=== PATIENT | female | born 1955 | race Caucasian/White ===

== ENCOUNTER 2016-09-20 09:07 | Inpatient (IN) | payer MEDICARE, OTHER ==
[2016-09-20] MEDS ORDERED: SODIUM CHLORIDE 0.9% 1,000 ML IV STA ×2 (09:42)
[2016-09-20] MEDS ORDERED: HYDROmorphone 1 MG/ML 1 ML SYRINGE IVP STA (09:42)
[2016-09-20] MEDS ORDERED: ONDANSETRON 4 MG/2 ML VIAL IVP STA (09:42)
--- NOTE | 2016-09-20 09:45 | ED ---
General Adult HPI - General Chief complaint: Abdominal Pain Stated complaint: POSS PANCREAS ISSUE Time Seen by Provider: 09/20/16 09:34 Source: patient, RN notes reviewed, old records reviewed Mode of arrival: wheelchair Limitations: no limitations - History of Present Illness Initial comments: Patient is a 60-year-old female who presents emergency room today with a chief complaint of abdominal pain 2 months. She does admit that symptoms are worse when she eats. She is expressing pain in the upper quadrants radiates around to the back. She does admit that she went to [facility] in [place], [place] earlier in the week had a CAT scan obtained which showed a enlargement of her liver, spleen, pancreas. She states she was discharged advised follow- up the family doctor. States she saw her doctor yesterday who advised come here to [facility] for possible admission for a pancreatitis. Patient currently rates her pain 9/10 located in the upper abdomen. Does admit that she's had a 12 pound weight loss over the last several months. States symptoms started several months ago with symptoms of nausea vomiting diarrhea. States no longer having diarrhea or vomiting but still feeling nauseated. Patient denies any other complaints. Patient denies any recent fever, chills, shortness of breath, chest pain, back pain, numbness or tingling, dysuria or hematuria, constipation, headaches or visual changes, or any other complaints. - Related Data Home Medications Medication Instructions Recorded Confirmed Hydrochlorothiazide 12.5 mg PO DAILY 06/12/16 09/20/16 Ibuprofen [Motrin] 800 mg PO BID 06/12/16 09/20/16 Levothyroxine Sodium [Synthroid] 75 mcg PO DAILY 06/12/16 09/20/16 Ranitidine HCl [Zantac] 150 mg PO DAILY 06/12/16 09/20/16 amLODIPine [Norvasc] 5 mg PO DAILY 06/12/16 09/20/16 diphenhydrAMINE [Benadryl] 2 cap PO HS PRN 06/12/16 09/20/16 traMADol HCl [Ultram] 50 mg PO Q8H PRN 06/12/16 09/20/16 Allergies Allergy/AdvReac Type Severity Reaction Status Date / Time acetaminophen [From Vicodin] Allergy Rash/Hives Verified 09/20/16 09:27 codeine Allergy Rash/Hives Verified 09/20/16 09:27 hydrocodone [From Vicodin] Allergy Rash/Hives Verified 09/20/16 09:27 Sulfa (Sulfonamide Allergy Swelling Verified 09/20/16 09:27 Antibiotics) atorvastatin [From Lipitor] AdvReac Unknown Verified 09/20/16 09:27 pravastatin [From Pravachol] AdvReac Unknown Verified 09/20/16 09:27 rosuvastatin [From Crestor] AdvReac Unknown Verified 09/20/16 09:27 Review of Systems ROS Statement: Those systems with pertinent positive or pertinent negative responses have been documented in the HPI. ROS Other: All systems not noted in ROS Statement are negative. Past Medical History Past Medical History: GERD/Reflux, Hyperlipidemia, Liver Disease, Osteoarthritis (OA), Thyroid Disorder History of Any Multi-Drug Resistant Organisms: None Reported Past Surgical History: Section, Cholecystectomy, Hernia Repair, Orthopedic Surgery, Tubal Ligation Additional Past Surgical History / Comment(s): Caitie Surgery 2009, rosa 2009, c section 1980, 1983, carpal tunnel surgery bilateral, 2 x hernia surgery, dequervains bilateral hands, 2014 lumbar fusion. Past Anesthesia/Blood Transfusion Reactions: No Reported Reaction Past Psychological History: No Psychological Hx Reported Smoking Status: Former smoker Past Alcohol Use History: None Reported Additional Past Alcohol Use History / Comment(s): Quit smoking January 2016, 1.5 ppd Past Drug Use History: None Reported - Past Family History Brother(s) Family Medical History: Cancer Additional Family Medical History / Comment(s): liver ca, 2 brothers Mother Family Medical History: Thyroid Disorder Father Family Medical History: Cancer Additional Family Medical History / Comment(s): bone ca General Exam - General Exam Comments Initial Comments: General: The patient is awake and alert, in no distress, and does not appear acutely ill. Eye: Pupils are equal, round and reactive to light, extra-ocular movements are intact. No nystagmus. There is normal conjunctiva bilaterally. No signs of icterus. Ears, nose, mouth and throat: There are moist mucous membranes and no oral lesions. Neck: The neck is supple, there is no tenderness or JVD. Cardiovascular: There is a regular rate and rhythm. No murmur, rub or gallop is appreciated. Respiratory: Lungs are clear to auscultation, respirations are non-labored, breath sounds are equal. No wheezes, stridor, rales, or rhonchi. Gastrointestinal: Normal appearance abdomen. Normal bowel sounds. Abdomen soft on palpation. Patient does have tenderness in the both left and right upper quadrant. Tender epigastric. Mild tenderness both right and left CVAs. No rebound tenderness. No guarding. Musculoskeletal: Normal ROM, no tenderness. Strength 5/5. Sensation intact. Pulses equal bilaterally 2+. Neurological: A&O x 3. CN II-XII intact, There are no obvious motor or sensory deficits. Coordination appears grossly intact. Speech is normal. Skin: Skin is warm and dry and no rashes or lesions are noted. Psychiatric: Cooperative, appropriate mood & affect, normal judgment. Limitations: no limitations Course Vital Signs 09/20/16 09:21 Temperature 98.2 F Pulse Rate 82 Respiratory 16 Rate Blood Pressure 129/74 O2 Sat by Pulse 96 Oximetry - Reevaluation(s) Reevaluation #1: 09/20/16 10:07 Patient's medical records from [facility] in [place], [place] were reviewed. CAT scan impression: 1. Posthepatic, portocaval and retroperitoneal lymphadenopathy measuring up to 2.6 cm. Clinical correlation is recommended for possible etiologies including lymphoma. 2. Hepatosplenomegaly. 3. Mild intrahepatic biliary ductal dilation may relate to postcholecystectomy status. As read by radiologist Dr. Kahn. Patient's labs reviewed normal white count. Patient's chemistry showing elevated alk phos at 281. Bilirubin 1.2. TSH 6.3. Lipase 631. Patient's urinalysis negative for any sign of infection. Medical Decision Making - Medical Decision Making Patient examined at this time still expresses some discomfort in the epigastric area. Patient's pain reproducible on palpation to the upper quadrants. Patient has had cholecystectomy. Previous labs and CAT scan [facility] from [facility] Review[facility]. Patient's Labs Reviewed. Does Show Elevation of Lipase Greater Than 600. Elevated Liver Enzymes and Alk Phos. Patient's Urinalysis Shows 9 White Cells Will Be Treated with Antibiotics. Case Discussed with Attending Physician Dr. Aguila did discuss case with Daniela physician Dr. Sanchez who will admit the patient for pancreatitis. - Lab Data Result diagrams: 09/20/16 10:08 09/20/16 10:08 Lab Results 0109/20/16 09/20/16 Range/Units 10:08 10:08 10:08 WBC 8.6 (3.8-10.6) k/uL RBC 4.36 (3.80-5.40) m/uL Hgb 13.9 (11.4-16.0) gm/dL Hct 40.9 (34.0-46.0) % MCV 93.9 (80.0-100.0) fL MCH 32.0 (25.0-35.0) pg MCHC 34.1 (31.0-37.0) g/dL RDW 12.8 (11.5-15.5) % Plt Count 181 (150-450) k/uL Neutrophils % 63 % Lymphocytes % 25 % Monocytes % 7 % Eosinophils % 2 % Basophils % 0 % Neutrophils # 5.4 (1.3-7.7) k/uL Lymphocytes # 2.2 (1.0-4.8) k/uL Monocytes # 0.6 (0-1.0) k/uL Eosinophils # 0.2 (0-0.7) k/uL Basophils # 0.0 (0-0.2) k/uL Sodium 138 (137-145) mmol/L Potassium 3.6 (3.5-5.1) mmol/L Chloride 97 L (98-107) mmol/L Carbon Dioxide 26 (22-30) mmol/L Anion Gap 15 mmol/L BUN 9 (7-17) mg/dL Creatinine 0.77 (0.52-1.04) mg/dL Est GFR (MDRD) Af Amer >60 (>60 ml/min/1.73 sqM) Est GFR (MDRD) Non-Af >60 (>60 ml/min/1.73 sqM) Glucose 116 H (74-99) mg/dL Calcium 10.0 (8.4-10.2) mg/dL Total Bilirubin 1.6 H (0.2-1.3) mg/dL AST 105 H (14-36) U/L ALT 93 H (9-52) U/L Alkaline Phosphatase 292 H (38-126) U/L Total Protein 8.4 H (6.3-8.2) g/dL Albumin 4.7 (3.5-5.0) g/dL Amylase 68 (30-110) U/L Lipase 600 H (23-300) U/L Urine Color Yellow Urine Appearance Clear (Clear) Urine pH 6.0 (5.0-8.0) Ur Specific [place] 1.004 (1.001-1.035) Urine Protein Negative (Negative) Urine Glucose (UA) Negative (Negative) Urine Ketones Negative (Negative) Urine Blood Negative (Negative) Urine Nitrate Negative (Negative) Urine Bilirubin Negative (Negative) Urine Urobilinogen <2.0 (<2.0) mg/dL Ur Leukocyte Esterase Moderate H (Negative) Urine RBC 2 (0-5) /hpf Urine WBC 9 H (0-5) /hpf Ur Squamous Epith Cells 2 (0-4) /hpf Urine Bacteria Rare H (None) /hpf Urine Mucus Rare H (None) /hpf Disposition Clinical Impression: Acute pancreatitis, Retroperitoneal lymphadenopathy Disposition: HOME SELF-CARE Condition: Good Time of Disposition: 11:07
--- NOTE | 2016-09-20 10:27 | XR ---
EXAMINATION TYPE: XR KUB DATE OF EXAM: 09/20/2016 10:21 AM CLINICAL HISTORY: Chronic abdominal pain. Recent CT scan at outside institution TECHNIQUE: 2 upright KUB images of the abdomen are obtained COMPARISON: None. FINDINGS: Scattered gas is seen in non-distended stomach and small bowel loops. Gas and fecal as we ll as contrast material is seen in non-distended colon. Cholecystectomy clips are present. No pneumop eritoneum is seen. Numerous coils ventral wall hernia repair surgery overlying the lower abdomen and upper pelvis. Surgical changes lower lumbar spine is present with L4-L5 artificial disc and posterior fusion hardware is noted. IMPRESSION: Overall nonobstructive bowel gas pattern.
[2016-09-20 10:28] LABS: ALT 93 U/L (9-52); AST 105 U/L (14-36); Alkaline Phosphatase 292 U/L (38-126); Amylase 68 U/L (30-110); Anion Gap 15 mmol/L; Blood Urea Nitrogen 9 mg/dL (7-17); Carbon Dioxide 26 mmol/L (22-30); Chloride 97 mmol/L (98-107); Glucose 116 mg/dL (74-99); Non-African American GFR(MDRD) >60 (>60 ml/min/1.73 sqM); Potassium 3.6 mmol/L (3.5-5.1); Sodium 138 mmol/L (137-145); Total Bilirubin 1.6 mg/dL (0.2-1.3); Total Protein 8.4 g/dL (6.3-8.2)
[2016-09-20 10:29] LABS: Appearance,Urine Clear (Clear); Bacteria,Urine Rare /hpf; Bilirubin,Urine Negative (Negative); Glucose,Urine (UA) Negative (Negative); Ketones,Urine Negative (Negative); Leukocyte Esterase,Urine Moderate (Negative); Mucus,Urine Rare /hpf; Nitrite,Urine Negative (Negative); Particle Count 3754; Protein,Urine Negative (Negative); RBC,Urine 2 /hpf (0-5); Specific Gravity,Urine 1.004 (1.001-1.035); Squamous Epithelial Cell,Urine 2 /hpf (0-4); UA Billing (MACRO vs. MICRO) MICRO; Urobilinogen,Urine <2.0 mg/dL (<2.0); WBC,Urine 9 /hpf (0-5)
[2016-09-20 10:31] LABS: Basophils % (A) 0 %; CH 32.9; CHCM 35.2; Eosinophils # (A) 0.2 k/uL (0-0.7); Eosinophils % (A) 2 %; HCT 40.9 % (34.0-46.0); HDW 2.35; HGB 13.9 gm/dL (11.4-16.0); Luc # (Auto) 0.22; Luc % (Auto) 3; Lymphocytes # (A) 2.2 k/uL (1.0-4.8); Lymphocytes % (A) 25 %; MCHC 34.1 g/dL (31.0-37.0); MCV 93.9 fL (80.0-100.0); Mean Platelet Volume 8.1; Monocytes # (A) 0.6 k/uL (0-1.0); Monocytes % (A) 7 %; Neutrophils # (A) 5.4 k/uL (1.3-7.7); Neutrophils % (A) 63 %; RBC 4.36 m/uL (3.80-5.40); RDW 12.8 % (11.5-15.5); WBC 8.6 k/uL (3.8-10.6); WBC (Perox) 8.55
[2016-09-20] MEDS ORDERED: SODIUM CHLORIDE 0.9% 1,000 ML IV ONE (11:07)
[2016-09-20] MEDS ORDERED: NALOXONE 0.4 MG/ML 1 ML VIAL IV PRN (11:07)
[2016-09-20] MEDS: HYDROmorphone 1 MG/ML 1 ML SYRINGE IV PRN ×4 (11:46→23:37)
[2016-09-20] MEDS ORDERED: DICYCLOMINE 10 MG CAP PO PRN (15:02)
[2016-09-20 15:22] VITALS: BMI 25.7
[2016-09-20] MEDS: PANTOPRAZOLE 40 MG/10 ML VIAL IVP SCH (15:40)
[2016-09-20] MEDS: SODIUM CHLORIDE 0.9% 1,000 ML IV SCH (15:43)
--- NOTE | 2016-09-20 16:08 | HP ---
DATE OF ADMISSION: CHIEF COMPLAINT: Abdominal pain. HISTORY OF PRESENT ILLNESS: This is a 60-year-old woman with a past medical history of multiple medical problems, GERD, hyperlipidemia, history of liver disease, history of degenerative joint disease, hypothyroidism, cholecystectomy, hernia repair, history of nicotine dependence, being followed by Dr. Heck in the outpatient setting is complaining of abdominal pain for the last several weeks. Patient had abdominal pain in the anterior part of the chest and also the back also. The patient was evaluated at [facility] and the patient had abnormal CAT scan. The patient was subsequently referred to [facility] Emergency Room and was admitted for further evaluation and treatment. The patient came to emergency room this morning and admitted for further evaluation. The recent CT scan showed hepatosplenomegaly and history of pancreatic abnormalities as well as lymphadenopathy. She also had 12 pound weight loss recently. There is history of fever, rigors. No history of headache, loss of consciousness, seizures. No hematochezia, melena at this time. The liver enzymes are elevated. Total bilirubin of 1.6 and AST was 105, ALT 93, alkaline phosphatase 290 and total protein 8.4. Lipase was 600. UA shows no evidence of urinary tract infection. PAST MEDICAL HISTORY: History of gastroesophageal reflux disease, hyperlipidemia, liver disease, degenerative joint disease, hypothyroidism, section, cholecystectomy, hernia repair. Medications prior to admission include: 1. Ultram 50 mg q.8 p.r.n. 2. Benadryl 2 capsules q.h.s. p.r.n. 3. Norvasc 5 mg p.o. daily. 4. Zantac 150 mg p.o. daily. 5. Zofran 8 mg p.o. b.i.d. p.r.n. 6. Omeprazole 40 mg daily. 7. Synthroid 100 mcg p.o. daily. 8. Motrin 800 mg t.i.d. p.r.n. 9. Hydrochlorothiazide 12.5 mg p.o. daily. 10. Bentyl 10 mg p.o. t.i.d. p.r.n. ALLERGIES: VICODIN, CODEINE, SULFAMIDE ANTIBIOTICS, LIPITOR, PRAVACHOL, CRESTOR. FAMILY HISTORY: History of liver cancer in 2 brothers. SOCIAL HISTORY: Previous history of smoking. No history of alcohol intake. REVIEW OF SYSTEMS: ENT: No diminished hearing or vision. CARDIOVASCULAR: No angina or palpitations. RESPIRATORY: No cough. GI: As mentioned earlier. : No dysuria. NERVOUS SYSTEM: No numbness or weakness. ALLERGY/IMMUNOLOGY: No asthma or hayfever. MUSCULOSKELETAL: As mentioned earlier. HEMATOLOGY/ONCOLOGY: No history of anemia. ENDOCRINE: As mentioned earlier. CONSTITUTIONAL: As mentioned earlier. DERMATOLOGY: Negative. RHEUMATOLOGY: Negative. PSYCHIATRY: As mentioned earlier. PHYSICAL EXAMINATION: Alert and oriented x2. Pulse is 78, blood pressure 140/80, respirations 16, temperature 98 degrees, pulse ox 94% on room air. HEENT: Conjunctivae normal. Oral mucosa moist. NECK: No jugular venous distention. No carotid bruit. No lymph node enlargement. CARDIOVASCULAR: S1 and S2, muffled. No S3, no S4. RESPIRATORY: Breath sounds diminished at the bases. A few scattered rhonchi. No crackles. ABDOMEN: Soft, mild diffuse discomfort on palpation. No guarding or rigidity. No mass palpable. LEGS: No edema, no swelling. NERVOUS SYSTEM: Higher function as mentioned. Moves all four limbs. No focal motor or sensory deficits. LYMPHATIC: No lymphadenopathy in the neck, axillae or groin. SKIN: No ulcer, rash or bleeding. LABS: CBC within normal limits. Sodium 130, potassium 3.6, glucose 116, total bili is 1.6, AST is 105, ALT is 93, lipase is 600. UA noted. ASSESSMENT: 1. Abdominal pain with possibly rule out chronic pancreatitis. 2. Rule out extrahepatic biliary obstruction. 3. Possible cirrhosis of liver. 4. Increased bilirubin. 5. Increased AST, ALT and alkaline phosphatase. 6. Increased lipase. 7. Possible urinary tract infection. 8. History gastroesophageal reflux disease. 9. Hyperlipidemia. 10. History of cholecystectomy. 11. History of degenerative joint disease. 12. History of section. 13. History of Caitie fundoplication surgery and cholecystectomy. 14. Remote history of nicotine dependence. 15. FULL CODE. RECOMMENDATIONS AND DISCUSSION: In this 60-year-old woman who presents with multiple complex medical issues, we will continue to monitor the patient closely. A recent liver biopsy showed possible cirrhosis. I recommend a Gastroenterology evaluation by Dr. Paz and hepatitis panel. Otherwise resume the home medications. Avoid hepatotoxic medications. Guarded prognosis. Further recommendations to follow. See orders for details. Copy of the dictation forwarded to Dr. Heck, who is the primary physician.
[2016-09-20 16:16] LABS: INR 1.2 (<1.1); Prothrombin Time 12.2 sec (9.0-12.0)
[2016-09-20 16:37] LABS: Hepatitis B Surface Ag Index 0.05
[2016-09-20 16:43] LABS: Hepatitis B Core IgM Index 0.05
[2016-09-20 16:55] LABS: Hepatitis C Virus IgG Index 0.03
[2016-09-20 17:02] LABS: Hepatitis C Virus IgG Ab Negative (Negative)
[2016-09-20] MEDS: HEPARIN SODIUM,PORCINE 5,000 UNIT/ML 1 ML VIAL SQ SCH (22:12)
[2016-09-21] MEDS: HYDROmorphone 1 MG/ML 1 ML SYRINGE IV PRN ×7 (02:59→21:49)
[2016-09-21] MEDS: SODIUM CHLORIDE 0.9% 1,000 ML IV SCH ×2 (05:07→15:34)
[2016-09-21] MEDS: LEVOTHYROXINE 100 MCG TAB PO SCH (05:59)
[2016-09-21 07:29] LABS: Basophils % (A) 1 %; CH 32.4; CHCM 33.4; Eosinophils # (A) 0.2 k/uL (0-0.7); Eosinophils % (A) 2 %; HCT 37.6 % (34.0-46.0); HDW 2.36; HGB 12.2 gm/dL (11.4-16.0); Luc # (Auto) 0.21; Luc % (Auto) 3; Lymphocytes # (A) 2.6 k/uL (1.0-4.8); Lymphocytes % (A) 35 %; MCH 31.7 pg (25.0-35.0); MCHC 32.5 g/dL (31.0-37.0); MCV 97.4 fL (80.0-100.0); Mean Platelet Volume 8.1; Monocytes # (A) 0.5 k/uL (0-1.0); Monocytes % (A) 7 %; Neutrophils # (A) 4.1 k/uL (1.3-7.7); Neutrophils % (A) 54 %; RBC 3.86 m/uL (3.80-5.40); RDW 12.7 % (11.5-15.5); WBC 7.6 k/uL (3.8-10.6); WBC (Perox) 7.89
[2016-09-21 07:46] LABS: ALT 80 U/L (9-52); AST 83 U/L (14-36); Alkaline Phosphatase 236 U/L (38-126); Anion Gap 11 mmol/L; Blood Urea Nitrogen 12 mg/dL (7-17); Calcium 9.6 mg/dL (8.4-10.2); Carbon Dioxide 29 mmol/L (22-30); Chloride 100 mmol/L (98-107); Glucose 76 mg/dL (74-99); Non-African American GFR(MDRD) >60 (>60 ml/min/1.73 sqM); Potassium 3.7 mmol/L (3.5-5.1); Sodium 140 mmol/L (137-145); Total Bilirubin 1.2 mg/dL (0.2-1.3); Total Protein 6.9 g/dL (6.3-8.2)
[2016-09-21] MEDS: HEPARIN SODIUM,PORCINE 5,000 UNIT/ML 1 ML VIAL SQ SCH ×2 (08:11→21:00)
[2016-09-21] MEDS: PANTOPRAZOLE 40 MG/10 ML VIAL IVP SCH (08:11)
[2016-09-21] MEDS: amLODIPine 5 MG TAB PO SCH (08:12)
[2016-09-21] MEDS: FAMOTIDINE 20 MG TAB PO SCH (08:12)
[2016-09-21] MEDS: HYDROCHLOROTHIAZIDE 12.5 MG CAP PO SCH (08:12)
[2016-09-21] MEDS: ONDANSETRON 4 MG/2 ML VIAL IVP PRN ×2 (12:28→21:58)
[2016-09-22] MEDS: HYDROmorphone 1 MG/ML 1 ML SYRINGE IV PRN ×7 (01:12→21:56)
[2016-09-22] MEDS: diphenhydrAMINE 50 MG CAP PO PRN (01:41)
[2016-09-22] MEDS: SODIUM CHLORIDE 0.9% 1,000 ML IV SCH ×2 (04:58→22:00)
[2016-09-22] MEDS: ONDANSETRON 4 MG/2 ML VIAL IVP PRN ×2 (05:02→21:58)
[2016-09-22] MEDS: LEVOTHYROXINE 100 MCG TAB PO SCH (05:30)
[2016-09-22] MEDS: PANTOPRAZOLE 40 MG/10 ML VIAL IVP SCH (08:35)
[2016-09-22] MEDS: amLODIPine 5 MG TAB PO SCH (08:35)
[2016-09-22] MEDS: PANTOPRAZOLE 40 MG TABLET PO SCH (08:35)
[2016-09-22] MEDS: HEPARIN SODIUM,PORCINE 5,000 UNIT/ML 1 ML VIAL SQ SCH ×2 (08:35→20:05)
[2016-09-22] MEDS: FAMOTIDINE 20 MG TAB PO SCH (08:35)
[2016-09-22] MEDS: HYDROCHLOROTHIAZIDE 12.5 MG CAP PO SCH (08:36)
--- NOTE | 2016-09-22 11:22 | PN ---
DATE OF SERVICE: 09/21/2016 This 60-year-old woman was admitted with abdominal pain, features of pancreatitis and lymphadenopathy also. The patient also had liver biopsy done 2 months ago which showed apparent fibrosis, shows portal fibrosis extending around the nodules of hepatitis consistent with cirrhosis, not suggestive of hemochromatosis. The LFTs are improving at this time. Patient is being closely monitored. Hepatitis panel is also negative. On exam, alert and oriented x3. Pulse 75, blood pressure 180/70, respirations 18, temperature 96.4, pulse ox 94% on room air. HEENT: Conjunctivae normal. CARDIOVASCULAR: S1 and S2 muffled. LUNGS: Breath sounds are diminished at the bases. No rhonchi or crackles. ABDOMEN: Soft, mild diffuse discomfort. No masses palpable. EXTREMITIES: No edema. NERVOUS SYSTEM: No focal deficits. LABS: Bilirubin is 1.2 normal, AST is 83 and ALT is 80. Alk phos is 236. UA noted. Drug screen is negative. is negative. ASSESSMENT: 1. Abdominal pain, possibly acute pancreatitis. 2. Rule out extrahepatic biliary obstruction. 3. Possible cirrhosis of the liver on recent liver biopsy. 4. Increased bilirubin. 5. Retroperitoneal lymphadenopathy; rule out lymphoma. 6. Increased AST, ALT, alkaline phosphatase. 7. Increased lipase. 8. Urinary tract infection. 9. History of gastroesophageal reflux disease. 10. Hyperlipidemia. 11. History of cholecystectomy. 12. Degenerative joint disease. 13. History of section. 14. History of cholecystectomy. 15. Remote history of nicotine dependence. 16. FULL CODE. RECOMMENDATIONS: This 60-year-old woman who presented with multiple complex medical issues. At this time we will monitor the patient closely. Continue current medications and symptomatic treatment. Otherwise, at this time I would recommend continue with current medications, continue with symptomatic treatment. Otherwise, repeat labs. Gastroenterology consultation. Consult with Dr. Azul also. Further recommendations to follow. MTDD
--- NOTE | 2016-09-22 13:52 | P.CONS ---
History of Present Illness - Reason for Consult Consult date: 09/21/16 Pancreatitis - History of Present Illness The patient is a 60-year-old female who initially presented to [facility] with abdominal pains and was found to have elevated lipase and abnormal CT of the abdomen. She was transferred to this hospital for further workup and management. When I asked to see her for possible pancreatitis. The patient has a history of abnormal liver chemistries and had a prior liver biopsy within the last few months that showed findings consistent with cirrhosis. On the CT of her abdomen done prior to this admission, there were abnormalities noted in the pancreas as well as splenomegaly and lymphadenopathy. Hematology/ oncology would be also following with us. The patient reported pain in the upper abdomen as well as in the back. There is history of nausea as well as vomiting in the past. Has history of gastroesophageal reflux disease. There is history of 12 pound weight loss over the last couple months. Review of Systems Constitutional: No fever or chills. Reported 12 pound weight loss over the last couple or 3 months Neurologic: No headaches, double vision or other neurologic complaints Cardiopulmonary: Denied chest pains, shortness of breath or palpitations Gastrointestinal: See present illness above. She has no bowel issues or hematochezia Genitourinary: No frequency, urgency or blood in her urine Musculoskeletal: History of osteoarthritis Endocrine: No history of diabetes, has history of thyroid disease Skin: No rashes Psychiatric: Anxiety or depression Past Medical History Past Medical History: GERD/Reflux, Hyperlipidemia, Liver Disease, Osteoarthritis (OA), Thyroid Disorder History of Any Multi-Drug Resistant Organisms: None Reported Past Surgical History: Section, Cholecystectomy, Hernia Repair, Orthopedic Surgery, Tubal Ligation Additional Past Surgical History / Comment(s): Caitie Surgery 2009, rosa 2009, c section 1980, 1983, carpal tunnel surgery bilateral, 2 x hernia surgery, dequervains bilateral hands, 2014 lumbar fusion. EGD- 2015. Past Anesthesia/Blood Transfusion Reactions: No Reported Reaction Past Psychological History: No Psychological Hx Reported Smoking Status: Former smoker Past Alcohol Use History: None Reported Additional Past Alcohol Use History / Comment(s): Quit smoking January 2016, 1.5 ppd Past Drug Use History: None Reported - Past Family History Brother(s) Family Medical History: Cancer, Liver Disease, Myocardial Infarction ([place]) Additional Family Medical History / Comment(s): Patient states has 7 brothers- 6 brothers have Mother Family Medical History: Diabetes Mellitus, Thyroid Disorder Father Family Medical History: Cancer, CVA/TIA, Hypertension, Prostate Disorder Additional Family Medical History / Comment(s): bone ca sisters Additional Family Medical History / Comment(s): sister from down syndrome-1968 other sister from drug overdose in 2008. Medications and Allergies Home Medications Medication Instructions Recorded Confirmed Type Hydrochlorothiazide 12.5 mg PO DAILY 06/12/16 09/20/16 History Ibuprofen [Motrin] 800 mg PO TID PRN 06/12/16 09/20/16 History Ranitidine HCl [Zantac] 150 mg PO DAILY 06/12/16 09/20/16 History amLODIPine [Norvasc] 5 mg PO DAILY 06/12/16 09/20/16 History diphenhydrAMINE [Benadryl] 2 cap PO HS PRN 06/12/16 09/20/16 History traMADol HCl [Ultram] 50 mg PO Q8H PRN 06/12/16 09/20/16 History Dicyclomine [Bentyl] 10 mg PO TID PRN 09/20/16 09/20/16 History Levothyroxine Sodium [Synthroid] 100 mcg PO DAILY 09/20/16 09/20/16 History Omeprazole 40 mg PO DAILY 09/20/16 09/20/16 History Ondansetron [Zofran ODT] 8 mg PO Q12H PRN 09/20/16 09/20/16 History Allergies Allergy/AdvReac Type Severity Reaction Status Date / Time acetaminophen [From Vicodin] Allergy Rash/Hives Verified 09/20/16 09:27 codeine Allergy Rash/Hives Verified 09/20/16 09:27 hydrocodone [From Vicodin] Allergy Rash/Hives Verified 09/20/16 09:27 Sulfa (Sulfonamide Allergy Swelling Verified 09/20/16 09:27 Antibiotics) atorvastatin [From Lipitor] AdvReac Unknown Verified 09/20/16 09:27 pravastatin [From Pravachol] AdvReac Unknown Verified 09/20/16 09:27 rosuvastatin [From Crestor] AdvReac Unknown Verified 09/20/16 09:27 Physical Exam Vitals: Vital Signs Temp Pulse Resp BP Pulse Ox 09/21/16 19:48 97.7 F 76 16 128/69 92 L 09/21/16 13:48 96.4 F L 75 18 188/78 93 L 09/21/16 07:18 97.1 F L 74 16 134/81 94 L 09/21/16 01:00 98.2 F 77 16 126/69 93 L Intake and Output 09/21/16 09/21/16 09/22/16 14:59 22:59 06:59 Intake Total 1080 825 Balance 1080 825 Intake: IV 600 225 Sodium Chloride 0.9% 1, 600 225 000 ml @ 75 mls/hr IV . [id number] ODETTE Rx#:[id number] Oral 480 600 Other: Voiding Method Toilet # Voids 2 General: Appears stated age, very pleasant in no acute distress Head and neck: Normocephalic and atraumatic, conjunctivae pink and sclerae not icteric, mucous membranes moist and pink. No masses in the neck or tracheal shifts Lungs: Clear to auscultation with no dullness to percussion Heart: Regular, no abnormal sounds, murmurs, gallops or friction rubs Abdomen: Soft, no masses or organomegalies. Minimal tenderness in the epigastric area no guarding or rebound. Bowel sounds present Extremities: No clubbing, cyanosis or edema Neurologic: Alert and oriented 3. Cranial nerves grossly intact, no gross sensory or motor abnormalities Results CBC & Chem 7: 09/21/16 03:18 09/21/16 06:33 Labs: Abnormal Lab Results - Last 24 Hours (Table) 09/21/16 Range/Units 06:33 AST 83 H (14-36) U/L ALT 80 H (9-52) U/L Alkaline Phosphatase 236 H (38-126) U/L Microbiology - Last 24 Hours (Table) 09/20/16 18:00 Urine Culture - Final Urine,Clean Catch 09/20/16 15:34 Blood Culture - Preliminary Blood No Growth after 24 hours Assessment and Plan Plan: 60-year old female with abdominal pain and abnormal CT as well as elevated lipase. The possibility of pancreatitis is considered. Other issues especially in light of her history of liver disease and other abnormal findings on her CT including adenopathy could be contributing to her picture. Agree with your current management. Will continue supportive measures for the possibility of pancreatitis. I will discuss with you and with hematology further workup plans. Will follow with you with interest.
[2016-09-22] MEDS ORDERED: MAGNESIUM HYDROXIDE 2,400 MG/10 ML CUP PO PRN (15:04)
[2016-09-22] MEDS: SENNOSIDES-DOCUSATE SODIUM 1 EACH TAB PO SCH (20:05)
[2016-09-22] MEDS ORDERED: POTASSIUM CHLORIDE ER 20 MEQ TAB.ER PO STA (22:24)
[2016-09-22] MEDS ORDERED: CALCIUM CARBONATE 500 MG CHEWABLE PO PRN (22:39)
--- NOTE | 2016-09-22 23:17 | P.PN ---
Subjective Date of service 09/22/2016. Progress note being dictated for Dr. Aguirre. Interval history: This is a 60-year-old female admitted with acute abdominal pain, possibly acute pancreatitis, portacaval and retroperitoneal lymphadenopathy and multiple other medical issues. Complains of a lateral upper abdominal quadrant pain radiating to back. LFTs improving, lipase and total bili normalized. Hepatitis panel negative Tolerating clear liquid diet with no nausea vomiting or diarrhea. Afebrile, normal WBC. Evaluated by GI with recommendations noted. Objective - Vital Signs Vital signs: Vital Signs Temp 96.3 F L 09/22/16 13:43 Pulse 71 09/22/16 13:43 Resp 16 09/22/16 13:43 BP 139/76 09/22/16 13:43 Pulse Ox 97 09/22/16 13:43 Intake & Output 09/22/16 09/22/16 09/23/16 06:59 18:59 06:59 Intake Total 1025 2480 Balance 1025 2480 Intake: IV 825 600 Sodium Chloride 0.9% 1, 825 600 000 ml @ 75 mls/hr IV . [id number] [facility] Rx#:[id number] Oral 200 1880 Other: Voiding Method Toilet Toilet # Voids 1 2 - Exam PHYSICAL EXAM: VITAL SIGNS: As above GENERAL: [Sitting up in bed, no acute distress] HEENT: [Pupils equal conjunctiva normal.] NECK: [Supple, no JVD] RESPIRATORY EFFORT:[Normal] LUNGS: [Bilateral bases diminished, no wheezing no crackles no rhonchi] CARDIOVASCULAR[regular S1 and S2, no murmurs, no rubs no edema] GI: [Abdomen soft, minimal bilateral upper quadrant tenderness, no organomegaly no guarding, no rigidity positive bowel sounds.] PSYCH: [Alert and oriented -3, mood and affect normal.] NEURO: No focal deficit, moves all 4 extremities, strength and sensation grossly intact - Labs CBC & Chem 7: 09/21/16 03:18 09/21/16 06:33 Labs: Microbiology - Last 24 Hours (Table) 09/20/16 15:34 Blood Culture - Preliminary Blood No Growth after 48 hours 09/20/16 18:00 Urine Culture - Final Urine,Clean Catch Assessment and Plan Plan: 1. Abdominal pain possibly acute pancreatitis, lipase has normalized; CT reports retroperitoneal and portacaval lymphadenopathy, rule out lymphoma. 2. [History of liver cirrhosis on recent liver biopsy as per patient]. LFTs improving 3. Possible acute UTI, final urine culture pending 4. [Gastroesophageal reflux disease]. 5. [Hyperlipidemia . 6. [history cholecystectomy]]. 7. [Degenerative joint disease]. 8. Remote history of nicotine dependence Plan: Continue on current medication regime ,monitoring and symptomatic treatment. Discussed with radiologist verbal report from [place] CT reporting portacaval and retroperitoneal lymphadenopathy 2.6 cm; radiologist accessing [place] actual CT/ Discussing obtaining biopsies. Oncology consult in place with recommendations pending. Patient updated on plan of care, verbalized understanding of and agreement with. The impression and plan of care has been dictated as directed. : I performed a H&P examination of this patient and discussed the same with the dictator. I agree with the dictator's note. Any additional findings/opinions/ etc. will be noted.
[2016-09-23] MEDS: HYDROmorphone 1 MG/ML 1 ML SYRINGE IV PRN ×8 (01:01→22:41)
[2016-09-23] MEDS: LEVOTHYROXINE 100 MCG TAB PO SCH (05:22)
[2016-09-23] MEDS: diphenhydrAMINE 50 MG CAP PO PRN (05:22)
[2016-09-23 06:23] LABS: CH 32.7; CHCM 34.1; HCT 35.9 % (34.0-46.0); MCH 32.2 pg (25.0-35.0); MCHC 33.5 g/dL (31.0-37.0); MCV 96.1 fL (80.0-100.0); RBC 3.73 m/uL (3.80-5.40); RDW 12.5 % (11.5-15.5); WBC 5.5 k/uL (3.8-10.6)
[2016-09-23 06:42] LABS: ALT 81 U/L (9-52); AST 93 U/L (14-36); Alkaline Phosphatase 208 U/L (38-126); Amylase 45 U/L (30-110); Anion Gap 11 mmol/L; Blood Urea Nitrogen 6 mg/dL (7-17); Calcium 9.5 mg/dL (8.4-10.2); Carbon Dioxide 28 mmol/L (22-30); Chloride 99 mmol/L (98-107); Glucose 102 mg/dL (74-99); Non-African American GFR(MDRD) >60 (>60 ml/min/1.73 sqM); Potassium 3.9 mmol/L (3.5-5.1); Sodium 138 mmol/L (137-145); Total Bilirubin 0.9 mg/dL (0.2-1.3); Total Protein 6.8 g/dL (6.3-8.2)
[2016-09-23] MEDS: FAMOTIDINE 20 MG TAB PO SCH (08:57)
[2016-09-23] MEDS: HYDROCHLOROTHIAZIDE 12.5 MG CAP PO SCH (08:57)
[2016-09-23] MEDS: amLODIPine 5 MG TAB PO SCH (08:57)
[2016-09-23] MEDS: PANTOPRAZOLE 40 MG TABLET PO SCH (08:57)
[2016-09-23] MEDS: HEPARIN SODIUM,PORCINE 5,000 UNIT/ML 1 ML VIAL SQ SCH ×2 (08:57→20:51)
[2016-09-23] MEDS: SENNOSIDES-DOCUSATE SODIUM 1 EACH TAB PO SCH ×2 (09:00→20:51)
--- NOTE | 2016-09-23 10:45 | P.PN ---
Subjective Principal diagnosis: Elevated lipase 60-year-old female history cholecystectomy reevaluated today in regards to elevated lipase with retroperitoneal lymphadenopathy per outside CT. Feels well today. Minimal abdominal discomfort. Evaluated by hematology this morning. Amylase 45. Lipase 321. Total bilirubin 0.9. AST 93. ALT 81. Alkaline phosphate is 208. Afebrile. Objective - Vital Signs Vital signs: Vital Signs Temp 98.3 F 09/23/16 07:24 Pulse 70 09/23/16 07:24 Resp 16 09/23/16 07:24 BP 118/70 09/23/16 07:24 Pulse Ox 97 09/23/16 07:24 Intake & Output 09/22/16 09/23/16 09/23/16 18:59 06:59 18:59 Intake Total 2480 240 Balance 2480 240 Intake: IV 600 Sodium Chloride 0.9% 1, 600 000 ml @ 75 mls/hr IV . [id number] [facility] Rx#:[id number] Oral 1880 240 Other: Voiding Method Toilet Toilet # Voids 2 1 1 - Exam General appearance: The patient is alert, oriented, in no acute distress. HET: Head is normocephalic and atraumatic. Pupils are equal and reactive. Oropharynx is clear without lesions. Neck: Supple without lymphadenopathy. Trachea midline. Heart: S1 S2. Regular rate and rhythm. Lungs: No crackles or wheezes are heard. Abdomen: Soft, mild tenderness midepigastrium, nondistended with bowel sounds. No peritoneal signs. No palpable organomegaly or masses. Extremities: Normal skin color and turgor. No cyanosis, rash, ulceration, clubbing, or edema. Radial and pedal pulses are 2/4 bilaterally. Neurological: No focal deficits. Strength and sensation are grossly intact. - Labs CBC & Chem 7: 09/23/16 05:31 09/23/16 05:31 Labs: Abnormal Lab Results - Last 24 Hours (Table) 09/23/16 09/23/16 Range/Units 05:31 05:31 RBC 3.73 L (3.80-5.40) m/uL Plt Count 138 L (150-450) k/uL BUN 6 L (7-17) mg/dL Glucose 102 H (74-99) mg/dL AST 93 H (14-36) U/L ALT 81 H (9-52) U/L Alkaline Phosphatase 208 H (38-126) U/L Lipase 321 H (23-300) U/L Microbiology - Last 24 Hours (Table) 09/20/16 15:34 Blood Culture - Preliminary Blood No Growth after 48 hours Assessment and Plan Plan: Impression: 1. 60-year-old female admitted with abdominal pain and elevated lipase possible pancreatitis with CT adenopathy hepatosplenomegaly rule out lymphoma currently being evaluated by oncology. Etiology of elevated lipase is unclear at this time. 2. History of cirrhosis status post liver biopsy June 2016. 3. History of cholecystectomy. Plan: Further workup per oncology. From a GI standpoint continue supportive measures. No further workup at this time. Will follow as needed. Assessment and plan of care discussed with Dr. Paz
[2016-09-23] MEDS ORDERED: RX INFO: IV CONTRAST WAS GIVEN 1 EACH MISC MISCELLANE PRN (12:24)
--- NOTE | 2016-09-23 14:02 | CT ---
EXAMINATION TYPE: CT chest w con DATE OF EXAM: 09/23/2016 1:19 PM COMPARISON: None HISTORY: Adenopathy CT DLP: 166.10 mGycm Automated exposure control for dose reduction was used. CONTRAST: CT scan of the chest is performed with IV Contrast, patient injected with 100 ml mL of Omnipaque 300. FINDINGS: LUNGS: Emphysematous changes are present greater than upper lobes. No endobronchial lesion, pleural o r pericardial effusion MEDIASTINUM: There are no greater than 1 cm hilar or mediastinal lymph nodes. No pericardial effusi on is seen. AORTA: No additional significant abnormality is seen. OTHER: The liver shows low attenuation with areas of more relative high attenuation is somewhat poor ly defined. Patient is post cholecystectomy. Spleen is thought likely to be enlarged. There is some p ortal adenopathy, retroperitoneal adenopathy suspected. IMPRESSION: Heterogeneous density within the liver, difficult to exclude an underlying mass. There m ay be fatty infiltration with focal fatty sparing. Consider liver MRI. Possible splenomegaly. Upper a bdominal adenopathy is described.
[2016-09-23] MEDS: LACTULOSE 20 GM/30 ML CUP PO SCH ×2 (15:21→20:51)
[2016-09-23] MEDS ORDERED: POTASSIUM CHLORIDE ER 20 MEQ TAB.ER PO STA (18:23)
[2016-09-23] MEDS: SODIUM CHLORIDE 0.9% 1,000 ML IV SCH (20:50)
--- NOTE | 2016-09-23 22:27 | P.CONS ---
History of Present Illness - Reason for Consult Consult date: 09/23/16 Hepatosplenomegaly. Abdominal lymphadenopathy - History of Present Illness The patient is a 60-year-old lady, with a long-standing history of liver disease. Obtained from the patient, and records from Dr. Beach's office, as well as in the hospital EHR from 06/29 were reviewed. The patient has a history of a liver enzyme elevation since at least 2011. Workup for hepatitis was negative at that time. There is no history of any excessive alcohol use. The patient did have a liver biopsy in 02/23, revealing steatohepatitis with lobular fibrosis. She continued on follow-up. Due to some increase in liver enzymes, as well as her complains of abdominal pain, she had a repeat ultrasound as well as a liver biopsy in 06/29. This was positive for cirrhosis. The patient states that she's been having issues with the diarrhea off and on , since 04/29. Since , she has developed abdominal pain intermittently that seems to be sometimes related to food but other times not related to any specific aggravating factor. She went in to [facility] ER, because of increasing abdominal pain which had become more persistent, as well as nausea with some vomiting. Due to these symptoms, the patient oral intake had declined significantly. She had a computed tomography scan of the abdomen and pelvis at [facility]. We have the report indicated evidence of hepatosplenomegaly with the liver measuring at least to 19 cm. In addition there was evidence of upper abdominal adenopathy, in the portal, aortocaval and peripancreatic regions. Largest lymph nodes were between 2-3 cm. The patient' s labs suggested the pancreatitis and the patient was transferred here for further management. Follow pancreatitis, she is currently being managed conservatively. She has been seen by gastroenterology. Diet was reintroduced last night and so far the patient is tolerating it well. Abdominal pain is improved. Oncology consult was placed for further evaluation and recommendations regarding the findings on the computed tomography scan. The patient does have a long-standing history of smoking, of greater than 40 pack years. She states that she quit back in 01/27 Review of Systems Constitutional: Reports weight loss Eyes: denies blurred vision, denies pain Ears: deny: decreased hearing, ear discharge, earache, tinnitus Ears, nose, mouth and throat: Denies headache, Denies sore throat Cardiovascular: Denies chest pain, Denies shortness of breath Respiratory: Denies cough Gastrointestinal: Reports abdominal pain, Reports diarrhea, Reports nausea Genitourinary: Denies dysuria, Denies hematuria Menstruation: Reports postmenopausal Musculoskeletal: Denies myalgias Integumentary: Denies pruritus, Denies rash Neurological: Reports weakness Psychiatric: Denies anxiety, Denies depression Endocrine: Reports weight change Hematologic/Lymphatic: Reports as per HPI Past Medical History Past Medical History: GERD/Reflux, Hyperlipidemia, Liver Disease, Osteoarthritis (OA), Thyroid Disorder History of Any Multi-Drug Resistant Organisms: None Reported Past Surgical History: Section, Cholecystectomy, Hernia Repair, Orthopedic Surgery, Tubal Ligation Additional Past Surgical History / Comment(s): Caitie Surgery 2009, rosa 2009, c section 1980, 1983, carpal tunnel surgery bilateral, 2 x hernia surgery, dequervains bilateral hands, 2014 lumbar fusion. EGD- 2015. Past Anesthesia/Blood Transfusion Reactions: No Reported Reaction Past Psychological History: No Psychological Hx Reported Smoking Status: Former smoker Past Alcohol Use History: None Reported Additional Past Alcohol Use History / Comment(s): Quit smoking January 2016, 1.5 ppd Past Drug Use History: None Reported - Past Family History Brother(s) Family Medical History: Cancer, Liver Disease, Myocardial Infarction ([place]) Additional Family Medical History / Comment(s): Patient states has 7 brothers- 6 brothers have Mother Family Medical History: Diabetes Mellitus, Thyroid Disorder Father Family Medical History: Cancer, CVA/TIA, Hypertension, Prostate Disorder Additional Family Medical History / Comment(s): bone ca sisters Additional Family Medical History / Comment(s): sister from down syndrome-1968 other sister from drug overdose in 2008. Medications and Allergies Home Medications Medication Instructions Recorded Confirmed Type Hydrochlorothiazide 12.5 mg PO DAILY 06/12/16 09/20/16 History Ibuprofen [Motrin] 800 mg PO TID PRN 06/12/16 09/20/16 History Ranitidine HCl [Zantac] 150 mg PO DAILY 06/12/16 09/20/16 History amLODIPine [Norvasc] 5 mg PO DAILY 06/12/16 09/20/16 History diphenhydrAMINE [Benadryl] 2 cap PO HS PRN 06/12/16 09/20/16 History traMADol HCl [Ultram] 50 mg PO Q8H PRN 06/12/16 09/20/16 History Dicyclomine [Bentyl] 10 mg PO TID PRN 09/20/16 09/20/16 History Levothyroxine Sodium [Synthroid] 100 mcg PO DAILY 09/20/16 09/20/16 History Omeprazole 40 mg PO DAILY 09/20/16 09/20/16 History Ondansetron [Zofran ODT] 8 mg PO Q12H PRN 09/20/16 09/20/16 History Allergies Allergy/AdvReac Type Severity Reaction Status Date / Time acetaminophen [From Vicodin] Allergy Rash/Hives Verified 09/20/16 09:27 codeine Allergy Rash/Hives Verified 09/20/16 09:27 hydrocodone [From Vicodin] Allergy Rash/Hives Verified 09/20/16 09:27 Sulfa (Sulfonamide Allergy Swelling Verified 09/20/16 09:27 Antibiotics) atorvastatin [From Lipitor] AdvReac Unknown Verified 09/20/16 09:27 pravastatin [From Pravachol] AdvReac Unknown Verified 09/20/16 09:27 rosuvastatin [From Crestor] AdvReac Unknown Verified 09/20/16 09:27 Physical Exam Vitals: Vital Signs Temp Pulse Resp BP BP Pulse Ox 09/23/16 07:24 98.3 F 70 16 118/70 97 09/23/16 03:16 16 09/23/16 00:30 97.0 F L 79 16 122/69 93 L 09/22/16 20:00 98.0 F 72 16 130/82 96 09/22/16 13:43 96.3 F L 71 16 139/76 97 Intake and Output 09/22/16 09/23/16 09/23/16 22:59 06:59 14:59 Intake Total 480 Balance 480 Intake: Oral 480 Other: Voiding Method Toilet # Voids 1 1 - Constitutional General appearance: no acute distress - EENT Eyes: EOMI, PERRLA ENT: hearing grossly normal, normal oropharynx - Neck Neck: no lymphadenopathy - Respiratory Respiratory: bilateral: CTA - Cardiovascular Rhythm: regular Heart sounds: normal: S1, S2 - Gastrointestinal General gastrointestinal: hepatomegaly, normal bowel sounds, soft - Integumentary Integumentary: normal - Neurologic Neurologic: CNII-XII intact - Musculoskeletal Musculoskeletal: generalized weakness, strength equal bilaterally - Psychiatric Psychiatric: A&O x's 3, appropriate affect Results CBC & Chem 7: 09/23/16 05:31 09/23/16 05:31 Labs: Abnormal Lab Results - Last 24 Hours (Table) 09/23/16 09/23/16 Range/Units 05:31 05:31 RBC 3.73 L (3.80-5.40) m/uL Plt Count 138 L (150-450) k/uL BUN 6 L (7-17) mg/dL Glucose 102 H (74-99) mg/dL AST 93 H (14-36) U/L ALT 81 H (9-52) U/L Alkaline Phosphatase 208 H (38-126) U/L Lipase 321 H (23-300) U/L Microbiology - Last 24 Hours (Table) 09/20/16 15:34 Blood Culture - Preliminary Blood No Growth after [address] scan - abdomen: report reviewed CT scan - pelvis: report reviewed Assessment and Plan (1) Lymphadenopathy Narrative/Plan: The pt is presenting with abdominal pain over the last couple of weeks. Initially it was felt that her presentation could be due to pancreatitis. The case was discussed with the admitting service. Given the level of evaluation of pancreatic enzymes, and the appearance of the pancreatic itself on the CAT scan, it is possible that there may not be significant pancreatic inflammation. As noted, the CAT scan revealed evidence of significant adenopathy in the upper abdomen. The location and size of lymph nodes is very suspicious for possible malignancy. Her abdominal pain, could potentially also be related to the lymphadenopathy. At this time, are definite primary site is not evident. The lymph nodes themselves would be difficult to access For biopsy. I will therefore order an MRI of the upper abdomen with attention to the liver and pancreas. A CT of the chest was also be ordered. If a better target lesions seen on the studies, then appropriate biopsies will be ordered. As liver and pancreatic primary are high among the differential, AFP and CA 19-9 will also be ordered. If no suitable lesion is found on additional studies, then options for biopsies could include an EUS as an outpatient, as well as our discussion with surgery to see if a laparoscopic approach would be feasible Status: Acute (2) Hepatomegaly Status: Acute Plan: As noted in the HPI, the patient has a long-standing history of liver enzyme elevation as well as liver enlargement. Biopsies x 2, have confirmed progressive liver damage leading to cirrhosis. The patient has no history of alcohol use, and hepatitis profile testing was negative. The initial biopsy had revealed steatohepatitis, likely related to her history of high cholesterol , as well as NSAID and statin use, Long-standing history of liver damage, is concerning for transformation into a primary liver malignancy, which is one of the major differentials as noted above. Therefore MRI has been ordered to evaluate the liver, as well as the pancreas, to check for the presence of an obvious mass lesion, that can serve as a target for biopsy. Also, as noted, AFP testing has been ordered
[2016-09-24] MEDS: HYDROmorphone 1 MG/ML 1 ML SYRINGE IV PRN ×3 (01:50→15:06)
[2016-09-24] MEDS: SODIUM CHLORIDE 0.9% 1,000 ML IV SCH ×2 (02:11→14:39)
[2016-09-24] MEDS: LEVOTHYROXINE 100 MCG TAB PO SCH (05:41)
[2016-09-24] MEDS ORDERED: LORazepam 2 MG/ML SYRINGE IV STA (06:32)
[2016-09-24] MEDS: amLODIPine 5 MG TAB PO SCH (07:41)
[2016-09-24] MEDS: HYDROCHLOROTHIAZIDE 12.5 MG CAP PO SCH (07:41)
[2016-09-24] MEDS: FAMOTIDINE 20 MG TAB PO SCH (07:41)
[2016-09-24] MEDS: PANTOPRAZOLE 40 MG TABLET PO SCH (07:41)
[2016-09-24] MEDS: HEPARIN SODIUM,PORCINE 5,000 UNIT/ML 1 ML VIAL SQ SCH ×2 (07:41→20:56)
[2016-09-24] MEDS: LACTULOSE 20 GM/30 ML CUP PO SCH (10:09)
--- NOTE | 2016-09-24 11:47 | MR ---
EXAMINATION TYPE: MR abdomen wo/w con DATE OF EXAM: 09/24/2016 9:30 AM COMPARISON: CT chest from yesterday. HISTORY: hepatomegaly, adenopathy, poss pancreatic mass. Recent abnormal CT CONTRAST: Standard multiplanar, multisequence MRI departmental protocol utilizing 15 mL intravenous MultiHance gadolinium contrast. FINDINGS: Exam is noted suboptimal due to patient motion, patient was medicated for claustrophobia bu t continue to follow sleep so there is improper breath-holding. Liver: Corresponding to CT there is heterogeneity with scattered vague areas of T2 hyperintensity see n throughout the liver parenchyma bilaterally. Postcontrast images show heterogeneity with peripheral areas of hyperattenuation on initial phases that become isointense to the liver on delayed phased im ages. Only definitive lesion is seen in the posterior right hepatic lobe near level of right kidney w here there is T1 hypointense and T2 hyperintense lesion measuring 1.9 x 1.6 cm noted on image 21 seri es 501, post contrast images show central nonenhancement. There is rim type enhancement without defin itive change on dynamic images. This is nonspecific lesion or typical enhancement pattern of a cyst b ut T2 hyperintensity is not as intense enough to be a cyst. Etiology uncertain. Postcontrast dynamic images do not support diagnosis of metastatic disease. Transient hepatic attenuation difference is hastings spected overall for the liver findings on CT and MRI. Subcentimeter areas of nonenhancement are noted . No definitive liver enlargement is present. Portal vein is felt patent. Hepatic veins draining into IVC are patent. There is suspected trace lilly hepatic ascites anterolaterally. Gallbladder surgically absent. There is no suspicious extrahepatic biliary dilatation clearly seen. T here is suggestion of mild central intrahepatic biliary dilatation or prominence slightly beaded appe arance towards the left hepatic lobe. Spleen: Splenomegaly is confirmed measuring 14.3 cm on long axis on coronal image 29. Spleen is homog eneous in appearance. There are small splenule inferior to the spleen noted. Pancreas: Evaluation is significantly degraded by artifact. Pancreatic duct is visualized but felt up per limits of normal. Discrete solid or cystic mass is present. Pancreas is normal in size. Other: Lung bases are clear. There is slight thickening to left adrenal gland felt to reflect hyperpl saturnino. No worrisome renal mass or hydronephrosis is evident bilaterally. Debris prominent stomach is s een and may reflect product of recent meal ingestion. There is no suspicious small or large bowel dil atation noted. No definitive abdominal adenopathy is seen. Artifact from postsurgical change in the l ower lumbar spine is noted. IMPRESSION: Suboptimal study, splenomegaly is confirmed, heterogeneity of liver is confirmed. Single definitive l esion central posterior right hepatic lobe has nonspecific imaging findings and is of uncertain etiol ogy. Consider random imaging guided biopsy of liver parenchyma due to marked heterogeneity for furthe r analysis if desired. Consider multiphasic contrast-enhanced CT correlation of the abdomen. No defin itive pancreatic lesion or abdominal adenopathy is seen.
[2016-09-24] MEDS: traMADol 50 MG TAB PO PRN ×2 (14:34→21:56)
--- NOTE | 2016-09-24 16:23 | P.PN ---
Subjective Date of service 09/23/2016. Progress note being dictated for Dr. Aguirre. Interval history: This is a 60-year-old female admitted with acute abdominal pain, possibly acute pancreatitis, portacaval and retroperitoneal lymphadenopathy and multiple other medical issues. Abdominal pain improving. Evaluated by hematology with recommendations noted. Repeat CT results pending. Mildly elevated LFTs and lipase; Lipase 321, amylase 45, total bili 0.9, AST 93, ALT 81, alk phos 208. Tolerating clear liquid diet with no nausea vomiting or diarrhea. Afebrile, normal WBC. Objective - Vital Signs Vital signs: Vital Signs Temp 97.9 F 09/23/16 14:36 Pulse 85 09/23/16 14:36 Resp 16 09/23/16 14:36 BP 166/93 09/23/16 14:36 Pulse Ox 94 L 09/23/16 14:36 Intake & Output 09/22/16 09/23/16 09/23/16 18:59 06:59 18:59 Intake Total 2480 960 Balance 2480 960 Intake: IV 600 600 Sodium Chloride 0.9% 1, 600 600 000 ml @ 75 mls/hr IV . [id number] [facility] Rx#:[id number] Oral 1880 360 Other: Voiding Method Toilet Toilet # Voids 2 1 3 - Exam PHYSICAL EXAM: VITAL SIGNS: As above GENERAL: [Sitting up in bed, with legs crossed, no acute distress] HEENT: [Pupils equal conjunctiva normal.] NECK: [Supple, no JVD] RESPIRATORY EFFORT:[Normal] LUNGS: [Bilateral bases diminished, no wheezing no crackles no rhonchi] CARDIOVASCULAR[regular S1 and S2, no murmurs, no rubs no edema] GI: [Abdomen soft, minimal bilateral upper quadrant tenderness, no guarding, no rigidity positive bowel sounds.] PSYCH: [Alert and oriented -3, mood and affect normal.] NEURO: No focal deficit, moves all 4 extremities, strength and sensation grossly intact - Labs CBC & Chem 7: 09/23/16 05:31 09/23/16 05:31 Labs: Abnormal Lab Results - Last 24 Hours (Table) 09/23/16 09/23/16 Range/Units 05:31 05:31 RBC 3.73 L (3.80-5.40) m/uL Plt Count 138 L (150-450) k/uL BUN 6 L (7-17) mg/dL Glucose 102 H (74-99) mg/dL AST 93 H (14-36) U/L ALT 81 H (9-52) U/L Alkaline Phosphatase 208 H (38-126) U/L Lipase 321 H (23-300) U/L Microbiology - Last 24 Hours (Table) 09/20/16 15:34 Blood Culture - Preliminary Blood No Growth after 72 hours Assessment and Plan Plan: 1. Abdominal pain possibly acute pancreatitis, lipase has normalized; CT reports retroperitoneal and portacaval lymphadenopathy, rule out lymphoma. 2. [History of liver cirrhosis on recent liver biopsy as per patient]. 3. Possible acute UTI, final urine culture pending 4. [Gastroesophageal reflux disease]. 5. [Hyperlipidemia . 6. [history cholecystectomy]]. 7. [Degenerative joint disease]. 8. Remote history of nicotine dependence Plan: Continue on current medication regime ,monitoring and symptomatic treatment. Oncology recommendations noted. Repeat CT results pending, possible MRI to facilitate biopsies of lymph nodes. Markers ordered. Patient updated on plan of care, verbalized understanding of and agreement with. The impression and plan of care has been dictated as directed. : I performed a H&P examination of this patient and discussed the same with the dictator. I agree with the dictator's note. Any additional findings/opinions/ etc. will be noted.
--- NOTE | 2016-09-24 16:34 | P.PN ---
Subjective Date of service 09/24/2016. Progress note being dictated for Dr. Aguirre. Interval history: This is a 60-year-old female admitted with acute abdominal pain, possibly acute pancreatitis, portacaval and retroperitoneal lymphadenopathy and multiple other medical issues. Minimal abdominal pain reported this morning, sitting crosslegged in bed, leaning forward, while eating. Tolerating diet with no nausea vomiting or diarrhea.Just returning from MRI with results pending. Repeat CT reporting liver density, possible mass , possible fatty infiltration, possible splenomegaly, portal and retroperitoneal adenopathy. Afebrile, normal WBC. Objective - Vital Signs Vital signs: Vital Signs Temp 97.7 F 09/24/16 14:43 Pulse 98 09/24/16 14:43 Resp 16 09/24/16 14:43 BP 127/84 09/24/16 14:43 Pulse Ox 95 09/24/16 14:43 Intake & Output 09/23/16 09/24/16 09/24/16 18:59 06:59 18:59 Intake Total 1200 262.5 Balance 1200 262.5 Intake: IV 600 262.5 Sodium Chloride 0.9% 1, 600 262.5 000 ml @ 75 mls/hr IV . [id number] ODETTE Rx#:[id number] Oral 600 Other: # Voids 3 1 1 - Exam PHYSICAL EXAM: VITAL SIGNS: As above GENERAL: [Sitting up in bed, no acute distress] HEENT: [Pupils equal conjunctiva normal.] NECK: [Supple, no JVD] RESPIRATORY EFFORT:[Normal] LUNGS: [Bilateral bases diminished, no wheezing no crackles no rhonchi] CARDIOVASCULAR[regular S1 and S2, no murmurs, no rubs no edema] GI: [Abdomen soft, mild bilateral upper quadrant tenderness, no guarding, no rigidity positive bowel sounds.] PSYCH: [Alert and oriented -3, mood and affect normal.] NEURO: No focal deficit, moves all 4 extremities, strength and sensation grossly intact - Labs CBC & Chem 7: 09/23/16 05:31 09/23/16 05:31 Labs: Abnormal Lab Results - Last 24 Hours (Table) 09/24/16 Range/Units 06:41 CA 19-9 Antigen 670.2 H (0.0-34.9) U/mL Microbiology - Last 24 Hours (Table) 09/20/16 15:34 Blood Culture - Preliminary Blood No Growth after 72 hours Assessment and Plan Plan: 1. Abdominal pain possibly acute pancreatitis, lipase has normalized; CT reports retroperitoneal and portacaval lymphadenopathy, rule out lymphoma. 2. [History of liver cirrhosis on recent liver biopsy as per patient]. Liver density, possible mass, per CT, rule out malignancy 3. Possible acute UTI, final urine culture pending 4. [Gastroesophageal reflux disease]. 5. [Hyperlipidemia . 6. [history cholecystectomy]]. 7. [Degenerative joint disease]. 8. Remote history of nicotine dependence Plan: Continue on current medication regime ,monitoring and symptomatic treatment. Oncology recommendations noted. MRI results pending. Markers noted. Further recommendations from oncology regarding obtaining biopsies. Further recommendations to follow. The impression and plan of care has been dictated as directed. : I performed a H&P examination of this patient and discussed the same with the dictator. I agree with the dictator's note. Any additional findings/opinions/ etc. will be noted.
[2016-09-24] MEDS: SENNOSIDES-DOCUSATE SODIUM 1 EACH TAB PO SCH (20:57)
[2016-09-25] MEDS: SODIUM CHLORIDE 0.9% 1,000 ML IV SCH ×3 (01:11→21:50)
[2016-09-25] MEDS: HYDROmorphone 1 MG/ML 1 ML SYRINGE IVP PRN ×6 (01:22→22:32)
[2016-09-25] MEDS: LEVOTHYROXINE 100 MCG TAB PO SCH (05:18)
[2016-09-25 07:11] LABS: Basophils % (A) 0 %; CH 32.5; CHCM 34.1; Eosinophils # (A) 0.3 k/uL (0-0.7); Eosinophils % (A) 3 %; HCT 40.2 % (34.0-46.0); HDW 2.38; HGB 13.5 gm/dL (11.4-16.0); Luc # (Auto) 0.19; Luc % (Auto) 2; Lymphocytes # (A) 2.4 k/uL (1.0-4.8); Lymphocytes % (A) 28 %; MCH 32.2 pg (25.0-35.0); MCHC 33.6 g/dL (31.0-37.0); MCV 95.8 fL (80.0-100.0); Mean Platelet Volume 7.6; Monocytes # (A) 0.6 k/uL (0-1.0); Monocytes % (A) 7 %; Neutrophils # (A) 5.1 k/uL (1.3-7.7); Neutrophils % (A) 60 %; RBC 4.19 m/uL (3.80-5.40); RDW 12.7 % (11.5-15.5); WBC 8.6 k/uL (3.8-10.6); WBC (Perox) 8.87
[2016-09-25 07:33] LABS: ALT 103 U/L (9-52); AST 121 U/L (14-36); Alkaline Phosphatase 266 U/L (38-126); Anion Gap 14 mmol/L; Blood Urea Nitrogen 6 mg/dL (7-17); Calcium 9.8 mg/dL (8.4-10.2); Carbon Dioxide 27 mmol/L (22-30); Chloride 98 mmol/L (98-107); Glucose 101 mg/dL (74-99); Non-African American GFR(MDRD) >60 (>60 ml/min/1.73 sqM); Sodium 139 mmol/L (137-145); Total Bilirubin 1.4 mg/dL (0.2-1.3)
[2016-09-25] MEDS: PANTOPRAZOLE 40 MG TABLET PO SCH (07:46)
[2016-09-25] MEDS: HEPARIN SODIUM,PORCINE 5,000 UNIT/ML 1 ML VIAL SQ SCH ×2 (07:47→21:48)
[2016-09-25] MEDS: HYDROCHLOROTHIAZIDE 12.5 MG CAP PO SCH (07:47)
[2016-09-25] MEDS: FAMOTIDINE 20 MG TAB PO SCH (07:47)
[2016-09-25] MEDS: amLODIPine 5 MG TAB PO SCH (07:47)
[2016-09-25] MEDS: ONDANSETRON 4 MG/2 ML VIAL IVP PRN ×2 (10:23→18:21)
--- NOTE | 2016-09-25 12:13 | P.PN ---
Subjective Principal diagnosis: hepatosplenomegaly, lymphadenopathy Pt seen in followup, no acute physical c/o today, no nausea, abd pain or distension, she is tolerating oral intake and ambulating independently. Objective - Vital Signs Vital signs: Vital Signs Temp 97.4 F L 09/25/16 07:00 Pulse 86 09/25/16 08:00 Resp 16 09/25/16 08:00 BP 126/73 09/25/16 07:00 Pulse Ox 95 09/25/16 07:00 Intake & Output 09/24/16 09/25/16 09/25/16 18:59 06:59 18:59 Intake Total 240 1440 Balance 240 1440 Intake: Oral 240 1440 Other: Voiding Method Toilet # Voids 1 - Constitutional General appearance: Present: average body habitus, cooperative, no acute distress - EENT Eyes: Present: normal appearance - Psychiatric Psychiatric: Present: A&O x's 3, appropriate affect, intact judgment & insight - Labs CBC & Chem 7: 09/25/16 06:28 09/25/16 06:28 Labs: Abnormal Lab Results - Last 24 Hours (Table) 09/24/16 09/25/16 Range/Units 06:41 06:28 BUN 6 L (7-17) mg/dL Glucose 101 H (74-99) mg/dL Total Bilirubin 1.4 H (0.2-1.3) mg/dL AST 121 H (14-36) U/L ALT 103 H (9-52) U/L Alkaline Phosphatase 266 H (38-126) U/L CA 19-9 Antigen 670.2 H (0.0-34.9) U/mL Microbiology - Last 24 Hours (Table) 09/20/16 15:34 Blood Culture - Preliminary Blood No Growth after 96 hours - Imaging and Cardiology CT scan - chest: report reviewed MRI - abdomen: report reviewed Assessment and Plan (1) Hepatomegaly Status: Acute (2) Lymphadenopathy Status: Acute Plan: Dr. Azul has left message to speak to Interventional Radiologist to discuss possibility of target lesion for biopsy vs. generalized biopsy as pt has had 2, both non-diagnostic. Dr. Azul is also going to review case with Surgeon to see if laproscopic biopsy is possible. If no target lesion identified and laproscopic biopsy is not felt to be reasonable plan is for EUS and biopsy at [facility] as an outpatient. Pt is aware of plan, will follow up [facility], briefly discussed case with IM DEBONE SUPERVISOR.
[2016-09-25] MEDS: SENNOSIDES-DOCUSATE SODIUM 1 EACH TAB PO SCH ×2 (12:35→21:49)
--- NOTE | 2016-09-25 21:47 | P.PN ---
Subjective Date of service 09/25/2016. Progress note being dictated for Dr. Aguirre. Interval history: This is a 60-year-old female admitted with acute abdominal pain, possibly acute pancreatitis, portacaval and retroperitoneal lymphadenopathy and multiple other medical issues. MRI suboptimal study , reporting confirm splenomegaly, heterogeneity of liver, single definitive lesion central posterior right hepatic lobe nonspecific, discrete solid or cystic mass present in pancreas,. Oncology discussing with surgery target lesion for biopsy vs. generalized biopsy .no complaints, minimal pain across the bilateral upper abdominal quadrants, with minimal back pain. No nausea vomiting or diarrhea.Afebrile, normal WBC. T bili increased to 1.4, worsening LFTs, CA 19-9 elevated at 670.2, tumor marker AFP 5.7. Objective - Vital Signs Vital signs: Vital Signs Temp 98.1 F 09/25/16 16:00 Pulse 74 09/25/16 16:00 Resp 17 09/25/16 16:00 BP 124/74 09/25/16 16:00 Pulse Ox 97 09/25/16 16:00 Intake & Output 09/24/16 09/25/16 09/25/16 18:59 06:59 18:59 Intake Total 240 1440 500 Balance 240 1440 500 Intake: IV 500 Sodium Chloride 0.9% 1, 500 000 ml @ 75 mls/hr IV . [id number] ODETTE Rx#:[id number] Oral 240 1440 Other: Voiding Method Toilet # Voids 1 - Exam PHYSICAL EXAM: VITAL SIGNS: As above GENERAL: [Sitting up in bed, no acute distress] HEENT: [Pupils equal conjunctiva normal.] NECK: [Supple, no JVD] RESPIRATORY EFFORT:[Normal] LUNGS: [Bilateral bases diminished, no wheezing no crackles no rhonchi] CARDIOVASCULAR[regular S1 and S2, no murmurs, no rubs no edema] GI: [Abdomen soft, minimal bilateral upper quadrant tenderness, no guarding, no rigidity positive bowel sounds.] PSYCH: [Alert and oriented -3, mood and affect normal.] NEURO: No focal deficit, moves all 4 extremities, strength and sensation grossly intact - Labs CBC & Chem 7: 09/25/16 06:28 09/25/16 06:28 Labs: Abnormal Lab Results - Last 24 Hours (Table) 09/25/16 Range/Units 06:28 BUN 6 L (7-17) mg/dL Glucose 101 H (74-99) mg/dL Total Bilirubin 1.4 H (0.2-1.3) mg/dL AST 121 H (14-36) U/L ALT 103 H (9-52) U/L Alkaline Phosphatase 266 H (38-126) U/L Microbiology - Last 24 Hours (Table) 09/20/16 15:34 Blood Culture - Preliminary Blood No Growth after 96 hours Assessment and Plan Plan: 1. Abdominal pain possibly acute pancreatitis, lipase has normalized; CT reports retroperitoneal and portacaval lymphadenopathy, rule out lymphoma. 2. [History of liver cirrhosis on recent liver biopsy as per patient]. Pancreatic mass, Liver mass, rule out malignancy, elevated CA 19-9 3. Possible acute UTI, final urine culture pending 4. [Gastroesophageal reflux disease]. 5. [Hyperlipidemia . 6. [history cholecystectomy]]. 7. [Degenerative joint disease]. 8. Remote history of nicotine dependence 9. Splenomegaly Plan: Continue on current medication regime ,monitoring and symptomatic treatment. Oncology discussing with surgery target lesion for biopsy vs. generalized biopsy.Further recommendations to follow. Discharge planning in progress. The impression and plan of care has been dictated as directed. : I performed a H&P examination of this patient and discussed the same with the dictator. I agree with the dictator's note. Any additional findings/opinions/ etc. will be noted.
[2016-09-25] MEDS: PROCHLORPERAZINE 5 MG TAB PO PRN (22:45)
[2016-09-26 02:13] VITALS: RESP 16
[2016-09-26 02:21] VITALS: PULSE 75
[2016-09-26] MEDS: ONDANSETRON 4 MG/2 ML VIAL IVP PRN ×2 (02:24→12:40)
[2016-09-26] MEDS: HYDROmorphone 1 MG/ML 1 ML SYRINGE IVP PRN ×2 (02:24→07:52)
[2016-09-26] MEDS: LEVOTHYROXINE 100 MCG TAB PO SCH (06:23)
[2016-09-26] MEDS: PROCHLORPERAZINE 5 MG TAB PO PRN (06:37)
[2016-09-26 07:20] LABS: Basophils % (A) 0 %; CH 32.7; CHCM 34.2; Eosinophils # (A) 0.2 k/uL (0-0.7); Eosinophils % (A) 3 %; HCT 39.8 % (34.0-46.0); HDW 2.37; HGB 13.3 gm/dL (11.4-16.0); Luc # (Auto) 0.22; Luc % (Auto) 3; Lymphocytes # (A) 2.5 k/uL (1.0-4.8); Lymphocytes % (A) 31 %; MCH 32.1 pg (25.0-35.0); MCHC 33.4 g/dL (31.0-37.0); MCV 95.9 fL (80.0-100.0); Mean Platelet Volume 7.4; Monocytes # (A) 0.6 k/uL (0-1.0); Monocytes % (A) 7 %; Neutrophils # (A) 4.6 k/uL (1.3-7.7); Neutrophils % (A) 56 %; RBC 4.15 m/uL (3.80-5.40); RDW 12.8 % (11.5-15.5); WBC 8.2 k/uL (3.8-10.6); WBC (Perox) 8.44
[2016-09-26 07:48] LABS: ALT 102 U/L (9-52); AST 115 U/L (14-36); Alkaline Phosphatase 249 U/L (38-126); Anion Gap 12 mmol/L; Blood Urea Nitrogen 7 mg/dL (7-17); Calcium 9.9 mg/dL (8.4-10.2); Carbon Dioxide 30 mmol/L (22-30); Chloride 95 mmol/L (98-107); Glucose 109 mg/dL (74-99); Non-African American GFR(MDRD) >60 (>60 ml/min/1.73 sqM); Sodium 137 mmol/L (137-145); Total Bilirubin 1.3 mg/dL (0.2-1.3); Total Protein 7.7 g/dL (6.3-8.2)
[2016-09-26 07:49] VITALS: BP 130/76; TEMP 97.1
[2016-09-26] MEDS: traMADol 50 MG TAB PO PRN ×2 (09:59→12:48)
[2016-09-26] MEDS: amLODIPine 5 MG TAB PO SCH (09:59)
[2016-09-26] MEDS: FAMOTIDINE 20 MG TAB PO SCH (09:59)
[2016-09-26] MEDS: HEPARIN SODIUM,PORCINE 5,000 UNIT/ML 1 ML VIAL SQ SCH (09:59)
[2016-09-26] MEDS: HYDROCHLOROTHIAZIDE 12.5 MG CAP PO SCH (09:59)
[2016-09-26] MEDS: PANTOPRAZOLE 40 MG TABLET PO SCH (09:59)
[2016-09-26] MEDS ORDERED: traMADol 50 MG TAB PO STA (12:45)
--- NOTE | 2016-09-26 16:33 | P.DS ---
Providers Date of admission: 09/20/16 11:07 Expected date of discharge: 09/26/16 Attending physician: Magy Aguirre Consults: 09/22/16 12:31 Consult Physician Routine Consulting Provider: Adama Azul Consult Reason/Comments: Lymphadenopathy Do you want consulting provider notified?: Yes Dr. Paz, GI Primary care physician: [facility] Course: Final diagnoses: 1. Abdominal pain, CT reports retroperitoneal and portacaval lymphadenopathy, rule out lymphoma, possibly acute pancreatitis 2. [History of liver cirrhosis on recent liver biopsy as per patient]. Pancreatic mass, Liver mass, rule out malignancy, elevated CA 19-9 3. Possible acute UTI, final urine culture pending 4. [Gastroesophageal reflux disease]. 5. [Hyperlipidemia . 6. [history cholecystectomy]]. 7. [Degenerative joint disease]. 8. Remote history of nicotine dependence 9. HepatoSplenomegaly Hospital course:T his is a 60-year-old female admitted with acute abdominal pain , possibly acute pancreatitis, portacaval and retroperitoneal lymphadenopathy and multiple other medical issues. Mildly elevated lipase and LFTs. MRI suboptimal study ,reporting confirm splenomegaly, heterogeneity of liver, single definitive lesion central posterior right hepatic lobe nonspecific, discrete solid or cystic mass present in pancreas, After discussion with surgery and interventional radiologists, regarding possibility of target lesion for biopsy vs. generalized biopsy as patient previously had 2 nondiagnostic performed, plan is for patient to have EUS and biopsy at [facility] as an outpatient. Oncology arranging [facility] appointment. CA 19-9 elevated at 670.2, tumor marker AFP 5.7. Patient has been cleared by GI, oncology for discharge. Patient is being discharged home in stable condition with guarded prognosis. Pertinent Studies: Laboratory Results WBC 8.2 k/uL (3.8-10.6) 09/26/16 06:51 RBC 4.15 m/uL (3.80-5.40) 09/26/16 06:51 Hgb 13.3 gm/dL (11.4-16.0) 09/26/16 06:51 Hct 39.8 % (34.0-46.0) 09/26/16 06:51 MCV 95.9 fL (80.0-100.0) 09/26/16 06:51 MCH 32.1 pg (25.0-35.0) 09/26/16 06:51 MCHC 33.4 g/dL (31.0-37.0) 09/26/16 06:51 RDW 12.8 % (11.5-15.5) 09/26/16 06:51 Plt Count 170 k/uL (150-450) 09/26/16 06:51 Neutrophils % 56 % 09/26/16 06:51 Lymphocytes % 31 % 09/26/16 06:51 Monocytes % 7 % 09/26/16 06:51 Eosinophils % 3 % 09/26/16 06:51 Basophils % 0 % 09/26/16 06:51 Neutrophils # 4.6 k/uL (1.3-7.7) 09/26/16 06:51 Lymphocytes # 2.5 k/uL (1.0-4.8) 09/26/16 06:51 Monocytes # 0.6 k/uL (0-1.0) 09/26/16 06:51 Eosinophils # 0.2 k/uL (0-0.7) 09/26/16 06:51 Basophils # 0.0 k/uL (0-0.2) 09/26/16 06:51 PT 12.2 sec (9.0-12.0) H 09/20/16 15:34 INR 1.2 (<1.1) 09/20/16 15:34 Sodium 137 mmol/L (137-145) 09/26/16 06:51 Potassium 4.0 mmol/L (3.5-5.1) 09/26/16 06:51 Chloride 95 mmol/L (98-107) L 09/26/16 06:51 Carbon Dioxide 30 mmol/L (22-30) 09/26/16 06:51 Anion Gap 12 mmol/L 09/26/16 06:51 BUN 7 mg/dL (7-17) 09/26/16 06:51 Creatinine 0.75 mg/dL (0.52-1.04) 09/26/16 06:51 Est GFR (MDRD) Af Amer >60 (>60 ml/min/1.73 sqM) 09/26/16 06:51 Est GFR (MDRD) Non-Af >60 (>60 ml/min/1.73 sqM) 09/26/16 06:51 Glucose 109 mg/dL (74-99) H 09/26/16 06:51 Calcium 9.9 mg/dL (8.4-10.2) 09/26/16 06:51 Total Bilirubin 1.3 mg/dL (0.2-1.3) 09/26/16 06:51 AST 115 U/L (14-36) H 09/26/16 06:51 ALT 102 U/L (9-52) H 09/26/16 06:51 Alkaline Phosphatase 249 U/L (38-126) H 09/26/16 06:51 Troponin I <0.012 ng/mL (0.000-0.034) 09/23/16 10:29 Total Protein 7.7 g/dL (6.3-8.2) 09/26/16 06:51 Albumin 4.2 g/dL (3.5-5.0) 09/26/16 06:51 Amylase 45 U/L (30-110) 09/23/16 05:31 Lipase 377 U/L (23-300) H 09/26/16 06:51 Tumor Marker AFP 5.7 ng/mL (0.0-7.9) 09/24/16 06:41 CA 19-9 Antigen 670.2 U/mL (0.0-34.9) H 09/24/16 06:41 Urine Color Yellow 09/20/16 10:08 Urine Appearance Clear (Clear) 09/20/16 10:08 Urine pH 6.0 (5.0-8.0) 09/20/16 10:08 Ur Specific [place] 1.004 (1.001-1.035) 09/20/16 10:08 Urine Protein Negative (Negative) 09/20/16 10:08 Urine Glucose (UA) Negative (Negative) 09/20/16 10:08 Urine Ketones Negative (Negative) 09/20/16 10:08 Urine Blood Negative (Negative) 09/20/16 10:08 Urine Nitrate Negative (Negative) 09/20/16 10:08 Urine Bilirubin Negative (Negative) 09/20/16 10:08 Urine Urobilinogen <2.0 mg/dL (<2.0) 09/20/16 10:08 Ur Leukocyte Esterase Moderate (Negative) H 09/20/16 10:08 Urine RBC 2 /hpf (0-5) 09/20/16 10:08 Urine WBC 9 /hpf (0-5) H 09/20/16 10:08 Ur Squamous Epith Cells 2 /hpf (0-4) 09/20/16 10:08 Urine Bacteria Rare /hpf (None) H 09/20/16 10:08 Urine Mucus Rare /hpf (None) H 09/20/16 10:08 Urine Opiates Screen Detected (NotDetected) H 09/20/16 18:00 Ur Oxycodone Screen Not Detected (NotDetected) 09/20/16 18:00 Urine Methadone Screen Not Detected (NotDetected) 09/20/16 18:00 Ur Propoxyphene Screen Not Detected (NotDetected) 09/20/16 18:00 Ur Barbiturates Screen Not Detected (NotDetected) 09/20/16 18:00 U Tricyclic Antidepress Not Detected (NotDetected) 09/20/16 18:00 Ur Phencyclidine Scrn Not Detected (NotDetected) 09/20/16 18:00 Ur Amphetamines Screen Not Detected (NotDetected) 09/20/16 18:00 U Methamphetamines Scrn Not Detected (NotDetected) 09/20/16 18:00 U Benzodiazepines Scrn Not Detected (NotDetected) 09/20/16 18:00 Urine Cocaine Screen Not Detected (NotDetected) 09/20/16 18:00 U Marijuana (THC) Screen Not Detected (NotDetected) 09/20/16 18:00 Hepatitis A IgM Ab NEGATIVE 09/20/16 15:34 Hep Bs Antigen Negative 09/20/16 15:34 Hep B Core IgM Ab NEGATIVE 09/20/16 15:34 Hep C IgG Ab Negative (Negative) 09/20/16 15:34 Patient Condition at Discharge: Stable Plan - Discharge Summary New Discharge Prescriptions: traMADol HCl [Ultram] 50 mg PO Q6H PRN #30 tab PRN Reason: Pain Discharge Medication List Hydrochlorothiazide 12.5 mg PO DAILY 06/12/16 [History] Ranitidine HCl [Zantac] 150 mg PO DAILY 06/12/16 [History] amLODIPine [Norvasc] 5 mg PO DAILY 06/12/16 [History] diphenhydrAMINE [Benadryl] 2 cap PO HS PRN 06/12/16 [History] Dicyclomine [Bentyl] 10 mg PO TID PRN 09/20/16 [History] Levothyroxine Sodium [Synthroid] 100 mcg PO DAILY 09/20/16 [History] Omeprazole 40 mg PO DAILY 09/20/16 [History] Ondansetron [Zofran ODT] 8 mg PO Q12H PRN 09/20/16 [History] traMADol HCl [Ultram] 50 mg PO Q6H PRN #30 tab 09/26/16 [Rx] Follow up Appointment(s)/Referral(s): Adama Azul MD [STAFF PHYSICIAN] - 10/13/16 3:00 pm (Appt with Dr. Henry previously scheduled) Miah Paz MD [STAFF PHYSICIAN] - As Needed Hal Heck MD [Primary Care Provider] - 10/02/16 4:00 pm Ambulatory/Diagnostic Orders: Comprehensive Metabolic Panel [LAB.AMB] Time Frame: 3 Days, Location: Determined By Patient Activity/Diet/Wound Care/Special Instructions: [facility] appointment regarding EUS biopsy being arranged by oncology Discharge Disposition: HOME SELF-CARE
== END 2016-09-26 15:36 | disposition home or self-care (01) | DRG 439 ==
LOC: EC 09:07 → 3SUR 11:07
PROVIDERS: ADMIT Hospitalist; ATTEND Hospitalist
DX: K85.90 Acute pancreatitis without necrosis or infection, unspecified (principal); N39.0 Urinary tract infection, site not specified; C85.90 Non-Hodgkin lymphoma, unspecified, unspecified site; K74.60 Unspecified cirrhosis of liver; E03.9 Hypothyroidism, unspecified; E78.5 Hyperlipidemia, unspecified; K21.9 Gastro-esophageal reflux disease without esophagitis; R16.0 Hepatomegaly, not elsewhere classified; K75.81 Nonalcoholic steatohepatitis (NASH); K86.89 Other specified diseases of pancreas; M19.90 Unspecified osteoarthritis, unspecified site; Z80.0 Family history of malignant neoplasm of digestive organs; Z82.49 Family history of ischemic heart disease and other diseases of the circulatory system; Z87.891 Personal history of nicotine dependence; Z79.1 Long term (current) use of non-steroidal anti-inflammatories (NSAID); Z79.899 Other long term (current) drug therapy; Z88.1 Allergy status to other antibiotic agents; Z88.5 Allergy status to narcotic agent; Z88.2 Allergy status to sulfonamides
CPT/HCPCS: 36415; 71260; 74000; 74183; 80053; 80074; 80306; 81001; 82105; 82150; 83690; 84484; 85025; 85027; 85610; 86301; 87040; 87086; 93005; 96361; 96374; 96375; 99285

== ENCOUNTER 2016-10-15 11:15 | Inpatient (IN) | payer MEDICARE, OTHER ==
[2016-10-15] MEDS ORDERED: PANTOPRAZOLE 40 MG/10 ML VIAL IVP STA (11:51)
[2016-10-15] MEDS ORDERED: SODIUM CHLORIDE 0.9% 1,000 ML IV STA (11:51)
[2016-10-15] MEDS ORDERED: ONDANSETRON 4 MG/2 ML VIAL IVP STA (11:51)
[2016-10-15] MEDS ORDERED: SODIUM CHLORIDE 0.9% 500 ML IV STA (11:51)
--- NOTE | 2016-10-15 11:59 | ED ---
General Adult HPI - General Chief complaint: Abdominal Pain Stated complaint: Abdominal Pain Sent By Dr Fajardo Seen by Provider: 10/15/16 11:27 Source: patient, family, RN notes reviewed, old records reviewed Mode of arrival: wheelchair Limitations: no limitations - History of Present Illness Initial comments: Chief complaint and history of present illness a 60-year-old female here with his significant other. The patient was recently diagnosed i.e. just this morning with confirmation of a diagnosis of lymphoma from [facility]. The patient was down there for biopsy. Yesterday she was at another facility diagnosed with urinary tract infection and recurrent pancreatitis. Patient's been having nausea vomiting diarrhea for 3 days. Patient still has pain. - Related Data Home Medications Medication Instructions Recorded Confirmed Hydrochlorothiazide 12.5 mg PO DAILY 06/12/16 10/15/16 Ranitidine HCl [Zantac] 150 mg PO DAILY 06/12/16 10/15/16 amLODIPine [Norvasc] 5 mg PO DAILY 06/12/16 10/15/16 diphenhydrAMINE [Benadryl] 2 cap PO HS PRN 06/12/16 10/15/16 Dicyclomine [Bentyl] 10 mg PO TID PRN 09/20/16 10/15/16 Levothyroxine Sodium [Synthroid] 100 mcg PO DAILY 09/20/16 10/15/16 Omeprazole 40 mg PO DAILY 09/20/16 10/15/16 Ondansetron [Zofran ODT] 8 mg PO Q12H PRN 09/20/16 10/15/16 Ibuprofen [Motrin] 800 mg PO Q8HR PRN 10/15/16 10/15/16 Previous Rx's Medication Instructions Recorded traMADol HCl [Ultram] 50 mg PO Q6H PRN #30 tab 09/26/16 Allergies Allergy/AdvReac Type Severity Reaction Status Date / Time acetaminophen [From Vicodin] Allergy Rash/Hives Verified 10/15/16 11:53 codeine Allergy Rash/Hives Verified 10/15/16 11:53 hydrocodone [From Vicodin] Allergy Rash/Hives Verified 10/15/16 11:53 Sulfa (Sulfonamide Allergy Swelling Verified 10/15/16 11:53 Antibiotics) atorvastatin [From Lipitor] AdvReac Unknown Verified 10/15/16 11:53 pravastatin [From Pravachol] AdvReac Unknown Verified 10/15/16 11:53 rosuvastatin [From Crestor] AdvReac Unknown Verified 10/15/16 11:53 Review of Systems ROS Statement: Those systems with pertinent positive or pertinent negative responses have been documented in the HPI. Review of systems no headache or visual acuity changes no chest pain or shortness of breath. The patient has active pain that starts in the epigastric region lower abdominal quadrants. Nausea vomiting and diarrhea for 3 days. No blood in the vomit or diarrhea. All systems otherwise reviewed. Past medical problems recently diagnosed with lymphoma. She is also history of GERD, hyperlipidemia, fatty liver which became cirrhosis. She has history of osteoarthritis low thyroid and recurrent pancreatitis. The patient's surgeries include 2 C-sections, cholecystectomy, Plication for Hiatal Hernia and Then a Ventral Hernia Repair. She's Had Lumbar Fusion, Bilateral Tubal Ligation and Carpal Tunnel Surgery Both Hands. Family History Multiple Cancers Including Bone, Liver, Breast, Cervical, Leukemia, Colon Cancer. The Patient Quit Smoking in January of Last Year. Denies Alcohol Use. ROS Other: All systems not noted in ROS Statement are negative. Past Medical History Past Medical History: Cancer, GERD/Reflux, Hyperlipidemia, Liver Disease, Osteoarthritis (OA), Thyroid Disorder Additional Past Medical History / Comment(s): pancreatitis, lymphoma History of Any Multi-Drug Resistant Organisms: None Reported Past Surgical History: Section, Cholecystectomy, Hernia Repair, Orthopedic Surgery, Tubal Ligation Additional Past Surgical History / Comment(s): Caitie Surgery 2009, rosa 2009, c section 1980, 1983, carpal tunnel surgery bilateral, 2 x hernia surgery, dequervains bilateral hands, 2013 lumbar fusion. EGD- 2015. Past Anesthesia/Blood Transfusion Reactions: No Reported Reaction Past Psychological History: No Psychological Hx Reported Smoking Status: Former smoker Past Alcohol Use History: None Reported Additional Past Alcohol Use History / Comment(s): Quit smoking January 2016, 1.5 ppd Past Drug Use History: None Reported - Past Family History Brother(s) Family Medical History: Cancer, Liver Disease, Myocardial Infarction ([place]) Additional Family Medical History / Comment(s): Patient states has 7 brothers- 6 brothers have Mother Family Medical History: Diabetes Mellitus, Thyroid Disorder Father Family Medical History: Cancer, CVA/TIA, Hypertension, Prostate Disorder Additional Family Medical History / Comment(s): bone ca sisters Additional Family Medical History / Comment(s): sister from down syndrome-1968 other sister from drug overdose in 2008. General Exam - General Exam Comments Initial Comments: General: The patient is awake and alert, complaining of epigastric and back pain. Also nausea vomiting diarrhea for 3 days. Diagnosis pancreatitis yesterday at another emergency room. Discharged home pain persists. Vital signs show temperature 98.0 pulse 80 respiratory rate 20 pulse ox 97% room air blood pressure 175/86. Elevated systolic and diastolic noted. The patient is in pain. Eye: Pupils are equal, round and reactive to light, extra-ocular movements are intact ; there is normal conjunctiva bilaterally. No signs of icterus. Ears, nose, mouth and throat: There are moist mucous membranes and no oral lesions. Neck: The neck is supple, tender left anterior cervical lymph node. Cardiovascular: There is a regular rate and rhythm. No murmur, rub or gallop is appreciated. Respiratory: Lungs are clear to auscultation, respirations are non-labored, breath sounds are equal. No wheezes, stridor, rales, or rhonchi. Gastrointestinal: Examination finds tenderness and palpable mass just below the xiphoid. Discomfort radiates through to the back. Patient also has lower abdominal discomfort. Nausea vomiting and diarrhea. No blood in vomit or diarrhea. Back: Back pain probably associated with her recurrent pancreatitis. Musculoskeletal: Normal ROM, no tenderness, There is no pedal edema. There is no calf tenderness or swelling. Sensation intact. Pulses equal bilaterally 2+. Neurological: No neuro deficits. No focal or lateralizing findings noted. Skin: Skin is warm and dry and no rashes or lesions are noted. Psychiatric: Alert oriented,good spirits. Limitations: no limitations Course Vital Signs 10/15/16 10/15/16 10/15/16 11:21 12:37 13:05 Temperature 98.0 F 97.4 F L Pulse Rate 80 78 66 Respiratory 20 18 18 Rate Blood Pressure 175/86 177/94 160/80 O2 Sat by Pulse 97 96 96 Oximetry 10/15/16 14:18 Temperature Pulse Rate Respiratory 16 Rate Blood Pressure 158/68 O2 Sat by Pulse Oximetry Medical Decision Making - Medical Decision Making Medical decision making the patient's white count 11 hemoglobin 13 hematocrit 39. Urine is clean no signs of infection. INR is 1.3, potassium is 3.6 with a BUN of 11 creatinine 0.6 to GFR greater than 60. Glucose 103. AST and ALT both double the elevated. The patient's amylase is 99 which is within normal limits and her lipase elevated at 1047. I discussed the case with Dr. austin is not patient be admitted to his service for further evaluation for pancreatitis. Also with consultation from oncologyDr. Jorge Alberto - Lab Data Result diagrams: 10/15/16 12:10 10/15/16 12:10 Lab Results 10/15/16 10/15/16 10/15/16 Range/Units 12:10 12:10 12:10 WBC 11.2 H (3.8-10.6) k/uL RBC 4.34 (3.80-5.40) m/uL Hgb 13.6 (11.4-16.0) gm/dL Hct 39.4 (34.0-46.0) % MCV 90.6 D (80.0-100.0) fL MCH 31.4 (25.0-35.0) pg MCHC 34.6 (31.0-37.0) g/dL RDW 12.5 (11.5-15.5) % Plt Count 204 (150-450) k/uL Neutrophils % 66 % Lymphocytes % 24 % Monocytes % 6 % Eosinophils % 2 % Basophils % 1 % Neutrophils # 7.4 (1.3-7.7) k/uL Lymphocytes # 2.6 (1.0-4.8) k/uL Monocytes # 0.7 (0-1.0) k/uL Eosinophils # 0.2 (0-0.7) k/uL Basophils # 0.1 (0-0.2) k/uL PT (9.0-12.0) sec INR (<1.1) Sodium 139 (137-145) mmol/L Potassium 3.6 (3.5-5.1) mmol/L Chloride 102 (98-107) mmol/L Carbon Dioxide 21 L (22-30) mmol/L Anion Gap 16 mmol/L BUN 11 (7-17) mg/dL Creatinine 0.60 (0.52-1.04) mg/dL Est GFR (MDRD) Af Amer >60 (>60 ml/min/1.73 sqM) Est GFR (MDRD) Non-Af >60 (>60 ml/min/1.73 sqM) Glucose 103 H (74-99) mg/dL Plasma Lactic Acid Marshall 0.9 (0.7-2.0) mmol/L Calcium 9.6 (8.4-10.2) mg/dL Total Bilirubin 1.0 (0.2-1.3) mg/dL AST 79 H (14-36) U/L ALT 88 H (9-52) U/L Alkaline Phosphatase 207 H (38-126) U/L Total Protein 8.1 (6.3-8.2) g/dL Albumin 4.5 (3.5-5.0) g/dL Amylase 99 (30-110) U/L Lipase 1047 H (23-300) U/L Urine Color Urine Appearance (Clear) Urine pH (5.0-8.0) Ur Specific [place] (1.001-1.035) Urine Protein (Negative) Urine Glucose (UA) (Negative) Urine Ketones (Negative) Urine Blood (Negative) Urine Nitrate (Negative) Urine Bilirubin (Negative) Urine Urobilinogen (<2.0) mg/dL Ur Leukocyte Esterase (Negative) 10/15/16 10/15/16 Range/Units 12:10 12:37 WBC (3.8-10.6) k/uL RBC (3.80-5.40) m/uL Hgb (11.4-16.0) gm/dL Hct (34.0-46.0) % MCV (80.0-100.0) fL MCH (25.0-35.0) pg MCHC (31.0-37.0) g/dL RDW (11.5-15.5) % Plt Count (150-450) k/uL Neutrophils % % Lymphocytes % % Monocytes % % Eosinophils % % Basophils % % Neutrophils # (1.3-7.7) k/uL Lymphocytes # (1.0-4.8) k/uL Monocytes # (0-1.0) k/uL Eosinophils # (0-0.7) k/uL Basophils # (0-0.2) k/uL PT 13.0 H (9.0-12.0) sec INR 1.3 (<1.1) Sodium (137-145) mmol/L Potassium (3.5-5.1) mmol/L Chloride (98-107) mmol/L Carbon Dioxide (22-30) mmol/L Anion Gap mmol/L BUN (7-17) mg/dL Creatinine (0.52-1.04) mg/dL Est GFR (MDRD) Af Amer (>60 ml/min/1.73 sqM) Est GFR (MDRD) Non-Af (>60 ml/min/1.73 sqM) Glucose (74-99) mg/dL Plasma Lactic Acid Marshall (0.7-2.0) mmol/L Calcium (8.4-10.2) mg/dL Total Bilirubin (0.2-1.3) mg/dL AST (14-36) U/L ALT (9-52) U/L Alkaline Phosphatase (38-126) U/L Total Protein (6.3-8.2) g/dL Albumin (3.5-5.0) g/dL Amylase (30-110) U/L Lipase (23-300) U/L Urine Color Yellow Urine Appearance Clear (Clear) Urine pH 6.0 (5.0-8.0) Ur Specific [place] 1.013 (1.001-1.035) Urine Protein Negative (Negative) Urine Glucose (UA) Negative (Negative) Urine Ketones Negative (Negative) Urine Blood Negative (Negative) Urine Nitrate Negative (Negative) Urine Bilirubin Negative (Negative) Urine Urobilinogen <2.0 (<2.0) mg/dL Ur Leukocyte Esterase Negative (Negative) Disposition Clinical Impression: Acute pancreatitis, Lymphoma Disposition: ADMITTED IP TO THIS [facility] Condition: Serious
[2016-10-15 12:37] LABS: Basophils # (A) 0.1 k/uL (0-0.2); Basophils % (A) 1 %; CH 32.9; CHCM 36.4; Eosinophils # (A) 0.2 k/uL (0-0.7); Eosinophils % (A) 2 %; HCT 39.4 % (34.0-46.0); HDW 2.76; HGB 13.6 gm/dL (11.4-16.0); Luc # (Auto) 0.19; Luc % (Auto) 2; Lymphocytes # (A) 2.6 k/uL (1.0-4.8); Lymphocytes % (A) 24 %; MCH 31.4 pg (25.0-35.0); MCHC 34.6 g/dL (31.0-37.0); Mean Platelet Volume 7.7; Monocytes # (A) 0.7 k/uL (0-1.0); Monocytes % (A) 6 %; Neutrophils # (A) 7.4 k/uL (1.3-7.7); Neutrophils % (A) 66 %; RBC 4.34 m/uL (3.80-5.40); RDW 12.5 % (11.5-15.5); WBC 11.2 k/uL (3.8-10.6); WBC (Perox) 11.72
[2016-10-15] MEDS: HYDROmorphone 1 MG/ML 1 ML SYRINGE IVP STA ×2 (12:37→15:30)
[2016-10-15 12:41] LABS: MCV 90.6 fL (80.0-100.0)
[2016-10-15 12:44] LABS: ALT 88 U/L (9-52); AST 79 U/L (14-36); Alkaline Phosphatase 207 U/L (38-126); Amylase 99 U/L (30-110); Anion Gap 16 mmol/L; Blood Urea Nitrogen 11 mg/dL (7-17); Calcium 9.6 mg/dL (8.4-10.2); Carbon Dioxide 21 mmol/L (22-30); Chloride 102 mmol/L (98-107); Glucose 103 mg/dL (74-99); Non-African American GFR(MDRD) >60 (>60 ml/min/1.73 sqM); Potassium 3.6 mmol/L (3.5-5.1); Sodium 139 mmol/L (137-145); Total Protein 8.1 g/dL (6.3-8.2)
[2016-10-15 12:50] LABS: INR 1.3 (<1.1)
[2016-10-15 13:26] LABS: Appearance,Urine Clear (Clear); Bilirubin,Urine Negative (Negative); Glucose,Urine (UA) Negative (Negative); Ketones,Urine Negative (Negative); Leukocyte Esterase,Urine Negative (Negative); Nitrite,Urine Negative (Negative); Protein,Urine Negative (Negative); Specific Gravity,Urine 1.013 (1.001-1.035); UA Billing (MACRO vs. MICRO) CHEM; Urobilinogen,Urine <2.0 mg/dL (<2.0)
--- NOTE | 2016-10-15 13:35 | XR ---
EXAMINATION TYPE: XR abdomen 2V DATE OF EXAM: 10/15/2016 1:12 PM CLINICAL HISTORY: Abdominal pain with nausea and vomiting. History of pancreatitis TECHNIQUE: Supine and upright views of the abdomen are obtained. COMPARISON: None. FINDINGS: Scattered gas is seen in non-distended small bowel loops. Single slightly prominent gas-f illed small bowel loop right midabdomen is noted. Gas and fecal material is seen in non-distended co estela and rectum. Metallic hardware in lumbar spine with disc spacers redemonstrated. Cholecystectomy c lips are again seen. No pneumoperitoneum is identified. Left-sided pelvic phleboliths are seen. Moder ate joint space loss and spurring of both hip joints is noted. Lung bases are clear. IMPRESSION: Overall nonspecific felt to be nonobstructive bowel gas pattern.
[2016-10-15] MEDS ORDERED: NALOXONE 0.4 MG/ML 1 ML VIAL IV PRN (15:43)
[2016-10-15] MEDS ORDERED: TEMAZEPAM 15 MG CAP PO PRN (17:38)
[2016-10-15] MEDS ORDERED: traMADol 50 MG TAB PO PRN (17:38)
--- NOTE | 2016-10-15 18:03 | XR ---
EXAMINATION TYPE: XR chest 1V portable DATE OF EXAM: 10/15/2016 5:57 PM COMPARISON: NONE HISTORY: COPD. Smoker. TECHNIQUE: Single frontal view of the chest is obtained. FINDINGS: Heart and mediastinum are within normal limits. Lungs are clear. Diaphragm is normal. Bony thorax is intact. There are no hilar masses. IMPRESSION: No active cardiopulmonary disease. Normal heart. No evidence of any significant COPD.
[2016-10-15] MEDS: SODIUM CHLORIDE 0.9% 1,000 ML IV SCH ×2 (18:51→23:11)
--- NOTE | 2016-10-15 19:17 | HP ---
CHIEF COMPLAINT: Abdominal pain. HISTORY OF PRESENT ILLNESS: This 60-year-old woman with a past medical history of recently diagnosed pancreatic tumor, possibly lymphoma, history of liver lesion, history of episode of pancreatitis being followed by Dr. Swanson as an outpatient was recently admitted with abdominal pain. Subsequently patient was referred to [facility] in [place] and apparently biopsy revealed possible lymphoma. These results are not available at this time. The patient just knew about the diagnosis today. The patient presented to [facility] with complaints of abdominal pain, which was felt in the anterior area. Because of the unremitting abdominal pain, the patient came to [facility], admitted for further evaluation and treatment. Patient apparently had a recent UTI, also. There is no history of any fever, rigors. No history of headache, loss of consciousness. The patient also had some vomiting for the last 3 days. PAST MEDICAL HISTORY: 1. History of GERD. 2. History of hyperlipidemia. 3. History of liver disease. 4. History of DJD. 5. History of pancreatitis, lymphoma, as mentioned earlier. 6. History of Caitie fundoplication. 7. History of nicotine dependence. Medications prior to admission include home medications are: 1. Motrin 800 mg q.8 p.r.n. 2. Ultram 50 mg every 6 hours p.r.n. 3. Omeprazole 40 mg daily. 4. Benadryl 2 caps q.h.s. 5. Norvasc 5 mg p.o. daily. 6. Zantac 150 mg p.o. daily. 7. Zofran 8 mg p.o. b.i.d. 8. Synthroid 100 mcg p.o. daily. 9. hydrochlorothiazide 12.5 mg daily. 10. Bentyl 10 mg t.i.d. p.r.n. ALLERGIES ARE VICODIN, CODEINE AND SULFONAMIDES, LIPITOR, PRAVACHOL, CRESTOR. FAMILY HISTORY: History of cancer, liver disease, myocardial infarction in the family. SOCIAL HISTORY: Previous history of smoking. No history of current smoking or alcohol intake. REVIEW OF SYSTEMS: ENT: No diminished vision. No diminished hearing. CARDIOVASCULAR: As mentioned earlier. RESPIRATORY: As mentioned earlier. GI: As mentioned earlier. : No dysuria. NERVOUS: No numbness or weakness. ALLERGY/IMMUNOLOGY: No asthma or hay fever. MUSCULOSKELETAL: As mentioned earlier. HEMATOLOGY/ONCOLOGY: No history of anemia. ENDOCRINE: As mentioned earlier. CONSTITUTIONAL: As mentioned earlier. DERMATOLOGY: Negative. RHEUMATOLOGY: Negative. PSYCHIATRY: As mentioned earlier. PHYSICAL EXAMINATION: Alert and oriented x3. Pulse 66, blood pressure 130/79, respirations 18, temperature 97.4, pulse ox 96% on 2L. HEENT: Conjunctivae normal. NECK: No jugular venous distension. CARDIOVASCULAR: S1 and S2 muffled. RESPIRATORY: Breath sounds diminished in the bases. A few scattered rhonchi. No crackles. Abdomen is soft. Mild diffuse tenderness present. No guarding. No mass palpable. No ascites. Bowel sounds present. LEGS: No edema. No swelling. NERVOUS SYSTEM: Higher function as mentioned. Moves all 4 limbs. No focal motor or sensory deficit. LYMPHATIC: No lymph nodes palpable in neck or axillae. SKIN: Telangiectasia upper body present. Labs are WBC 11.2. INR 1.3. Lipase is 1047. AST, ALT are elevated. ASSESSMENT: 1. Severe abdominal pain, diarrhea, possible acute pancreatitis. 2. Rule out extrahepatic biliary obstruction. 3. Possible lymphoma, rule out pancreatic malignancy. 4. Increased CA 19-9. 5. Mild coagulopathy, possibly secondary to chronic liver disease. 6. Cirrhosis of liver on the recent biopsy. 7. Increased WBC. 8. Increased lipase with a normal amylase. 9. History of gastroesophageal reflux disease. 10. Hypertension. 11. History of degenerative joint disease. 12. History of section. 13. History of cholecystectomy. 14. History of Caitie fundoplication. 15. Carpal tunnel syndrome. 16. Remote history of nicotine dependence. 17. FULL CODE. RECOMMENDATIONS AND DISCUSSION: In this 60-year-old woman who presented with multiple complex medical issues, we will monitor the patient closely. Continue the current medications. Continue symptomatic treatment. Will treat with pain medications. Symptomatic treatment will be provided. Consult Dr. Azul. Try to obtain the reports from [facility] and I would recommend full liquids. Continue to monitor. Further recommendations to follow. See orders for further details. Repeat labs will be ordered in the morning. MTDD
[2016-10-15] MEDS: HEPARIN SODIUM,PORCINE 5,000 UNIT/ML 1 ML VIAL SQ SCH ×2 (19:45→23:12)
[2016-10-15] MEDS: PANTOPRAZOLE 40 MG/10 ML VIAL IV SCH (19:57)
[2016-10-15] MEDS: HYDROmorphone 1 MG/ML 1 ML SYRINGE IV PRN ×2 (19:57→23:08)
[2016-10-15] MEDS: ONDANSETRON 4 MG/2 ML VIAL IVP PRN (23:08)
[2016-10-16] MEDS: LORazepam 0.5 MG TAB PO PRN ×2 (00:22→18:18)
[2016-10-16] MEDS: HYDROmorphone 1 MG/ML 1 ML SYRINGE IV PRN ×7 (02:17→21:47)
[2016-10-16] MEDS: DICYCLOMINE 10 MG CAP PO PRN ×2 (05:12→21:49)
[2016-10-16] MEDS: LEVOTHYROXINE 100 MCG TAB PO SCH (06:15)
[2016-10-16] MEDS: ONDANSETRON 4 MG/2 ML VIAL IVP PRN ×2 (08:05→16:04)
[2016-10-16] MEDS: SODIUM CHLORIDE 0.9% 1,000 ML IV SCH (08:18)
[2016-10-16] MEDS: HEPARIN SODIUM,PORCINE 5,000 UNIT/ML 1 ML VIAL SQ SCH ×2 (08:19→18:17)
[2016-10-16] MEDS: PANTOPRAZOLE 40 MG/10 ML VIAL IV SCH ×2 (08:20→20:40)
[2016-10-16] MEDS: HYDROCHLOROTHIAZIDE 12.5 MG CAP PO SCH (08:20)
[2016-10-16] MEDS: amLODIPine 5 MG TAB PO SCH (08:20)
[2016-10-16] MEDS ORDERED: PANTOPRAZOLE 40 MG/10 ML VIAL IV SCH (09:00)
[2016-10-16] MEDS ORDERED: LORazepam 0.5 MG TAB PO STA (09:16)
[2016-10-16 09:20] LABS: Basophils % (A) 0 %; CH 32.8; CHCM 35.6; Eosinophils # (A) 0.2 k/uL (0-0.7); Eosinophils % (A) 1 %; HCT 37.5 % (34.0-46.0); HDW 2.74; HGB 12.7 gm/dL (11.4-16.0); Luc # (Auto) 0.21; Luc % (Auto) 2; Lymphocytes # (A) 2.1 k/uL (1.0-4.8); Lymphocytes % (A) 20 %; MCH 31.3 pg (25.0-35.0); MCHC 33.8 g/dL (31.0-37.0); MCV 92.5 fL (80.0-100.0); Mean Platelet Volume 7.3; Monocytes # (A) 0.5 k/uL (0-1.0); Monocytes % (A) 4 %; Neutrophils # (A) 7.4 k/uL (1.3-7.7); Neutrophils % (A) 72 %; RBC 4.05 m/uL (3.80-5.40); RDW 12.5 % (11.5-15.5); WBC 10.3 k/uL (3.8-10.6); WBC (Perox) 10.57
[2016-10-16 10:05] LABS: ALT 80 U/L (9-52); AST 79 U/L (14-36); Alkaline Phosphatase 173 U/L (38-126); Amylase 53 U/L (30-110); Anion Gap 15 mmol/L; Blood Urea Nitrogen 7 mg/dL (7-17); Calcium 9.2 mg/dL (8.4-10.2); Carbon Dioxide 20 mmol/L (22-30); Chloride 102 mmol/L (98-107); Glucose 126 mg/dL (74-99); Non-African American GFR(MDRD) >60 (>60 ml/min/1.73 sqM); Potassium 3.3 mmol/L (3.5-5.1); Sodium 137 mmol/L (137-145); Total Bilirubin 0.9 mg/dL (0.2-1.3); Total Protein 7.3 g/dL (6.3-8.2)
[2016-10-16] MEDS ORDERED: POTASSIUM CHLORIDE ER 20 MEQ TAB.ER PO STA (12:02)
[2016-10-16 15:10] VITALS: BMI 23.1
--- NOTE | 2016-10-16 17:51 | P.CONS ---
History of Present Illness - Reason for Consult Consult date: 10/16/16 Biopsy results Requesting physician: Gurmeet Walker - Chief Complaint Abd pain - History of Present Illness Please refer to Dr. Azul's consult dated 09/23 as none of the history has otherwise changed. 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 Pt is still having nausea and vomiting, abd and epigastric pain, lots of belching, abd pain within a few minutes of eating, she has lost about 15 more lbs over the last few weeks, diarrhea persists. Review of Systems All systems: negative Constitutional: Reports as per HPI Past Medical History Past Medical History: Cancer, GERD/Reflux, Hyperlipidemia, Liver Disease, Osteoarthritis (OA), Thyroid Disorder Additional Past Medical History / Comment(s): "ENLARGED SPLEEN,LIVER MASS PER CT SCAN -NO BX YET,"PANCREAS ENLARGED/SWOLLEN". PT STATED IN 2011 LIVER BX SHOWED FIBROSIS,2015 LIVER BX SHOWED CIRRHOIS(FATTY LIVER), " 10-06-16 AT [facility] HAD BX PANCREAS AND LYMPH NODE". DJD, UTI History of Any Multi-Drug Resistant Organisms: None Reported Past Surgical History: Section, Cholecystectomy, Hernia Repair, Orthopedic Surgery, Tubal Ligation Additional Past Surgical History / Comment(s): Caitie Surgery 2009, rosa 2009, c section 1980, 1983, carpal tunnel surgery bilateral, 2 x hernia surgery, dequervains bilateral hands, 2013 lumbar fusion. EGD- 2015.10-06-16 BX PANCREAS AND LYMPH NODES AT [facility] Past Anesthesia/Blood Transfusion Reactions: No Reported Reaction Past Psychological History: No Psychological Hx Reported Additional Psychological History / Comment(s): PT STATED SHE TRIES TO STAY POSITIVE NO DEPRESSION CURRENTLY. NO THOUGHTS OF WANTING TO HARM SELF. Smoking Status: Former smoker Past Alcohol Use History: None Reported Additional Past Alcohol Use History / Comment(s): STARTED SMOKING IN 1976, Quit smoking January 2016, 1.5 ppd Past Drug Use History: None Reported - Past Family History Brother(s) Family Medical History: Cancer, Liver Disease, Myocardial Infarction ([place]) Additional Family Medical History / Comment(s): Patient states has 7 brothers- 6 brothers have Mother Family Medical History: Diabetes Mellitus, Thyroid Disorder Father Family Medical History: Cancer, CVA/TIA, Hypertension, Prostate Disorder Additional Family Medical History / Comment(s): bone ca sisters Additional Family Medical History / Comment(s): sister from down syndrome-1968 other sister from drug overdose in 2008. Medications and Allergies Home Medications Medication Instructions Recorded Confirmed Type Hydrochlorothiazide 12.5 mg PO DAILY 06/12/16 10/15/16 History Ranitidine HCl [Zantac] 150 mg PO DAILY 06/12/16 10/15/16 History amLODIPine [Norvasc] 5 mg PO DAILY 06/12/16 10/15/16 History diphenhydrAMINE [Benadryl] 2 cap PO HS PRN 06/12/16 10/15/16 History Dicyclomine [Bentyl] 10 mg PO TID PRN 09/20/16 10/15/16 History Levothyroxine Sodium [Synthroid] 100 mcg PO DAILY 09/20/16 10/15/16 History Omeprazole 40 mg PO DAILY 09/20/16 10/15/16 History Ondansetron [Zofran ODT] 8 mg PO Q12H PRN 09/20/16 10/15/16 History Ibuprofen [Motrin] 800 mg PO Q8HR PRN 10/15/16 10/15/16 History Allergies Allergy/AdvReac Type Severity Reaction Status Date / Time acetaminophen [From Vicodin] Allergy Rash/Hives Verified 10/15/16 11:53 codeine Allergy Rash/Hives Verified 10/15/16 11:53 hydrocodone [From Vicodin] Allergy Rash/Hives Verified 10/15/16 11:53 Sulfa (Sulfonamide Allergy Swelling Verified 10/15/16 11:53 Antibiotics) atorvastatin [From Lipitor] AdvReac Unknown Verified 10/15/16 11:53 pravastatin [From Pravachol] AdvReac Unknown Verified 10/15/16 11:53 rosuvastatin [From Crestor] AdvReac Unknown Verified 10/15/16 11:53 Physical Exam Vitals: Vital Signs Temp Pulse Pulse Resp BP BP Pulse Ox 10/16/16 07:00 97.8 F 72 18 173/96 93 L 10/15/16 22:03 98 F 76 16 147/78 95 10/15/16 17:23 97.4 F L 66 18 131/79 96 10/15/16 16:36 18 131/79 Intake and Output 10/15/16 10/16/16 10/16/16 22:59 06:59 14:59 Intake Total 400 800 Balance 400 800 Intake: IV 400 800 Sodium Chloride 0.9% 1, 400 800 000 ml @ 100 mls/hr IV . Q10H [facility] Rx#:[id number] Other: Voiding Method Toilet - Constitutional General appearance: average body habitus, cooperative, no acute distress - EENT Eyes: anicteric sclerae, normal appearance ENT: normal oropharynx - Neck posterior SQ nodules Neck: lymphadenopathy - Respiratory Respiratory: bilateral: CTA - Cardiovascular Rhythm: regular Heart sounds: normal: S1, S2 Abnormal Heart Sounds: no systolic murmur, no diastolic murmur, no rub, no S3 Gallop, no S4 Gallop, no click, no other leg Peripheral Edema: bilateral: None - Gastrointestinal General gastrointestinal: soft, tenderness Localized gastrointestinal: tender: RUQ, LUQ, epigastric periumbilical - Integumentary Integumentary: normal turgor - Neurologic Neurologic: CNII-XII intact - Musculoskeletal Musculoskeletal: strength equal bilaterally - Psychiatric Psychiatric: A&O x's 3, appropriate affect, intact judgment & insight Results CBC & Chem 7: 10/16/16 08:19 10/16/16 08:19 Chest x-ray: report reviewed Abdominal x-ray: report reviewed Assessment and Plan (1) Adenocarcinoma Narrative/Plan: Pancreatobiliary origin, metastatic adenocarcinoma. Dr. Azul reviewed pathology reports from [facility], confirming diagnosis. He told the pt the diagnosis. She has stage IV malignancy that is not curable but controllable for some time with chemotherapy. Prognosis with therapy up to 1 year, based on response to therapy. We will be meeting with the pt family tomorrow in the early afternoon. All of her questions were answered to her satisfaction. Pt was given anti-anxiety medication as she was quite emotionally distressed with the diagnosis and prognosis. Status: Acute
--- NOTE | 2016-10-16 18:50 | PN ---
DATE OF SERVICE: 10/16/2016 This 60-year-old woman who was admitted with abdominal pain, diarrhea, features of acute pancreatitis, also had recent evaluation at [facility] with a biopsy report that came back positive for pancreatic adenocarcinoma, possibly stage IV. Dr. Azul is following the patient closely. The patient also has extrahepatic biliary obstruction. Lymphoma is also considered a possibility, as CA-19-9 was elevated. PAST MEDICAL HISTORY: Reviewed. REVIEW OF SYSTEMS: CARDIOVASCULAR: No angina, palpitations. RESPIRATORY: As mentioned earlier. GASTROINTESTINAL: As mentioned earlier. : No dysuria. NERVOUS: No numbness or weakness. Current medications are reviewed, include: 1. Norvasc 5 mg p.o. daily. 2. Bentyl 10 mg t.i.d. p.r.n. 3. Benadryl. 4. Heparin 5 subcu q.8. 5. HydroDIURIL 12.5 mg daily. 6. Dilaudid 1 mg q.3 p.r.n. 7. Synthroid 100 mcg p.o. daily. 8. Ativan 0.5 q.8. 9. Narcan 0.2 q.2 p.r.n. 10. Zofran 4 mg q.8. 11. Protonix 40 mg b.i.d. 12. Zestril 50 mg q.h.s. 13. Ultram 50 mg every 6 hours p.r.n. On physical exam, the patient is alert and oriented x3. Pulse 72, blood pressure 172/96, respirations 18, temperature 97.6, pulse ox 93% on room air. HEENT: Conjunctivae normal. NECK: No jugular venous distension. CARDIOVASCULAR: S1 and S2 muffled. RESPIRATORY: Breath sounds diminished in the bases. A few scattered rhonchi. No crackles. Abdomen is soft, obese, nontender. No mass palpable. LEGS: No edema. No swelling. NERVOUS SYSTEM: Higher function as mentioned earlier. Moves all 4 limbs. No focal motor or sensory deficits. LYMPHATIC: No lymph nodes palpable in neck, axillae. SKIN: No ulcers, rash or bleeding. Labs are CBC within normal limits. Potassium 3.3. AST, ALT noted. Lipase is 636. ASSESSMENT: 1. Severe abdominal pain, diarrhea, possible acute pancreatitis, improving. 2. Possible pancreatic adenocarcinoma with stage IV. 3. Extrahepatic biliary obstruction secondary to pancreatic malignancy. 4. Increased CA-19-9. 5. Mild coagulopathy possibly secondary to chronic liver disease. 6. Cirrhosis of liver in recent biopsy. 7. Increased WBC. 8. Increased lipase with a normal amylase. 9. History of gastroesophageal reflux disease. 10. Hypertension. 11. Degenerative joint disease. 12. History of section. 13. History of cholecystectomy. 14. History of Caitie fundoplication. 15. Carpal tunnel syndrome. 16. Remote history of nicotine dependence. 17. FULL CODE. RECOMMENDATIONS AND DISCUSSION: Recommend to continue current medications. Continue with monitoring and symptomatic treatment. Otherwise at this time, I would recommend symptomatic treatment, repeat labs and advance the diet as tolerated. Otherwise, closely follow with Dr. Azul. Prognosis guarded. I spoke with the family at length. Further recommendations to follow.
[2016-10-17] MEDS: SODIUM CHLORIDE 0.9% 1,000 ML IV SCH ×2 (00:17→08:50)
[2016-10-17] MEDS: HEPARIN SODIUM,PORCINE 5,000 UNIT/ML 1 ML VIAL SQ SCH ×4 (00:17→23:22)
[2016-10-17] MEDS: ONDANSETRON 4 MG/2 ML VIAL IVP PRN ×2 (00:51→08:47)
[2016-10-17] MEDS: HYDROmorphone 1 MG/ML 1 ML SYRINGE IV PRN ×4 (00:52→11:58)
[2016-10-17] MEDS: LEVOTHYROXINE 100 MCG TAB PO SCH (06:16)
[2016-10-17] MEDS: DICYCLOMINE 10 MG CAP PO PRN (06:26)
[2016-10-17 07:42] LABS: Basophils % (A) 0 %; CH 32.7; CHCM 35.6; Eosinophils # (A) 0.1 k/uL (0-0.7); Eosinophils % (A) 1 %; HCT 36.2 % (34.0-46.0); HDW 2.81; HGB 12.1 gm/dL (11.4-16.0); Luc # (Auto) 0.12; Luc % (Auto) 2; Lymphocytes # (A) 1.4 k/uL (1.0-4.8); Lymphocytes % (A) 19 %; MCH 30.9 pg (25.0-35.0); MCHC 33.5 g/dL (31.0-37.0); MCV 92.3 fL (80.0-100.0); Mean Platelet Volume 7.6; Monocytes # (A) 0.4 k/uL (0-1.0); Monocytes % (A) 6 %; Neutrophils # (A) 5.3 k/uL (1.3-7.7); Neutrophils % (A) 72 %; RBC 3.93 m/uL (3.80-5.40); RDW 12.5 % (11.5-15.5); WBC 7.3 k/uL (3.8-10.6); WBC (Perox) 8.15
[2016-10-17 07:53] LABS: ALT 77 U/L (9-52); AST 78 U/L (14-36); Alkaline Phosphatase 163 U/L (38-126); Amylase 47 U/L (30-110); Anion Gap 12 mmol/L; Blood Urea Nitrogen 5 mg/dL (7-17); Calcium 9.2 mg/dL (8.4-10.2); Carbon Dioxide 24 mmol/L (22-30); Chloride 102 mmol/L (98-107); Glucose 120 mg/dL (74-99); Non-African American GFR(MDRD) >60 (>60 ml/min/1.73 sqM); Potassium 3.5 mmol/L (3.5-5.1); Sodium 138 mmol/L (137-145); Total Bilirubin 0.9 mg/dL (0.2-1.3)
[2016-10-17] MEDS: HYDROCHLOROTHIAZIDE 12.5 MG CAP PO SCH (07:58)
[2016-10-17] MEDS: PANTOPRAZOLE 40 MG/10 ML VIAL IV SCH (07:58)
[2016-10-17] MEDS: amLODIPine 5 MG TAB PO SCH (07:58)
[2016-10-17] MEDS ORDERED: METOCLOPRAMIDE 5 MG/ML 2 ML VIAL IVP PRN (11:50)
[2016-10-17] MEDS ORDERED: MORPHINE ORAL SOLN 20 MG/1 ML ORAL SYRINGE PO PRN (14:00)
[2016-10-17] MEDS: ONDANSETRON 4 MG TAB PO PRN ×2 (15:17→19:16)
[2016-10-17] MEDS ORDERED: LACTULOSE 20 GM/30 ML CUP PO PRN (15:43)
--- NOTE | 2016-10-17 15:50 | P.PN ---
Subjective Principal diagnosis: Pancreatobiliary adenocarcinoma Pt and family meeting today to discuss diagnosis, treatment options and prognosis. Pt pain is better controlled, nausea and bloating improved, still no BM. Objective - Vital Signs Vital signs: Vital Signs Temp 97.9 F 10/17/16 07:00 Pulse 81 10/17/16 07:00 Resp 18 10/17/16 07:00 BP 192/83 10/17/16 07:00 Pulse Ox 98 10/17/16 07:00 Intake & Output 10/16/16 10/17/16 10/17/16 18:59 06:59 18:59 Intake Total 862.5 1740 Output Total 300 Balance 562.5 1740 Weight 61.235 kg Intake: IV 562.5 1200 Sodium Chloride 0.9% 1, 562.5 1200 000 ml @ 100 mls/hr IV . Q10H ODETTE Rx#:[id number] Oral 300 540 Output: Emesis 300 Other: Voiding Method Toilet Toilet Toilet # Voids 1 3 - Constitutional General appearance: Present: average body habitus, cooperative, no acute distress - EENT Eyes: Present: anicteric sclerae - Respiratory Details: respirations even and unlabored - Integumentary Integumentary: Present: normal - Neurologic Neurologic: Present: CNII-XII intact - Musculoskeletal Musculoskeletal: Present: strength equal bilaterally - Psychiatric Psychiatric: Present: A&O x's 3, appropriate affect, intact judgment & insight - Labs CBC & Chem 7: 10/17/16 07:11 10/17/16 07:11 Labs: Abnormal Lab Results - Last 24 Hours (Table) 10/17/16 Range/Units 07:11 BUN 5 L (7-17) mg/dL Glucose 120 H (74-99) mg/dL AST 78 H (14-36) U/L ALT 77 H (9-52) U/L Alkaline Phosphatase 163 H (38-126) U/L Lipase 580 H (23-300) U/L Assessment and Plan (1) Adenocarcinoma Narrative/Plan: Diagnosis of adenocarcinoma arising from pancreatobiliary origin was reviewed in detail. Treatment options are limited to systemic chemotherapy but, PET scan for final staging will be done prior to the initiation of therapy. If localized disease is noted then pt may qualify for radiation in the future. Prognosis with and with out chemotherapy discussed, symptom control reviewed. All of pt and family questions were answered. 45min counseling and coordinating care. Status: Acute Plan: Meds have been converted to oral, fentanyl patch ordered. Will evaluate pt symptom management in AM. PET will be sched for next weekend Chemo will be planned outpatient Follow up with Dr. Azul after PET Time with Patient: Greater than 30
--- NOTE | 2016-10-17 17:18 | P.GSCN ---
History of Present Illness Consult date: 10/17/16 Reason for Consult: Pancreatic cancer History of present illness: Patient's hospitalized after a recent diagnosis of pancreatic cancer. She is having increased pain and some difficulties tolerating diet. She had a recent endoscopic ultrasound of a mass in the retroperitoneum and pancreatic cancers thought to be most likely. She has a PET scan ordered for next week. We are asked to see this patient for Port-A-Cath placement. Review of Systems The patient denies any acute changes in his vision or hearing, no dysphagia or odynophagia, no chest pain or shortness of breath, no dysuria or hematuria, no headache, no runny nose, no rectal bleeding or melena Past Medical History Past Medical History: Cancer, GERD/Reflux, Hyperlipidemia, Liver Disease, Osteoarthritis (OA), Thyroid Disorder Additional Past Medical History / Comment(s): "ENLARGED SPLEEN,LIVER MASS PER CT SCAN -NO BX YET,"PANCREAS ENLARGED/SWOLLEN". PT STATED IN 2011 LIVER BX SHOWED FIBROSIS,2015 LIVER BX SHOWED CIRRHOIS(FATTY LIVER), " 10-06-16 AT [facility] HAD BX PANCREAS AND LYMPH NODE". DJD, UTI History of Any Multi-Drug Resistant Organisms: None Reported Past Surgical History: Section, Cholecystectomy, Hernia Repair, Orthopedic Surgery, Tubal Ligation Additional Past Surgical History / Comment(s): Caitie Surgery 2009, rosa 2009, c section 1980, 1983, carpal tunnel surgery bilateral, 2 x hernia surgery, dequervains bilateral hands, 2013 lumbar fusion. EGD- 2015.10-06-16 BX PANCREAS AND LYMPH NODES AT [facility] Past Anesthesia/Blood Transfusion Reactions: No Reported Reaction Past Psychological History: No Psychological Hx Reported Additional Psychological History / Comment(s): PT STATED SHE TRIES TO STAY POSITIVE NO DEPRESSION CURRENTLY. NO THOUGHTS OF WANTING TO HARM SELF. Smoking Status: Former smoker Past Alcohol Use History: None Reported Additional Past Alcohol Use History / Comment(s): STARTED SMOKING IN 1976, Quit smoking January 2016, 1.5 ppd Past Drug Use History: None Reported - Past Family History Brother(s) Family Medical History: Cancer, Liver Disease, Myocardial Infarction (ND) Additional Family Medical History / Comment(s): Patient states has 7 brothers- 6 brothers have Mother Family Medical History: Diabetes Mellitus, Thyroid Disorder Father Family Medical History: Cancer, CVA/TIA, Hypertension, Prostate Disorder Additional Family Medical History / Comment(s): bone ca sisters Additional Family Medical History / Comment(s): sister from down syndrome-1968 other sister from drug overdose in 2008. Medications and Allergies Home Medications Medication Instructions Recorded Confirmed Type Hydrochlorothiazide 12.5 mg PO DAILY 06/12/16 10/15/16 History Ranitidine HCl [Zantac] 150 mg PO DAILY 06/12/16 10/15/16 History amLODIPine [Norvasc] 5 mg PO DAILY 06/12/16 10/15/16 History diphenhydrAMINE [Benadryl] 2 cap PO HS PRN 06/12/16 10/15/16 History Dicyclomine [Bentyl] 10 mg PO TID PRN 09/20/16 10/15/16 History Levothyroxine Sodium [Synthroid] 100 mcg PO DAILY 09/20/16 10/15/16 History Omeprazole 40 mg PO DAILY 09/20/16 10/15/16 History Ondansetron [Zofran ODT] 8 mg PO Q12H PRN 09/20/16 10/15/16 History Allergies Allergy/AdvReac Type Severity Reaction Status Date / Time acetaminophen [From Vicodin] Allergy Rash/Hives Verified 10/15/16 11:53 codeine Allergy Rash/Hives Verified 10/15/16 11:53 hydrocodone [From Vicodin] Allergy Rash/Hives Verified 10/15/16 11:53 Sulfa (Sulfonamide Allergy Swelling Verified 10/15/16 11:53 Antibiotics) atorvastatin [From Lipitor] AdvReac Unknown Verified 10/15/16 11:53 pravastatin [From Pravachol] AdvReac Unknown Verified 10/15/16 11:53 rosuvastatin [From Crestor] AdvReac Unknown Verified 10/15/16 11:53 Surgical - Exam Vital Signs Temp Pulse Resp BP Pulse Ox 98.0 F 80 20 175/86 97 10/15/16 11:21 10/15/16 11:21 10/15/16 11:21 10/15/16 11:21 10/15/16 11:21 Physical exam: General: Well-developed, well-nourished HEENT: Normocephalic, sclerae nonicteric Abdomen: Nontender, nondistended Extremities: No edema Neuro: Alert and oriented Results - Labs 10/17/16 07:11 10/17/16 07:11 Abnormal Lab Results - Last 24 Hours (Table) 10/17/16 Range/Units 07:11 BUN 5 L (7-17) mg/dL Glucose 120 H (74-99) mg/dL AST 78 H (14-36) U/L ALT 77 H (9-52) U/L Alkaline Phosphatase 163 H (38-126) U/L Lipase 580 H (23-300) U/L Diabetes panel 10/17/16 Range/Units 07:11 Sodium 138 (137-145) mmol/L Potassium 3.5 (3.5-5.1) mmol/L Chloride 102 (98-107) mmol/L Carbon Dioxide 24 (22-30) mmol/L BUN 5 L (7-17) mg/dL Creatinine 0.60 (0.52-1.04) mg/dL Glucose 120 H (74-99) mg/dL Calcium 9.2 (8.4-10.2) mg/dL AST 78 H (14-36) U/L ALT 77 H (9-52) U/L Alkaline Phosphatase 163 H (38-126) U/L Total Protein 7.0 (6.3-8.2) g/dL Albumin 3.9 (3.5-5.0) g/dL Calcium panel 10/17/16 Range/Units 07:11 Calcium 9.2 (8.4-10.2) mg/dL Albumin 3.9 (3.5-5.0) g/dL Pituitary panel 10/17/16 Range/Units 07:11 Sodium 138 (137-145) mmol/L Potassium 3.5 (3.5-5.1) mmol/L Chloride 102 (98-107) mmol/L Carbon Dioxide 24 (22-30) mmol/L BUN 5 L (7-17) mg/dL Creatinine 0.60 (0.52-1.04) mg/dL Glucose 120 H (74-99) mg/dL Calcium 9.2 (8.4-10.2) mg/dL Adrenal panel 10/17/16 Range/Units 07:11 Sodium 138 (137-145) mmol/L Potassium 3.5 (3.5-5.1) mmol/L Chloride 102 (98-107) mmol/L Carbon Dioxide 24 (22-30) mmol/L BUN 5 L (7-17) mg/dL Creatinine 0.60 (0.52-1.04) mg/dL Glucose 120 H (74-99) mg/dL Calcium 9.2 (8.4-10.2) mg/dL Total Bilirubin 0.9 (0.2-1.3) mg/dL AST 78 H (14-36) U/L ALT 77 H (9-52) U/L Alkaline Phosphatase 163 H (38-126) U/L Total Protein 7.0 (6.3-8.2) g/dL Albumin 3.9 (3.5-5.0) g/dL Assessment and Plan (1) Adenocarcinoma Narrative/Plan: Patient I discussed the options. Will tentatively scheduled for Port-A-Cath placement on Thursday. Risks of bleeding, infection, pneumothorax, DVT, catheter breakage were discussed. She understands and wishes to proceed. Status: Acute
[2016-10-17] MEDS: METOCLOPRAMIDE 5 MG TAB PO SCH ×2 (17:34→21:01)
--- NOTE | 2016-10-17 19:16 | PN ---
DATE OF SERVICE: 10/17/2016 This 60-year-old gentleman was admitted with severe abdominal pain and diarrhea also had recently diagnosed pancreatic cancer, no chest pain, no palpitations, no fever. On exam, alert and oriented times three. Pulse 81, blood pressure 119/83, respirations 18. temperature 97.9. Pulse ox 98% on room air. HEENT: Conjunctivae normal. NECK: No jugular venous distention. CARDIOVASCULAR: S1, S2 muffled. RESPIRATORY: Breath sounds diminished at the bases. No rhonchi. No crackles. ABDOMEN: Soft. No mass palpable. EXTREMITIES: Legs no edema. Nervous system: No focal deficits. LABS: Sodium 130, potassium 3.5, AST 78 and ALT 77, alkaline phosphatase is 163. ASSESSMENT: 1. Severe abdominal pain, diarrhea, possible acute pancreatitis, present on admission, improving. 2. Pancreatic adenocarcinoma stage IV recently diagnosed. 3. Extrahepatic biliary obstruction secondary to pancreatic malignancy. 4. Increased CA-19-9. 5. Mild coagulopathy possibly secondary to chronic liver disease. 6. Cirrhosis of the liver, and recent biopsy. 7. Increased WBC. 8. Increased lipase and normal amylase. 9. History of gastroesophageal reflux disease. 10. Hypertension. 11. History of degenerative joint disease. 12. History section. 13. History of cholecystectomy. 14. History of Caitie fundoplication. 15. Carpal tunnel syndrome. 16. Remote history of nicotine depression. 17. FULL CODE. RECOMMENDATIONS AND DISCUSSION: Recommend to continue with monitoring, symptomatic treatment, otherwise, recommend continue the current medications. Repeat labs. Otherwise, Dr. Azul is planning a family meeting regarding the further course of action. Otherwise, prognosis guarded because of multiple complex medical issues. Further recommendations to follow.
[2016-10-17] MEDS: MORPHINE ORAL SOLN 20 MG/1 ML ORAL SYRINGE PO PRN (19:50)
[2016-10-17] MEDS: diphenhydrAMINE 25 MG CAP PO PRN (21:01)
[2016-10-18] MEDS: MORPHINE ORAL SOLN 20 MG/1 ML ORAL SYRINGE PO PRN ×6 (02:05→23:42)
[2016-10-18] MEDS: ONDANSETRON 4 MG TAB PO PRN ×4 (06:19→19:34)
[2016-10-18] MEDS: LEVOTHYROXINE 100 MCG TAB PO SCH (06:29)
[2016-10-18 07:03] LABS: Basophils % (A) 1 %; CH 32.8; CHCM 35.9; Eosinophils # (A) 0.1 k/uL (0-0.7); Eosinophils % (A) 2 %; HCT 38.3 % (34.0-46.0); HDW 2.79; HGB 13.1 gm/dL (11.4-16.0); Luc % (Auto) 1; Lymphocytes # (A) 2.4 k/uL (1.0-4.8); Lymphocytes % (A) 29 %; MCH 31.4 pg (25.0-35.0); MCHC 34.2 g/dL (31.0-37.0); MCV 91.9 fL (80.0-100.0); Mean Platelet Volume 7.7; Monocytes # (A) 0.5 k/uL (0-1.0); Monocytes % (A) 6 %; Neutrophils # (A) 4.9 k/uL (1.3-7.7); Neutrophils % (A) 61 %; RBC 4.16 m/uL (3.80-5.40); RDW 12.5 % (11.5-15.5); WBC (Perox) 8.29
[2016-10-18] MEDS ORDERED: PANTOPRAZOLE 40 MG TABLET PO SCH (07:30)
[2016-10-18 07:41] LABS: ALT 84 U/L (9-52); AST 82 U/L (14-36); Alkaline Phosphatase 175 U/L (38-126); Amylase 76 U/L (30-110); Anion Gap 11 mmol/L; Blood Urea Nitrogen 4 mg/dL (7-17); Calcium 9.5 mg/dL (8.4-10.2); Carbon Dioxide 27 mmol/L (22-30); Chloride 102 mmol/L (98-107); Glucose 106 mg/dL (74-99); Non-African American GFR(MDRD) >60 (>60 ml/min/1.73 sqM); Potassium 3.2 mmol/L (3.5-5.1); Sodium 140 mmol/L (137-145); Total Bilirubin 0.8 mg/dL (0.2-1.3); Total Protein 7.4 g/dL (6.3-8.2)
[2016-10-18] MEDS: HYDROCHLOROTHIAZIDE 12.5 MG CAP PO SCH (08:05)
[2016-10-18] MEDS: METOCLOPRAMIDE 5 MG TAB PO SCH ×4 (08:05→21:26)
[2016-10-18] MEDS: amLODIPine 5 MG TAB PO SCH (08:05)
[2016-10-18] MEDS: HEPARIN SODIUM,PORCINE 5,000 UNIT/ML 1 ML VIAL SQ SCH ×3 (08:05→23:42)
[2016-10-18] MEDS: SODIUM CHLORIDE 0.9% 1,000 ML IV SCH ×3 (10:10→23:41)
[2016-10-18] MEDS ORDERED: Potassium Replacement Protocol 1 EACH MISC MISCELLANE PRN (10:15)
[2016-10-18] MEDS: POTASSIUM CHLORIDE 10 MEQ, LIDOCAINE 2% INJ 10 MG in SODIUM CHLORIDE 0.9% 100 ML IV SCH ×2 (10:41→12:16)
[2016-10-18] MEDS: PANTOPRAZOLE 40 MG TABLET PO SCH (17:19)
--- NOTE | 2016-10-18 18:02 | PN ---
DATE OF SERVICE: 10/18/2016 Tiny Toth is a 60-year-old gentleman who was admitted with severe abdominal pain and diarrhea, possible acute pancreatitis, also diagnosed with pancreatic adenocarcinoma stage IV. The patient was closely monitored and Dr. Freedman has seen the patient and recommended Port-A-Cath placement on Thursday. No chest pain or palpitation. No fever. On exam, alert and oriented x3. Pulse is 62, blood pressure 129/64, respirations 18, temperature 97.7, pulse ox 96% on room air. HEENT: Conjunctivae normal. NECK: No jugular venous distention. CARDIOVASCULAR: S1 and S2, muffled. RESPIRATORY: Breath sounds diminished at the bases. No rhonchi, no crackles. ABDOMEN: Soft, nontender. LEGS: No edema, no swelling. NERVOUS SYSTEM: No focal deficits. LABS: Potassium 3.2, other labs are noted. ASSESSMENT: 1. Severe abdominal pain, diarrhea with possible acute pancreatitis, present on admission, improving. 2. Pancreatic adenocarcinoma stage IV recently diagnosed. 3. Hepatic biliary obstruction secondary to pancreatic malignancy. 4. Increased CA-19-9. 5. Mild coagulopathy possibly secondary to chronic liver disease. 6. Cirrhosis of liver and recent biopsy. 7. Increased WBC. 8. Increased lipase and normal amylase. 9. History gastroesophageal reflux disease. 10. Hypertension. 11. History of degenerative joint disease. 12. History of section. 13. History of cholecystectomy. 14. History of recent fundoplication. 15. Carpal tunnel syndrome. 16. Remote history of nicotine dependence. 17. FULL CODE. RECOMMENDATIONS AND DISCUSSION: I recommend to continue the current medications, continue monitoring and symptomatic treatment. Otherwise at this time supplement potassium. Closely follow with Dr. Azul. Repeat labs. Further recommendations to follow.
[2016-10-18] MEDS: diphenhydrAMINE 25 MG CAP PO PRN (21:26)
[2016-10-19] MEDS: MORPHINE ORAL SOLN 20 MG/1 ML ORAL SYRINGE PO PRN ×6 (02:34→23:36)
[2016-10-19] MEDS: LEVOTHYROXINE 100 MCG TAB PO SCH (06:13)
[2016-10-19 07:18] LABS: Basophils # (A) 0.1 k/uL (0-0.2); Basophils % (A) 0 %; CH 32.9; CHCM 35.4; Eosinophils # (A) 0.2 k/uL (0-0.7); Eosinophils % (A) 2 %; HCT 38.4 % (34.0-46.0); HDW 2.74; HGB 13.1 gm/dL (11.4-16.0); Luc # (Auto) 0.44; Luc % (Auto) 4; Lymphocytes # (A) 2.1 k/uL (1.0-4.8); Lymphocytes % (A) 17 %; MCH 31.8 pg (25.0-35.0); MCHC 34.2 g/dL (31.0-37.0); MCV 93.2 fL (80.0-100.0); Mean Platelet Volume 7.2; Monocytes # (A) 0.8 k/uL (0-1.0); Monocytes % (A) 7 %; Neutrophils # (A) 8.5 k/uL (1.3-7.7); Neutrophils % (A) 70 %; RBC 4.12 m/uL (3.80-5.40); RDW 12.7 % (11.5-15.5); WBC 12.1 k/uL (3.8-10.6)
[2016-10-19] MEDS: PANTOPRAZOLE 40 MG TABLET PO SCH ×2 (07:32→17:30)
[2016-10-19] MEDS: METOCLOPRAMIDE 5 MG TAB PO SCH ×4 (07:32→19:47)
[2016-10-19] MEDS: HEPARIN SODIUM,PORCINE 5,000 UNIT/ML 1 ML VIAL SQ SCH ×3 (07:33→23:36)
[2016-10-19] MEDS: amLODIPine 5 MG TAB PO SCH (07:33)
[2016-10-19] MEDS: HYDROCHLOROTHIAZIDE 12.5 MG CAP PO SCH (07:33)
[2016-10-19 08:04] LABS: ALT 84 U/L (9-52); AST 81 U/L (14-36); Alkaline Phosphatase 179 U/L (38-126); Amylase 64 U/L (30-110); Anion Gap 15 mmol/L; Blood Urea Nitrogen 5 mg/dL (7-17); Calcium 9.6 mg/dL (8.4-10.2); Carbon Dioxide 24 mmol/L (22-30); Chloride 102 mmol/L (98-107); Glucose 106 mg/dL (74-99); Non-African American GFR(MDRD) >60 (>60 ml/min/1.73 sqM); Potassium 3.5 mmol/L (3.5-5.1); Sodium 141 mmol/L (137-145); Total Bilirubin 1.2 mg/dL (0.2-1.3); Total Protein 7.7 g/dL (6.3-8.2)
[2016-10-19] MEDS: ONDANSETRON 4 MG TAB PO PRN ×4 (09:20→23:36)
[2016-10-19] MEDS: SODIUM CHLORIDE 0.9% 1,000 ML IV SCH ×3 (12:02→19:46)
[2016-10-20] MEDS: MORPHINE ORAL SOLN 20 MG/1 ML ORAL SYRINGE PO PRN ×3 (03:53→15:59)
[2016-10-20] MEDS: ONDANSETRON 4 MG TAB PO PRN ×3 (03:54→15:27)
[2016-10-20] MEDS: SODIUM CHLORIDE 0.9% 1,000 ML IV SCH (03:57)
[2016-10-20] MEDS: LEVOTHYROXINE 100 MCG TAB PO SCH (05:56)
[2016-10-20 07:02] LABS: Basophils % (A) 0 %; CH 32.9; CHCM 35.7; Eosinophils # (A) 0.1 k/uL (0-0.7); Eosinophils % (A) 2 %; HCT 35.7 % (34.0-46.0); HDW 2.77; HGB 12.1 gm/dL (11.4-16.0); Luc % (Auto) 2; Lymphocytes # (A) 1.5 k/uL (1.0-4.8); Lymphocytes % (A) 25 %; MCH 31.5 pg (25.0-35.0); MCV 92.7 fL (80.0-100.0); Mean Platelet Volume 7.9; Monocytes # (A) 0.5 k/uL (0-1.0); Monocytes % (A) 7 %; Neutrophils % (A) 64 %; RBC 3.85 m/uL (3.80-5.40); RDW 12.6 % (11.5-15.5); WBC 6.2 k/uL (3.8-10.6); WBC (Perox) 6.46
[2016-10-20 07:27] LABS: ALT 76 U/L (9-52); AST 64 U/L (14-36); Alkaline Phosphatase 156 U/L (38-126); Amylase 36 U/L (30-110); Anion Gap 12 mmol/L; Blood Urea Nitrogen 4 mg/dL (7-17); Calcium 9.3 mg/dL (8.4-10.2); Carbon Dioxide 26 mmol/L (22-30); Chloride 102 mmol/L (98-107); Glucose 102 mg/dL (74-99); Non-African American GFR(MDRD) >60 (>60 ml/min/1.73 sqM); Potassium 3.3 mmol/L (3.5-5.1); Sodium 140 mmol/L (137-145); Total Protein 7.1 g/dL (6.3-8.2)
[2016-10-20] MEDS: METOCLOPRAMIDE 5 MG TAB PO SCH ×2 (07:52→12:29)
[2016-10-20] MEDS: PANTOPRAZOLE 40 MG TABLET PO SCH (07:53)
[2016-10-20] MEDS: HEPARIN SODIUM,PORCINE 5,000 UNIT/ML 1 ML VIAL SQ SCH (07:53)
[2016-10-20] MEDS: amLODIPine 5 MG TAB PO SCH (07:54)
[2016-10-20] MEDS: POTASSIUM CHLORIDE ER 20 MEQ TAB.ER PO SCH ×2 (12:27→15:27)
[2016-10-20] MEDS ORDERED: HEPARIN SODIUM,PORCINE 100 UNIT/ML 5 ML VIAL IV ONE ×2 (12:56→14:52)
[2016-10-20] MEDS ORDERED: LIDOCAINE (PF) 10 MG/ML 2 ML VIAL SQ ONE ×2 (12:56→14:52)
[2016-10-20] MEDS ORDERED: IV FLUID CONTINUATION 1,000 ML IV ONE (13:12)
[2016-10-20 13:22] VITALS: TEMP 97.8
[2016-10-20] MEDS ORDERED: LIDOCAINE 1% 20 ML VIAL (10MG/ML) FOR IV START INTRADERMA ONE (13:25)
[2016-10-20] MEDS ORDERED: LACTATED RINGERS 1,000 ML IV ONE (13:25)
[2016-10-20] MEDS ORDERED: ceFAZolin 2 GM in SODIUM CHLORIDE 0.9% 100 ML IVPB STA (14:14)
[2016-10-20] MEDS ORDERED: PROPOFOL 10 MG/ML 20 ML VIAL IV ONE (14:18)
[2016-10-20] MEDS ORDERED: MIDAZOLAM 2 MG/2 ML VIAL ONE (14:18)
[2016-10-20] MEDS ORDERED: LIDOCAINE 1% INJ 10MG/ML (20 ML MDV) ONE (14:18)
[2016-10-20] MEDS ORDERED: fentaNYL (PF) 50 MCG/ML 2 ML AMP ONE (14:18)
--- NOTE | 2016-10-20 15:11 | P.PCN ---
Date of Procedure: 10/20/16 Procedure(s) Performed: PREOPERATIVE DIAGNOSIS: Pancreatic cancer POSTOPERATIVE DIAGNOSIS: Same PROCEDURE: Port-A-Cath placement SURGEON: Tano EBL: Minimal ANESTHESIA: Sedation COMPLICATIONS: None OPERATIVE PROCEDURE: Patient was brought and placed on the operative table in the supine position. The patient was sedated per anesthesia that time. The chest and neck were prepped and draped in usual sterile fashion. The ultrasound probe was used to identify the location of the right internal jugular vein. The skin was localized with lidocaine. The Seldinger needle was advanced into the IJ under ultrasound guidance. The wire was advanced through the needle under fluoroscopic guidance into the superior vena cava. A port pocket was created in the right infraclavicular location. The catheter was tunneled from the wire entrance site to the port pocket. The port was then connected to the catheter. The dilator introducer was threaded over the guidewire. The guidewire and dilator were then removed. The catheter was advanced through the introducer and introducer was then removed. The tip was seen to be in the right atrial junction. Port was flushed with both saline and a Hep-Lock solution. There was good flow both in and out of the port. The port was sutured in underlying tissues using 3-0 Vicryl sutures. The subcutaneous tissues were reapproximated using 3-0 Vicryl sutures and the skin at both locations using 4-0 Monocryl sutures. Steri-Strips and sterile dressings then applied. DISPOSITION: Stable to recovery room
--- NOTE | 2016-10-20 15:20 | PN ---
INTERVAL HISTORY: Ms. Toth is a 60-year-old female with known history of recently diagnosed pancreatobiliary adenocarcinoma. Admitted to the hospital with severe abdominal pain and diarrhea, possible acute pancreatitis. Patient is currently tolerating liquid diet now. General Surgery has seen the patient. Currently being planned for a ( ) catheter placement on Thursday. Patient is supposed to get a PET scan next week and followed with chemotherapy. Oncology and General Surgery is following this patient. Currently, patient denied any worsening pain, controlled with the pain medications. REVIEW OF SYSTEMS: CONSTITUTIONAL: No fever, no chills. RESPIRATORY: No cough or sputum production. CARDIOVASCULAR: No chest pain or short of breath. ABDOMEN: No nausea or vomiting. Patient does have abdominal pain, but controlled. Patient does have constipation. GENITOURINARY: Negative. ENDOCRINE: Negative. PSYCHIATRY: Negative. SKIN: Negative. All other 14-point review of systems negative except as above. Current medications include heparin subQ, hydrochlorothiazide, lorazepam, lactulose, Synthroid, metoclopramide, morphine oral solution, naloxone, Zofran, Protonix, amlodipine and a fentanyl patch. PHYSICAL EXAMINATION: A 60-year-old female lying in bed comfortably. Awake, alert, oriented, x3. Appears in no apparent distress. VITALS: Blood pressure is 159/65, pulse is 88, respirations 18, temperature afebrile, pulse ox 95% on room air. HEENT: Atraumatic, normocephalic. Neck is supple. No JVD. CVS EXAM: S1, S2 heard. No murmurs, no gallop, no rub. LUNGS: Bilateral air entry is present. No wheezing. No crackles. Abdomen is soft, mild right upper quadrant tenderness. Nonlabored breathing, no guarding or rigidity. Bowel sounds are present. ANATOMIC PATHOLOGY ASSISTANT: Awake, alert, oriented x3. No focal deficit. EXTREMITIES: No edema. Pulses palpable bilaterally. No clubbing or cyanosis. PSYCHIATRIC: Cooperative. LABORATORY DATA: WBC 12.1, hemoglobin 13.1, platelets are 205. Sodium 141, potassium 3.5, chloride 102, bicarb is 24. BUN 5, creatinine 0.67. AST is 81, ALT is 84. Alk phos 179 device, lipase 591 trending down. IMPRESSION: 1. Severe abdominal pain, probably acute pancreatitis. Lipase is trending down now, patient improved clinically. 2. Pancreatobiliary adenocarcinoma stage IV, recently diagnosed. 3. Hepatic biliary obstruction secondary to pancreatic malignancy. 4. Elevated CEA 19-9. 5. Mild coagulopathy secondary to chronic liver disease. 6. Cirrhosis of the liver and recent biopsy. 7. Gastroesophageal reflux disease. 8. Hypertension. 9. Degenerative joint disease. 10. History of and cholecystectomy. 11. History of recent fundoplication surgery. 12. Carpal tunnel surgery history. 13. Remote history of nicotine dependence. 14. Patient is FULL CODE. DISCUSSION AND PLAN: Patient will be continued on IV fluids and started on a full liquid diet. Advance as tolerated. The patient is cleared for ( ) catheter placement on Thursday and otherwise, will hold hydrochlorothiazide at this time and will start on lisinopril with the blood pressure not well controlled along with amlodipine. As the patient is not eating well and hypokalemia on admission, will continue with the current management and follow up. Further recommendations based on the clinical course.
--- NOTE | 2016-10-20 15:29 | FL ---
EXAMINATION TYPE: FL guided central line placemt HISTORY: Fluoroscopy time Impression: 1. Fluoroscopy support provided to the referring physician. Approximately 11 seconds of fluoroscopy t ginny 6 submitted.
[2016-10-20 15:47] VITALS: RESP 20
--- NOTE | 2016-10-20 15:55 | XR ---
EXAMINATION TYPE: XR chest 1V portable DATE OF EXAM: 10/20/2016 3:49 PM CLINICAL HISTORY: Central line placement TECHNIQUE: Single AP portable upright view of the chest is obtained. COMPARISON: Chest x-ray from October 15, 2016 FINDINGS: There is new right internal jugular Mediport catheter with tip in SVC. There is new patchy left basilar atelectasis and/or infiltrate. No large pleural effusion or pneumothorax is seen bilate rally. Right lung remains clear. Cardiac silhouette size is stable and within normal limits. Osseous structures are intact. IMPRESSION: New right-sided internal jugular Mediport catheter with tip in SVC. No evidence of pneumo thorax. New patchy left basilar atelectasis and/or infiltrate is noted.
[2016-10-20 16:26] VITALS: BP 137/71
[2016-10-20 17:15] VITALS: PULSE 81
--- NOTE | 2016-10-21 21:34 | DS ---
DATE OF ADMISSION: 10/15/2016 DATE OF DISCHARGE: 10/20/2016 DISCHARGE DIAGNOSES: 1. Severe abdominal pain secondary to acute pancreatitis. Lipase is trending down. Patient improved clinically. 2. Pancreatobiliary adenocarcinoma, stage IV, recently diagnosed. 3. Hepatic biliary obstruction secondary to pancreatic malignancy. 4. Elevated CA 19-9. 5. Mild coagulopathy secondary to liver disease. 6. Cirrhosis of liver on recent biopsy. 7. Gastroesophageal reflux disease. 8. Hypertension. 9. Degenerative joint disease. 10. History of section and cholecystectomy. 11. History of Caitie fundoplication surgery. 12. Carpal tunnel surgery. 13. Remote history of nicotine abuse. 14. FULL CODE. HOSPITAL COURSE: Ms. Toth is a 60-year-old female with known history of multiple medical problems and recently diagnosed with pancreatobiliary adenocarcinoma stage IV, admitted to the hospital with abdominal pain, nausea, vomiting and elevated lipase level. Patient was managed conservatively for acute pancreatitis. Otherwise, patient is tolerating p.o. diet now and the patient was placed on ( ) catheter and being scheduled for chemotherapy. Patient will be having a PET scan next week and follow up with Dr. Azul and followed by chemotherapy with or without radiation. Otherwise, patient is clinically stable now and will be discharged home and follow up with primary care physician and oncology as an outpatient. DISCHARGE PHYSICAL EXAM: A 60-year-old female, lying in the bed comfortably; awake, alert and oriented x3. The patient not in no apparent distress. VITALS: Blood pressure is 151/91, pulse is 81 respiratory rate 20, temperature afebrile. The pulse ox is ( ) on room air. Laboratory data reviewed. Potassium 3.3, chloride 102, bicarb is 26, BUN 4, creatinine 0.6. Liver enzymes are trending down. Lipase level is trending down to 433. DISCHARGE MEDICATIONS: 1. Ranitidine 150 MG p.o. daily. 2. Amlodipine 5 mg p.o. daily. 3. Benadryl 2 capsules p.o. at bedtime p.r.n. for sleep ( ). 4. Dicyclomine 10 mg p.o. t.i.d. for spasms. 5. Levothyroxine 100 mcg p.o. daily. 6. Omeprazole 40 mg p.o. daily. 7. Zofran ODT 8 mg p.o. q.12 hours p.r.n. for nausea and vomiting. 8. Ultram 50 mg p.o. every 6 hourly p.r.n. for pain. 9. Ativan 0.5 mg p.o. q.8 hourly p.r.n. for anxiety. 10. Metoclopramide 5 mg p.o. a.c. and at bedtime. 11. Morphine oral solution 10 mg p.o. q.4 hourly p.r.n. for pain. 12. Lactulose 30 g p.o. q.i.d. p.r.n. for constipation. 13. Lisinopril 5 mg p.o. daily. 14. Hydrochlorothiazide has been stopped due to hypokalemia and dehydration and was started on lisinopril. Activity as tolerated. Heart-healthy and low-sodium chloride. Follow with Dr. Azul in [address] Hal Heck in 1 to [address] Freedman as needed.
== END 2016-10-20 18:25 | disposition home or self-care (01) | DRG 438 ==
LOC: EC 11:15 → 5ONC 15:43
PROVIDERS: ADMIT Internal Medicine; ATTEND Internal Medicine
PROC: 02HV33Z Insertion of Infusion Device into Superior Vena Cava, Percutaneous Approach (ICD-10-PCS; 2016-10-20)
PROC: 0JH60XZ Insertion of Tunneled Vascular Access Device into Chest Subcutaneous Tissue and Fascia, Open Approach (ICD-10-PCS; principal; 2016-10-20 07:30)
DX: K85.90 Acute pancreatitis without necrosis or infection, unspecified (principal); K83.1 Obstruction of bile duct; C25.9 Malignant neoplasm of pancreas, unspecified; D68.4 Acquired coagulation factor deficiency; K74.60 Unspecified cirrhosis of liver; I10 Essential (primary) hypertension; D72.829 Elevated white blood cell count, unspecified; K21.9 Gastro-esophageal reflux disease without esophagitis; E78.5 Hyperlipidemia, unspecified; G56.00 Carpal tunnel syndrome, unspecified upper limb; K76.0 Fatty (change of) liver, not elsewhere classified; M19.90 Unspecified osteoarthritis, unspecified site; R97.0 Elevated carcinoembryonic antigen [CEA]; E03.9 Hypothyroidism, unspecified; Z79.899 Other long term (current) drug therapy; Z87.891 Personal history of nicotine dependence; Z88.6 Allergy status to analgesic agent; Z88.5 Allergy status to narcotic agent; Z88.2 Allergy status to sulfonamides; Z88.8 Allergy status to other drugs, medicaments and biological substances; Z82.49 Family history of ischemic heart disease and other diseases of the circulatory system
CPT/HCPCS: 36415; 71010; 74020; 77001; 80053; 81003; 82150; 83605; 83690; 85025; 85610; 87077; 87086; 87186; 96361; 96374; 96375; 99152; 99153; 99285

== ENCOUNTER → 2016-10-25 | Outpatient (CLI) | payer MEDICARE, OTHER ==
--- NOTE | 2016-10-26 10:36 | PE ---
EXAMINATION TYPE: PET CT fusion skull to thigh DATE OF EXAM: 10/25/2016 12:20 PM COMPARISON: CT chest 09/23/2016. There are no prior PET CTs at this location for comparison. MRI abdom en 09/24/2016 No additional comparisons available at this location. HISTORY: Malignant neoplasm of pancreas TECHNIQUE: Following the intravenous administration of 14.6 mCi of F-18 FDG, whole body images are p erformed from the skull base to the midthigh. Images are reviewed on the computer in the coronal, ax ial, and sagittal planes. Reconstructed rotating images are created on independent workstation and r eviewed on the computer. A localization and attenuation correction CT is performed in conjunction w ith the PET scan. DLP: 333.06 mGycm SCAN: Initial Scan Blood glucose: 93 mg/dL Average Mediastinum SUV: 1.9 Average Liver SUV: 2.5 FINDINGS: NECK: Suspicious uptake is not identified. There is increased uptake within the bilateral tonsillar pillars measuring 3.9 on the left and 4.0 on the right of uncertain significance. THORAX: No abnormal uptake ABDOMEN AND PELVIS: There are several areas of increased uptake within the liver including the medial right lobe liver, PET image 125 with an SUV value of 4.2, right mid liver with an SUV value of 4.5 a nd posterior right lobe liver with an SUV value of 5.1. These are suspicious for metastatic disease. Some additional abnormal uptake is within the medial inferior right lobe liver an SUV value of 4.2, i mage 35. There is marked increased uptake at the tail of the pancreas with an SUV value of 4.2. There is some mild increased uptake within the body of the pancreas with the SUV value in the range of 3.7. Finding s can be compatible with the patient's reported neoplasm. There is increased uptake medial to the right kidney and along the lateral aspect of the left kidney. These have intense radiotracer uptake measuring 22 on the right and 5.8 on the left. At the lower le ft pole is an additional focus of radiotracer measuring 4.1 SUV value This could be some misregistrat ion with the renal pelvis. The focality of these however suggested underlying abnormality may be pres ent. Close follow-up these areas are recommended. Neoplasm is not excluded. Consider ultrasound for a dditional evaluation. There is a small focus of radiotracer accumulation better visualized on the coronal and sagittal plan e images which appears to lie along the lateral left portion of the costovertebral junction at T12. I ncreased uptake appears to be on the contralateral side as well on the axial plane images. OSSEOUS STRUCTURES: No abnormal uptake LOCALIZATION CT: The ascending thoracic aorta at the level of the main pulmonary artery is 3.1 cm the main pulmonary artery at the bifurcation is 2.1 cm. There is a nodular density within the subcutaneo us tissues near the level of the umbilicus on the right this measures 1.1 cm and is not hyperintense. COMPARISON: Lesions on the PET/CT correspond to the findings on the MRI IMPRESSION: 1. Increased signal within the body and tail of the pancreas can be compatible with neoplasm. 2. Multiple areas of hyperintensity within the right lobe liver compatible with metastatic lesions. 3. Increased uptake adjacent to the kidneys does not have corresponding finding. This could be misreg istration normal excretion. Underlying abnormality should be considered. Consider ultrasound for add itional evaluation.
== END | disposition home or self-care (01) ==
LOC: RADPETMAIN 09:41
PROVIDERS: ATTEND Internal Medicine Hematology & Oncology
DX: C25.3 Malignant neoplasm of pancreatic duct (principal)
CPT/HCPCS: 78815; A9552

== ENCOUNTER 2016-10-28 20:44 | Inpatient (IN) | payer MEDICARE, OTHER ==
[2016-10-28] MEDS ORDERED: ONDANSETRON 4 MG/2 ML VIAL IVP STA ×2 (21:00→21:30)
[2016-10-28] MEDS ORDERED: SODIUM CHLORIDE 0.9% 500 ML IV STA ×2 (21:01→21:30)
[2016-10-28] MEDS ORDERED: HYDROmorphone 1 MG/ML 1 ML SYRINGE IVP STA ×2 (21:30→23:00)
--- NOTE | 2016-10-28 21:37 | ED ---
Nausea/Vomiting/Diarrhea HPI - General Chief complaint: Nausea/Vomiting/Diarrhea Stated complaint: Sent By Dr. Green-Cancer Doctor Time Seen by Provider: 10/28/16 21:00 Source: patient Mode of arrival: wheelchair Limitations: no limitations - History of Present Illness Initial comments: This patient is a 60-year-old woman who presents with the complaint that she has been vomiting since late last night. She states she has not as result been able to keep down any fluids nor any of her medications. As result of this she is experiencing severe back and abdominal pain that she attributes to her cancer. The patient states that the pain is unchanged in character. It feels like the same pain but she has not been able take any of her medication to manage it. Today she has had multiple rounds of vomiting. Patient denies seeing any blood or coffee-ground type material. Patient has not had change in bowel movements. MD complaint: nausea, vomiting -: hour(s) Description of Vomiting: food contents Associated Abdominal Pain: Yes Location: periumbilical Severity: severe Quality: aching Consistency: constant Improves with: none Worsens with: none - Related Data Home Medications Medication Instructions Recorded Confirmed Ranitidine HCl [Zantac] 150 mg PO BID 06/12/16 10/28/16 amLODIPine [Norvasc] 5 mg PO DAILY 06/12/16 10/28/16 diphenhydrAMINE [Benadryl] 50 mg PO HS PRN 06/12/16 10/28/16 Levothyroxine Sodium [Synthroid] 100 mcg PO DAILY 09/20/16 10/28/16 Ondansetron [Zofran ODT] 8 mg PO Q12H PRN 09/20/16 10/28/16 Lactulose [Cephulac] 10 gm PO BID 10/28/16 10/28/16 Morphine Oral Soln [Roxanol Oral 20 mg PO Q4H PRN 10/28/16 10/28/16 Soln Conc 20MG/ML] fentaNYL 25MCG/HR PATCH [Duragesic 1 patch TRANSDERM Q72H 10/28/16 10/28/16 25MCG/HR] Previous Rx's Medication Instructions Recorded Lisinopril [Zestril] 5 mg PO DAILY #30 tab 10/20/16 Allergies Allergy/AdvReac Type Severity Reaction Status Date / Time acetaminophen [From Vicodin] Allergy Rash/Hives Verified 10/28/16 21:33 codeine Allergy Rash/Hives Verified 10/28/16 21:33 hydrocodone [From Vicodin] Allergy Rash/Hives Verified 10/28/16 21:33 Sulfa (Sulfonamide Allergy Dyspnea Verified 10/28/16 21:33 Antibiotics) atorvastatin [From Lipitor] AdvReac Unknown Verified 10/28/16 21:33 pravastatin [From Pravachol] AdvReac Unknown Verified 10/28/16 21:33 rosuvastatin [From Crestor] AdvReac Unknown Verified 10/28/16 21:33 Review of Systems ROS Statement: Those systems with pertinent positive or pertinent negative responses have been documented in the HPI. ROS Other: All systems not noted in ROS Statement are negative. Constitutional: Denies: fever, chills Respiratory: Denies: cough, dyspnea Cardiovascular: Denies: chest pain, palpitations, syncope Gastrointestinal: Reports: as per HPI, abdominal pain, nausea, vomiting, constipation. Denies: diarrhea, hematemesis, melena, hematochezia Genitourinary: Denies: dysuria, hematuria Musculoskeletal: Reports: as per HPI, back pain Skin: Denies: rash Neurological: Denies: headache, weakness, numbness Psychiatric: Reports: anxiety Past Medical History Past Medical History: Cancer, GERD/Reflux, Hyperlipidemia, Liver Disease, Osteoarthritis (OA), Thyroid Disorder Additional Past Medical History / Comment(s): "ENLARGED SPLEEN,LIVER MASS PER CT SCAN -NO BX YET,"PANCREAS ENLARGED/SWOLLEN". PT STATED IN 2011 LIVER BX SHOWED FIBROSIS,2015 LIVER BX SHOWED CIRRHOIS(FATTY LIVER), " 10-06-16 AT [facility] HAD BX PANCREAS AND LYMPH NODE". DJD, UTI History of Any Multi-Drug Resistant Organisms: None Reported Past Surgical History: Section, Cholecystectomy, Hernia Repair, Orthopedic Surgery, Tubal Ligation Additional Past Surgical History / Comment(s): Caitie Surgery 2009, rosa 2009, c section 1980, 1983, carpal tunnel surgery bilateral, 2 x hernia surgery, dequervains bilateral hands, 2014 lumbar fusion. EGD- 2015.10-06-16 BX PANCREAS AND LYMPH NODES AT [facility] Past Anesthesia/Blood Transfusion Reactions: No Reported Reaction Past Psychological History: No Psychological Hx Reported Additional Psychological History / Comment(s): PT STATED SHE TRIES TO STAY POSITIVE NO DEPRESSION CURRENTLY. NO THOUGHTS OF WANTING TO HARM SELF. Smoking Status: Former smoker Past Alcohol Use History: None Reported Additional Past Alcohol Use History / Comment(s): STARTED SMOKING IN 1976, Quit smoking January 2016, 1.5 ppd Past Drug Use History: None Reported - Past Family History Brother(s) Family Medical History: Cancer, Liver Disease, Myocardial Infarction ([place]) Additional Family Medical History / Comment(s): Patient states has 7 brothers- 6 brothers have Mother Family Medical History: Diabetes Mellitus, Thyroid Disorder Father Family Medical History: Cancer, CVA/TIA, Hypertension, Prostate Disorder Additional Family Medical History / Comment(s): bone ca sisters Additional Family Medical History / Comment(s): sister from down syndrome-1968 other sister from drug overdose in 2008. General Exam Limitations: no limitations General appearance: alert, in no apparent distress Head exam: Present: atraumatic, normocephalic Eye exam: Present: normal appearance. Absent: scleral icterus, conjunctival injection ENT exam: Present: mucous membranes dry Neck exam: Present: normal inspection Respiratory exam: Present: normal lung sounds bilaterally, other (Patient has a port in the right upper chest wall which is currently infusing.). Absent: respiratory distress, wheezes, rales, rhonchi, stridor Cardiovascular Exam: Present: regular rate, normal rhythm, normal heart sounds. Absent: systolic murmur, diastolic murmur, rubs, gallop GI/Abdominal exam: Present: soft, organomegaly. Absent: distended, tenderness, guarding, rebound Extremities exam: Present: normal inspection, normal capillary refill. Absent: pedal edema, calf tenderness Back exam: Present: normal inspection. Absent: CVA tenderness (R), CVA tenderness (L) Neurological exam: Present: alert Skin exam: Present: warm, dry, intact, normal color. Absent: rash Course Vital Signs 10/28/16 10/28/16 20:51 22:58 Temperature 97.5 F L Pulse Rate 90 79 Respiratory 22 16 Rate Blood Pressure 135/79 146/74 O2 Sat by Pulse 95 96 Oximetry Medical Decision Making - Lab Data Result diagrams: 10/28/16 21:36 10/28/16 21:36 Lab Results 10/28/16 10/28/16 Range/Units 21:36 21:36 WBC 13.2 H (3.8-10.6) k/uL RBC 4.45 (3.80-5.40) m/uL Hgb 14.2 (11.4-16.0) gm/dL Hct 41.1 (34.0-46.0) % MCV 92.4 (80.0-100.0) fL MCH 31.9 (25.0-35.0) pg MCHC 34.5 (31.0-37.0) g/dL RDW 13.0 (11.5-15.5) % Plt Count 240 (150-450) k/uL Neutrophils % 76 % Lymphocytes % 15 % Monocytes % 7 % Eosinophils % 1 % Basophils % 0 % Neutrophils # 10.0 H (1.3-7.7) k/uL Lymphocytes # 2.0 (1.0-4.8) k/uL Monocytes # 0.9 (0-1.0) k/uL Eosinophils # 0.1 (0-0.7) k/uL Basophils # 0.0 (0-0.2) k/uL Sodium 137 (137-145) mmol/L Potassium 4.1 (3.5-5.1) mmol/L Chloride 99 (98-107) mmol/L Carbon Dioxide 23 (22-30) mmol/L Anion Gap 15 mmol/L BUN 13 (7-17) mg/dL Creatinine 0.64 (0.52-1.04) mg/dL Est GFR (MDRD) Af Amer >60 (>60 ml/min/1.73 sqM) Est GFR (MDRD) Non-Af >60 (>60 ml/min/1.73 sqM) Glucose 123 H (74-99) mg/dL Calcium 10.1 (8.4-10.2) mg/dL Total Bilirubin 1.1 (0.2-1.3) mg/dL AST 118 H (14-36) U/L ALT 123 H (9-52) U/L Alkaline Phosphatase 192 H (38-126) U/L Total Protein 8.4 H (6.3-8.2) g/dL Albumin 4.7 (3.5-5.0) g/dL Disposition Clinical Impression: Intractable vomiting with nausea Disposition: ADMITTED IP TO THIS HOSP Condition: Fair
[2016-10-28 21:42] LABS: Basophils % (A) 0 %; CH 32.9; CHCM 35.8; Eosinophils # (A) 0.1 k/uL (0-0.7); Eosinophils % (A) 1 %; HCT 41.1 % (34.0-46.0); HDW 2.83; HGB 14.2 gm/dL (11.4-16.0); Luc # (Auto) 0.21; Luc % (Auto) 2; Lymphocytes % (A) 15 %; MCH 31.9 pg (25.0-35.0); MCHC 34.5 g/dL (31.0-37.0); MCV 92.4 fL (80.0-100.0); Mean Platelet Volume 7.3; Monocytes # (A) 0.9 k/uL (0-1.0); Monocytes % (A) 7 %; Neutrophils % (A) 76 %; RBC 4.45 m/uL (3.80-5.40); WBC 13.2 k/uL (3.8-10.6); WBC (Perox) 13.86
[2016-10-28 22:02] LABS: ALT 123 U/L (9-52); AST 118 U/L (14-36); Alkaline Phosphatase 192 U/L (38-126); Anion Gap 15 mmol/L; Blood Urea Nitrogen 13 mg/dL (7-17); Calcium 10.1 mg/dL (8.4-10.2); Carbon Dioxide 23 mmol/L (22-30); Chloride 99 mmol/L (98-107); Glucose 123 mg/dL (74-99); Non-African American GFR(MDRD) >60 (>60 ml/min/1.73 sqM); Potassium 4.1 mmol/L (3.5-5.1); Sodium 137 mmol/L (137-145); Total Bilirubin 1.1 mg/dL (0.2-1.3); Total Protein 8.4 g/dL (6.3-8.2)
[2016-10-29] MEDS ORDERED: MORPHINE ORAL SOLN 20 MG/1 ML ORAL SYRINGE PO STA (00:18)
[2016-10-29] MEDS ORDERED: PROCHLORPERAZINE SUPPOSITORY 25 MG SUPP RECTAL PRN (01:26)
[2016-10-29] MEDS ORDERED: NALOXONE 0.4 MG/ML 1 ML VIAL IV PRN (01:26)
--- NOTE | 2016-10-29 01:47 | XR ---
EXAMINATION TYPE: XR abdomen acute w cxr DATE OF EXAM: 10/29/2016 1:00 AM COMPARISON: 10/20/2016 HISTORY: Weakness increased nausea and vomiting after chemotherapy history of metastatic pancreatic c arcinoma. TECHNIQUE: Single view of the chest and 2 views of the abdomen are submitted. FINDINGS: Stable right-sided internal jugular Mediport catheter with its tip in the superior vena cava. Single view of the chest fails demonstrate evidence for acute pulmonary disease. There is no evidence for pneumoperitoneum. The bowel gas pattern is unremarkable as there is air throughout nondilated small and large bowel. No sizeable air fluid levels. No mass effects are seen. No unusual calcifications. Postsurgical changes are noted in the lower lumbosacral spine with Ceja rods and pedicle screws in place with laminectomy changes. An electronic device is noted superimposing the abdomen and pelvi s. IMPRESSION: 1. No active lung infiltrates. 2. Right-sided Mediport catheter in place. 3. No significant bowel obstruction. 4. Postsurgical changes in the lumbar spine.
[2016-10-29] MEDS: ONDANSETRON 4 MG/2 ML VIAL IVP PRN ×4 (02:47→20:26)
[2016-10-29] MEDS: SODIUM CHLORIDE 0.9% 1,000 ML IV SCH ×4 (02:48→17:56)
[2016-10-29] MEDS: MORPHINE SULFATE 4 MG/ML SYRINGE IV PRN ×6 (02:55→21:40)
[2016-10-29 03:44] VITALS: BMI 24.3
[2016-10-29] MEDS: LEVOTHYROXINE 100 MCG TAB PO SCH (11:53)
[2016-10-29] MEDS: amLODIPine 5 MG TAB PO SCH (11:53)
[2016-10-29] MEDS: LISINOPRIL 5 MG TAB PO SCH (11:53)
[2016-10-29] MEDS: LACTULOSE 20 GM/30 ML CUP PO SCH ×2 (11:53→21:43)
[2016-10-29] MEDS: PANTOPRAZOLE 40 MG/10 ML VIAL IV SCH (12:49)
--- NOTE | 2016-10-29 16:44 | P.HPIM ---
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 Patient has underwent chemotherapy via pump which was discontinued last 12 hours. Patient was in good health until 3 days ago. Suddenly started to notice nausea and thereafter had multiple episodes of emesis bilious in nature. She denies having any associated abdominal pain, fevers, chills, urinary urgency or frequency. Patient is unable to state if she is have the flu vaccine. However the symptoms have started prior to onset of chemotherapy infusion. In the ER. Patient was noted to have some electrolyte abnormalities hence was admitted for treatment of Abnormalities and symptomatic relief. Currently denies having any chest pain, headache, neck stiffness, blurry vision , abdominal pain, urinary urgency or frequency. Review of Systems All systems: negative (Noted in HPI) Past Medical History Past Medical History: Cancer, GERD/Reflux, Hyperlipidemia, Liver Disease, Osteoarthritis (OA), Thyroid Disorder Additional Past Medical History / Comment(s): PT STATED IN 2011 LIVER BX SHOWED FIBROSIS,2015 LIVER BX SHOWED CIRRHOIS(FATTY LIVER), DJD, UTI, pancreatic cancer lymph node involvement History of Any Multi-Drug Resistant Organisms: None Reported Past Surgical History: Section, Cholecystectomy, Hernia Repair, Orthopedic Surgery, Tubal Ligation Additional Past Surgical History / Comment(s): Caitie Surgery 2009, rosa 2009, c section 1980, 1983, carpal tunnel surgery bilateral, 2 x hernia surgery, dequervains bilateral hands, 2014 lumbar fusion. EGD- 2015.10-06-16 BX PANCREAS AND LYMPH NODES AT [facility] Past Anesthesia/Blood Transfusion Reactions: No Reported Reaction Past Psychological History: No Psychological Hx Reported Additional Psychological History / Comment(s): PT STATED SHE TRIES TO STAY POSITIVE NO DEPRESSION CURRENTLY. NO THOUGHTS OF WANTING TO HARM SELF. Smoking Status: Former smoker Past Alcohol Use History: None Reported Additional Past Alcohol Use History / Comment(s): STARTED SMOKING IN 1976, Quit smoking January 2016, 1.5 ppd Past Drug Use History: None Reported - Past Family History Brother(s) Family Medical History: Cancer, Liver Disease, Myocardial Infarction ([place]) Additional Family Medical History / Comment(s): Patient states has 7 brothers- 6 brothers have Mother Family Medical History: Diabetes Mellitus, Thyroid Disorder Father Family Medical History: Cancer, CVA/TIA, Hypertension, Prostate Disorder Additional Family Medical History / Comment(s): bone ca sisters Additional Family Medical History / Comment(s): sister from down syndrome-1968 other sister from drug overdose in 2008. Medications and Allergies Home Medications Medication Instructions Recorded Confirmed Type Ranitidine HCl [Zantac] 150 mg PO BID 06/12/16 10/28/16 History amLODIPine [Norvasc] 5 mg PO DAILY 06/12/16 10/28/16 History diphenhydrAMINE [Benadryl] 50 mg PO HS PRN 06/12/16 10/28/16 History Levothyroxine Sodium [Synthroid] 100 mcg PO DAILY 09/20/16 10/28/16 History Ondansetron [Zofran ODT] 8 mg PO Q12H PRN 09/20/16 10/28/16 History Lactulose [Cephulac] 10 gm PO BID 10/28/16 10/28/16 History Morphine Oral Soln [Roxanol Oral 20 mg PO Q4H PRN 10/28/16 10/28/16 History Soln Conc 20MG/ML] fentaNYL 25MCG/HR PATCH [Duragesic 1 patch TRANSDERM Q72H 10/28/16 10/28/16 History 25MCG/HR] Allergies Allergy/AdvReac Type Severity Reaction Status Date / Time acetaminophen [From Vicodin] Allergy Rash/Hives Verified 10/28/16 21:33 codeine Allergy Rash/Hives Verified 10/28/16 21:33 hydrocodone [From Vicodin] Allergy Rash/Hives Verified 10/28/16 21:33 Sulfa (Sulfonamide Allergy Dyspnea Verified 10/28/16 21:33 Antibiotics) atorvastatin [From Lipitor] AdvReac Unknown Verified 10/28/16 21:33 pravastatin [From Pravachol] AdvReac Unknown Verified 10/28/16 21:33 rosuvastatin [From Crestor] AdvReac Unknown Verified 10/28/16 21:33 Physical Exam Vitals: Vital Signs Temp Pulse Pulse Resp BP BP Pulse Ox 10/29/16 15:46 97.8 F 84 16 151/86 98 10/29/16 07:49 98.3 F 99 16 124/74 96 10/29/16 03:55 79 16 10/29/16 03:39 98.0 F 79 16 131/78 95 10/29/16 02:56 97.8 F 90 16 161/84 96 10/29/16 02:52 97.8 F 90 16 171/85 96 Intake and Output 10/29/16 10/29/16 10/29/16 06:59 14:59 22:59 Intake Total 1000 Balance 1000 Intake: Amount of Fluid Infused ( 1000 ml) Other: Voiding Method Toilet Toilet # Voids 2 Weight 64.41 kg 64.41 kg Patient Weight 10/30/16 06:59 Weight 64.41 kg Physical exam Gen. appearance oriented 3 in no distress HEENT head is atraumatic normocephalic pupils are equal round and reactive light and accommodation EOMI Neck is supple no JVD Lungs good air entry clear to auscultation no rhonchi or wheezing Heart S1-S2 heard regular rate and rhythm no murmurs appreciated Abdomen is soft nontender no organomegaly bowel sounds are intact Neurologically cranial nerves II-12 grossly intact no focal motor or sensory deficits noted Skin no abnormalities appreciated Results CBC & Chem 7: 10/28/16 21:36 10/28/16 21:36 Thrombosis Risk Factor Assmnt - Choose All That Apply Any of the Below Risk Factors Present?: Yes Each Factor Represents 1 point: Age 41-60 years Other Risk Factors: No Other congenital or acquired thrombophilia - If yes, enter type in comment: No Thrombosis Risk Factor Assessment Total Risk Factor Score: 1 Thrombosis Risk Factor Assessment Level: Low Risk Assessment and Plan Plan: #1 intractable nausea vomiting, secondary to chemotherapy versus acute gastroenteritis #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 Symptomatically treatment. We'll have the oncologist on consult. Can likely be discharged home after symptom relief.
--- NOTE | 2016-10-29 19:24 | P.CONS ---
History of Present Illness - Reason for Consult Consult date: 10/29/16 intractable vomiting in a chemotherapy patient Requesting physician: Aftab Kenney - Chief Complaint Intractable vomiting - History of Present Illness Mrs. Ramirez is a very pleasant 60-year-old female patient of Dr. 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 Patient had abdominal pain that had been persistent and progressive since June 2016. Computed tomography scan showed hepatomegaly and enlarged upper abdominal lymph nodes. Patient had a history of elevated liver enzymes since about 2011, she had several liver biopsies, 1st in February 2012 revealing lobular fibrosis and 2nd in June 2016 showing cirrhosis. In Sep MRI did reveal possibility of multiple nodules in the liver but no distinct ones that would have been appropriate for biopsy. She was referred to [facility] where she had EUS on 10/09/2016 , the pancreatic duct was dilated throughout the length of the pancreas, no mass seen. Lymph node biopsy was positive for adenocarcinoma consistent with pancreaticobiliary origin. CA-19-9 was in the 300-400 range. FOLFOX chemotherapy was recommended. Patient had her port placed October 20 and had her first cycle of FOLFOX. Patient actually had the fluorouracil pump discontinued today at the office. When she was in the office patient states that for about 3 days she has been doing nothing but vomiting, he states she even was vomiting prior to the initiation of chemotherapy, she has been unable to keep pain medications or nausea medications down so she was having significant abdominal and back discomfort, obviously she was unable to tolerate any oral intake. Patient was directed to the emergency room for admission and treatment of her symptoms. When seen this evening the patient is much more calm, she vomited 6 times in the ER but has not in the last 2 hours. Her symptoms are much better controlled at this time. Patient denies any other physical complaints at this time, no headache, oral irritation, cough, shortness of breath, she states constipation, she denies jaundice, puritis, dark or tea-colored urine. Review of Systems All systems: negative Constitutional: Reports as per HPI Past Medical History Past Medical History: Cancer, GERD/Reflux, Hyperlipidemia, Liver Disease, Osteoarthritis (OA), Thyroid Disorder Additional Past Medical History / Comment(s): PT STATED IN 2011 LIVER BX SHOWED FIBROSIS,2015 LIVER BX SHOWED CIRRHOIS(FATTY LIVER), DJD, UTI, pancreatic cancer lymph node involvement History of Any Multi-Drug Resistant Organisms: None Reported Past Surgical History: Section, Cholecystectomy, Hernia Repair, Orthopedic Surgery, Tubal Ligation Additional Past Surgical History / Comment(s): Caitie Surgery 2009, rosa 2010, c section 1980, 1983, carpal tunnel surgery bilateral, 2 x hernia surgery, dequervains bilateral hands, 2014 lumbar fusion. EGD- 2015.10-06-16 BX PANCREAS AND LYMPH NODES AT [facility] Past Anesthesia/Blood Transfusion Reactions: No Reported Reaction Past Psychological History: No Psychological Hx Reported Additional Psychological History / Comment(s): PT STATED SHE TRIES TO STAY POSITIVE NO DEPRESSION CURRENTLY. NO THOUGHTS OF WANTING TO HARM SELF. Smoking Status: Former smoker Past Alcohol Use History: None Reported Additional Past Alcohol Use History / Comment(s): STARTED SMOKING IN 1976, Quit smoking January 2016, 1.5 ppd Past Drug Use History: None Reported - Past Family History Brother(s) Family Medical History: Cancer, Liver Disease, Myocardial Infarction ([place]) Additional Family Medical History / Comment(s): Patient states has 7 brothers- 6 brothers have Mother Family Medical History: Diabetes Mellitus, Thyroid Disorder Father Family Medical History: Cancer, CVA/TIA, Hypertension, Prostate Disorder Additional Family Medical History / Comment(s): bone ca sisters Additional Family Medical History / Comment(s): sister from down syndrome-1968 other sister from drug overdose in 2008. Medications and Allergies Home Medications Medication Instructions Recorded Confirmed Type Ranitidine HCl [Zantac] 150 mg PO BID 06/12/16 10/28/16 History amLODIPine [Norvasc] 5 mg PO DAILY 06/12/16 10/28/16 History diphenhydrAMINE [Benadryl] 50 mg PO HS PRN 06/12/16 10/28/16 History Levothyroxine Sodium [Synthroid] 100 mcg PO DAILY 09/20/16 10/28/16 History Ondansetron [Zofran ODT] 8 mg PO Q12H PRN 09/20/16 10/28/16 History Lactulose [Cephulac] 10 gm PO BID 10/28/16 10/28/16 History Morphine Oral Soln [Roxanol Oral 20 mg PO Q4H PRN 10/28/16 10/28/16 History Soln Conc 20MG/ML] fentaNYL 25MCG/HR PATCH [Duragesic 1 patch TRANSDERM Q72H 10/28/16 10/28/16 History 25MCG/HR] Allergies Allergy/AdvReac Type Severity Reaction Status Date / Time acetaminophen [From Vicodin] Allergy Rash/Hives Verified 10/28/16 21:33 codeine Allergy Rash/Hives Verified 10/28/16 21:33 hydrocodone [From Vicodin] Allergy Rash/Hives Verified 10/28/16 21:33 Sulfa (Sulfonamide Allergy Dyspnea Verified 10/28/16 21:33 Antibiotics) atorvastatin [From Lipitor] AdvReac Unknown Verified 10/28/16 21:33 pravastatin [From Pravachol] AdvReac Unknown Verified 10/28/16 21:33 rosuvastatin [From Crestor] AdvReac Unknown Verified 10/28/16 21:33 Physical Exam Vitals: Vital Signs Temp Pulse Pulse Resp BP BP Pulse Ox 10/29/16 15:46 97.8 F 84 16 151/86 98 10/29/16 07:49 98.3 F 99 16 124/74 96 10/29/16 03:55 79 16 10/29/16 03:39 98.0 F 79 16 131/78 95 10/29/16 02:56 97.8 F 90 16 161/84 96 10/29/16 02:52 97.8 F 90 16 171/85 96 Intake and Output 10/29/16 10/29/16 10/29/16 06:59 14:59 22:59 Intake Total 1000 Balance 1000 Intake: Amount of Fluid Infused ( 1000 ml) Other: Voiding Method Toilet Toilet # Voids 2 Weight 64.41 kg 64.41 kg Patient Weight 10/30/16 06:59 Weight 64.41 kg - Constitutional General appearance: average body habitus, cooperative, no acute distress - EENT Eyes: anicteric sclerae, normal appearance ENT: normal oropharynx - Respiratory Respiratory: bilateral: CTA - Cardiovascular Heart sounds: normal: S1, S2 leg Peripheral Edema: bilateral: None - Gastrointestinal General gastrointestinal: soft Localized gastrointestinal: tender: diffuse - Integumentary Integumentary: normal - Neurologic Neurologic: CNII-XII intact - Musculoskeletal Musculoskeletal: strength equal bilaterally - Psychiatric Psychiatric: A&O x's 3, appropriate affect, intact judgment & insight Results CBC & Chem 7: 10/28/16 21:36 10/28/16 21:36 Abdominal x-ray: report reviewed Assessment and Plan (1) Intractable vomiting with nausea Narrative/Plan: Suspect anticipatory nausea and vomiting as patient was vomiting prior to even starting chemotherapy, but additional nausea and vomiting related to chemotherapy itself cannot be ruled out. Medication list has been reviewed, antianxiety medications as well as antiemetics have been ordered, dose adjusted , frequency optimized. Clear liquid diet was ordered, continue at this time. Status: Acute (2) Adenocarcinoma Narrative/Plan: Malignancy identified as pancreatobiliary in origin, status post her first cycle of FOLFOX chemotherapy with discontinuation of the fluorouracil pump today. Did explain to patient that we will optimize medications for better symptom management prior to the next cycle, she is agreeable at this time to make adjustments. Dr. Azul did discuss the possibility of decreasing the dose of the fluorouracil. Patient will be monitored to see how quickly she recovers , further plans for treatment will follow-up in the outpatient setting. Status: Acute
[2016-10-29] MEDS: LORazepam 0.5 MG TAB PO SCH (21:42)
[2016-10-29] MEDS: DOCUSATE 100 MG CAP PO SCH (21:43)
[2016-10-30] MEDS: SODIUM CHLORIDE 0.9% 1,000 ML IV SCH ×5 (02:03→20:04)
[2016-10-30] MEDS: ONDANSETRON 4 MG/2 ML VIAL IVP PRN ×6 (02:52→23:23)
[2016-10-30] MEDS: MORPHINE SULFATE 4 MG/ML SYRINGE IV PRN ×6 (02:52→23:22)
[2016-10-30 06:14] LABS: Basophils % (A) 0 %; CH 32.6; Eosinophils # (A) 0.2 k/uL (0-0.7); Eosinophils % (A) 4 %; HCT 36.4 % (34.0-46.0); HDW 2.91; HGB 12.4 gm/dL (11.4-16.0); Luc # (Auto) 0.07; Luc % (Auto) 1; Lymphocytes # (A) 1.7 k/uL (1.0-4.8); Lymphocytes % (A) 25 %; MCH 31.8 pg (25.0-35.0); MCV 93.7 fL (80.0-100.0); Monocytes # (A) 0.2 k/uL (0-1.0); Monocytes % (A) 3 %; Neutrophils # (A) 4.6 k/uL (1.3-7.7); Neutrophils % (A) 68 %; RBC 3.89 m/uL (3.80-5.40); RDW 12.8 % (11.5-15.5); WBC 6.8 k/uL (3.8-10.6); WBC (Perox) 6.83
[2016-10-30 06:32] LABS: ALT 101 U/L (9-52); AST 76 U/L (14-36); Alkaline Phosphatase 144 U/L (38-126); Anion Gap 8 mmol/L; Blood Urea Nitrogen 8 mg/dL (7-17); Carbon Dioxide 24 mmol/L (22-30); Chloride 106 mmol/L (98-107); Glucose 91 mg/dL (74-99); Magnesium 1.9 mg/dL (1.6-2.3); Non-African American GFR(MDRD) >60 (>60 ml/min/1.73 sqM); Potassium 3.9 mmol/L (3.5-5.1); Sodium 138 mmol/L (137-145); Total Bilirubin 1.1 mg/dL (0.2-1.3); Total Protein 6.6 g/dL (6.3-8.2)
[2016-10-30] MEDS: PANTOPRAZOLE 40 MG/10 ML VIAL IV SCH (09:02)
[2016-10-30] MEDS: LACTULOSE 20 GM/30 ML CUP PO SCH ×2 (09:03→21:08)
[2016-10-30] MEDS: amLODIPine 5 MG TAB PO SCH (09:03)
[2016-10-30] MEDS: LEVOTHYROXINE 100 MCG TAB PO SCH (09:03)
[2016-10-30] MEDS: LORazepam 0.5 MG TAB PO SCH ×3 (09:03→21:12)
[2016-10-30] MEDS: DOCUSATE 100 MG CAP PO SCH ×3 (09:03→21:09)
[2016-10-30] MEDS: LISINOPRIL 5 MG TAB PO SCH (09:03)
[2016-10-30] MEDS ORDERED: MAGNESIUM HYDROXIDE 2,400 MG/10 ML CUP PO PRN (09:30)
--- NOTE | 2016-10-30 11:47 | P.PN ---
Subjective 60-year-old female who was recently diagnosed with pancreatic biliary adenocarcinoma with metastases to liver comes in the hospital with complaints of intractable nausea vomiting for the last 48 hours. Patient has underwent chemotherapy via pump which was discontinued last 12 hours. Patient was in good health until 3 days ago. Suddenly started to notice nausea and thereafter had multiple episodes of emesis bilious in nature. She denies having any associated abdominal pain, fevers, chills, urinary urgency or frequency. Patient is unable to state if she is have the flu vaccine. However the symptoms have started prior to onset of chemotherapy infusion. In the ER. Patient was noted to have some electrolyte abnormalities hence was admitted for treatment of Abnormalities and symptomatic relief. Currently denies having any chest pain, headache, neck stiffness, blurry vision , abdominal pain, urinary urgency or frequency. 10/30/2016 Patient apparently has 5-fluorouracil via pump infusion that was done on the day of admission. For pancreatic biliary cancer stage IV Today patient states to be doing well. However continues to have intermittent episodes of nausea. However is tolerating diet is better than on admission. Objective - Vital Signs Vital signs: Vital Signs Temp 97.3 F L 10/30/16 07:00 Pulse 96 10/30/16 07:00 Resp 20 10/30/16 07:00 BP 151/97 10/30/16 07:00 Pulse Ox 99 10/30/16 07:00 Intake & Output 10/29/16 10/30/16 10/30/16 18:59 06:59 18:59 Intake Total 1200 Balance 1200 Weight 64.41 kg Intake: IV 1200 Sodium Chloride 0.9% 1, 1200 000 ml @ 150 mls/hr IV . Q6H40M [facility] Rx#:[id number] Other: Voiding Method Toilet Toilet # Voids 2 1 - Exam Physical exam Gen. appearance oriented 3 in no distress Neck is supple no JVD Head is atraumatic normal self. He was equal round reactive light neck on admission. Lungs good air entry clear to auscultation no rhonchi or wheezing Heart S1-S2 heard regular rate and rhythm no murmurs appreciated Abdomen diffuse abdominal pain is appreciated however bowel sounds are intact no organomegaly. Neurologically cranial nerves II-12 grossly intact no focal motor or sensory deficits noted Skin no abnormalities appreciated - Labs CBC & Chem 7: 10/30/16 06:05 10/30/16 06:05 Labs: Abnormal Lab Results - Last 24 Hours (Table) 10/30/16 Range/Units 06:05 AST 76 H (14-36) U/L ALT 101 H (9-52) U/L Alkaline Phosphatase 144 H (38-126) U/L Assessment and Plan Plan: #1 intractable nausea vomiting, secondary to chemotherapy versus acute gastroenteritis #2 pancreatic or biliary adenocarcinoma stage IV #3 hypertension #4 GERD #5 remote tobacco use #6 degenerative joint disease Plan continue IV hydration. Symptomatically treatment. Oncology recommendations are appreciated. We'll likely monitor the patient for another 24 hours.
[2016-10-30] MEDS ORDERED: NA PHOS,M-B/NA PHOS,DI-BA 133 ML ENEMA RECTAL ONE (12:12)
[2016-10-30 22:22] VITALS: RESP 16
[2016-10-30] MEDS: diphenhydrAMINE 25 MG CAP PO PRN (23:27)
[2016-10-31] MEDS ORDERED: CALCIUM CARBONATE 500 MG CHEWABLE PO PRN (00:34)
[2016-10-31] MEDS: SODIUM CHLORIDE 0.9% 1,000 ML IV SCH ×5 (02:34→22:19)
[2016-10-31] MEDS: ONDANSETRON 4 MG/2 ML VIAL IVP PRN ×5 (03:39→23:46)
[2016-10-31] MEDS: MORPHINE SULFATE 4 MG/ML SYRINGE IV PRN ×2 (03:40→07:45)
[2016-10-31 07:54] LABS: Basophils % (A) 0 %; CH 32.7; Eosinophils # (A) 0.2 k/uL (0-0.7); Eosinophils % (A) 4 %; HCT 35.3 % (34.0-46.0); HDW 2.91; HGB 12.2 gm/dL (11.4-16.0); Luc # (Auto) 0.08; Luc % (Auto) 2; Lymphocytes # (A) 1.9 k/uL (1.0-4.8); Lymphocytes % (A) 33 %; MCH 32.4 pg (25.0-35.0); MCHC 34.5 g/dL (31.0-37.0); MCV 93.9 fL (80.0-100.0); Mean Platelet Volume 7.4; Monocytes # (A) 0.1 k/uL (0-1.0); Monocytes % (A) 2 %; Neutrophils # (A) 3.3 k/uL (1.3-7.7); Neutrophils % (A) 59 %; RBC 3.76 m/uL (3.80-5.40); RDW 12.7 % (11.5-15.5); WBC 5.7 k/uL (3.8-10.6); WBC (Perox) 5.98
[2016-10-31] MEDS: LEVOTHYROXINE 100 MCG TAB PO SCH (07:54)
[2016-10-31] MEDS: amLODIPine 5 MG TAB PO SCH (07:54)
[2016-10-31] MEDS: LISINOPRIL 5 MG TAB PO SCH (07:54)
[2016-10-31] MEDS: LACTULOSE 20 GM/30 ML CUP PO SCH ×2 (07:54→20:32)
[2016-10-31] MEDS: DOCUSATE 100 MG CAP PO SCH ×2 (07:54→20:32)
[2016-10-31] MEDS: PANTOPRAZOLE 40 MG/10 ML VIAL IV SCH (07:55)
[2016-10-31] MEDS: LORazepam 0.5 MG TAB PO SCH ×3 (07:55→22:19)
[2016-10-31 08:12] LABS: ALT 86 U/L (9-52); AST 60 U/L (14-36); Alkaline Phosphatase 132 U/L (38-126); Anion Gap 9 mmol/L; Blood Urea Nitrogen 5 mg/dL (7-17); Calcium 8.9 mg/dL (8.4-10.2); Carbon Dioxide 25 mmol/L (22-30); Chloride 105 mmol/L (98-107); Glucose 84 mg/dL (74-99); Non-African American GFR(MDRD) >60 (>60 ml/min/1.73 sqM); Potassium 3.9 mmol/L (3.5-5.1); Sodium 139 mmol/L (137-145); Total Bilirubin 1.1 mg/dL (0.2-1.3); Total Protein 6.6 g/dL (6.3-8.2)
[2016-10-31] MEDS: MORPHINE ORAL SOLN 20 MG/1 ML ORAL SYRINGE PO PRN ×4 (12:46→23:45)
[2016-10-31] MEDS ORDERED: ONDANSETRON 4 MG TAB PO PRN (15:01)
--- NOTE | 2016-10-31 15:42 | P.PN ---
Subjective Principal diagnosis: Intractable nausea and vomiting, abd pain Pt seen in follow up, nausea persists but she has not vomited since yesterday, she is tolerating clear liquids and is asking for soft diet. Her upper abd pain and cramping persist, she states that she is requiring breakthrough pain meds before the next dose is due. She had a BM last night. She is ambulatory Objective - Vital Signs Vital signs: Vital Signs Temp 98.1 F 10/31/16 07:00 Pulse 85 10/31/16 07:00 Resp 16 10/31/16 07:00 BP 136/78 10/31/16 07:00 Pulse Ox 95 10/31/16 07:00 - Constitutional General appearance: Present: average body habitus, cooperative, no acute distress - EENT Eyes: Present: normal appearance - Neurologic Neurologic: Present: CNII-XII intact - Musculoskeletal Musculoskeletal: Present: strength equal bilaterally - Psychiatric Psychiatric: Present: A&O x's 3, appropriate affect, intact judgment & insight - Labs CBC & Chem 7: 10/31/16 07:27 10/31/16 07:27 Assessment and Plan (1) Intractable vomiting with nausea Narrative/Plan: Better controlled, anti-emtics changed to oral, pt is on ativan TID scheduled Status: Acute (2) Adenocarcinoma Narrative/Plan: Plan for prevention and proactive treatment of symptoms with next cycle of treatment was discussed, pt and son agree with plan. Status: Acute (3) Cancer-related pain Narrative/Plan: Fentanyl increased, will evaluate in AM. Status: Acute (4) Constipation Narrative/Plan: Narcotic induced. Aggressive bowel regimen implemented, pt will continue on current regimen. Status: Acute
[2016-10-31] MEDS: diphenhydrAMINE 25 MG CAP PO PRN (22:19)
[2016-11-01] MEDS: MORPHINE ORAL SOLN 20 MG/1 ML ORAL SYRINGE PO PRN ×3 (03:51→12:29)
[2016-11-01] MEDS: ONDANSETRON 4 MG/2 ML VIAL IVP PRN ×2 (03:51→08:30)
[2016-11-01] MEDS: SODIUM CHLORIDE 0.9% 1,000 ML IV SCH (03:54)
[2016-11-01 07:32] VITALS: BP 107/60; PULSE 86; TEMP 98.4
--- NOTE | 2016-11-01 07:59 | PN ---
DATE OF SERVICE: 10/31/2016 INTERVAL HISTORY: Ms. Toth is a 60-year-old female with recently diagnosed pancreatic biliary adenocarcinoma with metastasis to the liver. She was recently in the hospital for intractable nausea, vomiting, and abdominal pain, came back to the hospital after she went to the chemotherapy on last Thursday. Currently, nausea, vomiting, abdominal pain are improved now. Patient is tolerating liquid diet and is requesting a soft diet. Patient otherwise was found to have constipation and patient was started on stool softener. Patient did have small bowel movement yesterday. Denied any fever, chills. No acute overnight issues. Will let patient advance her diet as tolerated. Complete review of systems negative except as above. Current medications include Norvasc, TUMs, Benadryl, Colace, fentanyl patch, lactulose, Synthroid, Zestril, Ativan, milk of magnesia, morphine sulfate, Roxanol, Narcan, Zofran, Protonix, Compazine, and normal saline at 150 mL/h. PHYSICAL EXAMINATION: A 60-year-old female lying in bed, awake, alert, oriented x3, appears to be in no distress. VITALS: Blood pressure is 136/78, pulse is 85, respirations 16, temperature afebrile, pulse ox 95% on room air. HEENT: Atraumatic, normocephalic. Neck is supple. No JVD. CVS: S1, S2 heard. No murmurs, no gallop, no rub. LUNGS: Bilateral air entry is present. No wheezing. No crackles. Nonlabored breathing. ABDOMEN: Soft, nontender, bowel sounds present. ORACLE ERP ARCHITECT: Alert, awake, oriented x3. No focal deficit. EXTREMITIES: No edema. Pulses palpable bilaterally. No clubbing or cyanosis. PSYCHIATRIC: Cooperative. LABORATORY DATA: WBC 5.7, hemoglobin 12.2, platelets 137. Sodium 139, potassium 3.9, chloride 105, bicarb is 25, BUN 5, creatinine 0.57. Liver enzymes AST is 60, ALT is 86, alk phos 132. Trending down. TSH 1.240. IMPRESSION: 1. Intractable nausea and vomiting secondary to chemotherapy. 2. Recently admitted for intractable nausea, vomiting and abdominal pain. 3. Recently diagnosed with pancreatic biliary adenocarcinoma stage IV with mets to liver. 4. Hypertension. 5. Gastroesophageal reflux disease. 6. Constipation. 7. Remote tobacco use. 8. Degenerative joint disease. DISCUSSION AND PLAN: Patient will continue with IV fluids and pain management and continue with the stool softener and antiemetic medications for intractable nausea or vomiting. Patient is tolerating light diet now. Continue current management and continue with liquid diet and advance as tolerated. Further recommendations based on clinical course. Oncology is following this patient.
[2016-11-01] MEDS: LEVOTHYROXINE 100 MCG TAB PO SCH (08:30)
[2016-11-01] MEDS: DOCUSATE 100 MG CAP PO SCH (08:30)
[2016-11-01] MEDS: LACTULOSE 20 GM/30 ML CUP PO SCH (08:30)
[2016-11-01] MEDS: LORazepam 0.5 MG TAB PO SCH (08:30)
[2016-11-01] MEDS: amLODIPine 5 MG TAB PO SCH (08:31)
[2016-11-01] MEDS: PANTOPRAZOLE 40 MG/10 ML VIAL IV SCH (08:31)
[2016-11-01] MEDS: LISINOPRIL 5 MG TAB PO SCH (08:31)
--- NOTE | 2016-11-01 10:47 | P.PN ---
Progress Note - Text The patient is feeling much better this morning, and is anticipating discharge. Her pain is controlled, with increase in the fentanyl patch. Nausea is controlled with current medications. She was able to tolerate advancement off her diet reasonably well. No history of fever/chills/mouth sores/hand-foot syndrome. Appetite has improved. For review of systems is as above, and negative out of 10 On exam, the patient appeared to be in no acute distress. Vitals were stable. No evidence of any extremity edema. Oral examination was normal. Labs were reviewed. CBC and chem panel are within normal limits Assessment/plan: #1. Intractable nausea and vomiting- it is felt that a significant component of this was anticipatory nausea. The patient is currently doing much better with the use of Ativan. She will be discharged on a scheduled dose of Ativan as well as antiemetics when necessary. Despite this regimen, if significant nausea and vomiting is again encountered with cycle #2, then we will have to adjust the chemotherapy dose #2. Neoplasm related pain- overall pain control is improved, with increasing fentanyl. Continue current pain regimen. Hopefully we will see further improvement in pain, if her chemotherapy is effective against a malignancy. #3. Metastatic pancreatobiliary cancer- the patient will be seen for a follow- up this coming week, in the office for her previously scheduled appointment. Assuming no new competitions, she will resume chemotherapy on schedule. She is okay to discharge from the oncology standpoint
--- NOTE | 2016-11-03 10:09 | DS ---
DATE OF ADMISSION: 10/31/2016 DATE OF DISCHARGE: 11/01/2016 DISCHARGE DIAGNOSES: 1. Chemotherapy-induced intractable nausea and vomiting, improved now. 2. Recently diagnosed with pancreatic biliary adenocarcinoma stage IV with mets to liver, currently undergoing chemotherapy. 3. Neoplasm-induced pain. 4. Hypertension. 5. Gastroesophageal reflux disease. 6. Constipation, improved. 7. Remote history of tobacco use. 8. Degenerative joint disease. HOSPITAL COURSE: Ms. Toth is a 60-year-old female with known history of recently diagnosed pancreatic biliary adenocarcinoma with metastasis to the liver. She was recently in the hospital with intractable nausea and vomiting, following chemotherapy. The patient was recently admitted for nausea, vomiting and abdominal pain as well, which improved and the patient was sent home. After chemotherapy the patient was admitted to the hospital again with worsening symptoms. The patient was continued on IV fluids and pain medications and antiemetics. She was initially n.p.o. Once the nausea and vomiting improved the patient was started on liquid diet and advanced as tolerated. Currently the pain is much improved. The patient is tolerating a p.o. diet. The patient is cleared for discharge home. She is to follow with oncology for further chemotherapy. DISCHARGE PHYSICAL EXAMINATION: A 60-year-old female lying in bed, awake, alert, oriented x3, appears to be in no apparent distress. VITALS: Blood pressure is 107/60, pulse is 86, respirations 16, temperature afebrile, pulse ox 93% on room air. HEENT: Atraumatic, normocephalic. NECK: Supple. No JVD. CVS: S1, S2 heard. No murmurs, no gallop, no rub. LUNGS: Bilateral air entry is present. No wheezing. No crackles. ABDOMEN: Soft, nontender, bowel sounds present. SOLAR PANEL INSTALLER: Alert, awake, oriented x3. No focal deficit. EXTREMITIES: No edema. Pulses palpable bilaterally. No clubbing or cyanosis. PSYCHIATRIC: Cooperative. LABORATORY DATA: WBC 5.7, hemoglobin 12.2, platelets 137. Sodium 139, potassium 3.9, chloride 105, bicarb is 25, ( ). AST is 60, ALT is 86, alk phos 132. Trending down. TSH 1.240, within normal limits. DISCHARGE MEDICATIONS: 1. Ranitidine 150 mg p.o. b.i.d. 2. Norvasc 5 mg p.o. daily. 3. Levothyroxine 100 mcg daily. 4. Zestril 5 mg daily. 5. Lactulose 10 mg p.o. b.i.d. p.r.n. constipation. 6. Docusate 200 mg p.o. b.i.d. p.r.n. constipation. 7. Ativan 0.5 mg p.o. b.i.d. p.r.n. anxiety. 8. Roxanol oral 30 mg/mL, 20 mg p.o. every 4 hours p.r.n. pain. 9. Zofran 80 mg p.o. p.r.n. nausea and vomiting. 10. Benadryl 50 mg p.o. b.i.d. p.r.n. sleep 11. Fentanyl patch 25 mcg every 72 hours. DISCHARGE INSTRUCTIONS: 1. The patient will be discharged home with self-care. 2. Activity as tolerated. 3. Regular diet. 4. Follow up with Dr. Hal Heck in 1 to 2 days.
== END 2016-11-01 12:45 | disposition home or self-care (01) | DRG 392 ==
LOC: EC 20:44 → 3OBS 10-29 01:26 → 5ONC 10-29 16:00 → OBSVTOIN 10-31 14:40
PROVIDERS: ADMIT Hospitalist; ATTEND Hospitalist
DX: R11.2 Nausea with vomiting, unspecified (principal); C24.9 Malignant neoplasm of biliary tract, unspecified; C78.7 Secondary malignant neoplasm of liver and intrahepatic bile duct; K74.60 Unspecified cirrhosis of liver; I10 Essential (primary) hypertension; K21.9 Gastro-esophageal reflux disease without esophagitis; E03.9 Hypothyroidism, unspecified; E78.5 Hyperlipidemia, unspecified; T45.1X5A Adverse effect of antineoplastic and immunosuppressive drugs, initial encounter; G89.3 Neoplasm related pain (acute) (chronic); K59.00 Constipation, unspecified; K76.0 Fatty (change of) liver, not elsewhere classified; M19.90 Unspecified osteoarthritis, unspecified site; Z79.899 Other long term (current) drug therapy; Z82.49 Family history of ischemic heart disease and other diseases of the circulatory system; Z87.891 Personal history of nicotine dependence
CPT/HCPCS: 36415; 74022; 80053; 83690; 83735; 84443; 85025; 96361; 96374; 96375; 96376; 99285

== ENCOUNTER 2017-01-03 00:22 | Emergency (ER) | payer MEDICARE, OTHER ==
--- NOTE | 2017-01-03 00:43 | ED ---
General Adult HPI - General Chief complaint: Shortness of Breath Stated complaint: MARSHALL Time Seen by Provider: 01/03/17 00:30 Source: patient, RN notes reviewed Mode of arrival: wheelchair Limitations: no limitations - History of Present Illness Initial comments: This is a 61-year-old female presents emergency department with a past medical history significant for pancreatic cancer with metastatic disease to the liver. Patient comes in today she complains of intermittent shortness of breath over the last 2-3 days. Patient states the difficulty breathing comes and goes in and it is not associated with exertion. Patient states currently she is not short of breath. Patient denies any chest pain or palpitations with the difficulty breathing. Patient denies any fever or chills. Patient denies abdominal pain patient denies nausea vomiting diarrhea. Patient denies any headache patient denies numbness weakness. Patient denies any near syncopal episodes or any lightheadedness. Patient denies any calf pain or leg swelling. - Related Data Home Medications Medication Instructions Recorded Confirmed Ranitidine HCl [Zantac] 150 mg PO BID 06/12/16 01/03/17 amLODIPine [Norvasc] 5 mg PO DAILY 06/12/16 01/03/17 Levothyroxine Sodium [Synthroid] 100 mcg PO DAILY 09/20/16 01/03/17 Lactulose [Cephulac] 10 gm PO BID 10/28/16 01/03/17 Previous Rx's Medication Instructions Recorded Lisinopril [Zestril] 5 mg PO DAILY #30 tab 10/20/16 Docusate [Colace] 200 mg PO BID PRN #60 cap 11/01/16 LORazepam [Ativan] 0.5 mg PO TID #15 tab 11/01/16 MORPHINE ORAL SOLN 20mg/mL 20 mg PO Q4H PRN 7 Days 11/01/16 [Roxanol Oral Soln Conc 20MG/ML] Ondansetron [Zofran ODT] 8 mg PO Q12H PRN #15 tab.rapdis 11/01/16 diphenhydrAMINE [Benadryl] 50 mg PO HS PRN #10 cap 11/01/16 fentaNYL 25MCG/HR PATCH [Duragesic 1 patch TRANSDERM Q72H #7 patch 11/01/16 25MCG/HR] Allergies Allergy/AdvReac Type Severity Reaction Status Date / Time acetaminophen [From Vicodin] Allergy Rash/Hives Verified 01/03/17 00:33 codeine Allergy Rash/Hives Verified 01/03/17 00:33 hydrocodone [From Vicodin] Allergy Rash/Hives Verified 01/03/17 00:33 Sulfa (Sulfonamide Allergy Dyspnea Verified 01/03/17 00:33 Antibiotics) atorvastatin [From Lipitor] AdvReac Unknown Verified 01/03/17 00:33 pravastatin [From Pravachol] AdvReac Unknown Verified 01/03/17 00:33 rosuvastatin [From Crestor] AdvReac Unknown Verified 01/03/17 00:33 Review of Systems ROS Statement: Those systems with pertinent positive or pertinent negative responses have been documented in the HPI. ROS Other: All systems not noted in ROS Statement are negative. Past Medical History Past Medical History: Cancer, GERD/Reflux, Hyperlipidemia, Liver Disease, Osteoarthritis (OA), Thyroid Disorder Additional Past Medical History / Comment(s): PT STATED IN 2011 LIVER BX SHOWED FIBROSIS,2015 LIVER BX SHOWED CIRRHOIS(FATTY LIVER), DJD, UTI, pancreatic cancer lymph node involvement History of Any Multi-Drug Resistant Organisms: None Reported Past Surgical History: Section, Cholecystectomy, Hernia Repair, Orthopedic Surgery, Tubal Ligation Additional Past Surgical History / Comment(s): Caitie Surgery 2009, rosa 2009, c section 1980, 1983, carpal tunnel surgery bilateral, 2 x hernia surgery, dequervains bilateral hands, 2014 lumbar fusion. EGD- 2015.10-06-16 BX PANCREAS AND LYMPH NODES AT [facility] Past Anesthesia/Blood Transfusion Reactions: No Reported Reaction Past Psychological History: No Psychological Hx Reported Additional Psychological History / Comment(s): PT STATED SHE TRIES TO STAY POSITIVE NO DEPRESSION CURRENTLY. NO THOUGHTS OF WANTING TO HARM SELF. Smoking Status: Light tobacco smoker Past Alcohol Use History: None Reported Additional Past Alcohol Use History / Comment(s): STARTED SMOKING IN 1976, Quit smoking January 2016, 1.5 ppd Past Drug Use History: None Reported - Past Family History Brother(s) Family Medical History: Cancer, Liver Disease, Myocardial Infarction ([place]) Additional Family Medical History / Comment(s): Patient states has 7 brothers- 6 brothers have Mother Family Medical History: Diabetes Mellitus, Thyroid Disorder Father Family Medical History: Cancer, CVA/TIA, Hypertension, Prostate Disorder Additional Family Medical History / Comment(s): bone ca sisters Additional Family Medical History / Comment(s): sister from down syndrome-1968 other sister from drug overdose in 2008. General Exam - General Exam Comments Initial Comments: GENERAL: Patient is well-developed and well-nourished. Patient is nontoxic and well- hydrated and is in mild distress. ENT: Neck is soft and supple. No significant lymphadenopathy is noted. Oropharynx is clear. Moist mucous membranes. Neck has full range of motion without eliciting any pain. EYES: The sclera were anicteric and conjunctiva were pink and moist. Extraocular movements were intact and pupils were equal round and reactive to light. Eyelids were unremarkable. PULMONARY: Unlabored respirations. Good breath sounds bilaterally. No audible rales rhonchi or wheezing was noted. CARDIOVASCULAR: There is a regular rate and rhythm without any murmurs gallops or rubs. ABDOMEN: Soft and nontender with normal bowel sounds. No palpable organomegaly was noted. There is no palpable pulsatile mass. SKIN: Skin is clear with no lesions or rashes and otherwise unremarkable. NEUROLOGIC: Patient is alert and oriented x3. Cranial nerves II through XII are grossly intact. Motor and sensory are also intact. Normal speech, volume and content. Symmetrical smile. MUSCULOSKELETAL: Normal extremities with adequate strength and full range of motion. No lower extremity swelling or edema. No calf tenderness. LYMPHATICS: No significant lymphadenopathy is noted PSYCHIATRIC: Normal psychiatric evaluation. Normal interpersonal interactions appears functionally intact in deals appropriately with others. No signs of depression. No signs of anxiety. Limitations: no limitations Course Vital Signs 01/03/17 01/03/17 00:32 02:25 Temperature 98.6 F 97.8 F Pulse Rate 88 87 Respiratory 20 18 Rate Blood Pressure 176/87 122/61 O2 Sat by Pulse 93 L 97 Oximetry Medical Decision Making - Medical Decision Making EKG showed normal sinus rhythm at 85 bpm MA interval 160 QRS is 76 QT interval 422 QTC is 502. Patient's EKG shows no ST segment elevation or depression or T wave abnormalities are noted. CT of the chest shows no acute abnormality no PE no pneumonia I will begin to reevaluate the patient she was resting comfortably in no distress she was oxygenating 97% on room air. Patient stated she had no shortness of breath at this time. - Lab Data Result diagrams: 01/03/17 00:45 01/03/17 00:45 Lab Results 01/03/17 01/03/17 01/03/17 Range/Units 00:45 00:45 00:45 WBC 16.2 H (3.8-10.6) k/uL RBC 3.79 L (3.80-5.40) m/uL Hgb 12.4 (11.4-16.0) gm/dL Hct 38.3 (34.0-46.0) % MCV 101.1 H D (80.0-100.0) fL MCH 32.9 (25.0-35.0) pg MCHC 32.5 (31.0-37.0) g/dL RDW 15.8 H (11.5-15.5) % Plt Count 103 L (150-450) k/uL Neutrophils % 89 % Lymphocytes % 6 % Monocytes % 1 % Eosinophils % 3 % Basophils % 0 % Neutrophils # 14.4 H (1.3-7.7) k/uL Lymphocytes # 0.9 L (1.0-4.8) k/uL Monocytes # 0.2 (0-1.0) k/uL Eosinophils # 0.6 (0-0.7) k/uL Basophils # 0.1 (0-0.2) k/uL Macrocytosis Slight PT (9.0-12.0) sec INR (<1.1) APTT (22.0-30.0) sec D-Dimer (<0.60) mg/L FEU Sodium 139 (137-145) mmol/L Potassium 4.0 (3.5-5.1) mmol/L Chloride 109 H (98-107) mmol/L Carbon Dioxide 20 L (22-30) mmol/L Anion Gap 10 mmol/L BUN 12 (7-17) mg/dL Creatinine 0.50 L (0.52-1.04) mg/dL Est GFR (MDRD) Af Amer >60 (>60 ml/min/1.73 sqM) Est GFR (MDRD) Non-Af >60 (>60 ml/min/1.73 sqM) Glucose 92 (74-99) mg/dL Calcium 9.7 (8.4-10.2) mg/dL Total Bilirubin 1.4 H (0.2-1.3) mg/dL AST 61 H (14-36) U/L ALT 46 (9-52) U/L Alkaline Phosphatase 140 H (38-126) U/L Total Creatine Kinase 182 H (30-135) U/L CK-MB (CK-2) 1.6 (0.0-2.4) ng/mL CK-MB (CK-2) Rel Index 0.9 Troponin I <0.012 (0.000-0.034) ng/mL Total Protein 7.3 (6.3-8.2) g/dL Albumin 4.0 (3.5-5.0) g/dL 01/03/17 Range/Units 00:45 WBC (3.8-10.6) k/uL RBC (3.80-5.40) m/uL Hgb (11.4-16.0) gm/dL Hct (34.0-46.0) % MCV (80.0-100.0) fL MCH (25.0-35.0) pg MCHC (31.0-37.0) g/dL RDW (11.5-15.5) % Plt Count (150-450) k/uL Neutrophils % % Lymphocytes % % Monocytes % % Eosinophils % % Basophils % % Neutrophils # (1.3-7.7) k/uL Lymphocytes # (1.0-4.8) k/uL Monocytes # (0-1.0) k/uL Eosinophils # (0-0.7) k/uL Basophils # (0-0.2) k/uL Macrocytosis PT 11.8 (9.0-12.0) sec INR 1.2 (<1.1) APTT 26.5 (22.0-30.0) sec D-Dimer 0.79 H (<0.60) mg/L FEU Sodium (137-145) mmol/L Potassium (3.5-5.1) mmol/L Chloride (98-107) mmol/L Carbon Dioxide (22-30) mmol/L Anion Gap mmol/L BUN (7-17) mg/dL Creatinine (0.52-1.04) mg/dL Est GFR (MDRD) Af Amer (>60 ml/min/1.73 sqM) Est GFR (MDRD) Non-Af (>60 ml/min/1.73 sqM) Glucose (74-99) mg/dL Calcium (8.4-10.2) mg/dL Total Bilirubin (0.2-1.3) mg/dL AST (14-36) U/L ALT (9-52) U/L Alkaline Phosphatase (38-126) U/L Total Creatine Kinase (30-135) U/L CK-MB (CK-2) (0.0-2.4) ng/mL CK-MB (CK-2) Rel Index Troponin I (0.000-0.034) ng/mL Total Protein (6.3-8.2) g/dL Albumin (3.5-5.0) g/dL Disposition Clinical Impression: Dyspnea Disposition: HOME SELF-CARE Condition: Good Instructions: Dyspnea (ED) Additional Instructions: Patient should return to the emergency department if symptoms worsen or if there are any new symptoms or fever. Referrals: Hal Heck MD [Primary Care Provider] - 1-2 days Time of Disposition: 03:36
[2017-01-03 01:05] LABS: Basophils # (A) 0.1 k/uL (0-0.2); Basophils % (A) 0 %; CH 33.3; CHCM 33.1; Eosinophils # (A) 0.6 k/uL (0-0.7); Eosinophils % (A) 3 %; HCT 38.3 % (34.0-46.0); HDW 2.53; HGB 12.4 gm/dL (11.4-16.0); Luc # (Auto) 0.12; Luc % (Auto) 1; Lymphocytes # (A) 0.9 k/uL (1.0-4.8); Lymphocytes % (A) 6 %; MCH 32.9 pg (25.0-35.0); MCHC 32.5 g/dL (31.0-37.0); Macrocytosis Slight; Mean Platelet Volume 7.5; Monocytes # (A) 0.2 k/uL (0-1.0); Monocytes % (A) 1 %; Neutrophils # (A) 14.4 k/uL (1.3-7.7); Neutrophils % (A) 89 %; RBC 3.79 m/uL (3.80-5.40); RDW 15.8 % (11.5-15.5); WBC 16.2 k/uL (3.8-10.6); WBC (Perox) 16.61
[2017-01-03 01:10] LABS: MCV 101.1 fL (80.0-100.0)
--- NOTE | 2017-01-03 01:15 | XR ---
EXAM: XR Chest, 1 View. CLINICAL HISTORY: Reason: difficulty breathing TECHNIQUE: Frontal view of the chest. COMPARISON: Chest radiograph 10/20/2016 indwelling right jugular central venous catheter extending to region of superior vena cava. FINDINGS: Lungs: Lungs are clear. Pleural space: No evidence of pleural effusion or pneumothorax. Heart: Heart size and mediastinal structures are within normal limits. Mediastinum: Unremarkable. Bones/joints: Imaged bony thorax is unremarkable. No significant change since 10/20/2016. IMPRESSION: No evidence of acute cardiopulmonary disease.
[2017-01-03 01:20] LABS: INR 1.2 (<1.1); Partial Thromboplastin Time 26.5 sec (22.0-30.0); Prothrombin Time 11.8 sec (9.0-12.0)
[2017-01-03 01:24] LABS: ALT 46 U/L (9-52); AST 61 U/L (14-36); Alkaline Phosphatase 140 U/L (38-126); Anion Gap 10 mmol/L; Blood Urea Nitrogen 12 mg/dL (7-17); Calcium 9.7 mg/dL (8.4-10.2); Carbon Dioxide 20 mmol/L (22-30); Chloride 109 mmol/L (98-107); Glucose 92 mg/dL (74-99); Non-African American GFR(MDRD) >60 (>60 ml/min/1.73 sqM); Sodium 139 mmol/L (137-145); Total Bilirubin 1.4 mg/dL (0.2-1.3); Total Protein 7.3 g/dL (6.3-8.2)
[2017-01-03 01:37] LABS: Creatine Kinase 182 U/L (30-135)
[2017-01-03 01:50] LABS: Creatine Kinase MB 1.6 ng/mL (0.0-2.4); Troponin I <0.012 ng/mL (0.000-0.034)
[2017-01-03] MEDS ORDERED: RX INFO: IV CONTRAST WAS GIVEN 1 EACH MISC MISCELLANE PRN (02:11)
[2017-01-03 02:26] VITALS: RESP 18
--- NOTE | 2017-01-03 03:15 | CT ---
EXAM: CT Chest With Intravenous Contrast. CLINICAL HISTORY: Reason: Pain TECHNIQUE: Axial computed tomography images of the chest with intravenous contrast during the arterial phase of enhancement. CTDI is 52.3 mGy and DLP is 162.5 mGy-cm This CT exam was performed using one or more of the following dose reduction techniques: automated exposure control, adjustment of the mA and/or kV according to patient size, and/or use of iterative reconstruction technique. Coronal and sagittal reformatted images were created and reviewed. COMPARISON: Chest radiograph 01/03/2017 FINDINGS: Pulmonary arteries: No evidence of central pulmonary thromboembolic disease. Aorta: Mild thoracic aortic atherosclerotic disease without evidence of vascular aneurysm or dissection. Lungs: Mild bilateral lower lobe dependent atelectatic changes. No focal pulmonary infiltrates or consolidations. Pleural space: No evidence of pleural effusion. No pneumothorax. Heart: Heart size is within normal limits. No significant pericardial effusion. Bones/joints: No acute fracture. No dislocation. Lymph nodes: There are several mildly enlarged mediastinal lymph nodes. Mild right hilar lymphadenopathy. Spleen: Images including upper abdomen demonstrate evidence of previous cholecystectomy. Spleen is borderline enlarged although incompletely imaged on CT chest. IMPRESSION: No evidence of central pulmonary thromboembolic disease. Mild thoracic aortic vascular disease without evidence of thoracic aortic aneurysm or dissection. Mild mediastinal and right hilar lymphadenopathy which is nonspecific.
[2017-01-03 04:06] VITALS: BP 126/78; PULSE 80; TEMP 97.7
== END 2017-01-03 04:04 | disposition home or self-care (01) ==
LOC: EC 00:22
DX: R06.00 Dyspnea, unspecified (principal); E07.9 Disorder of thyroid, unspecified; K21.9 Gastro-esophageal reflux disease without esophagitis; F17.200 Nicotine dependence, unspecified, uncomplicated; Z85.07 Personal history of malignant neoplasm of pancreas; Z88.5 Allergy status to narcotic agent; Z88.2 Allergy status to sulfonamides; Z88.8 Allergy status to other drugs, medicaments and biological substances; Z79.899 Other long term (current) drug therapy
CPT/HCPCS: 99285; 36415; 93005; 85379; 80053; 82550; 82553; 84484; 85025; 85610; 85730; 71020; 71275; Q9967

== ENCOUNTER → 2017-02-21 | Outpatient (CLI) | payer MEDICARE, OTHER ==
--- NOTE | 2017-02-21 16:32 | PE ---
EXAMINATION TYPE: PET CT fusion whole body DATE OF EXAM: 02/21/2017 CLINICAL HISTORY: Pancreatic/biliary duct cancer progress study. Recently completed chemotherapy one week ago. TECHNIQUE: Following the intravenous administration of 15.43 mCi of F-18 FDG, whole body images are performed from the skull base to the midthigh. Images are reviewed on the computer in the coronal, axial, and sagittal planes. Reconstructed rotating images are created on independent workstation and reviewed on the computer. A non-contrast CT is performed in conjunction with the PET scan. COMPARISON: Prior PET/CT October 25, 2016. CTA chest January 03, 2017. FINDINGS: SKULL BASE AND NECK: No suspicious hypermetabolic uptake is seen in the neck. CHEST, MEDIASTINUM, AND HILAR REGION: No suspicious hypermetabolic uptake is seen in the thorax. ABDOMEN AND PELVIS: There is of abnormal hypermetabolic uptake centrally in the liver are not evident on current study. Areas of abnormal hypermetabolic uptake in the retroperitoneum there are SMA show no suspicious adenopathy or hypermetabolic uptake currently. OSSEOUS STRUCTURES: Diffuse uptake throughout osseous structures likely reflects product of recent ch emotherapy treatment. OTHER CT: There is stable right internal jugular Mediport catheter. Coronary artery calcification is present which is noted marker for coronary artery disease. There is persistent splenomegaly not significantly changed from prior study. Cholecystectomy clips are redemonstrated. There are prominent but subcentimeter lymph nodes throughout the upper to mid abdomen including the p eripancreatic region and retroperitoneum. Lymph nodes are diminished in size from prior exam without abnormal hypermetabolic uptake. Posterior fusion hardware L4-L5 level with artificial disc is redemonstrated. Metallic coils ventral wall hernia repair surgery in the midline of the mid abdomen are redemonstrate d. Suspect fluid-filled bowel loops in the pelvic cul-de-sac near image 215, free fluid is not excluded. Consider pelvic ultrasound correlation. IMPRESSION: No hypermetabolic uptake is identified after treatment involving central liver and pancre atic regions including retroperitoneal lymph nodes with diminished in size of adenopathy identified. Findings are consistent with complete treatment response. No new suspicious mass or hypermetabolic up take. Reactive diffuse osseous uptake related to treatment incidentally noted.
== END | disposition home or self-care (01) ==
LOC: RADPETMAIN 13:13
PROVIDERS: ATTEND Internal Medicine Hematology & Oncology
DX: C24.9 Malignant neoplasm of biliary tract, unspecified (principal); C25.9 Malignant neoplasm of pancreas, unspecified
CPT/HCPCS: 78816; A9552

== ENCOUNTER → 2017-05-21 | Outpatient (CLI) | payer MEDICARE, OTHER ==
--- NOTE | 2017-05-21 16:18 | CT ---
EXAMINATION TYPE: CT ChestAbdPelvis w con DATE OF EXAM: 05/21/2017 COMPARISON: PET/CT February 21, 2017. HISTORY: abdominal pain, hx of pancreatic and liver ca CT DLP: 552.1 mGycm. Automated Exposure Control for Dose Reduction was Utilized. CONTRAST: CT scan of the thorax, abdomen and pelvis is performed with IV Contrast, patient injected with 100 mL of Omnipaque 300. FINDINGS: LUNGS: There is background of mild emphysematous change. No suspicious nodule or mass is present. No suspicious groundglass opacity or consolidation is seen. No pleural effusion or pneumothorax is ident ified. MEDIASTINUM: There are no greater than 1 cm hilar or mediastinal lymph nodes. There are persistent pr ominent but subcentimeter thoracic lymph nodes at paratracheal and subcarinal region for example that are felt stable. No cardiomegaly or pericardial effusion is seen. Coronary artery calcification is redemonstrated which is noted marker for coronary artery disease. OTHER: There is redemonstrated of right internal jugular Mediport catheter with tip in SVC. LIVER/GB: Cholecystectomy clips are redemonstrated. PANCREAS: No significant abnormality is seen. SPLEEN: Spleen remains enlarged in size measuring 13.7 cm on coronal image 48. Small splenule inferio rly is redemonstrated. ADRENALS: No significant abnormality is seen. KIDNEYS: No significant abnormality is seen. BOWEL: Some prominence of fecal material throughout the colon including rectum is noted. GENITAL ORGANS: No gross abnormality seen. LYMPH NODES: There are persistent prominent subcentimeter lymph nodes with ill-defined fat stranding in the upper to mid abdomen including the peripancreatic region and retroperitoneum near axial image 65. Findings not significantly changed from recent PET/CT. There is slightly enlarged 1.4 x 1.3 cm po rtal hepatic lymph node on axial image 64 not significantly changed from PET/CT in retrospect better visualized with IV contrast without abnormal hypermetabolic uptake on prior PET/CT. OSSEOUS STRUCTURES: Surgical change L4-L5 level is redemonstrated with posterior fusion hardware and artificial disc material. There is diffuse sclerosis involving left aspect of T12 vertebra extending into the left lateral recess including pedicle and lamina. This is at site of prior lytic lesion on [facility] chest CT study January 03. OTHER: There are anterior abdominal wall sutures presumed from ventral wall hernia repair near level of umbilicus redemonstrated. IMPRESSION: Sclerotic T12 lesion noted does not show abnormal hypermetabolic uptake on recent PET CT but is worrisome for possible ossific metastatic lesion or successful response to treatment as had hastings btle lytic appearance on chest CT January 03. Stable nonspecific lymph nodes upper to mid abdomen. No n ew mass or adenopathy is clearly identified.
== END | disposition home or self-care (01) ==
LOC: RADCTMAIN 13:38
PROVIDERS: ATTEND Internal Medicine Hematology & Oncology
DX: M89.8X8 Other specified disorders of bone, other site (principal); C25.9 Malignant neoplasm of pancreas, unspecified; C24.9 Malignant neoplasm of biliary tract, unspecified; Z88.2 Allergy status to sulfonamides; Z88.5 Allergy status to narcotic agent
CPT/HCPCS: 71260; 74177; Q9967

== ENCOUNTER 2017-07-31 20:16 | Inpatient (IN) | payer MEDICARE, OTHER ==
--- NOTE | 2017-07-31 20:34 | ED ---
General Adult HPI - General Stated complaint: blockage by heart-sent by Dr. Azul Time Seen by Provider: 07/31/17 20:20 Source: RN notes reviewed, old records reviewed - History of Present Illness Initial comments: This is a 7-year-old female to the ER for evaluation. Patient closely for evaluation regarding recurrent CVA, abdominal pain, and abnormal CT results. Patient has known pancreatic cancer. Patient was sent here for evaluation as a regards to abnormal outpatient CT. Patient does admit to mild suprapubic abdominal pain and decreased appetite for about a week and a half. Patient has had no oral intake, and increasing weight loss. - Related Data Home Medications Medication Instructions Recorded Confirmed Ranitidine HCl [Zantac] 150 mg PO BID 06/12/16 08/01/17 amLODIPine [Norvasc] 5 mg PO DAILY 06/12/16 08/01/17 Levothyroxine Sodium [Synthroid] 100 mcg PO DAILY 09/20/16 08/01/17 Gabapentin [Neurontin] 100 mg PO BID 08/01/17 08/01/17 LORazepam [Ativan] 0.5 mg PO TID PRN 08/01/17 08/01/17 Morphine Sulfate [Morphine Sulfate 40 mg PO HS 08/01/17 08/01/17 Oral Solution] Prochlorperazine [Compazine] 10 mg PO Q6H PRN 08/01/17 08/01/17 fentaNYL 12MCG/HR PATCH [Duragesic 1 patch TRANSDERM Q72H 08/01/17 08/01/17 12MCG/HR] Previous Rx's Medication Instructions Recorded Lisinopril [Zestril] 5 mg PO DAILY #30 tab 10/20/16 diphenhydrAMINE [Benadryl] 50 mg PO HS PRN #10 cap 11/01/16 Enoxaparin [Lovenox] 60 mg SQ Q12H #60 syringe 08/02/17 Allergies Allergy/AdvReac Type Severity Reaction Status Date / Time acetaminophen [From Vicodin] Allergy Rash/Hives Verified 07/31/17 20:44 codeine Allergy Rash/Hives Verified 07/31/17 20:44 hydrocodone [From Vicodin] Allergy Rash/Hives Verified 07/31/17 20:44 Sulfa (Sulfonamide Allergy Dyspnea Verified 07/31/17 20:44 Antibiotics) atorvastatin [From Lipitor] AdvReac Unknown Verified 07/31/17 20:44 pravastatin [From Pravachol] AdvReac Unknown Verified 07/31/17 20:44 rosuvastatin [From Crestor] AdvReac Unknown Verified 07/31/17 20:44 Review of Systems ROS Statement: Those systems with pertinent positive or pertinent negative responses have been documented in the HPI. ROS Other: All systems not noted in ROS Statement are negative. Past Medical History Past Medical History: Cancer, GERD/Reflux, Hyperlipidemia, Liver Disease, Osteoarthritis (OA), Thyroid Disorder Additional Past Medical History / Comment(s): PT STATED IN 2011 LIVER BX SHOWED FIBROSIS,2015 LIVER BX SHOWED CIRRHOIS(FATTY LIVER), DJD, UTI, pancreatic cancer lymph node involvement History of Any Multi-Drug Resistant Organisms: None Reported Past Surgical History: Section, Cholecystectomy, Hernia Repair, Orthopedic Surgery, Tubal Ligation Additional Past Surgical History / Comment(s): Caitie Surgery 2009, rosa 2009, c section 1980, 1983, carpal tunnel surgery bilateral, 2 x hernia surgery, dequervains bilateral hands, 2013 lumbar fusion. EGD- 2015.10-06-16 BX PANCREAS AND LYMPH NODES AT [facility] Past Anesthesia/Blood Transfusion Reactions: No Reported Reaction Past Psychological History: No Psychological Hx Reported Additional Psychological History / Comment(s): PT STATED SHE TRIES TO STAY POSITIVE NO DEPRESSION CURRENTLY. NO THOUGHTS OF WANTING TO HARM SELF. Smoking Status: Light tobacco smoker Past Alcohol Use History: None Reported Additional Past Alcohol Use History / Comment(s): STARTED SMOKING IN 1976, Quit smoking January 2016, 1.5 ppd Past Drug Use History: None Reported - Past Family History Brother(s) Family Medical History: Cancer, Liver Disease, Myocardial Infarction ([place]) Additional Family Medical History / Comment(s): Patient states has 7 brothers- 6 brothers have Mother Family Medical History: Diabetes Mellitus, Thyroid Disorder Father Family Medical History: Cancer, CVA/TIA, Hypertension, Prostate Disorder Additional Family Medical History / Comment(s): bone ca sisters Additional Family Medical History / Comment(s): sister from down syndrome-1968 other sister from drug overdose in 2008. General Exam General appearance: alert, in no apparent distress Head exam: Present: atraumatic, normocephalic, normal inspection Eye exam: Present: normal appearance, PERRL, EOMI. Absent: scleral icterus, conjunctival injection, periorbital swelling ENT exam: Present: normal exam, mucous membranes moist Neck exam: Present: normal inspection. Absent: tenderness, meningismus, lymphadenopathy Respiratory exam: Present: normal lung sounds bilaterally. Absent: respiratory distress, wheezes, rales, rhonchi, stridor Cardiovascular Exam: Present: regular rate, normal rhythm, normal heart sounds. Absent: systolic murmur, diastolic murmur, rubs, gallop, clicks GI/Abdominal exam: Present: soft, normal bowel sounds. Absent: distended, tenderness, guarding, rebound, rigid Extremities exam: Present: normal inspection, full ROM, normal capillary refill. Absent: tenderness, pedal edema, joint swelling, calf tenderness Back exam: Present: normal inspection Neurological exam: Present: alert, oriented X3, CN II-XII intact Psychiatric exam: Present: normal affect, normal mood Skin exam: Present: warm, dry, intact, normal color. 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 Trent for Dr. Azul regarding CT and patient's labs and findings. EKG Findings - EKG Comments: EKG Findings:: EKG shows normal sinus rhythm rate of 70, SC 146, QRS 82, QTc 469 Medical Decision Making - Medical Decision Making 61 female to the ERL with superior mesenteric venous thrombosis, patient admitted and anticoagulation and have further evaluation regarding pain and decreased appetite. - Lab Data Result diagrams: 08/02/17 05:23 08/02/17 05:23 Lab Results 07/31/17 07/31/17 07/31/17 Range/Units 20:43 20:43 20:43 WBC 5.6 (3.8-10.6) k/uL RBC 4.17 (3.80-5.40) m/uL Hgb 13.3 (11.4-16.0) gm/dL Hct 39.2 (34.0-46.0) % MCV 94.1 (80.0-100.0) fL MCH 31.9 (25.0-35.0) pg MCHC 33.9 (31.0-37.0) g/dL RDW 13.7 (11.5-15.5) % Plt Count 82 L (150-450) k/uL Neutrophils % 65 % Lymphocytes % 25 % Monocytes % 8 % Eosinophils % 1 % Basophils % 0 % Neutrophils # 3.6 (1.3-7.7) k/uL Lymphocytes # 1.4 (1.0-4.8) k/uL Monocytes # 0.4 (0-1.0) k/uL Eosinophils # 0.1 (0-0.7) k/uL Basophils # 0.0 (0-0.2) k/uL PT (9.0-12.0) sec INR (<1.2) APTT (22.0-30.0) sec Sodium 135 L (137-145) mmol/L Potassium 3.6 (3.5-5.1) mmol/L Chloride 103 (98-107) mmol/L Carbon Dioxide 20 L (22-30) mmol/L Anion Gap 12 mmol/L BUN 7 (7-17) mg/dL Creatinine 0.60 (0.52-1.04) mg/dL Est GFR (MDRD) Af Amer >60 (>60 ml/min/1.73 sqM) Est GFR (MDRD) Non-Af >60 (>60 ml/min/1.73 sqM) Glucose 82 (74-99) mg/dL Calcium 9.6 (8.4-10.2) mg/dL Magnesium 2.0 (1.6-2.3) mg/dL Total Bilirubin 1.1 (0.2-1.3) mg/dL AST 56 H (14-36) U/L ALT 54 H (9-52) U/L Alkaline Phosphatase 169 H (38-126) U/L Total Creatine Kinase 52 (30-135) U/L CK-MB (CK-2) 0.6 (0.0-2.4) ng/mL CK-MB (CK-2) Rel Index 1.2 Troponin I <0.012 (0.000-0.034) ng/mL Total Protein 7.5 (6.3-8.2) g/dL Albumin 4.3 (3.5-5.0) g/dL Blood Type Blood Type Confirm Blood Type Recheck Antibody Screen Spec Expiration Date 07/31/17 07/31/17 07/31/17 Range/Units 20:43 20:43 21:44 WBC (3.8-10.6) k/uL RBC (3.80-5.40) m/uL Hgb (11.4-16.0) gm/dL Hct (34.0-46.0) % MCV (80.0-100.0) fL MCH (25.0-35.0) pg MCHC (31.0-37.0) g/dL RDW (11.5-15.5) % Plt Count (150-450) k/uL Neutrophils % % Lymphocytes % % Monocytes % % Eosinophils % % Basophils % % Neutrophils # (1.3-7.7) k/uL Lymphocytes # (1.0-4.8) k/uL Monocytes # (0-1.0) k/uL Eosinophils # (0-0.7) k/uL Basophils # (0-0.2) k/uL PT 12.1 H (9.0-12.0) sec INR 1.2 H (<1.2) APTT 27.0 (22.0-30.0) sec Sodium (137-145) mmol/L Potassium (3.5-5.1) mmol/L Chloride (98-107) mmol/L Carbon Dioxide (22-30) mmol/L Anion Gap mmol/L BUN (7-17) mg/dL Creatinine (0.52-1.04) mg/dL Est GFR (MDRD) Af Amer (>60 ml/min/1.73 sqM) Est GFR (MDRD) Non-Af (>60 ml/min/1.73 sqM) Glucose (74-99) mg/dL Calcium (8.4-10.2) mg/dL Magnesium (1.6-2.3) mg/dL Total Bilirubin (0.2-1.3) mg/dL AST (14-36) U/L ALT (9-52) U/L Alkaline Phosphatase (38-126) U/L Total Creatine Kinase (30-135) U/L CK-MB (CK-2) (0.0-2.4) ng/mL CK-MB (CK-2) Rel Index Troponin I (0.000-0.034) ng/mL Total Protein (6.3-8.2) g/dL Albumin (3.5-5.0) g/dL Blood Type A Positive Blood Type Confirm A Positive Blood Type Recheck CABO Indicated Antibody Screen NEGATIVE Spec Expiration Date 08/03/2017 - 2343 Disposition Clinical Impression: Lymphoma, Cancer-related pain, Superior mesenteric vein thrombosis Disposition: ADMITTED IP TO THIS HOSP Condition: Fair
[2017-07-31] MEDS ORDERED: HYDROmorphone 0.5 MG/0.5 ML SYRINGE IVP STA (20:42)
[2017-07-31] MEDS ORDERED: ONDANSETRON 4 MG/2 ML VIAL IVP STA (20:42)
[2017-07-31] MEDS ORDERED: SODIUM CHLORIDE 0.9% 1,000 ML IV STA (20:42)
[2017-07-31 20:58] LABS: Basophils % (A) 0 %; CH 32.7; CHCM 34.9; Eosinophils # (A) 0.1 k/uL (0-0.7); Eosinophils % (A) 1 %; HCT 39.2 % (34.0-46.0); HDW 2.68; HGB 13.3 gm/dL (11.4-16.0); Luc # (Auto) 0.07; Luc % (Auto) 1; Lymphocytes # (A) 1.4 k/uL (1.0-4.8); Lymphocytes % (A) 25 %; MCH 31.9 pg (25.0-35.0); MCHC 33.9 g/dL (31.0-37.0); MCV 94.1 fL (80.0-100.0); Mean Platelet Volume 7.4; Monocytes # (A) 0.4 k/uL (0-1.0); Monocytes % (A) 8 %; Neutrophils # (A) 3.6 k/uL (1.3-7.7); Neutrophils % (A) 65 %; RBC 4.17 m/uL (3.80-5.40); RDW 13.7 % (11.5-15.5); WBC 5.6 k/uL (3.8-10.6); WBC (Perox) 5.69
[2017-07-31] MEDS ORDERED: NALOXONE 0.4 MG/ML 10 ML VIAL IVP STA (21:07)
[2017-07-31] MEDS ORDERED: HYDROCORTISONE SUCCINATE 100 MG/2 ML VIAL IV STA (21:08)
[2017-07-31 21:11] LABS: INR 1.2 (<1.2); Prothrombin Time 12.1 sec (9.0-12.0)
[2017-07-31 21:12] LABS: ALT 54 U/L (9-52); AST 56 U/L (14-36); Alkaline Phosphatase 169 U/L (38-126); Anion Gap 12 mmol/L; Blood Urea Nitrogen 7 mg/dL (7-17); Calcium 9.6 mg/dL (8.4-10.2); Carbon Dioxide 20 mmol/L (22-30); Chloride 103 mmol/L (98-107); Glucose 82 mg/dL (74-99); Non-African American GFR(MDRD) >60 (>60 ml/min/1.73 sqM); Potassium 3.6 mmol/L (3.5-5.1); Sodium 135 mmol/L (137-145); Total Bilirubin 1.1 mg/dL (0.2-1.3); Total Protein 7.5 g/dL (6.3-8.2)
[2017-07-31 21:29] LABS: Creatine Kinase 52 U/L (30-135)
[2017-07-31 21:42] LABS: Creatine Kinase MB 0.6 ng/mL (0.0-2.4); Troponin I <0.012 ng/mL (0.000-0.034)
[2017-07-31] MEDS ORDERED: HEPARIN SODIUM,PORCINE 10,000 UNIT/ML 1 ML VIAL IV ONE (22:16)
[2017-07-31] MEDS ORDERED: HEPARIN SODIUM,PORCINE 5,000 UNIT/ML 1 ML VIAL IV PRN (22:16)
[2017-07-31] MEDS ORDERED: SODIUM CHLORIDE 0.9% 1,000 ML IV ONE (22:16)
[2017-07-31] MEDS ORDERED: SODIUM CHLORIDE 0.9% IV SCH (22:30)
[2017-07-31] MEDS ORDERED: HEPARIN SODIUM PORCINE IV SCH (22:30)
[2017-07-31] MEDS ORDERED: D5W PMX IV SCH (22:30)
[2017-07-31 23:46] VITALS: BMI 20.5
[2017-08-01] MEDS ORDERED: ONDANSETRON ODT 8 MG TAB.RAPDIS PO PRN (00:25)
[2017-08-01] MEDS ORDERED: diphenhydrAMINE 25 MG CAP PO PRN (00:25)
[2017-08-01] MEDS: MORPHINE ORAL SOL CONC 20 MG/ML BOTTLE PO PRN ×5 (01:08→20:31)
[2017-08-01 04:20] LABS: Basophils % (A) 0 %; CH 32.8; CHCM 33.7; Eosinophils # (A) 0.1 k/uL (0-0.7); Eosinophils % (A) 2 %; HCT 34.6 % (34.0-46.0); HDW 2.62; HGB 11.4 gm/dL (11.4-16.0); Luc % (Auto) 2; Lymphocytes # (A) 1.9 k/uL (1.0-4.8); Lymphocytes % (A) 40 %; MCH 32.2 pg (25.0-35.0); MCHC 32.9 g/dL (31.0-37.0); MCV 97.8 fL (80.0-100.0); Mean Platelet Volume 7.5; Monocytes # (A) 0.4 k/uL (0-1.0); Monocytes % (A) 8 %; Neutrophils # (A) 2.3 k/uL (1.3-7.7); Neutrophils % (A) 48 %; RBC 3.54 m/uL (3.80-5.40); RDW 13.7 % (11.5-15.5); WBC 4.8 k/uL (3.8-10.6); WBC (Perox) 4.88
[2017-08-01] MEDS: ENOXAPARIN 60 MG/0.6 ML SYRINGE SQ SCH ×2 (14:55→20:31)
--- NOTE | 2017-08-01 16:24 | CONS ---
CONSULTATION DATE OF SERVICE: 08/01/2017 REASON FOR CONSULTATION: Pancreatic cancer. CHIEF COMPLAINT: Abdominal pain and weakness. REASON FOR ADMISSION: Mesenteric vein thrombosis. HISTORY OF PRESENT ILLNESS: Tiny is a very pleasant 61-year-old lady, very well known to our practice, has been under the care of Dr. Azul. The patient was initially evaluated as an inpatient in September of 2016 when she presented with abdominal pain. She had a CT scan revealing enlarged upper abdominal nodes. Subsequently, she had an MRI which revealed multiple nodules in the liver and CA 19-9 was significantly elevated. Subsequently, she was referred to [facility] and she underwent upper endoscopy on October 09, 2016. The pancreatic duct was dilated throughout the length of the pancreas without any distinct mass seen. However, lymph node biopsy was positive for metastatic adenocarcinoma consistent with pancreatic or biliary primary. Of note that the patient also is known to have liver cirrhosis. She did have a liver biopsy a year ago in June of 2016 confirming the presence of liver cirrhosis. She has had elevated liver enzymes and with prior liver biopsy in 2011 revealing lobular fibrosis. After obtaining her diagnosis of malignancy, she underwent a PET scan evaluation on 10/25/2016 revealing at least area of suspicious uptake in the right lobe of the liver. Area of the uptake, suspicious uptake in the body and tail of the pancreas and other regional lymph node. The patient was subsequently started on systemic chemotherapy was FOLFOX combination, which was started in October of 2016 and completed a total of 12 cycles on April 14, 2017. She overall tolerated them reasonably well. She has some issue with neuropathy but mostly this improved and she did respond to it well clinically and radiographically and serologically with decline in her CA 19-9 level. In fact, on May 30, 2017, her CA 19-9 was down to 83. Unfortunately, over the last few weeks, the patient had been experiencing progressive fatigue, weakness, weight loss. She has lost over 12 pounds over the last few weeks. She was evaluated by Dr. Azul yesterday in the office and because of this progressive weakness and fatigue, recurrence of her malignancy was suspected. She was referred to have a CT scan done in the outpatient setting, which unfortunately confirmed the disease progression and it was worsening periaortic, pericaval and peripancreatic adenopathies and also there was findings suspicious for superior mesenteric vein thrombosis. So the patient was referred to the emergency room and she was admitted to the hospital and she was started on intravenous heparin. As stated, the patient overall feels tired. She is weak. She has lost about 12 to 13 pounds over the last 6 to 8 weeks. She has some abdominal pain, but this improved since she got admitted to the hospital. She had some nausea, but also this is better. Bowel is moving fine. No melena, hematochezia, hematuria, hemoptysis, hematemesis or epistaxis and no fever or night sweats, but overall she has generalized fatigue and weakness. PAST MEDICAL HISTORY: In addition to what is stated above in regard to her pancreatic carcinoma, she has a history of hypertension, hypothyroidism and peripheral neuropathy which has improved and liver cirrhosis as stated above. Had osteoarthritis and hyperlipidemia. PAST SURGICAL HISTORY: She had tubal ligation, section, cholecystectomy, carpal tunnel repair, hernia repair, Caitie fundoplication. She had a lumbar fusion as well in the past. SOCIAL HISTORY: She is a light tobacco user. No alcohol abuse or substance abuse. FAMILY HISTORY: Her father had "bone cancer", an uncle had leukemia, one brother had bladder cancer, another brother had pancreatic cancer. A sister had breast cancer and ovarian cancer and another sister had lung cancer. REVIEW OF SYSTEMS: As stated above in the history of present illness. ALLERGIES: She is allergic to VICODIN, CODEINE, SULFA, LIPITOR, PRAVACHOL, and CRESTOR. HOME MEDICATIONS: Include fentanyl patch 12 mcg/hour, Benadryl as needed, Norvasc 5 mg daily, Zantac 150 b.i.d., Compazine 10 mg every 6 hours as needed, morphine sulfate 40 mg p.o. at bedtime, lisinopril 5 mg daily, Synthroid 100 mcg daily, Ativan 0.5 mg t.i.d. as needed, gabapentin 100 mg b.i.d. REVIEW OF SYSTEMS: As stated above in the history of present illness, otherwise negative. PHYSICAL EXAMINATION: She is alert and oriented x3. She is well developed. She does not appear to be in distress. Her vital signs are temperature 97.1, afebrile, pulse 65 regular, respiration 18, blood pressure 118/63. HEENT: Normocephalic, atraumatic. No obvious icterus. NECK: Supple. No jugular venous distention. CHEST: Equal expansion bilaterally. LUNGS: Clear to auscultation and percussion. Heart is regular rate and rhythm. ABDOMEN: Soft. There is no appendicitis, organomegaly or masses. Bowel sounds present. There is tenderness in the epigastric area. EXTREMITIES: Revealed no edema. SKIN: A few bruises on the upper extremities. No petechiae or ecchymosis. LYMPHATICS: No peripherally enlarged cervical, supraclavicular nodes. MUSCULOSKELETAL: Moving all extremities appropriately, no percussion, tenderness detected over spine or sternum. RECENT LABORATORY DATA: WBC of 4.8, hemoglobin 11.4, hematocrit 34.6, platelets are 85. Sodium 135, potassium 3.6, chloride 103, CO2 is 20, BUN 7, creatinine is 0.6. AST 56, ALT is 54, alkaline phosphatase 169. IMPRESSION: 1. Pancreatic or biliary carcinoma with diagnostic and therapeutic circumstances stated above with clinical and radiographic and serologic evidence of disease progression. 2. Superior mesenteric vein thrombosis. 3. Liver cirrhosis. 4. Mild chronic thrombocytopenia. 5. Neoplasm-related pain, appeared to be controlled with the current pain medication regimen. RECOMMENDATION: 1. I did discuss the CAT scan finding with the patient and her family at bedside. 2. In regard to her anticoagulation, I would recommend to use low molecular weight heparin. She can be started on 1 mg/kg q.12 hours and subsequently over the next few weeks, if she remains stable, she could be transitioned to 1.5 mg/kg daily. In the meantime, her platelet count, blood count need to be monitored. As long as her platelet count remains stable, she may continue with anticoagulation. She may not be a good candidate for warfarin therapy due to her liver cirrhosis and the plan to start next line of chemotherapy which could lead to significant fluctuation in her INR. Also in view of her liver cirrhosis, she may not be also a good candidate for the use of newer oral anticoagulant agent. 3. I would recommend to continue current pain medication regimen. 4. If the patient remains stable and her blood count and the platelet count remain stable. She could be discharged home on Lovenox. She has a followup appointment this coming Thursday with Dr. Azul in the office to discuss further option of systemic therapy. 5. The above was discussed in detail with the patient and her family at bedside and I have answered all their questions to their satisfaction. Thank you very much for asking me to participate in the care of this patient. MMKRYSTYNA / LESLEYN: [id number] /
[2017-08-01] MEDS ORDERED: PROCHLORPERAZINE 10 MG TAB PO PRN (21:29)
[2017-08-01] MEDS ORDERED: LORazepam 0.5 MG TAB PO PRN (21:29)
[2017-08-01] MEDS: LEVOTHYROXINE 100 MCG TAB PO SCH (22:22)
[2017-08-02 06:25] LABS: Basophils % (A) 0 %; CHCM 34.6; Eosinophils # (A) 0.1 k/uL (0-0.7); Eosinophils % (A) 3 %; HCT 35.6 % (34.0-46.0); HDW 2.93; HGB 11.9 gm/dL (11.4-16.0); Luc % (Auto) 2; Lymphocytes # (A) 1.6 k/uL (1.0-4.8); Lymphocytes % (A) 36 %; MCH 32.1 pg (25.0-35.0); MCHC 33.5 g/dL (31.0-37.0); MCV 95.9 fL (80.0-100.0); Mean Platelet Volume 7.1; Monocytes # (A) 0.3 k/uL (0-1.0); Monocytes % (A) 7 %; Neutrophils # (A) 2.3 k/uL (1.3-7.7); Neutrophils % (A) 52 %; RBC 3.72 m/uL (3.80-5.40); RDW 12.9 % (11.5-15.5); WBC 4.4 k/uL (3.8-10.6); WBC (Perox) 4.42
[2017-08-02] MEDS: ENOXAPARIN 60 MG/0.6 ML SYRINGE SQ SCH (08:53)
[2017-08-02] MEDS: LEVOTHYROXINE 100 MCG TAB PO SCH (08:53)
[2017-08-02] MEDS ORDERED: FAMOTIDINE 20 MG TAB PO SCH (09:00)
[2017-08-02] MEDS ORDERED: GABAPENTIN 100 MG CAP PO SCH (09:00)
[2017-08-02] MEDS ORDERED: amLODIPine 5 MG TAB PO SCH (09:00)
[2017-08-02] MEDS ORDERED: LISINOPRIL 5 MG TAB PO SCH (09:00)
[2017-08-02 09:51] LABS: Anion Gap 10 mmol/L; Blood Urea Nitrogen 5 mg/dL (7-17); Calcium 9.5 mg/dL (8.4-10.2); Carbon Dioxide 21 mmol/L (22-30); Chloride 109 mmol/L (98-107); Glucose 80 mg/dL (74-99); Non-African American GFR(MDRD) >60 (>60 ml/min/1.73 sqM); Potassium 3.7 mmol/L (3.5-5.1); Sodium 140 mmol/L (137-145)
[2017-08-02 12:21] VITALS: RESP 16
--- NOTE | 2017-08-02 13:48 | P.HPIM ---
History of Present Illness H&P Date: 08/02/17 Chief Complaint: Abdominal pain, fatigue and weight loss HISTORY OF PRESENT ILLNESS: 61-year-old female patient of Dr. Heck with chronic stable medical conditions include GERD, hyperlipidemia, liver disease, osteoarthritis, thyroid disorder, who presented to the emergency department after being seen in the office by Dr. Azul for progressive fatigue, weakness, weight loss, with suspicion for malignancy recurrence. Has lost over 12 pounds in the last 6-8 weeks. Patient had a computed tomography scan done in the outpatient setting which confirmed her disease progression, as well as a superior mesenteric vein thrombosis. Patient admitted for IV heparin therapy. Has had some nausea and abdominal pain bowels are moving, no melena hematochezia hematuria hemoptysis, hematemesis or epistaxis. REVIEW OF SYSTEMS GEN.: [ Weak, Tired] EYES: [None] HEENT: [None] NECK: [None] RESPIRATORY: [None CARDIOVASCULAR: [None] GASTROINTESTINAL: [Abdominal pain nausea] GENITOURINARY: [None] MUSCULOSKELETAL: [Back pain] LYMPHATICS: [None] HEMATOLOGICAL: [None] PSYCHIATRY: [None] NEUROLOGICAL: [None] PAST MEDICAL HISTORY Past medical history: Pancreatic carcinoma, hypertension, hypothyroidism, peripheral neuropathy, liver cirrhosis, osteoarthritis, hyperlipidemia. Past surgical history: Tubal ligation, section cholecystectomy, carpal tunnel repair, hernia repair, Caitie fundoplication. Lumbar fusion Past psychological history: None SOCIAL HISTORY: Additional psychological/social history: Smoking use history: Current smoker uses of a Vape quit smoking 2 years ago Alcohol use history: None Drug use history: None FAMILY HISTORY: Noncontributory HOME MEDICATION: Fentanyl 12 g patch one patch every 72 hours Diphenhydramine 50 mg by mouth at bedtime when necessary Amlodipine 5 mg by mouth daily Zantac 150 mg by mouth twice a day Compazine 10 mg by mouth every 6 hours when necessary Morphine sulfate solution 40 mg by mouth at bedtime Lisinopril 5 mg by mouth daily Levothyroxine 100 g by mouth daily Lorazepam 2.5 mg by mouth 3 times a day when necessary Gabapentin 100 mg by mouth twice a day ALLERGIES: ACETAMINOPHEN, CODEINE, HYDROCODONE, SULFA, ATORVASTATIN, PRAVASTATIN, ROSUVASTATIN VITAL SIGNS: [Reviewed. BMI noted] GENERAL: [Average built, sitting up, comfortable]. EYES: [Pupils equal. Conjunctiva quinn]l. HEENT: [External appearance of nose and ears normal, oral cavity grossly normal] . NECK: [JVD not raised; masses not palpable]. HEART: [First and second heart sounds are normal; no edema]. LUNGS:[ Respiratory rate normal; clear to auscultation]. ABDOMEN: [Soft, nontender, liver spleen not palpable, no masses palpable]. LYMPHATICS: [No lymph nodes palpable in the axilla and neck]. PSYCH: [Alert and oriented x3; mood and affect quinn]l. NEUROLOGICAL: [Cranial nerves grossly intact; no facial asymmetry, power and sensation grossly intact]. INVESTIGATIONS: LABS: CBC Unremarkable ASSESSMENT: -Superior mesenteric vein thrombosis -Pancreatic/biliary carcinoma with clinical and radiographic serologic evidence of disease progression -Liver cirrhosis -Essential hypertension -GERD -Hypothyroidism -Peripheral neuropathy -Anxiety not otherwise specified PLAN: Home medications reordered, oncology has seen the patient, recommend low molecular weight heparin at 1 mg/kg every 12 hours for the next few weeks. If stable transition to 1.5 mg/kg daily, monitor platelet count and blood counts. Discussed with patient. Will follow Past Medical History Past Medical History: Cancer, GERD/Reflux, Hyperlipidemia, Liver Disease, Osteoarthritis (OA), Thyroid Disorder Additional Past Medical History / Comment(s): PT STATED IN 2011 LIVER BX SHOWED FIBROSIS,2015 LIVER BX SHOWED CIRRHOIS(FATTY LIVER), DJD, UTI, pancreatic cancer lymph node involvement, and liver cancer History of Any Multi-Drug Resistant Organisms: None Reported Past Surgical History: Section, Cholecystectomy, Hernia Repair, Orthopedic Surgery, Tubal Ligation Additional Past Surgical History / Comment(s): Caitie Surgery 2009, rosa 2009, c section 1980, 1983, carpal tunnel surgery bilateral, 2 x hernia surgery, dequervains bilateral hands, 2013 lumbar fusion. EGD- 2015.10-06-16 BX PANCREAS AND LYMPH NODES AT [facility] Past Anesthesia/Blood Transfusion Reactions: No Reported Reaction Past Psychological History: No Psychological Hx Reported Additional Psychological History / Comment(s): PT STATED SHE TRIES TO STAY POSITIVE NO DEPRESSION CURRENTLY. NO THOUGHTS OF WANTING TO HARM SELF. Smoking Status: Former smoker Past Alcohol Use History: None Reported Additional Past Alcohol Use History / Comment(s): STARTED SMOKING IN 1976, Quit smoking January 2016, 1.5 ppd Past Drug Use History: None Reported - Past Family History Brother(s) Family Medical History: Cancer, Liver Disease, Myocardial Infarction ([place]) Additional Family Medical History / Comment(s): Patient states has 7 brothers- 6 brothers have Mother Family Medical History: Diabetes Mellitus, Thyroid Disorder Father Family Medical History: Cancer, CVA/TIA, Hypertension, Prostate Disorder Additional Family Medical History / Comment(s): bone ca sisters Additional Family Medical History / Comment(s): sister from down syndrome-1968 other sister from drug overdose in 2008. Medications and Allergies Home Medications Medication Instructions Recorded Confirmed Type Ranitidine HCl [Zantac] 150 mg PO BID 06/12/16 08/01/17 History amLODIPine [Norvasc] 5 mg PO DAILY 06/12/16 08/01/17 History Levothyroxine Sodium [Synthroid] 100 mcg PO DAILY 09/20/16 08/01/17 History Lisinopril [Zestril] 5 mg PO DAILY #30 tab 10/20/16 08/01/17 Rx diphenhydrAMINE [Benadryl] 50 mg PO HS PRN #10 cap 11/01/16 08/01/17 Rx Gabapentin [Neurontin] 100 mg PO BID 08/01/17 08/01/17 History LORazepam [Ativan] 0.5 mg PO TID PRN 08/01/17 08/01/17 History Morphine Sulfate [Morphine Sulfate 40 mg PO HS 08/01/17 08/01/17 History Oral Solution] Prochlorperazine [Compazine] 10 mg PO Q6H PRN 08/01/17 08/01/17 History fentaNYL 12MCG/HR PATCH [Duragesic 1 patch TRANSDERM Q72H 08/01/17 08/01/17 History 12MCG/HR] Allergies Allergy/AdvReac Type Severity Reaction Status Date / Time acetaminophen [From Vicodin] Allergy Rash/Hives Verified 07/31/17 20:44 codeine Allergy Rash/Hives Verified 07/31/17 20:44 hydrocodone [From Vicodin] Allergy Rash/Hives Verified 07/31/17 20:44 Sulfa (Sulfonamide Allergy Dyspnea Verified 07/31/17 20:44 Antibiotics) atorvastatin [From Lipitor] AdvReac Unknown Verified 07/31/17 20:44 pravastatin [From Pravachol] AdvReac Unknown Verified 07/31/17 20:44 rosuvastatin [From Crestor] AdvReac Unknown Verified 07/31/17 20:44 Physical Exam Vitals: Vital Signs Temp Pulse Resp BP Pulse Ox 08/02/17 04:00 97.7 F 74 18 117/70 94 L 08/02/17 00:00 97.5 F L 70 18 126/71 94 L 08/01/17 20:00 97.5 F L 64 18 109/68 94 L 08/01/17 16:00 97.9 F 63 18 116/60 95 08/01/17 11:35 65 18 08/01/17 11:31 97.1 F L 65 18 118/63 98 Intake and Output 08/01/17 08/02/17 08/02/17 22:59 06:59 14:59 Intake Total 720 Balance 720 Intake: Oral 720 Other: # Voids 1 1 Weight 54.6 kg Results CBC & Chem 7: 08/02/17 05:23 08/02/17 05:23 Labs: Abnormal Lab Results - Last 24 Hours (Table) 08/01/17 08/02/17 Range/Units 11:33 05:23 RBC 3.72 L (3.80-5.40) m/uL Plt Count 91 L (150-450) k/uL APTT 113.0 H* (22.0-30.0) sec Thrombosis Risk Factor Assmnt - Choose All That Apply Each Factor Represents 1 point: Age 41-60 years Thrombosis Risk Factor Assessment Total Risk Factor Score: 1 Thrombosis Risk Factor Assessment Level: Low Risk
[2017-08-02 15:23] VITALS: BP 136/73; PULSE 73; TEMP 98
--- NOTE | 2017-08-02 16:06 | HP ---
HISTORY AND PHYSICAL DATE OF SERVICE: 08/02/17. ATTENDING NOTE: Patient seen and examined by me. I discussed with nurse practitioner, Ms. Perea. 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 Has been having some abdominal pain. Also is having liver cirrhosis with metastatic adenocarcinoma, felt to be early pancreatic or biliary primary. She did have a biopsy of the liver in June of last year. The patient has undergone chemotherapy. The patient is presenting now with increasing weakness, tiredness, weight loss, decreased appetite. Recent CT scan showed on progression of the disease with lymph node involvement and also suspicion of superior mesenteric vein thrombosis. The patient has lost some weight date. is present at the bedside. EXAMINATION: On examination, , weak and tired. Eyes: Conjunctivae pale. increased. Cardiovascular: 1st and 2nd sounds normal. INVESTIGATIONS: White count 4.4, hemoglobin 11.9, potassium 3.7. ASSESSMENT: 1. Pancreatobiliary carcinoma with metastatic disease. Getting chemotherapy. Getting worse. 2. 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 3. Liver cirrhosis. 4. Mild chronic thrombocytopenia. 5. Gastroesophageal reflux disease. 6. Hyperlipidemia. 7. Primary osteoarthritis. PLAN: Dr. Trent from Oncology was consulted. Home medications resumed. Patient is put on Lovenox. Care was discussed with the patient and at the bedside. Will talk to Dr. Trent. MMDARÍOL / IJN: [id number] /
[2017-08-02] MEDS ORDERED: ENOXAPARIN 60 MG/0.6 ML SYRINGE SQ SCH (21:00)
--- NOTE | 2017-08-05 05:01 | DS ---
DISCHARGE SUMMARY DATE OF ADMISSION: 07/31/2017 DATE OF DISCHARGE: 08/02/2017 FINAL DIAGNOSES: 1. Acute superior mesenteric vein thrombosis related to malignancy. 2. Pancreatic biliary carcinoma with metastatic disease getting chemotherapy. 3. Liver cirrhosis. 4. Mild chronic thrombocytopenia. 5. Gastroesophageal reflux disease. 6. Hyperlipidemia. 7. Primary osteoarthritis. HOSPITAL COURSE: This is a very pleasant 61-year-old patient of Dr. López, who followed up at [facility]. The patient's lymph node biopsy was positive for metastatic adenocarcinoma consistent with pancreatic or biliary primary. The patient also found to have liver cirrhosis, what is found to be lobular fibrosis. She also had a PET scan that was positive. She presents with weakness, fatigue, and CT scan did show worsening of the disease. Also found to have superior mesenteric vein thrombosis. The patient was put on IV heparin then switched to Lovenox. Doing better. Therefore, she is being discharged. Did tolerate some diet. On examination, mild epigastric tenderness. No guarding or rigidity. I discussed the care with the patient and also spoke to Dr. Trent who okayed the patient to be discharged. DISCHARGE MEDICATIONS: 1. Zantac 150 mg p.o. b.i.d. 2. Norvasc 5 mg p.o. daily. 3. Synthroid 100 mcg p.o. daily. 4. Zestril 5 mg p.o. daily. 5. Benadryl 50 mg q.h.s. p.r.n. 6. Neurontin 100 mg p.o. b.i.d. 7. Ativan 0.5 p.o. t.i.d. p.r.n. 8. Morphine sulfate 40 mg q.h.s. 9. Compazine 10 mg q.6 p.r.n. 10.Fentanyl 12 mcg patch every 72 hours. 11.Lovenox 60 mg subcutaneous q.12. Follow up with Dr. Azul on 08/04/[address] Heck in 3 days. MMODL / IJN: [id number] /
== END 2017-08-02 19:05 | disposition home or self-care (01) | DRG 442 ==
LOC: EC 20:16 → 6SEL 22:16
PROVIDERS: ADMIT Hospitalist; ATTEND Hospitalist
DX: I81 Portal vein thrombosis (principal); C25.9 Malignant neoplasm of pancreas, unspecified; C24.9 Malignant neoplasm of biliary tract, unspecified; C77.8 Secondary and unspecified malignant neoplasm of lymph nodes of multiple regions; K21.9 Gastro-esophageal reflux disease without esophagitis; I10 Essential (primary) hypertension; D69.6 Thrombocytopenia, unspecified; K74.60 Unspecified cirrhosis of liver; E78.5 Hyperlipidemia, unspecified; M19.91 Primary osteoarthritis, unspecified site; M19.90 Unspecified osteoarthritis, unspecified site; E03.9 Hypothyroidism, unspecified; G62.9 Polyneuropathy, unspecified; F41.9 Anxiety disorder, unspecified; Z87.19 Personal history of other diseases of the digestive system; Z90.49 Acquired absence of other specified parts of digestive tract; Z82.49 Family history of ischemic heart disease and other diseases of the circulatory system; Z83.3 Family history of diabetes mellitus; Z82.79 Family history of other congenital malformations, deformations and chromosomal abnormalities; Z80.8 Family history of malignant neoplasm of other organs or systems; Z80.1 Family history of malignant neoplasm of trachea, bronchus and lung; Z80.0 Family history of malignant neoplasm of digestive organs; Z79.899 Other long term (current) drug therapy; K76.0 Fatty (change of) liver, not elsewhere classified; Z80.6 Family history of leukemia; Z80.41 Family history of malignant neoplasm of ovary; Z80.52 Family history of malignant neoplasm of bladder; Z80.3 Family history of malignant neoplasm of breast; Z87.891 Personal history of nicotine dependence; Z98.1 Arthrodesis status; Z98.51 Tubal ligation status; Z88.6 Allergy status to analgesic agent; Z88.2 Allergy status to sulfonamides; Z88.8 Allergy status to other drugs, medicaments and biological substances; G89.3 Neoplasm related pain (acute) (chronic)
CPT/HCPCS: 36415; 80048; 80053; 82550; 82553; 83735; 84484; 85025; 85610; 85730; 86850; 86900; 86901; 93005; 96361; 96374; 96375; 99285

== ENCOUNTER → 2017-07-31 | Outpatient (CLI) | payer MEDICARE, OTHER ==
--- NOTE | 2017-07-31 15:44 | CT ---
"EXAMINATION TYPE: CT ChestAbdPelvis w con DATE OF EXAM: 07/31/2017 COMPARISON: NONE HISTORY: Pancreatic cancer CT DLP: 539.30 mGycm. Automated Exposure Control for Dose Reduction was Utilized. CONTRAST: CT scan of the thorax, abdomen and pelvis is performed with IV Contrast, patient injected with 100 ml mL of Omnipaque 300. FINDINGS: LUNGS: The lungs are grossly clear, there is no concerning parenchymal mass or nodule identified. T here is no pleural effusion or pneumothorax seen. The tracheobronchial tree is patent. MEDIASTINUM: There are no greater than 1 cm hilar or mediastinal lymph nodes. No pericardial effusi on is seen. LIVER/GB: Hepatic lesions are seen within the right lobe of the liver in segment 6 on series 3 image 60 measuring 5 mm, stable from the prior exam and within segment 7 on series 3 image 50 measuring cindy roximately 1.2 x 1.2 cm appearing enlarged from the prior. Liver is elongated extending into the left upper quadrant. There is a nodular contour of the liver suggesting a degree of underlying hepatocell ular disease. PANCREAS: There is focal pancreatic ductal dilatation within the distal pancreatic body on series 3 i mage 64 with ill-defined more hypoattenuated pancreatic region likely representing a known underlying pancreatic mass measuring approximately 1.1 x 0.7 cm on series 3 image 62 and extending towards the tail on series 3 image 60 and 59. Gallbladder is surgically absent. SPLEEN: The spleen is elongated measuring 13.1 cm in craniocaudal dimension, upper limits of normal. There is again a small splenule adjacent to the [place] spleen, inferior. ADRENALS: No nodule within the adrenal glands. Adrenal glands are symmetric. KIDNEYS: No significant abnormality is seen. BOWEL: Bowel is unremarkable and nondilated. LYMPH NODES: There is progressive adenopathy encasing the celiac axis and superior mesenteric artery as well as enlarging portacaval lymph node measuring up to 1.4 cm in short axis. Conglomeration of ly mph nodes around the celiac axis measures 4.3 x 3.5 cm on series 3 image 61. Peripancreatic lymph nod es are also seen ventral to the pancreatic neck measuring up to 7 mm. Additional subcentimeter peripa ncreatic lymph nodes and periaortic lymph nodes are again noted. OSSEOUS STRUCTURES: Postoperative changes again appreciated of L4-L5 and sclerotic metastatic lesion is present of the T12 vertebral body, similar to the prior exams. No new suspicious osseous lesions a re seen. OTHER: There is concern for new superior mesenteric venous thrombosis as filling defect is seen in se nakul 3 image 68 through 84 within the superior mesenteric vein. Postsurgical changes seen of the ante rior abdominal wall from prior hernia repair. IMPRESSION: 1. Findings indicating progression of disease with interval worsening of the periaortic, pericaval an d peripancreatic adenopathy. 2. 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 3. Enlarging hepatic lesion in comparison to the most recent exam although decrease in size from the exam of 09/23/2016. Second stable small hepatic lesion is noted. 4. Stable sclerotic metastatic lesion of the T12 vertebral body. 5. Focal distal pancreatic ductal dilatation and heterogenous enhancement of the pancreatic body exte nding into the tail compatible with the patient's known pancreatic cancer, no interval progression in size. 6. No new thoracic findings. Stable emphysematous change. A [place] message has been communicated to Adama Azul MD via the [employer] | Critical Result syst em on 07/31/2017 3:42 PM, Message ID [id number]."
== END | disposition home or self-care (01) ==
LOC: RADCTMAIN 13:17
PROVIDERS: ATTEND Internal Medicine Hematology & Oncology
DX: C25.9 Malignant neoplasm of pancreas, unspecified (principal); C24.9 Malignant neoplasm of biliary tract, unspecified; K76.89 Other specified diseases of liver
CPT/HCPCS: 71260; 74177; Q9967

== ENCOUNTER → 2017-11-03 | Outpatient (CLI) | payer MEDICARE, OTHER ==
[~2017-11-03] MED LIST: SODIUM CHLORIDE 0.9% 500 ML in EMPTY BAG 1 BAG IV PRN
[2017-11-03 12:38] VITALS: RESP 16
[2017-11-03 13:57] VITALS: BP 113/62; PULSE 92; TEMP 98.6
== END | disposition home or self-care (01) ==
LOC: PROCWHC3 12:07
PROVIDERS: ATTEND Internal Medicine Hematology & Oncology
DX: D69.59 Other secondary thrombocytopenia (principal)
CPT/HCPCS: 36430; P9035; J1642

== ENCOUNTER → 2017-12-07 | Outpatient (CLI) | payer MEDICARE, OTHER ==
[2017-12-07 14:13] VITALS: RESP 16
[2017-12-07 15:07] VITALS: BP 97/62; PULSE 91
[2017-12-07 15:14] VITALS: TEMP 99.9
== END | disposition home or self-care (01) ==
LOC: PROCWHC3 12:06
PROVIDERS: ATTEND Internal Medicine Hematology & Oncology
DX: D64.81 Anemia due to antineoplastic chemotherapy (principal)
CPT/HCPCS: 86900; 86901; 86850; 86920; 36430; P9016; J1642

== ENCOUNTER → 2018-01-05 | Outpatient (CLI) | payer MEDICARE, OTHER ==
[2018-01-05 11:25] LABS: Blood Urea Nitrogen 9 mg/dL (7-17)
--- NOTE | 2018-01-05 14:22 | CT ---
EXAMINATION TYPE: CT ChestAbdPelvis w con DATE OF EXAM: 01/05/2018 COMPARISON: CT chest abdomen pelvis July 31, 2017 and older studies. PET/CT February 21, 2017 HISTORY: Pancreatic and biliary duct cancer progress study; Observe for Mets. Completed chemotherapy [address] DLP: 536.90 mGycm. Automated Exposure Control for Dose Reduction was Utilized. CONTRAST: CT scan of the thorax, abdomen and pelvis is performed with IV Contrast, patient injected with 100 ml mL of Isovue 300. FINDINGS: LUNGS: Mild to moderate underlying emphysematous changes redemonstrated. New faint areas of groundgla ss opacity superior aspect left lower lobe are identified. No new suspicious nodule or mass is presen t. No pleural effusion or pneumothorax is seen. Tracheobronchial tree is patent. MEDIASTINUM: There are no greater than 1 cm hilar or mediastinal lymph nodes. No cardiomegaly or pe ricardial effusion is seen. Coronary artery calcification is redemonstrated which is noted marker fo r coronary artery disease. OTHER: There is redemonstration of right internal jugular Mediport catheter with tip in SVC LIVER/GB: Cholecystectomy clips are redemonstrated. There is new perihepatic ascites along inferior r ight lateral and posterior margins. 1.2 cm hypodense focus right posterior hepatic dome on prior stud y image 50 is less well-seen on current study. There is vague heterogeneity inferior right hepatic lo be on current study without obvious mass, not significantly changed from prior. PANCREAS: There is poor visualization of tumor or ductal dilatation on current study. SPLEEN: Spleen remains mildly enlarged measuring 13.2 cm long axis coronal image 45 with small inferi or splenule. ADRENALS: No significant abnormality is seen. KIDNEYS: Extrarenal pelvis left kidney anteriorly is slightly more prominent than prior study. Symmet jose cortical medullary uptake and excretion is seen. BOWEL: The oral contrast reaches level proximal transverse colon. There is no suspicious small or lar ge bowel dilatation. There is some prominence of colonic fecal material in the transverse colon. GENITAL ORGANS: New small amount of pelvic ascites axial image 111. LYMPH NODES: No new greater than 1cm abdominal or pelvic lymph nodes are appreciated. Abnormal soft t issue just below celiac access on prior exam is slightly less prominent, difficult to accurately bere ure on axial image 62. OSSEOUS STRUCTURES: Postsurgical change L4-L5 level with posterior fusion hardware is redemonstrated. There is stable sclerotic T12 vertebra with bilateral pedicle extension. OTHER: Numerous deep subcutaneous coils from prior surgery overlying the anterior mid to lower abdome n. IMPRESSION: Positive treatment response with improvement in confluent adenopathy in the upper abdomen periAortic and pericaval region. Some new mild abdominal and pelvic ascites and probable mild left l ower lobe alveolar edema is noted. No new metastatic disease seen. Poor visualization of primary panc reatic neoplasm on current study.
== END | disposition home or self-care (01) ==
LOC: RADCTMAIN 10:40
PROVIDERS: ATTEND Internal Medicine Hematology & Oncology
DX: C25.9 Malignant neoplasm of pancreas, unspecified (principal); C24.9 Malignant neoplasm of biliary tract, unspecified; R18.8 Other ascites; Z88.5 Allergy status to narcotic agent; Z88.2 Allergy status to sulfonamides
CPT/HCPCS: 82565; 84520; 71260; 74177; 36415; Q9967

== ENCOUNTER 2018-02-14 14:15 | Inpatient (IN) | payer MEDICARE, OTHER ==
[2018-02-14] MEDS ORDERED: SODIUM CHLORIDE 0.9% 500 ML IV STA (14:31)
[2018-02-14] MEDS ORDERED: ONDANSETRON 4 MG/2 ML VIAL IVP STA (14:31)
[2018-02-14] MEDS ORDERED: MORPHINE SULFATE 2 MG/ML SYRINGE IV STA (14:31)
--- NOTE | 2018-02-14 14:38 | ED ---
Abdominal Pain HPI - General Chief Complaint: Abdominal Pain Stated Complaint: Retaining fluid/ca pt Time Seen by Provider: 02/14/18 14:20 Source: patient Mode of arrival: wheelchair Limitations: no limitations - History of Present Illness Initial Comments: Patient is a 62-year-old female presents for abdominal pain. She is currently undergoing chemotherapy for pancreatic cancer and saw her oncologist on and she was arranged for paracentesis on February 25. However, she states that the abdominal pain is worsening and is located in the lower portion of her abdomen. It is constant and radiating up the abdomen. There are no modifying factors and she states that she has nausea but no vomiting or diarrhea. She has no chest pain or shortness of breath and states that she has not had any fevers/chills, coughing, chest pain. - Related Data Home Medications Medication Instructions Recorded Confirmed Ranitidine HCl [Zantac] 150 mg PO BID 06/12/16 12/07/17 amLODIPine [Norvasc] 5 mg PO DAILY 06/12/16 12/07/17 Levothyroxine Sodium [Synthroid] 100 mcg PO DAILY 09/20/16 12/07/17 Gabapentin [Neurontin] 100 mg PO BID 08/01/17 12/07/17 LORazepam [Ativan] 0.5 mg PO TID PRN 08/01/17 12/07/17 Morphine Sulfate [Morphine Sulfate 40 mg PO HS 08/01/17 12/07/17 Oral Solution] Prochlorperazine [Compazine] 10 mg PO Q6H PRN 08/01/17 12/07/17 fentaNYL 12MCG/HR PATCH [Duragesic 1 patch TRANSDERM Q72H 08/01/17 12/07/17 12MCG/HR] Previous Rx's Medication Instructions Recorded Lisinopril [Zestril] 5 mg PO DAILY #30 tab 10/20/16 diphenhydrAMINE [Benadryl] 50 mg PO HS PRN #10 cap 11/01/16 Enoxaparin [Lovenox] 60 mg SQ Q12H #60 syringe 08/02/17 Allergies Allergy/AdvReac Type Severity Reaction Status Date / Time acetaminophen [From Vicodin] Allergy Rash/Hives Verified 02/14/18 14:19 codeine Allergy Rash/Hives Verified 02/14/18 14:19 hydrocodone [From Vicodin] Allergy Rash/Hives Verified 02/14/18 14:19 Sulfa (Sulfonamide Allergy Dyspnea Verified 02/14/18 14:19 Antibiotics) atorvastatin [From Lipitor] AdvReac Unknown Verified 02/14/18 14:19 pravastatin [From Pravachol] AdvReac Unknown Verified 02/14/18 14:19 rosuvastatin [From Crestor] AdvReac Unknown Verified 02/14/18 14:19 Review of Systems ROS Statement: Those systems with pertinent positive or pertinent negative responses have been documented in the HPI. Constitutional: Negative for chills, fatigue and fever. HENT: Negative for congestion. Respiratory: Negative for chest tightness, shortness of breath and wheezing. Negative for cough Cardiovascular: Negative for chest pain and palpitations. Gastrointestinal: Positive for abdominal pain and abdominal distention, nausea. Negative for abdominal distention, diarrhea, and vomiting. Genitourinary: Negative for dysuria. Musculoskeletal: Negative for back pain, neck pain and neck stiffness. Skin: Negative for color change. Neurological: Negative for dizziness, speech difficulty, weakness and light- headedness. Psychiatric/Behavioral: Negative for agitation and confusion. The patient is not nervous/anxious. ROS Other: All systems not noted in ROS Statement are negative. Past Medical History Past Medical History: Cancer, GERD/Reflux, Hyperlipidemia, Liver Disease, Osteoarthritis (OA), Thyroid Disorder Additional Past Medical History / Comment(s): PT STATED IN 2011 LIVER BX SHOWED FIBROSIS,2015 LIVER BX SHOWED CIRRHOIS(FATTY LIVER), DJD, UTI, pancreatic cancer lymph node involvement History of Any Multi-Drug Resistant Organisms: None Reported Past Surgical History: Section, Cholecystectomy, Hernia Repair, Orthopedic Surgery, Tubal Ligation Additional Past Surgical History / Comment(s): Caitie Surgery 2009, rosa 2009, c section 1980, 1983, carpal tunnel surgery bilateral, 2 x hernia surgery, dequervains bilateral hands, 2014 lumbar fusion. EGD- 2015.10-06-16 BX PANCREAS AND LYMPH NODES AT [facility] Past Anesthesia/Blood Transfusion Reactions: No Reported Reaction Past Psychological History: No Psychological Hx Reported Smoking Status: Former smoker Past Alcohol Use History: None Reported Past Drug Use History: None Reported - Past Family History Brother(s) Family Medical History: Cancer, Liver Disease, Myocardial Infarction ([place]) Additional Family Medical History / Comment(s): Patient states has 7 brothers- 6 brothers have Mother Family Medical History: Diabetes Mellitus, Thyroid Disorder Father Family Medical History: Cancer, CVA/TIA, Hypertension, Prostate Disorder Additional Family Medical History / Comment(s): bone ca sisters Additional Family Medical History / Comment(s): sister from down syndrome-1968 other sister from drug overdose in 2008. General Exam - General Exam Comments Initial Comments: Constitutional: Pt is oriented to person, place, and time. Pt appears well- developed and well-nourished. No distress. HENT: Head: Normocephalic and atraumatic. Eyes: EOM are normal. Neck: Normal range of motion. Neck supple. Cardiovascular: Normal rate, regular rhythm, S1 normal, S2 normal and normal heart sounds. Exam reveals no gallop and no friction rub. No murmur heard. Pulmonary/Chest: Effort normal and breath sounds normal. No tachypnea and no bradypnea. No respiratory distress. No wheezes or rales noted. Abdominal: Soft. Bowel sounds are normal. Pt exhibits no shifting dullness, no distension, no pulsatile liver, no fluid wave, no abdominal bruit. There is no rigidity, no rebound, no guarding, no tenderness at McBurney's point and negative Grant's sign. There is moderate diffuse tenderness but no peritoneal signs. There is minimal ascites. Musculoskeletal: Normal range of motion. Neurological: Pt is alert and oriented to person, place, and time. No cranial nerve deficit. Skin: Skin is warm and dry. No rash noted. Pt is not diaphoretic. No erythema. No pallor. Psychiatric: Pt has a normal mood and affect. Pt behavior is normal. Thought content normal. Limitations: no limitations Course Vital Signs 02/14/18 02/14/18 14:17 16:21 Temperature 98.4 F 98.7 F Pulse Rate 102 H 102 H Respiratory 20 16 Rate Blood Pressure 130/58 123/64 O2 Sat by Pulse 98 97 Oximetry Medical Decision Making - Medical Decision Making Laboratory studies showed that there was evidence of sepsis secondary to urinary tract infection. Additionally, there was leukocytosis at 13.9 and lactic acid was elevated at 2.3. Patient was given 1 L of fluid as well as IV maintenance. Urinalysis showed [address] of the abdomen was performed and showed a new small amount of abdominal ascites and moderate to severe amount of pelvic ascites. There is no severe gastritis as well as suspected multifocal and turgor colitis. Because of this, the patient was started on vancomycin and Zosyn as well as Flagyl. It was felt that the robotic should be started immediately and not wait for any possible future paracentesis. Paracentesis is not possible in the emergency department as the patient did not have a significant amount of physical exam.Explained all labs and diagnostic test results and that we will admit patient to hospital. Pt is agreeable to plan and case has been discussed with Dr. Welch and they agree to accept the pt. - Lab Data Result diagrams: 02/14/18 15:05 02/14/18 15:05 Lab Results 02/14/18 02/14/18 02/14/18 Range/Units 14:45 15:05 15:05 WBC 13.9 H (3.8-10.6) k/uL RBC 3.33 L (3.80-5.40) m/uL Hgb 11.0 L (11.4-16.0) gm/dL Hct 33.1 L (34.0-46.0) % MCV 99.2 (80.0-100.0) fL MCH 32.9 (25.0-35.0) pg MCHC 33.2 (31.0-37.0) g/dL RDW 16.6 H (11.5-15.5) % Plt Count 149 L (150-450) k/uL Neutrophils % (Manual) 80 % Band Neutrophils % 10 % Lymphocytes % (Manual) 8 % Monocytes % (Manual) 2 % Neutrophils # (Manual) 12.50 H (1.3-7.7) k/uL Lymphocytes # (Manual) 1.11 (1.0-4.8) k/uL Monocytes # (Manual) 0.28 (0-1.0) k/uL Nucleated RBCs 0 (0-0) /100 WBC Manual Slide Review Performed Anisocytosis Slight Macrocytosis Slight PT (9.0-12.0) sec INR (<1.2) APTT (22.0-30.0) sec Sodium 136 L (137-145) mmol/L Potassium 4.2 (3.5-5.1) mmol/L Chloride 105 (98-107) mmol/L Carbon Dioxide 22 (22-30) mmol/L Anion Gap 9 mmol/L BUN 16 (7-17) mg/dL Creatinine 0.50 L (0.52-1.04) mg/dL Est GFR (CKD-EPI)AfAm >90 (>60 ml/min/1.73 sqM) Est GFR (CKD-EPI)NonAf >90 (>60 ml/min/1.73 sqM) Glucose 90 (74-99) mg/dL Plasma Lactic Acid Marshall (0.7-2.0) mmol/L Calcium 8.0 L (8.4-10.2) mg/dL Magnesium 1.5 L (1.6-2.3) mg/dL Total Bilirubin 1.7 H (0.2-1.3) mg/dL AST 124 H (14-36) U/L ALT 82 H (9-52) U/L Alkaline Phosphatase 116 (38-126) U/L Total Protein 4.6 L (6.3-8.2) g/dL Albumin 2.2 L (3.5-5.0) g/dL Lipase 33 (23-300) U/L Urine Color Yellow Urine Appearance Cloudy H (Clear) Urine pH 6.0 (5.0-8.0) Ur Specific [place] 1.019 (1.001-1.035) Urine Protein 1+ H (Negative) Urine Glucose (UA) Negative (Negative) Urine Ketones Negative (Negative) Urine Blood Large H (Negative) Urine Nitrite Negative (Negative) Urine Bilirubin Negative (Negative) Urine Urobilinogen <2.0 (<2.0) mg/dL Ur Leukocyte Esterase Small H (Negative) Urine RBC 135 H (0-5) /hpf Urine WBC 63 H (0-5) /hpf Ur Squamous Epith Cells 4 (0-4) /hpf Urine Bacteria Rare H (None) /hpf Hyaline Casts 1 (0-2) /lpf Urine Mucus Moderate H (None) /hpf 18 02/14/18 Range/Units 15:05 15:05 WBC (3.8-10.6) k/uL RBC (3.80-5.40) m/uL Hgb (11.4-16.0) gm/dL Hct (34.0-46.0) % MCV (80.0-100.0) fL MCH (25.0-35.0) pg MCHC (31.0-37.0) g/dL RDW (11.5-15.5) % Plt Count (150-450) k/uL Neutrophils % (Manual) % Band Neutrophils % % Lymphocytes % (Manual) % Monocytes % (Manual) % Neutrophils # (Manual) (1.3-7.7) k/uL Lymphocytes # (Manual) (1.0-4.8) k/uL Monocytes # (Manual) (0-1.0) k/uL Nucleated RBCs (0-0) /100 WBC Manual Slide Review Anisocytosis Macrocytosis PT 13.7 H (9.0-12.0) sec INR 1.5 H (<1.2) APTT 30.6 H (22.0-30.0) sec Sodium (137-145) mmol/L Potassium (3.5-5.1) mmol/L Chloride (98-107) mmol/L Carbon Dioxide (22-30) mmol/L Anion Gap mmol/L BUN (7-17) mg/dL Creatinine (0.52-1.04) mg/dL Est GFR (CKD-EPI)AfAm (>60 ml/min/1.73 sqM) Est GFR (CKD-EPI)NonAf (>60 ml/min/1.73 sqM) Glucose (74-99) mg/dL Plasma Lactic Acid Marshall 2.3 H* (0.7-2.0) mmol/L Calcium (8.4-10.2) mg/dL Magnesium (1.6-2.3) mg/dL Total Bilirubin (0.2-1.3) mg/dL AST (14-36) U/L ALT (9-52) U/L Alkaline Phosphatase (38-126) U/L Total Protein (6.3-8.2) g/dL Albumin (3.5-5.0) g/dL Lipase (23-300) U/L Urine Color Urine Appearance (Clear) Urine pH (5.0-8.0) Ur Specific [place] (1.001-1.035) Urine Protein (Negative) Urine Glucose (UA) (Negative) Urine Ketones (Negative) Urine Blood (Negative) Urine Nitrite (Negative) Urine Bilirubin (Negative) Urine Urobilinogen (<2.0) mg/dL Ur Leukocyte Esterase (Negative) Urine RBC (0-5) /hpf Urine WBC (0-5) /hpf Ur Squamous Epith Cells (0-4) /hpf Urine Bacteria (None) /hpf Hyaline Casts (0-2) /lpf Urine Mucus (None) /hpf Disposition Clinical Impression: Sepsis, Urinary tract infection, Pelvic ascites Disposition: ADMITTED IP TO THIS HOSP Condition: Good Referrals: Hal Heck MD [Primary Care Provider] - 1-2 days Time of Disposition: 17:15 Decision to Admit Reason: Admit from EC Decision Date: 02/14/18 Decision Time: 17:15
[2018-02-14 15:12] LABS: Appearance,Urine Cloudy (Clear); Bacteria,Urine Rare /hpf; Bilirubin,Urine Negative (Negative); Blood,Urine Large (Negative); Color,Urine Yellow; Glucose,Urine (UA) Negative (Negative); Hyaline Casts,Urine 1 /lpf (0-2); Ketones,Urine Negative (Negative); Leukocyte Esterase,Urine Small (Negative); Mucus,Urine Moderate /hpf; Nitrite,Urine Negative (Negative); Protein,Urine 1+ (Negative); RBC,Urine 135 /hpf (0-5); Specific Gravity,Urine 1.019 (1.001-1.035); Squamous Epithelial Cell,Urine 4 /hpf (0-4); Urobilinogen,Urine <2.0 mg/dL (<2.0); WBC,Urine 63 /hpf (0-5)
[2018-02-14 15:50] LABS: ALT 82 U/L (9-52); AST 124 U/L (14-36); Albumin 2.2 g/dL (3.5-5.0); Alkaline Phosphatase 116 U/L (38-126); Anion Gap 9 mmol/L; Blood Urea Nitrogen 16 mg/dL (7-17); Carbon Dioxide 22 mmol/L (22-30); Chloride 105 mmol/L (98-107); Glucose 90 mg/dL (74-99); Lipase 33 U/L (23-300); Magnesium 1.5 mg/dL (1.6-2.3); Potassium 4.2 mmol/L (3.5-5.1); Sodium 136 mmol/L (137-145); Total Bilirubin 1.7 mg/dL (0.2-1.3); Total Protein 4.6 g/dL (6.3-8.2)
[2018-02-14 15:52] LABS: INR 1.5 (<1.2); Partial Thromboplastin Time 30.6 sec (22.0-30.0); Prothrombin Time 13.7 sec (9.0-12.0)
[2018-02-14 15:54] LABS: Anisocytosis Slight; HCT 33.1 % (34.0-46.0); MCH 32.9 pg (25.0-35.0); MCHC 33.2 g/dL (31.0-37.0); MCV 99.2 fL (80.0-100.0); Macrocytosis Slight; Mean Platelet Volume 6.9; Platelet Count 149 k/uL (150-450); RBC 3.33 m/uL (3.80-5.40); RDW 16.6 % (11.5-15.5); WBC 13.9 k/uL (3.8-10.6)
[2018-02-14 16:12] LABS: Band Neutrophils % 10 %; Lymphocytes # (M) 1.11 k/uL (1.0-4.8); Monocytes # (M) 0.28 k/uL (0-1.0); Neutrophils % (M) 80 %; Nucleated Red Blood Cells 0 /100 WBC (0-0); Total Cells Counted 100
--- NOTE | 2018-02-14 16:21 | CT ---
EXAMINATION TYPE: CT abdomen pelvis w con DATE OF EXAM: 02/14/2018 HISTORY: Abdominal distention and fluid retention. Known metastatic pancreatic cancer CT DLP: 493mGycm Automated Exposure Control for Dose Reduction was Utilized. CONTRAST: CT scan of the abdomen and pelvis is performed without oral but with IV Contrast, patient injected wi th 100ml mL of Isovue 300. COMPARISON: CT chest abdomen and pelvis January 05, 2018 FINDINGS: LUNG BASES: No significant abnormality is appreciated. LIVER/GB: Liver is diminished in size and lobulated in contour suggesting cirrhosis new from prior st udy. Cholecystectomy clips are redemonstrated. No surrounding ascites is seen PANCREAS: Homogeneous enhancing normal sized pancreas is present. No obvious mass or ductal dilatatio n is seen on current study. SPLEEN: More prominent splenomegaly measuring 14.5 cm long axis coronal image 60 is present. Surround ing ascites is noted. ADRENALS: No significant abnormality is seen. KIDNEYS: No significant abnormality is seen. BOWEL: Evaluation bowel is suboptimal secondary to lack of enteric contrast. There is severe gastric wall thickening now identified. There is mild to moderate wall thickening in the duodenal sweep felt present. There is no suspicious small or large bowel dilatation. There is mild to moderate wall thick ening in mid to lower abdominal small bowel loops seen on coronal images. There is mild to moderate w all thickening seen throughout the colon. UTERUS/ADNEXA: No gross abnormality seen. LYMPH NODES: No greater than 1cm abdominal or pelvic lymph nodes are appreciated. Persistent prominen t but subcentimeter irregular soft tissue or lymph nodes near celiac axis remain present axial image 28. OSSEOUS STRUCTURES: There is postsurgical change in the lower lumbar spine L4-L5 level with disc mate rial and posterior fusion hardware. There is redemonstration of sclerotic T12 vertebra OTHER: There is new mild ascites in the periphery of the abdomen. There is more moderate to severe as cites in the pelvis. Surgical changes from hernia repair surgery are redemonstrated in the anterior a bdominal wall. No recurrent hernia is evident. IMPRESSION: 1. New small amount of abdominal ascites and moderate to severe amount of pelvic ascites. Worsening s plenomegaly. Possible new sclerosis. Correlate clinically. 2. New severe gastritis and suspected multifocal enterocolitis. Differential includes infectious and inflammatory etiologies. Correlate clinically. 3. Likely stable disease in known pancreatic tumor and suspected T12 osseous metastatic lesion.
[2018-02-14] MEDS ORDERED: PIPERACILLIN-TAZOBACTAM 3.375 GM in DEXTROSE/WATER 1 50ML.BAG IVPB STA (16:27)
[2018-02-14] MEDS ORDERED: VANCOMYCIN IV PER PHARMACY 1 EACH MISC MISCELLANE PRN (16:27)
[2018-02-14] MEDS ORDERED: VANCOMYCIN 1,250 MG in SODIUM CHLORIDE 0.9% 250 ML IVPB ONE (17:00)
[2018-02-14] MEDS: SODIUM CHLORIDE 0.9% 1,000 ML IV SCH (17:12)
[2018-02-14] MEDS ORDERED: NALOXONE 0.4 MG/ML 1 ML VIAL IV PRN (17:16)
[2018-02-14] MEDS ORDERED: HYDROmorphone 0.5 MG/0.5 ML SYRINGE IVP STA (17:35)
[2018-02-14] MEDS ORDERED: PROCHLORPERAZINE 10 MG TAB PO PRN (19:22)
[2018-02-14] MEDS ORDERED: diphenhydrAMINE 50 MG CAP PO PRN (19:22)
[2018-02-14] MEDS: MORPHINE SULFATE 2 MG/ML SYRINGE IVP PRN (20:28)
[2018-02-14] MEDS ORDERED: FUROSEMIDE 20 MG TAB PO SCH (21:00)
[2018-02-14] MEDS: FAMOTIDINE 20 MG TAB PO SCH (22:17)
[2018-02-14] MEDS: GABAPENTIN 100 MG CAP PO SCH (22:17)
[2018-02-14] MEDS: LEVOTHYROXINE 100 MCG TAB PO SCH (22:17)
[2018-02-14] MEDS: POTASSIUM CHLORIDE ER 20 MEQ TAB.ER PO SCH (22:18)
[2018-02-14] MEDS: LISINOPRIL 5 MG TAB PO SCH (22:18)
[2018-02-14] MEDS: LORazepam 0.5 MG TAB PO SCH (22:18)
[2018-02-14] MEDS: RIVAROXABAN 20 MG TAB PO SCH (22:18)
[2018-02-15] MEDS: diphenhydrAMINE 25 MG CAP PO PRN ×2 (00:02→22:02)
[2018-02-15] MEDS: MORPHINE SULFATE 2 MG/ML SYRINGE IVP PRN ×5 (00:36→22:02)
[2018-02-15] MEDS: VANCOMYCIN 1,000 MG in SODIUM CHLORIDE 0.9% 250 ML IVPB SCH ×3 (04:01→17:22)
[2018-02-15] MEDS: SODIUM CHLORIDE 0.9% 1,000 ML IV SCH (06:37)
[2018-02-15 12:25] LABS: INR 1.9 (<1.2); Prothrombin Time 17.4 sec (9.0-12.0)
[2018-02-15 12:30] LABS: Anisocytosis Slight; HCT 29.4 % (34.0-46.0); MCH 31.2 pg (25.0-35.0); MCHC 31.6 g/dL (31.0-37.0); MCV 98.8 fL (80.0-100.0); Macrocytosis Slight; Mean Platelet Volume 7.4; Platelet Count 114 k/uL (150-450); RBC 2.98 m/uL (3.80-5.40); RDW 16.6 % (11.5-15.5); WBC 9.6 k/uL (3.8-10.6)
[2018-02-15 12:43] LABS: ALT 63 U/L (9-52); AST 65 U/L (14-36); Alkaline Phosphatase 118 U/L (38-126); Amylase <30 U/L (30-110); Anion Gap 6 mmol/L; Blood Urea Nitrogen 16 mg/dL (7-17); Calcium 7.7 mg/dL (8.4-10.2); Carbon Dioxide 23 mmol/L (22-30); Chloride 106 mmol/L (98-107); Glucose 93 mg/dL (74-99); HGB 9.3 gm/dL (11.4-16.0); Magnesium 1.7 mg/dL (1.6-2.3); Phosphorus 2.4 mg/dL (2.5-4.5); Potassium 3.8 mmol/L (3.5-5.1); Sodium 135 mmol/L (137-145); Total Bilirubin 0.7 mg/dL (0.2-1.3); Total Protein 4.2 g/dL (6.3-8.2)
[2018-02-15 13:36] LABS: Band Neutrophils % 1 %; Eosinophils # (M) 0.19 k/uL (0-0.7); Lymphocytes # (M) 0.29 k/uL (1.0-4.8); Metamyelocytes % 1 %; Monocytes # (M) 0.19 k/uL (0-1.0); Neutrophils % (M) 91 %; Nucleated Red Blood Cells 0 /100 WBC (0-0); Total Cells Counted 200
[2018-02-15 13:37] LABS: Pelger-Huet Neutrophils Present
--- NOTE | 2018-02-15 15:56 | HP ---
HISTORY AND PHYSICAL DATE OF ADMISSION: 02/15/18. PRESENTING COMPLAINT: Abdominal pain. HISTORY OF PRESENTING COMPLAINT: This is a very pleasant 62-year-old patient who follows with Dr. Heck as a family doctor and Dr. Azul as her oncologist. The patient has been diagnosed with pancreatic or biliary malignancy with metastatic disease, had been getting chemotherapy. Last chemotherapy was last week. The patient informs me oncologist told her that she is not currently responding. 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 The patient is due for tap of the belly. The patient denies any fever. Does have some chills, though she says she feels cold all the time. The patient has had decreased appetite and is losing weight. Does get dizzy and lightheaded, though can walk with support around the house. The patient is having increasing abdominal pain. No obvious edema. The patient's other chronic stable medical conditions include GERD, hyperlipidemia, osteoarthritis. REVIEW OF SYSTEMS: CONSTITUTIONAL: Weight loss. Tired. Loss of appetite. HEENT: None. RESPIRATORY: None. CARDIOVASCULAR: None. GASTROINTESTINAL: Some constipation. GENITOURINARY: None. MUSCULOSKELETAL: Arthritic pain in joints. DERMATOLOGICAL: Slight bruising. HEMATOLOGIC: None. LYMPHATIC: None. PSYCHIATRY: None. NEUROLOGICAL: Some numbness and tingling. PAST MEDICAL HISTORY: GERD, hyperlipidemia, osteoarthritis, lobular fibrosis with cirrhosis, pancreatic cancer metastatic with mets to the spine. 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 PAST SURGICAL HISTORY: , cholecystectomy, Caitie surgery 2009, cholecystectomy, , bilateral carpal tunnel, bilateral hand, lumbar fusion 2013, last chemo was on February 11. SOCIAL HISTORY: The patient started smoking in 1996, quit smoking in 2015, a pack and half a day. No alcohol. Lives with her . FAMILY HISTORY: Out of seven siblings, 6 have with history of myocardial infarction and cancer in the family. HOME MEDICATIONS: Benadryl 50 mg q.h.s. p.r.n., Pepcid 20 mg q.h.s., Duragesic 25 mcg patch every 72 hours, Xarelto 20 mg q.h.s., Zantac 150 mg q.h.s., Compazine 10 mg p.o. q.h.s., potassium 20 mEq p.o. q.h.s., morphine sulfate 100 mg q.h.s., Zestril 5 mg q.h.s., Synthroid 100 mcg p.o. q.h.s., Ativan 0.5 p.o. q.h.s., Neurontin 100 mg q.h.s., Lasix 20 mg q.h.s. ALLERGIES: To VICODIN, SULFUR, LIPITOR, PRAVASTATIN, CRESTOR. PHYSICAL EXAMINATION: Temperature 97.9, pulse 103, respirations 16, blood pressure 120/56, pulse ox 97% on room air. GENERAL APPEARANCE: Average built, sitting up, tired appearing. EYES: Pupils are equal. Conjunctivae pale. HEENT: External appearance of nose and ears normal. Oral cavity normal with alopecia. NECK: JVD not raised. Mass not palpable. RESPIRATORY: Effort normal. Lungs, decreased breath sounds. CARDIOVASCULAR: First and second sounds normal. No edema. ABDOMEN: Distended, soft. Diffuse tenderness. Liver and spleen not palpable. LYMPHATIC: No lymph node palpable in the neck or axillae. PSYCHIATRY: Alert and orient x3. Mood and affect normal. NEUROLOGICAL: Pupils equal. Cranial nerves grossly intact. Power and sensation grossly intact. MUSCULOSKELETAL: Evidence of osteoarthritis. INVESTIGATIONS: On presentation, white count 13.9, hemoglobin 11, potassium 4.2, BUN 16, creatinine 0.5, plasma lactic acid 2.3, bilirubin 1.7, albumin 2.2. CT scan of the abdomen and pelvis: There is moderate to severe amount of pelvic ascites, increasing splenomegaly. ASSESSMENT: 1. This is a patient with possibly infected ascites/spontaneous bacterial peritonitis in a patient who has got underlying cirrhosis with elevated white count, increasing abdominal pain and evidence of portal hypertension. 2. Portal hypertension secondary to cirrhosis with splenomegaly. 3. Metastatic pancreatobiliary disease status post chemotherapy, not responding too well. The disease also involving the spine. 4. 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 5. Gastroesophageal reflux disease. 6. Primary osteoarthritis. 7. Medical debility from underlying malignancy. 8. Moderate protein-calorie malnutrition, decreased oral intake and patient also has got hypoalbuminemia. PLAN: Patient did get vancomycin in the ER. Home medications will be resumed. Will add ceftriaxone. The patient will have her fluid tapped and sent off for cell count. Consultation with Dr. Azul is being made. Overall prognosis is guarded. Care was discussed the patient and family members at the bedside. We will add Aldactone. Copy to Dr. Heck. REENA / ELAINE: [id number] /
[2018-02-15] MEDS: SPIRONOLACTONE 25 MG TAB PO SCH (16:31)
[2018-02-15] MEDS: D5-0.9% NACL WITH KCL 20 MEQ/L 1,000 ML IV SCH (16:31)
[2018-02-15] MEDS: cefTRIAXone IN SWFI 1,000 MG/10 ML SYRINGE IVP SCH (16:31)
[2018-02-15] MEDS: RIVAROXABAN 20 MG TAB PO SCH (16:54)
--- NOTE | 2018-02-15 19:37 | P.CONS ---
History of Present Illness - Reason for Consult Consult date: 02/15/18 Pancreatic Cancer Requesting physician: Filippo Welch - Chief Complaint Abdominal Pain - History of Present Illness Ms Toth is a pleasant WF, initially seen in consult at [facility] on 09/23/16. She had presented with abdominal pain, present since 06/29, and becoming more persistent and progressive. She was found on CT scans to have hepatomegaly, and enlarged upper abdominal nodes. She had a h/o elevated liver enzymes since 2011 , with biopsy in 02/23 revealing lobular fibrosis, and a repeat in 06/29 showing cirrhosis. MRI showed possiblity of multiple nodules in the liver, but no distinct ones, that would be appropriate as a biopsy target. She was thus referred to , where she had an EUS on 10/09/15. The pancreatic duct was dilated throughout the length of the pancreas, with no distinct mass seen. 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 Ca 19-9 was elevated in the 300-400 range. She had a PET scan on 10/25/16, revealing at least 4 areas of uptake in the right lobe of the liver, areas of uptake in the body and tail of pancreas, and adjacent to the right kidney ( likely nodes) 10/27/16. She was then started on FOLFOX, and is s/p 12 cycles, completing those on 04/16/17. CT on 07/31/17, revealing progression in the portal and mesenteric nodes and in one lesion in the liver. A SMV thrombosis was noted and she was admitted to [facility] and then discharged on Lovenox. She was subsequently changed to Xarelto. She started on Gemzar + Abraxane on 08/14/17, and is s/p D 1,8 of C 5. D 15 was delayed due to low WBC, as with C 1. Neulasta was added with C 1. Dose was reduced by 10% for C 2, and another 10% for C 3. On 02/11/18 - Tiny was seen in office with Dr. Azul. The pt is tolerating her regimen well subjectively, though Hematologic toxicity continued to be an issue. Her counts were improving, with Hgb 10.1, plt 282, and WBC 2.1, with ANC 900. The outpatient plan was to schedule - US guided paracentesis, with fluid cytology and albumin, Continue and complete C 6 D 15 of chemo, with Neulasta - Her Ca 19-9 after C 5 had shown an increase to 161 from 61, which was discordant with her CT findings. This will be repeated - Repeated today. She completed cycle 6 of chemotherapy on 02/11/18. After this visit she was given a prescription for lasix and kdur. Although over weekend Tiny's pain and abdominal distention worsened and she presented to the emergency department for further assessment and to undergo paracentesis sooner the the scheduled date of February 25 as an outpatient. She was seen in hospital today, her abdomen firm and distended. No vomiting but feeling nauseated. Review of Systems A 14 point review of systems was assessed and completed and all negative except HPI Past Medical History Past Medical History: Cancer, GERD/Reflux, Hyperlipidemia, Liver Disease, Osteoarthritis (OA), Thyroid Disorder Additional Past Medical History / Comment(s): PT STATED IN 2011 LIVER BX SHOWED FIBROSIS,2015 LIVER BX SHOWED CIRRHOIS(FATTY LIVER), DJD, UTI, pancreatic cancer lymph node involvement, SMV Thrombosis History of Any Multi-Drug Resistant Organisms: None Reported Past Surgical History: Section, Cholecystectomy, Hernia Repair, Orthopedic Surgery, Tubal Ligation Additional Past Surgical History / Comment(s): Caitie Surgery 2009, rosa 2009, c section 1980, 1983, carpal tunnel surgery bilateral, 2 x hernia surgery, dequervains bilateral hands, 2013 lumbar fusion. EGD- 2015.10-06-16 BX PANCREAS AND LYMPH NODES AT [facility] LAST CHEMO TREATMENT LAST thursday02/11/18 Past Anesthesia/Blood Transfusion Reactions: No Reported Reaction Past Psychological History: No Psychological Hx Reported Additional Psychological History / Comment(s): PT STATED SHE TRIES TO STAY POSITIVE NO DEPRESSION CURRENTLY. NO THOUGHTS OF WANTING TO HARM SELF. Smoking Status: Former smoker Past Alcohol Use History: None Reported Additional Past Alcohol Use History / Comment(s): STARTED SMOKING IN 1976, Quit smoking January 2016, 1.5 ppd Past Drug Use History: None Reported - Past Family History Brother(s) Family Medical History: Cancer, Liver Disease, Myocardial Infarction ([place]) Additional Family Medical History / Comment(s): Patient states has 7 brothers- 6 brothers have Mother Family Medical History: Diabetes Mellitus, Thyroid Disorder Father Family Medical History: Cancer, CVA/TIA, Hypertension, Prostate Disorder Additional Family Medical History / Comment(s): bone ca sisters Additional Family Medical History / Comment(s): sister from down syndrome-1968 other sister from drug overdose in 2008. Medications and Allergies Home Medications Medication Instructions Recorded Confirmed Type Ranitidine HCl [Zantac] 150 mg PO HS 06/12/16 02/14/18 History Levothyroxine Sodium [Synthroid] 100 mcg PO HS 09/20/16 02/14/18 History Gabapentin [Neurontin] 100 mg PO HS 08/01/17 02/14/18 History LORazepam [Ativan] 0.5 mg PO HS 08/01/17 02/14/18 History Morphine Sulfate [Morphine Sulfate 5 - 7 mg PO HS 08/01/17 02/15/18 History Oral Solution] Prochlorperazine [Compazine] 10 mg PO HS PRN 08/01/17 02/14/18 History Furosemide [Lasix] 20 mg PO HS 02/14/18 02/14/18 History Lisinopril [Zestril] 5 mg PO HS 02/14/18 02/14/18 History Potassium Chloride ER [K-Dur 20] 20 meq PO HS 02/14/18 02/14/18 History Rivaroxaban [Xarelto] 20 mg PO HS 02/14/18 02/14/18 History diphenhydrAMINE [Benadryl] 25 - 50 mg PO HS PRN 02/14/18 02/14/18 History fentaNYL 25MCG/HR PATCH [Duragesic 1 patch TRANSDERM Q72H 02/14/18 02/14/18 History 25MCG/HR] Allergies Allergy/AdvReac Type Severity Reaction Status Date / Time acetaminophen [From Vicodin] Allergy Rash/Hives Verified 02/14/18 17:57 codeine Allergy Rash/Hives Verified 02/14/18 17:57 hydrocodone [From Vicodin] Allergy Rash/Hives Verified 02/14/18 17:57 Sulfa (Sulfonamide Allergy Dyspnea Verified 02/14/18 17:57 Antibiotics) atorvastatin [From Lipitor] AdvReac Unknown Verified 02/14/18 17:57 pravastatin [From Pravachol] AdvReac Unknown Verified 02/14/18 17:57 rosuvastatin [From Crestor] AdvReac Unknown Verified 02/14/18 17:57 Physical Exam Vitals: Vital Signs Temp Pulse Pulse Resp BP BP Pulse Ox 02/15/18 08:00 97.9 F 100 16 112/64 97 02/15/18 04:00 97.0 F L 96 16 113/65 95 02/15/18 00:00 97.2 F L 103 H 16 123/65 96 02/14/18 20:00 98.6 F 104 H 16 121/68 95 02/14/18 18:45 99.2 F 109 H 16 128/71 97 02/14/18 17:57 97.9 F 103 H 16 124/56 97 02/14/18 16:21 98.7 F 102 H 16 123/64 97 02/14/18 14:17 98.4 F 102 H 20 130/58 98 Intake and Output 02/14/18 02/15/18 02/15/18 22:59 06:59 14:59 Intake Total 240 Output Total 700 Balance -700 240 Intake: Oral 240 Output: Urine 700 Other: Voiding Method Toilet Toilet Toilet Weight 60.9 kg - Constitutional Alopecia General appearance: cooperative, no acute distress - EENT Eyes: EOMI, dentition normal ENT: NA/AT, normal oropharynx - Neck Supple, trachea midline Neck: normal ROM - Respiratory Respiratory: bilateral: diminished (Bibasilar likely secondary to abdominal ascites) - Cardiovascular Rhythm: regular Heart sounds: normal: S1, S2 - Gastrointestinal Firm General gastrointestinal: distended, tenderness - Integumentary Integumentary: pale - Neurologic Neurologic: CNII-XII intact - Musculoskeletal Musculoskeletal: generalized weakness, strength equal bilaterally - Psychiatric Psychiatric: A&O x's 3, appropriate affect, intact judgment & insight Results CBC & Chem 7: 02/15/18 11:49 02/15/18 11:49 Labs: Abnormal Lab Results - Last 24 Hours (Table) 02/14/18 02/14/18 02/14/18 Range/Units 14:45 15:05 15:05 WBC 13.9 H (3.8-10.6) k/uL RBC 3.33 L (3.80-5.40) m/uL Hgb 11.0 L (11.4-16.0) gm/dL Hct 33.1 L (34.0-46.0) % RDW 16.6 H (11.5-15.5) % Plt Count 149 L (150-450) k/uL Neutrophils # (Manual) 12.50 H (1.3-7.7) k/uL PT (9.0-12.0) sec INR (<1.2) APTT (22.0-30.0) sec Sodium 136 L (137-145) mmol/L Creatinine 0.50 L (0.52-1.04) mg/dL Plasma Lactic Acid Marshall (0.7-2.0) mmol/L Calcium 8.0 L (8.4-10.2) mg/dL Magnesium 1.5 L (1.6-2.3) mg/dL Total Bilirubin 1.7 H (0.2-1.3) mg/dL AST 124 H (14-36) U/L ALT 82 H (9-52) U/L Total Protein 4.6 L (6.3-8.2) g/dL Albumin 2.2 L (3.5-5.0) g/dL Urine Appearance Cloudy H (Clear) Urine Protein 1+ H (Negative) Urine Blood Large H (Negative) Ur Leukocyte Esterase Small H (Negative) Urine RBC 135 H (0-5) /hpf Urine WBC 63 H (0-5) /hpf Urine Bacteria Rare H (None) /hpf Urine Mucus Moderate H (None) /hpf 02/14/1818 02/14/18 Range/Units 15:05 15:05 19:10 WBC (3.8-10.6) k/uL RBC (3.80-5.40) m/uL Hgb (11.4-16.0) gm/dL Hct (34.0-46.0) % RDW (11.5-15.5) % Plt Count (150-450) k/uL Neutrophils # (Manual) (1.3-7.7) k/uL PT 13.7 H (9.0-12.0) sec INR 1.5 H (<1.2) APTT 30.6 H (22.0-30.0) sec Sodium (137-145) mmol/L Creatinine (0.52-1.04) mg/dL Plasma Lactic Acid Marshall 2.3 H* 2.6 H* (0.7-2.0) mmol/L Calcium (8.4-10.2) mg/dL Magnesium (1.6-2.3) mg/dL Total Bilirubin (0.2-1.3) mg/dL AST (14-36) U/L ALT (9-52) U/L Total Protein (6.3-8.2) g/dL Albumin (3.5-5.0) g/dL Urine Appearance (Clear) Urine Protein (Negative) Urine Blood (Negative) Ur Leukocyte Esterase (Negative) Urine RBC (0-5) /hpf Urine WBC (0-5) /hpf Urine Bacteria (None) /hpf Urine Mucus (None) /hpf Microbiology - Last 24 Hours (Table) 02/14/18 14:45 Urine Culture - Preliminary Urine,Voided Assessment and Plan Plan: Assessment and Recommendations: 1. Progressive Pancreatic Cancer - Status POst Cycle 6 of Gemsar and Abraxane with Neulasta on 02/11/18 - Monitor for dennise of blood counts with recent chemotherapy 2. Abdominal Distention/Ascites - - NPO - IVF D5.9@80 with KCL 20meq secondary to NPO - Schedule Ultrasound Guided Paracentesis and obtain Cytology, Albumen, Culture and Sensitivity 3. Hx: SMV Thrombosis - Has been on Xarelto and tolerating well 4. Nausea, Intermittent Diarrhea - - Obtain Stool Studies for C-Diff PCR, Ova and Paracites, Culture, fecal Leukocytes, FOBT 5. Normocytic Anemia - Secondary to chemotherapy - Monitor daily CBC - Transfusion Support Hemoglobin less than 7 6. Mild Thrombocytopenia - Likely Secondary to Chemotherapy 7. Increased LFTs and Bilirubin - Improved 8. Lactic Acidosis - Improved/Resolved 9. UTI - Continue Rocephin Physician Attestation: I have completed the Full History and Physical of this patient and agree with above dictation by Ainsley Silva NP. Dictated as a scribe
[2018-02-15] MEDS: FAMOTIDINE 20 MG TAB PO SCH (22:00)
[2018-02-15] MEDS: LEVOTHYROXINE 100 MCG TAB PO SCH (22:00)
[2018-02-15] MEDS: GABAPENTIN 100 MG CAP PO SCH (22:00)
[2018-02-15] MEDS: POTASSIUM CHLORIDE ER 20 MEQ TAB.ER PO SCH (22:01)
[2018-02-15] MEDS: LORazepam 0.5 MG TAB PO SCH (22:01)
[2018-02-15] MEDS: LISINOPRIL 5 MG TAB PO SCH (22:01)
[2018-02-16] MEDS: MORPHINE SULFATE 2 MG/ML SYRINGE IVP PRN ×5 (02:34→20:48)
[2018-02-16] MEDS: VANCOMYCIN 1,000 MG in SODIUM CHLORIDE 0.9% 250 ML IVPB SCH ×3 (02:58→16:15)
[2018-02-16] MEDS: SPIRONOLACTONE 25 MG TAB PO SCH (08:32)
[2018-02-16] MEDS: cefTRIAXone IN SWFI 1,000 MG/10 ML SYRINGE IVP SCH (08:36)
[2018-02-16] MEDS ORDERED: VANCOMYCIN TROUGH DUE 1 EACH MISC MISCELLANE ONE (09:00)
[2018-02-16 09:06] LABS: Mean Platelet Volume 7.3; Platelet Count 102 k/uL (150-450)
[2018-02-16 09:11] LABS: INR 1.3 (<1.2); Prothrombin Time 12.4 sec (9.0-12.0)
[2018-02-16] MEDS: SODIUM CHLORIDE 0.9% 1,000 ML IV SCH (11:48)
--- NOTE | 2018-02-16 11:57 | CDI ---
Last Revision, August 2017 Documentation Clarification Form Date: 02/16/2018 11:51:00 AM From: Daniela SchaefferSIMEON, CCDS Admit Date: 02/14/2018 5:16:00 PM Patient Name: Tiny Toth Visit Number: [id number] Discharge Date: ATTENTION: The Clinical Documentation Specialists (CDI) and [facility] Coding Staff appreciate your assistance in clarifying documentation. Please respond to the clarification below the line at the bottom and electronically sign. The CDI & [facility] Coding staff will review the response and follow-up if needed. Please note: Queries are made part of the Legal Health Record. If you have any questions, please contact the author of this message via ITS. Dr. Filippo Welch: Sepsis and UTI is documented in the ED note. Patient was afebrile on admission but complains of feeling cold all the time. Per your H/P, the patient is diagnosed with possibly infected ascites/ spontaneous bacterial peritonitis in a patient with underlying cirrhosis with elevated WBC, abd pain & portal hypertension. History/Risk Factors: Pancreatic CA w/mets to the spine & lymph nodes, status post chemotherapy. Clinical Indicators: LABS: WBC 13.9, Neut 12.50. UA: Cloudy, 1+ protein, large blood, small esterase, RBC 135, WBC 63. Lactic acid: 2.3, 2.6, (1.2). Urine culture: E coli. Blood cultures: Pending final. Treatment: IV Ms, IV Zofran, IV fluid bolus, IV Zosyn, IV Vanco, IV fluid rate 100, IV Narcan, IV Dilaudid. Consult: Oncology. In your professional opinion, please clarify if these findings signify one of the following conditions, whether the condition is POA, and cause, if known: Sepsis Sepsis due to , please clarify Sepsis ruled out Other, please specify Unable to determine o Present on Admission: o Yes o No o Identify the (suspected) organism if known: Please continue to document in your progress notes and discharge summary in order to capture severity of illness and risk of mortality. Include clinical findings that support your diagnosis. possible UTI with sepsis , POA MTDD
[2018-02-16 12:02] LABS: Glucose,Whole Blood 80 mg/dL (75-99)
--- NOTE | 2018-02-16 13:07 | P.PN ---
Subjective Progress Note Date: 02/16/18 Principal diagnosis: Pancreatic Cancer, Abdominal Ascites Ms Toth is a pleasant WF, initially seen in consult at [facility] on 09/23/16. She had presented with abdominal pain, present since 06/29, and becoming more persistent and progressive. She was found on CT scans to have hepatomegaly, and enlarged upper abdominal nodes. She had a h/o elevated liver enzymes since 2011 , with biopsy in 02/23 revealing lobular fibrosis, and a repeat in 06/29 showing cirrhosis. MRI showed possiblity of multiple nodules in the liver, but no distinct ones, that would be appropriate as a biopsy target. She was thus referred to , where she had an EUS on 10/09/15. The pancreatic duct was dilated throughout the length of the pancreas, with no distinct mass seen. 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 Ca 19-9 was elevated in the 300-400 range. She had a PET scan on 10/25/16, revealing at least 4 areas of uptake in the right lobe of the liver, areas of uptake in the body and tail of pancreas, and adjacent to the right kidney ( likely nodes) 10/27/16. She was then started on FOLFOX, and is s/p 12 cycles, completing those on 04/16/17. CT on 07/31/17, revealing progression in the portal and mesenteric nodes and in one lesion in the liver. A SMV thrombosis was noted and she was admitted to [facility] and then discharged on Lovenox. She was subsequently changed to Xarelto. She started on Gemzar + Abraxane on 08/14/17, and is s/p D 1,8 of C 5. D 15 was delayed due to low WBC, as with C 1. Neulasta was added with C 1. Dose was reduced by 10% for C 2, and another 10% for C 3. On 02/11/18 - Tiny was seen in office with Dr. Azul. The pt is tolerating her regimen well subjectively, though Hematologic toxicity continued to be an issue. Her counts were improving, with Hgb 10.1, plt 282, and WBC 2.1, with ANC 900. The outpatient plan was to schedule - US guided paracentesis, with fluid cytology and albumin, Continue and complete C 6 D 15 of chemo, with Neulasta - Her Ca 19-9 after C 5 had shown an increase to 161 from 61, which was discordant with her CT findings. This will be repeated - Repeated today. She completed cycle 6 of chemotherapy on 02/11/18. After this visit she was given a prescription for lasix and kdur. 02/15/18 - Although over weekend Tiny's pain and abdominal distention worsened and she presented to the emergency department for further assessment and to undergo paracentesis sooner the the scheduled date of February 25 as an outpatient. She was seen in hospital today, her abdomen firm and distended. No vomiting but feeling nauseated. 02/16/18 - Tiny seen in follow-up today. We are awaiting her to undergo the paracentesis. Her xarelto has been placed on hold and Interventional Radiology has been consulted. She is still "uncomfortable, although feeling a littlet better. She did have a bowel movement today. Objective - Vital Signs Vital signs: Vital Signs Temp 97 F L 02/16/18 08:00 Pulse 87 02/16/18 12:48 Resp 18 02/16/18 12:48 BP 117/68 02/16/18 12:48 Pulse Ox 100 02/16/18 12:48 Intake & Output 02/15/18 02/16/18 02/16/18 18:59 06:59 18:59 Intake Total 1830 Output Total 200 Balance 1830 -200 Weight 63.2 kg Intake: Intake, IV Titration 1050 Amount Sodium Chloride 0.9% 1, 800 000 ml @ 100 mls/hr IV . Q10H ODETTE Rx#:[id number] Vancomycin 1,000 mg In 250 Sodium Chloride 0.9% 250 ml @ 125 mls/hr IVPB Q8H ODETTE Rx#:[id number] Oral 780 Output: Urine 200 Other: Voiding Method Toilet Toilet Toilet # Voids 0 # Bowel Movements 1 - Constitutional General appearance: Present: cooperative, no acute distress - EENT Eyes: Present: EOMI, PERRLA, dentition normal ENT: Present: NA/AT, normal oropharynx - Neck Details: Supple, Trachea Midline Neck: Present: normal ROM - Respiratory Respiratory: bilateral: diminished (Bibasilar, No increased respiratory effort) - Cardiovascular Heart rate: 102 Rhythm: regular Heart sounds: normal: S1, S2 - Peripheral edema leg Peripheral Edema: bilateral: Trace - Gastrointestinal Gastrointestinal Comment(s): Abdominal Ascites, firm General gastrointestinal: Present: distended, normal bowel sounds - Integumentary Integumentary: Present: pale - Neurologic Neurologic: Present: CNII-XII intact - Musculoskeletal Musculoskeletal: Present: generalized weakness, strength equal bilaterally - Psychiatric Psychiatric: Present: A&O x's 3, appropriate affect, intact judgment & insight - Labs CBC & Chem 7: 02/16/18 08:47 02/15/18 11:49 Labs: Abnormal Lab Results - Last 24 Hours (Table) 02/15/18 02/15/18 02/16/18 Range/Units 11:49 11:49 08:47 Plt Count 102 L (150-450) k/uL Neutrophils # (Manual) 8.80 H (1.3-7.7) k/uL Lymphocytes # (Manual) 0.29 L (1.0-4.8) k/uL Metamyelocytes # (Man) 0.10 H (0) k/uL PT (9.0-12.0) sec INR (<1.2) CA 19-9 Antigen 185.8 H (0.0-34.9) U/mL 02/16/18 Range/Units 08:47 Plt Count (150-450) k/uL Neutrophils # (Manual) (1.3-7.7) k/uL Lymphocytes # (Manual) (1.0-4.8) k/uL Metamyelocytes # (Man) (0) k/uL PT 12.4 H (9.0-12.0) sec INR 1.3 H (<1.2) CA 19-9 Antigen (0.0-34.9) U/mL Microbiology - Last 24 Hours (Table) 02/16/18 03:00 Stool Culture - Preliminary Stool 02/14/18 14:45 Urine Culture - Final Urine,Voided 02/14/18 15:05 Blood Culture - Preliminary Blood No Growth after 24 hours Assessment and Plan Plan: Assessment and Recommendations: 1. Progressive Pancreatic Cancer - Status POst Cycle 6 of Gemsar and Abraxane with Neulasta on 02/11/18 - Monitor for dennise of blood counts with recent chemotherapy 2. Abdominal Distention/Ascites - - NPO - IVF D5.9@80 with KCL 20meq secondary to NPO - Schedule Ultrasound Guided Paracentesis and obtain Cytology, Albumen, Culture and Sensitivity - Hold Xarelto for Paracentesis 3. Hx: SMV Thrombosis - Has been on Xarelto and tolerating well 4. Nausea, Intermittent Diarrhea - - Obtain Stool Studies for C-Diff PCR, Ova and Paracites, Culture, fecal Leukocytes, FOBT - Stool studies pending 5. Normocytic Anemia - Secondary to chemotherapy - Monitor daily CBC - Transfusion Support Hemoglobin less than 7 6. Mild Thrombocytopenia - Likely Secondary to Chemotherapy 7. Increased LFTs and Bilirubin - Improved 8. Lactic Acidosis - Improved/Resolved 9. UTI - Continue Rocephin Physician Attestation: I have completed the Full History and Physical of this patient and agree with above dictation by Ainsley Silva NP. Dictated as a scribe
--- NOTE | 2018-02-16 13:29 | US ---
Therapeutic and diagnostic paracentesis. DATE OF EXAM: 02/16/2018 CLINICAL HISTORY: Ascites The procedure was discussed with the patient. The risks, complications, benefits, and alternatives we re discussed and any questions were answered. Informed consent was obtained. The patient was placed s upine on the ultrasound table and prepped and draped in the usual sterile fashion. All elements of maximal barrier technique were utilized. Under ultrasound guidance, access into the right lower quadrant was obtained, via the paracentesis catheter system and direct ultrasound guidanc e. Approximately 2.5 liters of straw-colored fluid was removed. The patient was stable throughout the pr ocedure and remained stable upon discharge from Department of Radiology. Sample sent to pathology for analysis. IMPRESSION: Successful paracentesis under ultrasound guidance.
[2018-02-16 13:36] LABS: ALT 61 U/L (9-52); AST 51 U/L (14-36); Albumin 1.9 g/dL (3.5-5.0); Alkaline Phosphatase 131 U/L (38-126); Anion Gap 7 mmol/L; Blood Urea Nitrogen 10 mg/dL (7-17); Calcium 7.8 mg/dL (8.4-10.2); Carbon Dioxide 21 mmol/L (22-30); Chloride 109 mmol/L (98-107); Glucose 89 mg/dL (74-99); Potassium 3.7 mmol/L (3.5-5.1); Sodium 137 mmol/L (137-145); Total Bilirubin 0.4 mg/dL (0.2-1.3); Total Protein 4.1 g/dL (6.3-8.2)
--- NOTE | 2018-02-16 15:57 | PN ---
PROGRESS NOTE DATE OF SERVICE: 02/16/18 PRESENTING COMPLAINT: Abdominal pain. INTERVAL HISTORY: This is a patient with pancreatic cancer, progressive, presented with ascites and also UTI with sepsis. The patient is on IV ceftriaxone and Vancomycin. Today, 2.4 L ascitic fluid was drained. The patient feels a bit tired, resting in bed. REVIEW OF SYSTEMS: Done for constitutional, cardiovascular, GI, pulmonary; relevant findings as above. CURRENT MEDICATIONS: Reviewed that include IV vancomycin, ceftriaxone. PHYSICAL EXAMINATION: On examination, temperature 98.7, pulse 86, respirations 16, blood pressure 120/66, pulse ox 99% on room air. GENERAL APPEARANCE: Sitting up in bed, tired appearing. EYES: Pupils equal. Conjunctivae pale. HEENT: External appearance of nose and ears normal. Oral cavity normal. NECK: JVD not raised. Mass not palpable. RESPIRATORY: Effort, lungs decreased breath sounds. CARDIOVASCULAR: 1st and 2nd sounds normal. Some edema. ABDOMEN: Distended, soft. Liver and spleen not palpable. PSYCHIATRY: Alert and oriented x3. Mood and affect normal. INVESTIGATIONS: Potassium 3.7, BUN 10, creatinine 0.50. ASSESSMENT: 1. Acute urinary tract infection with sepsis, present on admission. 2. Spontaneous bacterial peritonitis. 3. Cirrhosis. 4. 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 5. 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 6. Gastroesophageal reflux disease. 7. Primary osteoarthritis. 8. Medical debility from underlying malignancy. 9. Moderate protein-calorie malnutrition from decreased oral intake. PLAN: Continue current medication and treatment plan including antibiotics. Await culture results. Overall prognosis is guarded. The patient's pancreatic malignancy has not responded very well to chemotherapy therapy. MMODL / IJN: [id number] /
[2018-02-16 16:10] LABS: Glucose,Whole Blood 114 mg/dL (75-99)
[2018-02-16 18:01] LABS: Appearance,BF Hazy; Color,BF Yellow
[2018-02-16 18:02] LABS: Nucleated Cells, Body Fluid 850 /uL; RBC, Body Fluid 140 /uL
[2018-02-16 18:38] LABS: Mononuclear WBC,Body Fluid 4 %; Polynuclear WBC,Body Fluid 96 %; Total Cells Counted,Body Fluid 100
[2018-02-16] MEDS: FAMOTIDINE 20 MG TAB PO SCH (20:46)
[2018-02-16] MEDS: GABAPENTIN 100 MG CAP PO SCH (20:47)
[2018-02-16] MEDS: POTASSIUM CHLORIDE ER 20 MEQ TAB.ER PO SCH (20:47)
[2018-02-16] MEDS: LEVOTHYROXINE 100 MCG TAB PO SCH (20:47)
[2018-02-16] MEDS: LORazepam 0.5 MG TAB PO SCH (20:47)
[2018-02-16] MEDS: LISINOPRIL 5 MG TAB PO SCH (20:47)
[2018-02-16] MEDS: diphenhydrAMINE 25 MG CAP PO PRN (20:47)
[2018-02-16 21:21] LABS: Glucose,Whole Blood 112 mg/dL (75-99)
[2018-02-17 00:53] LABS: Lipase, Body Fluid 12 U/L
[2018-02-17] MEDS: MORPHINE SULFATE 2 MG/ML SYRINGE IVP PRN ×3 (01:48→12:59)
[2018-02-17] MEDS: VANCOMYCIN 1,000 MG in SODIUM CHLORIDE 0.9% 250 ML IVPB SCH ×3 (01:48→18:23)
[2018-02-17 05:44] LABS: Glucose,Whole Blood 89 mg/dL (75-99)
[2018-02-17 06:30] LABS: Anisocytosis Slight; Basophils % (A) 0 %; Eosinophils # (A) 0.1 k/uL (0-0.7); Eosinophils % (A) 1 %; HCT 28.5 % (34.0-46.0); HGB 9.1 gm/dL (11.4-16.0); Hypochromasia Slight; Lymphocytes # (A) 0.9 k/uL (1.0-4.8); Lymphocytes % (A) 12 %; MCH 31.6 pg (25.0-35.0); MCHC 31.9 g/dL (31.0-37.0); Macrocytosis Slight; Mean Platelet Volume 7.4; Monocytes # (A) 0.4 k/uL (0-1.0); Monocytes % (A) 6 %; Neutrophils % (A) 80 %; RBC 2.88 m/uL (3.80-5.40); WBC 7.5 k/uL (3.8-10.6)
[2018-02-17 06:56] LABS: Platelet Count 88 k/uL (150-450)
[2018-02-17] MEDS: D5-0.9% NACL WITH KCL 20 MEQ/L 1,000 ML IV SCH ×3 (07:37→09:41)
[2018-02-17] MEDS: cefTRIAXone IN SWFI 1,000 MG/10 ML SYRINGE IVP SCH (09:44)
[2018-02-17] MEDS: SPIRONOLACTONE 25 MG TAB PO SCH (09:44)
[2018-02-17 12:01] LABS: Glucose,Whole Blood 99 mg/dL (75-99)
[2018-02-17 16:20] LABS: Glucose,Whole Blood 89 mg/dL (75-99)
[2018-02-17 16:45] LABS: Total Protein, Body Fluid 790 mg/dL
[2018-02-17] MEDS: MORPHINE ORAL SOLN 10 MG/5 ML CUP PO PRN ×2 (18:18→23:05)
[2018-02-17] MEDS: LEVOTHYROXINE 100 MCG TAB PO SCH (20:37)
[2018-02-17] MEDS: POTASSIUM CHLORIDE ER 20 MEQ TAB.ER PO SCH (20:37)
[2018-02-17] MEDS: diphenhydrAMINE 25 MG CAP PO PRN (20:38)
[2018-02-17] MEDS: LORazepam 0.5 MG TAB PO SCH (20:38)
[2018-02-17] MEDS: GABAPENTIN 100 MG CAP PO SCH (20:38)
[2018-02-17] MEDS: LISINOPRIL 5 MG TAB PO SCH (20:38)
[2018-02-17] MEDS: FAMOTIDINE 20 MG TAB PO SCH (20:38)
[2018-02-18] MEDS: MORPHINE ORAL SOLN 10 MG/5 ML CUP PO PRN ×4 (02:50→20:25)
[2018-02-18] MEDS: VANCOMYCIN 1,000 MG in SODIUM CHLORIDE 0.9% 250 ML IVPB SCH (02:55)
[2018-02-18 06:36] LABS: Anisocytosis Slight; HCT 31.6 % (34.0-46.0); HGB 10.2 gm/dL (11.4-16.0); Hypochromasia Slight; MCH 32.2 pg (25.0-35.0); MCHC 32.2 g/dL (31.0-37.0); MCV 100.1 fL (80.0-100.0); Macrocytosis Slight; Mean Platelet Volume 7.8; RBC 3.16 m/uL (3.80-5.40); RDW 16.4 % (11.5-15.5)
[2018-02-18 06:50] LABS: Platelet Count 82 k/uL (150-450)
[2018-02-18 06:55] LABS: Band Neutrophils % 7 %; Eosinophils # (M) 0.12 k/uL (0-0.7); Metamyelocytes # (M) 0.49 k/uL (0); Metamyelocytes % 4 %; Monocytes # (M) 0.98 k/uL (0-1.0); Myelocytes # (M) 0.12 k/uL (0); Myelocytes % 1 %; Neutrophils % (M) 67 %; Nucleated Red Blood Cells 1 /100 WBC (0-0); Total Cells Counted 200; WBC 12.3 k/uL (3.8-10.6)
[2018-02-18] MEDS: cefTRIAXone IN SWFI 1,000 MG/10 ML SYRINGE IVP SCH (08:11)
[2018-02-18] MEDS: SPIRONOLACTONE 25 MG TAB PO SCH (08:11)
--- NOTE | 2018-02-18 08:26 | PN ---
PROGRESS NOTE DATE OF SERVICE: 02/17/2018 PRESENTING COMPLAINT: Abdominal distention. INTERVAL HISTORY: This patient was seen by me yesterday on 02/17/2018. The patient has known pancreatic cancer, progressive, admitted with UTI, sepsis and with ascites that was tapped. The patient remains on antibiotic. Belly started to distend again, has been getting IV fluids. The patient did tolerate some diet, had some loose stools. Has been up and about back to the bathroom. REVIEW OF SYSTEMS: Review of systems done for constitutional, cardiovascular, GI, pulmonary; relevant findings as above. CURRENT MEDICATIONS: Current medications are reviewed that include IV ceftriaxone and vancomycin. PHYSICAL EXAMINATION: On examination, temperature 98, pulse 82, respirations 16, blood pressure 98/60, pulse ox 98% on room air. GENERAL APPEARANCE: Sitting up in bed, tired appearing. EYES: Pupils equal. Conjunctivae pale. HENT: External appearance of the nose and ears normal. Oral cavity normal. NECK: JVD not raised. Mass not palpable. RESPIRATORY: Effort normal LUNGS: Slightly decreased breath sounds. CARDIOVASCULAR: First and second sounds normal. Some edema. ABDOMEN: Distended, soft. Liver and spleen not palpable. Nontender. PSYCHIATRY: Alert and oriented x3. Mood and affect normal. INVESTIGATIONS: White count 7.5, hemoglobin 9.1, platelets 88. Accu-Cheks noted. All cultures remain negative. ASSESSMENT: 1. Acute urinary tract infection with sepsis, present on admission. 2. spontaneous bacterial peritonitis. 3. 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 4. 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 5. Gastroesophageal reflux disease. 6. Primary osteoarthritis. 7. Medical debility from underlying malignancy. 8. Moderate protein-calorie malnutrition from decreased oral intake. PLAN: Care was discussed with the patient. Will discontinue IV fluid as she is third-spacing with the same. Will discontinue the patient's vancomycin. Prognosis overall guarded. Will watch another 24 hours and hopefully can discharge the patient tomorrow to follow up with Dr. Azul. REENA / ELAINE: [id number] /
[2018-02-18 11:27] LABS: Glucose,Whole Blood 83 mg/dL (75-99)
[2018-02-18 12:43] LABS: Appearance,Urine Cloudy (Clear); Bilirubin,Urine Negative (Negative); Blood,Urine Moderate (Negative); Budding Yeast,Urine Many /hpf; Color,Urine Yellow; Glucose,Urine (UA) Negative (Negative); Ketones,Urine Negative (Negative); Leukocyte Esterase,Urine Trace (Negative); Mucus,Urine Moderate /hpf; Nitrite,Urine Negative (Negative); PH, Urine 5.5 (5.0-8.0); Protein,Urine 1+ (Negative); RBC,Urine 132 /hpf (0-5); Specific Gravity,Urine 1.018 (1.001-1.035); Urobilinogen,Urine <2.0 mg/dL (<2.0); WBC,Urine 32 /hpf (0-5)
--- NOTE | 2018-02-18 12:50 | P.PN ---
Subjective Progress Note Date: 02/18/18 Principal diagnosis: sepsis, ascites Patient seen today in follow-up, denies fevers, nausea, shortness of breath, pain. Patient abdomen becoming progressively distended, she is having difficulty urinating, she continues to have diarrhea, no blood, mucus or incontinence. Patient can ambulate independently tolerating oral intake and fluids. Objective - Vital Signs Vital signs: Vital Signs Temp 97.1 F L 02/18/18 11:16 Pulse 87 02/18/18 11:16 Resp 16 02/18/18 11:16 BP 114/77 02/18/18 11:16 Pulse Ox 98 02/18/18 11:16 Intake & Output 02/17/18 02/18/18 02/18/18 18:59 06:59 18:59 Intake Total 890 180 Output Total 190 Balance 890 -10 Weight 65.6 kg Intake: Oral 890 180 Output: Urine 190 Straight 90 Other: Voiding Method Toilet Toilet Toilet # Voids 3 2 # Bowel Movements 1 - Constitutional General appearance: Present: average body habitus, cooperative, no acute distress - EENT Eyes: Present: anicteric sclerae - Respiratory Respiratory: bilateral: CTA - Cardiovascular Heart sounds: normal: S1, S2 - Peripheral edema foot Peripheral Edema: bilateral: 2+, Pitting - Gastrointestinal General gastrointestinal: Present: distended, normal bowel sounds Localized gastrointestinal: tender: epigastric periumbilical, suprabubic, midline - Integumentary Integumentary: Present: pale - Neurologic Neurologic: Present: CNII-XII intact - Musculoskeletal Musculoskeletal: Present: strength equal bilaterally - Psychiatric Psychiatric: Present: A&O x's 3, appropriate affect, intact judgment & insight - Labs CBC & Chem 7: 02/18/18 05:32 02/16/18 08:47 Labs: Abnormal Lab Results - Last 24 Hours (Table) 02/18/18 Range/Units 05:32 WBC 12.3 H (3.8-10.6) k/uL RBC 3.16 L (3.80-5.40) m/uL Hgb 10.2 L (11.4-16.0) gm/dL Hct 31.6 L (34.0-46.0) % MCV 100.1 H (80.0-100.0) fL RDW 16.4 H (11.5-15.5) % Plt Count 82 L (150-450) k/uL Neutrophils # (Manual) 9.10 H (1.3-7.7) k/uL Metamyelocytes # (Man) 0.49 H (0) k/uL Myelocytes # (Manual) 0.12 H (0) k/uL Nucleated RBCs 1 H (0-0) /100 WBC Microbiology - Last 24 Hours (Table) 02/15/18 12:45 Gram Stain - Preliminary Ascites Fluid Body Fluid Culture - Preliminary 02/14/18 15:05 Blood Culture - Preliminary Blood No Growth after 72 hours 02/16/18 11:30 Urine Culture - Final Urine,Voided Assessment and Plan (1) Pelvic ascites Narrative/Plan: Patient is status post paracentesis, cytology pending. Current Visit: Yes Status: Acute Priority: High Code(s): R18.8 - OTHER ASCITES SNOMED Code(s): 469228076 (2) Urinary tract infection Narrative/Plan: treated for UTI on admit. Patient states urinary retention, bladder scan ordered, 700+ cc identified, less than 100 removed with straight catheter, sent for urinalysis. Have requested ultrasound of abdomen with Radiologist review, paracentesis based on findings. Current Visit: Yes Status: Acute Priority: High Code(s): N39.0 - URINARY TRACT INFECTION, SITE NOT SPECIFIED SNOMED Code(s): 57093519 Plan: Discussed with patient and daughter awaiting cytology on ascitic fluid. Concern is for disease progression while on treatment since this is new onset ascites and there is an increase in Ca-19.9. But there is stability of disease on imaging. If fluid is a transudate with no malignant cells found then this could possibly be fluid from cirrhotic liver (patient has known cirrhosis which has been superimposed with treatment scarring). In this case, when necessary, paracentesis is going to be recommended for comfort. If malignant cells are found then this would indicate disease progression on treatment. This would mean change in treatment and start a new treatment as soon as able. All of patient and daughter's questions were answered to the best of my ability Patient is eating and drinking, able to ambulate independently, no pain. Once bladder and abdomen has been evaluated, if patient can urinate independently she is okay from an Oncology standpoint to be discharged once cleared by Attending and Consulting physicians. Follow-up appointment is in the chart.
--- NOTE | 2018-02-18 15:18 | US ---
EXAMINATION TYPE: US abdomen limited DATE OF EXAM: 02/18/2018 COMPARISON: Previous exam 02/16/2018 CLINICAL HISTORY: assess for fluid. Mild fluid. Assessment performed with ultrasound in all 4 quadrants. IMPRESSION: Ascites similar to prior exam.
[2018-02-18 15:19] LABS: INR 1.2 (<1.2); Prothrombin Time 11.9 sec (9.0-12.0)
[2018-02-18 16:50] LABS: Glucose,Whole Blood 90 mg/dL (75-99)
[2018-02-18] MEDS ORDERED: RIVAROXABAN 20 MG TAB PO SCH (17:30)
--- NOTE | 2018-02-18 19:20 | PN ---
PROGRESS NOTE DATE OF SERVICE: 02/18/2018 PRESENTING COMPLAINT: Abdominal distention. INTERVAL HISTORY: This patient presented with known pancreatic cancer, not responding well to treatment, presented with UTI, sepsis and ascites, status post being tapped. The patient's ascites has built up again. It may be noted that the patient had been getting IV fluids which will cause the same. The patient has been tolerating a diet, had a bowel movement, having some trouble making urine. Bladder scan did show increased amount of bladder fluid, but this is probably ascites because a straight cath did not reveal much urine. REVIEW OF SYSTEMS: Done for constitutional, cardiovascular, GI, pulmonary; relevant findings as above. CURRENT MEDICATIONS: Reviewed that included IV ceftriaxone. EXAMINATION: Afebrile, pulse 87, respirations 16, blood pressure 104/77, pulse ox 98% on room air. GENERAL APPEARANCE: Sitting up, eating a lunch. EYES: Pupils equal. Conjunctivae pale. HEENT: External nose, ears normal. Oral cavity normal. NECK: JVD not raised. Mass not palpable. RESPIRATORY: Effort normal. LUNGS: Slightly decreased breath sounds. CARDIOVASCULAR: First and second sounds normal. Minimal edema. ABDOMEN: Distended, soft. Dullness to percussion. Liver, spleen not palpable. PSYCHIATRY: Alert and oriented x3. Mood and affect are normal. INVESTIGATIONS: White count 12.3, hemoglobin 10.2, platelets 82. ASSESSMENT: 1. Acute urinary tract infection with sepsis present on admission. 2. Probable spontaneous bacterial peritonitis. 3. 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 4. Chronic superior mesenteric vein thrombosis secondary to malignancy for which patient has been on Xarelto. 5. Gastroesophageal reflux disease. 6. Primary osteoarthritis. 7. Medical debility from underlying malignancy. 8. Moderate protein-calorie malnutrition from decreased oral intake. 9. Progressive pancreatic, cancer has not responded too well to treatment. PLAN: I had a lengthy talk with the patient. Will increase the dose of Aldactone, put the patient on fluid restriction. Prognosis is overall guarded. The patient has been afebrile. Will switch the patient over to oral antibiotics. Ascitic fluid culture has been negative until now. MMODL / IJN: [id number] /
[2018-02-18] MEDS: POTASSIUM CHLORIDE ER 20 MEQ TAB.ER PO SCH (21:28)
[2018-02-18] MEDS: GABAPENTIN 100 MG CAP PO SCH (21:28)
[2018-02-18] MEDS: FAMOTIDINE 20 MG TAB PO SCH (21:28)
[2018-02-18] MEDS: diphenhydrAMINE 25 MG CAP PO PRN (21:28)
[2018-02-18] MEDS: LISINOPRIL 5 MG TAB PO SCH (21:28)
[2018-02-18] MEDS: LORazepam 0.5 MG TAB PO SCH (21:28)
[2018-02-18] MEDS: LEVOTHYROXINE 100 MCG TAB PO SCH (21:29)
[2018-02-19] MEDS: MORPHINE ORAL SOLN 10 MG/5 ML CUP PO PRN ×3 (00:29→08:04)
[2018-02-19 05:46] LABS: Anisocytosis Slight; HCT 29.9 % (34.0-46.0); HGB 9.6 gm/dL (11.4-16.0); MCH 31.7 pg (25.0-35.0); Macrocytosis Slight; Mean Platelet Volume 7.9; RBC 3.02 m/uL (3.80-5.40); RDW 16.4 % (11.5-15.5)
[2018-02-19 05:53] LABS: Platelet Count 77 k/uL (150-450)
[2018-02-19 06:26] LABS: Band Neutrophils % 13 %; Eosinophils # (M) 0.66 k/uL (0-0.7); Lymphocytes # (M) 2.31 k/uL (1.0-4.8); Monocytes # (M) 1.16 k/uL (0-1.0); Neutrophils % (M) 63 %; Nucleated Red Blood Cells 1 /100 WBC (0-0); Total Cells Counted 200; WBC 16.5 k/uL (3.8-10.6)
[2018-02-19 06:27] LABS: Poikilocytosis (M) Present
[2018-02-19] MEDS: SPIRONOLACTONE 25 MG TAB PO SCH (08:14)
[2018-02-19 08:18] VITALS: RESP 16
[2018-02-19] MEDS: cefTRIAXone IN SWFI 1,000 MG/10 ML SYRINGE IVP SCH (09:02)
[2018-02-19 11:26] VITALS: BP 106/70; PULSE 84; TEMP 97.1
[2018-02-19 11:32] LABS: Glucose,Whole Blood 76 mg/dL (75-99)
[2018-02-19 13:55] VITALS: BMI 24.8
--- NOTE | 2018-02-19 19:51 | DS ---
DISCHARGE SUMMARY DATE OF ADMISSION: 02/14/2018. DATE OF DISCHARGE: 02/19/2018 FINAL DIAGNOSES: 1. Acute urinary tract infection with sepsis on admission, spontaneous bacterial peritonitis ruled out. 2. Cryptogenic cirrhosis with portal hypertension, splenomegaly. 3. Chronic superior mesenteric vein thrombosis secondary to malignancy for which patient is on Xarelto. 4. Mild hematuria from Xarelto. 5. Gastroesophageal reflux disease. 6. Primary osteoarthritis. 7. Medical debility from underlying malignancy. 8. Moderate protein-calorie malnutrition from decreased oral intake. 9. Pancreatic cancer with peritoneal fluid coming back as negative. HOSPITAL COURSE: This very pleasant lady who follows Dr. Azul for pancreatic cancer, did get treatment, presented increasing ascites. Paracentesis was carried out. SBP was ruled out which was initially felt to be present. The patient does have UTI and sepsis treated with antibiotics. The patient's cultures all came back negative until now. The patient has very mild hematuria. I did talk to her about the pros and cons of seeing if the hematuria goes away versus continuing on the Xarelto. Also, the patient's fluid is building up again. The patient will be discharged on Aldactone and Lasix and a fluid restriction. Of course, if need be, she needs to be tapped again. Further decision about cancer treatment will be decided as per Dr. Azul, who will see her in the office. The patient's daughter was in the room today, very upset. I did explain to her the patient's prognosis and I cannot answer all the questions in terms of long-term, but I was able to discuss in detail with the patient about a discharge and later also spoke to Dr. Azul and updated about the patient. EXAMINATION: LUNGS: Decreased breath sounds. Ascites present. Some edema is present. DISCHARGE PLANNING: More than 35 minutes. DISCHARGE MEDICATIONS: 1. Zantac 150 mg p.o. q.h.s. 2. Synthroid 100 mcg p.o. q.h.s. 3. Neurontin 100 mg q.h.s. 4. Ativan 0.5 mg p.o. q.h.s. 5. Morphine sulfate 5-7 mg p.o. q.h.s. 6. Compazine 10 mg at bedtime p.r.n. 7. Zestril 5 mg p.o. q.h.s. 8. Potassium 20 mEq p.o. q.h.s. 9. Xarelto 20 mg q.h.s. 10.Benadryl 25-50 mg p.o. q.h.s. p.r.n. 11.Duragesic 25 mcg patch q.72 hours. 12.Ceftin 5 mg p.o. b.i.d. 10 tablets. 13.Lasix 40 mg p.o. daily. 14.Aldactone 100 mg p.o. daily. BMP and CBC on Thursday. Fluid restriction 1200 mL a day. Daily weights. FOLLOWUP: With Dr. Azul on 02/26/2018. Follow up with Dr. Heck on 02/23/2018. Prognosis guarded. MMODL / IJN: [id number] /
== END 2018-02-19 14:50 | disposition home or self-care (01) | DRG 871 ==
LOC: EC 14:15 → 6SEL 17:16
PROVIDERS: ADMIT Hospitalist; ATTEND Hospitalist
PROC: 0W9G3ZZ Drainage of Peritoneal Cavity, Percutaneous Approach (ICD-10-PCS; principal; 2018-02-16)
DX: A41.9 Sepsis, unspecified organism (principal); I81 Portal vein thrombosis; K76.6 Portal hypertension; N39.0 Urinary tract infection, site not specified; R18.8 Other ascites; C79.51 Secondary malignant neoplasm of bone; E44.0 Moderate protein-calorie malnutrition; C77.2 Secondary and unspecified malignant neoplasm of intra-abdominal lymph nodes; C25.2 Malignant neoplasm of tail of pancreas; D69.59 Other secondary thrombocytopenia; D64.81 Anemia due to antineoplastic chemotherapy; K76.0 Fatty (change of) liver, not elsewhere classified; K74.69 Other cirrhosis of liver; T45.1X5A Adverse effect of antineoplastic and immunosuppressive drugs, initial encounter; R16.2 Hepatomegaly with splenomegaly, not elsewhere classified; R31.9 Hematuria, unspecified; K21.9 Gastro-esophageal reflux disease without esophagitis; E78.5 Hyperlipidemia, unspecified; E07.9 Disorder of thyroid, unspecified; M19.91 Primary osteoarthritis, unspecified site; Z68.24 Body mass index [BMI] 24.0-24.9, adult; Z79.01 Long term (current) use of anticoagulants; Z79.890 Hormone replacement therapy; Z79.899 Other long term (current) drug therapy; Z79.891 Long term (current) use of opiate analgesic; Z90.49 Acquired absence of other specified parts of digestive tract; Z98.1 Arthrodesis status; Z87.891 Personal history of nicotine dependence; Z92.21 Personal history of antineoplastic chemotherapy; Z98.51 Tubal ligation status; Z88.6 Allergy status to analgesic agent; Z88.5 Allergy status to narcotic agent; Z88.2 Allergy status to sulfonamides; Z88.8 Allergy status to other drugs, medicaments and biological substances; Z82.49 Family history of ischemic heart disease and other diseases of the circulatory system; Z83.3 Family history of diabetes mellitus; Z80.8 Family history of malignant neoplasm of other organs or systems; Z82.79 Family history of other congenital malformations, deformations and chromosomal abnormalities; Z80.0 Family history of malignant neoplasm of digestive organs; Z82.3 Family history of stroke; Z84.2 Family history of other diseases of the genitourinary system
CPT/HCPCS: 36415; 49083; 74177; 76705; 80053; 80202; 81001; 82042; 82150; 82272; 82945; 83605; 83615; 83630; 83690; 83735; 84100; 84157; 85025; 85049; 85384; 85610; 85730; 86301; 87040; 87045; 87046; 87070; 87075; 87086; 87205; 88108; 88305; 88341; 88342; 89050; 96361; 96365; 96375; 99285

== ENCOUNTER 2018-02-25 11:54 | Day surgery (SDC) | payer MEDICARE, OTHER ==
[2018-02-25 13:00] LABS: Mean Platelet Volume 6.9; Platelet Count 103 k/uL (150-450)
[2018-02-25 13:12] VITALS: RESP 16
[2018-02-25 13:14] LABS: INR 1.2 (<1.2); Prothrombin Time 11.6 sec (9.0-12.0)
[2018-02-25] MEDS ORDERED: LIDOCAINE 1% INJ 10MG/ML (20 ML MDV) SQ ONE (13:35)
[2018-02-25 15:21] VITALS: BP 119/79; PULSE 86
--- NOTE | 2018-02-26 11:35 | US ---
EXAMINATION TYPE: US paracentesis abd w/image DATE OF EXAM: 02/25/2018 COMPARISON: NONE HISTORY: Ascites. PROCEDURE: Maximal barrier technique was utilized. The skin overlying a suitable pocket of fluid was localized with ultrasound and the overlying skin was prepped and draped. Ultrasound was utilized with sterile technique. Lidocaine was used for local anesthesia and a skin jessica made with a scalpel. Catheter was advanced under direct ultrasound guidance into a suitable pocket of fluid and approximately 2.5 liter s of serous fluid were removed. Catheter was withdrawn and hemostasis achieved. There is no immedia te complication; the patient is discharged in stable condition. IMPRESSION: STATUS POST ULTRASOUND GUIDED PARACENTESIS FOR PALLIATION OF ASCITES. THIS PROCEDURE WA S PERFORMED BY THE UNDERSIGNED.
== END 2018-02-25 14:40 | disposition home or self-care (01) ==
LOC: RADPROMAIN 11:54
PROVIDERS: ATTEND Internal Medicine Hematology & Oncology
DX: R18.8 Other ascites (principal); Z88.5 Allergy status to narcotic agent; Z88.2 Allergy status to sulfonamides
CPT/HCPCS: 85049; 85610; 87070; 87205; 87075; 49083; J2001; J1642

== ENCOUNTER → 2018-03-05 | Outpatient (CLI) | payer MEDICARE, OTHER ==
[2018-03-05 17:20] LABS: Blood Urea Nitrogen 11 mg/dL (7-17)
--- NOTE | 2018-03-07 11:02 | CT ---
EXAMINATION TYPE: CT ChestAbdPelvis w con DATE OF EXAM: 03/05/2018 COMPARISON: 02/14/2018, 01/05/2018 as well as other multiple priors HISTORY: 62-year-old female follow-up Pancreatic CA TECHNIQUE: Contiguous axial scanning of the chest, abdomen, and pelvis performed with IV Contrast, pa tient injected with 100 mL of Isovue 300. Delayed images through the kidneys were obtained. Coronal/s agittal reconstructions performed. CT DLP: 1297 mGycm Automated exposure control for dose reduction was used. FINDINGS: Chest: Heart is normal size without pericardial effusion. Mild coronary vascular calcifications are present. Aorta normal caliber with conventional arterial segmental anatomy. A few small mediastinal lymph nodes. No thoracic lymphadenopathy by CT size criteria. Some new groundglass density in the right mid lung. Background of [id number] emphysema. 6 mm no dularity along the inferior left major fissure and increased from 02/14/2018 and from 01/05/2018 but has a characteristic location of a pulmonary lymph node. Reassess for follow-up. ABDOMEN: There is some mild circumferential wall thickening of the distal esophagus and suggestion of a small hiatal hernia, possible mild esophagitis. A few liver lesions, largest measuring 1.6 cm segment 6 image 59 (measured 1.1 cm on 02/14/2013 and not seen on 01/05/2018), also in the posterior right hepatic dome measuring 1.0 cm image 47 (stable from 02/14/2013 but not seen on 01/05/2018. Of note, this was present on 07/31/2017) and subcentimeter hypode nsity segment 5 inferiorly right liver lobe axial image 61 (more pronounced from 01/05/2018 but was pr esent on 07/31/2017. Again, somewhat nodular contour of the liver, uncertain if this represents underlying cirrhosis. Portal venous system is patent on the delayed kidney images. No biliary ductal dilatation. Cholecyste ctomy clips. Adrenal glands, and kidneys are within normal limits. Spleen enlarged measuring 14.4 cm, coronal imag e 60. Moderate abdominopelvic ascites is present decreased in the pelvis or moderate ascites still re nilsa. Patient's primary pancreatic neoplasm is not well appreciated. Inferior splenule. Residual upper retroperitoneal lymphadenopathy in the periceliac region measuring up to 1.4 cm which may be minimally increased in size compared to 1.2 cm, previously. Retroperitoneal aortocaval lymph n ode measures 9 mm, unchanged. Retroaortic left renal vein. There is been significant interval improvement in the degree of marked gastric wall thickening and sc attered small bowel and colonic wall thickening. Mild to moderate stool burden. Pelvis: Moderate to large pelvic ascites slightly decreased in the interval. No evident pelvic lymphadenopath y. Uterus and ovaries are visualized. Ascites fluid extending into the right inguinal canal. Bones: Degenerative changes at the hips. Postsurgical changes of L4-L5 posterior and interbody fusion with l aminectomies. Stable sclerotic appearance of T12 vertebral body suggesting site of osseous metastatic disease. No new osseous destructive process identified. IMPRESSION: 1. FINDINGS SUSPECTED TO REPRESENT 3 HEPATIC METASTASES IN THE RIGHT LIVER LOBE MEASURING UP TO 1.6 C M AT THE SITES OF PREVIOUSLY TREATED DISEASE THESE AREAS ARE EITHER STABLE OR LARGER FROM 02/14/2018 , WERE NOT PRESENT ON 01/05/2018, BUT WERE SEEN ON SOME OF THE PATIENT'S OLDER STUDIES. 2. PERICELIAC LYMPHADENOPATHY IS LARGELY STABLE, ONE LYMPH NODE MAY BE MINIMALLY LARGER AT 1.4 CM ANNMEARIE LOREE 1.2 CM, PREVIOUSLY. 3. A 6 MM NODULE ALONG THE INFERIOR LEFT MAJOR FISSURE NOT SEEN ON 01/05/2018. ITS LOCATION IS SUGGEST JAMAL OF A PULMONARY LYMPH NODE. ATTENTION ON FOLLOW-UP. 4. STABLE T12 SCLEROSIS LIKELY CORRESPONDING TO A SITE OF HEALED OSSEOUS METASTASIS. 5. COPD WITH SOME NEW GROUNDGLASS INFILTRATE AT THE RIGHT MIDLUNG. CORRELATE FOR PNEUMONIA. 6. MODERATE OVERALL ABDOMINOPELVIC ASCITES SHOWS SLIGHT IMPROVEMENT FROM 02/14/2018. THE SEVERE GASTRIC WALL THICKENING AND SCATTERED BOWEL WALL THICKENING SHOWS IMPROVEMENT FROM THAT TIME.
== END ==
LOC: RADCTMAIN 16:46
PROVIDERS: ATTEND Internal Medicine Hematology & Oncology
DX: C25.9 Malignant neoplasm of pancreas, unspecified (principal); J44.9 Chronic obstructive pulmonary disease, unspecified; R91.8 Other nonspecific abnormal finding of lung field; R18.8 Other ascites; K63.89 Other specified diseases of intestine; Z88.5 Allergy status to narcotic agent; Z88.2 Allergy status to sulfonamides
CPT/HCPCS: 82565; 84520; 71260; 74177; 36415; Q9967

== ENCOUNTER 2018-03-22 18:17 | Inpatient (IN) | payer MEDICARE, OTHER ==
[2018-03-22] MEDS ORDERED: MORPHINE SULFATE 2 MG/ML SYRINGE IVP STA (20:32)
--- NOTE | 2018-03-22 20:50 | ED ---
General Adult HPI - General Chief complaint: Recheck/Abnormal Lab/Rx Stated complaint: abd distention Time Seen by Provider: 03/22/18 20:09 Source: patient, family, RN notes reviewed, old records reviewed Mode of arrival: wheelchair Limitations: physical limitation - History of Present Illness Initial comments: 62-year-old female with pancreatic cancer with liver metastases presents for evaluation of abdominal distention. Patient has history of ascites secondary to her cancer, she has had paracentesis approximately one month ago. Patient completed chemotherapy approximately one month ago. She is scheduled to be put on hospice. It was recommended that the patient presented for paracentesis and symptomatic management of abdominal pain and dyspnea. Denies cough or fever. Patient has been having bowel movements. She has had worsening jaundice according to her family. - Related Data Home Medications Medication Instructions Recorded Confirmed Ranitidine HCl [Zantac] 150 mg PO BID 06/12/16 03/22/18 Levothyroxine Sodium [Synthroid] 100 mcg PO HS 09/20/16 03/22/18 Gabapentin [Neurontin] 100 mg PO HS 08/01/17 03/22/18 LORazepam [Ativan] 0.5 mg PO TID PRN 08/01/17 03/22/18 Morphine Sulfate [Morphine Sulfate 5 - 7 mg PO HS 08/01/17 03/22/18 Oral Soln Conc (20 MG/ML)] Prochlorperazine [Compazine] 10 mg PO HS PRN 08/01/17 03/22/18 Lisinopril [Zestril] 5 mg PO HS 02/14/18 03/22/18 Rivaroxaban [Xarelto] 20 mg PO HS 02/14/18 03/22/18 diphenhydrAMINE [Benadryl] 25 - 50 mg PO HS PRN 02/14/18 03/22/18 fentaNYL 25MCG/HR PATCH [Duragesic 1 patch TRANSDERM Q72H 02/14/18 03/22/18 25MCG/HR] Dronabinol [Marinol] 5 mg PO BID 03/22/18 03/22/18 Lidocaine-Prilocaine Cream [Emla 1 applic TOPICAL DAILY PRN 03/22/18 03/22/18 Cream 2.5%/2.5%] amLODIPine [Norvasc] 5 mg PO HS 03/22/18 03/22/18 Allergies Allergy/AdvReac Type Severity Reaction Status Date / Time acetaminophen [From Vicodin] Allergy Rash/Hives Verified 03/22/18 20:23 codeine Allergy Rash/Hives Verified 03/22/18 20:23 hydrocodone [From Vicodin] Allergy Rash/Hives Verified 03/22/18 20:23 Sulfa (Sulfonamide Allergy Dyspnea Verified 03/22/18 20:23 Antibiotics) atorvastatin [From Lipitor] AdvReac Unknown Verified 03/22/18 20:23 pravastatin [From Pravachol] AdvReac Unknown Verified 03/22/18 20:23 rosuvastatin [From Crestor] AdvReac Unknown Verified 03/22/18 20:23 Review of Systems ROS Statement: Those systems with pertinent positive or pertinent negative responses have been documented in the HPI. ROS Other: All systems not noted in ROS Statement are negative. Past Medical History Past Medical History: Cancer, GERD/Reflux, Hyperlipidemia, Liver Disease, Osteoarthritis (OA), Thyroid Disorder Additional Past Medical History / Comment(s): PT STATED IN 2011 LIVER BX SHOWED FIBROSIS,2015 LIVER BX SHOWED CIRRHOIS(FATTY LIVER), DJD, UTI, pancreatic cancer lymph node involvement, SMV Thrombosis History of Any Multi-Drug Resistant Organisms: None Reported Past Surgical History: Section, Cholecystectomy, Hernia Repair, Orthopedic Surgery, Tubal Ligation Additional Past Surgical History / Comment(s): Caitie Surgery 2009, rosa 2009, c section 1980, 1983, carpal tunnel surgery bilateral, 2 x hernia surgery, dequervains bilateral hands, 2013 lumbar fusion. EGD- 2015.1-23-17 BX PANCREAS AND LYMPH NODES AT [facility] LAST CHEMO TREATMENT LAST thursday02/11/18 Past Anesthesia/Blood Transfusion Reactions: No Reported Reaction Past Psychological History: No Psychological Hx Reported Smoking Status: Former smoker Past Alcohol Use History: None Reported Past Drug Use History: None Reported - Past Family History Brother(s) Family Medical History: Cancer, Liver Disease, Myocardial Infarction ([place]) Additional Family Medical History / Comment(s): Patient states has 7 brothers- 6 brothers have Mother Family Medical History: Diabetes Mellitus, Thyroid Disorder Father Family Medical History: Cancer, CVA/TIA, Hypertension, Prostate Disorder Additional Family Medical History / Comment(s): bone ca sisters Additional Family Medical History / Comment(s): sister from down syndrome-1968 other sister from drug overdose in 2008. General Exam Limitations: physical limitation General appearance: alert, in no apparent distress Head exam: Present: atraumatic, normocephalic Eye exam: Present: PERRL, scleral icterus ENT exam: Present: mucous membranes dry Neck exam: Present: normal inspection. Absent: tenderness, meningismus Respiratory exam: Present: decreased breath sounds. Absent: respiratory distress Cardiovascular Exam: Present: regular rate, normal rhythm GI/Abdominal exam: Present: soft, distended, tenderness (Minimal generalized tenderness), other (Positive fluid wave) Extremities exam: Present: normal inspection. Absent: pedal edema Neurological exam: Present: alert, oriented X3, CN II-XII intact. Absent: motor sensory deficit Psychiatric exam: Present: normal affect, normal mood Skin exam: Present: other (Jaundice) Course Vital Signs 03/22/18 03/22/18 03/22/18 19:55 20:12 21:54 Temperature 97.7 F Pulse Rate 80 74 Respiratory 18 18 17 Rate Blood Pressure 108/70 112/61 O2 Sat by Pulse 99 98 Oximetry Medical Decision Making - Medical Decision Making 62-year-old female with pancreatic cancer with metastases. She has developed significant jaundice. She has worsening abdominal distention which is creating some dyspnea. Chest x-ray obtained, negative for focal pneumonia or air space disease. Patient does have elevated white blood cell, although this is improved from previous. Total bili is 20. INR is elevated consistent with liver failure. Ultrasound is obtained, shows abdominal ascites and portal venous hypertension. Patient will be admitted for symptomatic treatment. Gastroenterology on consult. - Lab Data Result diagrams: 03/22/18 20:55 03/22/18 20:55 Lab Results 03/22/18 03/22/18 03/22/18 Range/Units 20:55 20:55 20:55 WBC 14.5 H (3.8-10.6) k/uL RBC 3.37 L (3.80-5.40) m/uL Hgb 11.6 (11.4-16.0) gm/dL Hct 34.1 (34.0-46.0) % MCV 101.1 H (80.0-100.0) fL MCH 34.4 (25.0-35.0) pg MCHC 34.0 (31.0-37.0) g/dL RDW 17.1 H (11.5-15.5) % Plt Count 204 (150-450) k/uL Neutrophils % 80 % Lymphocytes % 6 % Monocytes % 10 % Eosinophils % 2 % Basophils % 0 % Neutrophils # 11.6 H (1.3-7.7) k/uL Lymphocytes # 0.8 L (1.0-4.8) k/uL Monocytes # 1.4 H (0-1.0) k/uL Eosinophils # 0.3 (0-0.7) k/uL Basophils # 0.0 (0-0.2) k/uL Anisocytosis Slight Macrocytosis Slight PT (9.0-12.0) sec INR (<1.2) APTT (22.0-30.0) sec Sodium 126 L (137-145) mmol/L Potassium 3.9 (3.5-5.1) mmol/L Chloride 93 L (98-107) mmol/L Carbon Dioxide 22 (22-30) mmol/L Anion Gap 11 mmol/L BUN 28 H (7-17) mg/dL Creatinine 0.70 (0.52-1.04) mg/dL Est GFR (CKD-EPI)AfAm >90 (>60 ml/min/1.73 sqM) Est GFR (CKD-EPI)NonAf >90 (>60 ml/min/1.73 sqM) Glucose 108 H (74-99) mg/dL Calcium 8.0 L (8.4-10.2) mg/dL Total Bilirubin 19.8 H* (0.2-1.3) mg/dL Conjugated Bilirubin 13.8 H (0.0-0.3) mg/dL Unconjugated Bilirubin 2.3 H (0.0-1.1) mg/dL Delta Bilirubin 3.7 H (0.0-0.2) mg/dL AST 93 H (14-36) U/L ALT 56 H (9-52) U/L Alkaline Phosphatase 207 H (38-126) U/L Ammonia 44 H (<30) umol/L Total Protein 6.0 L (6.3-8.2) g/dL Albumin 2.4 L (3.5-5.0) g/dL 03/22/18 Range/Units 20:55 WBC (3.8-10.6) k/uL RBC (3.80-5.40) m/uL Hgb (11.4-16.0) gm/dL Hct (34.0-46.0) % MCV (80.0-100.0) fL MCH (25.0-35.0) pg MCHC (31.0-37.0) g/dL RDW (11.5-15.5) % Plt Count (150-450) k/uL Neutrophils % % Lymphocytes % % Monocytes % % Eosinophils % % Basophils % % Neutrophils # (1.3-7.7) k/uL Lymphocytes # (1.0-4.8) k/uL Monocytes # (0-1.0) k/uL Eosinophils # (0-0.7) k/uL Basophils # (0-0.2) k/uL Anisocytosis Macrocytosis PT 19.3 H (9.0-12.0) sec INR 2.1 H (<1.2) APTT 46.8 H (22.0-30.0) sec Sodium (137-145) mmol/L Potassium (3.5-5.1) mmol/L Chloride (98-107) mmol/L Carbon Dioxide (22-30) mmol/L Anion Gap mmol/L BUN (7-17) mg/dL Creatinine (0.52-1.04) mg/dL Est GFR (CKD-EPI)AfAm (>60 ml/min/1.73 sqM) Est GFR (CKD-EPI)NonAf (>60 ml/min/1.73 sqM) Glucose (74-99) mg/dL Calcium (8.4-10.2) mg/dL Total Bilirubin (0.2-1.3) mg/dL Conjugated Bilirubin (0.0-0.3) mg/dL Unconjugated Bilirubin (0.0-1.1) mg/dL Delta Bilirubin (0.0-0.2) mg/dL AST (14-36) U/L ALT (9-52) U/L Alkaline Phosphatase (38-126) U/L Ammonia (<30) umol/L Total Protein (6.3-8.2) g/dL Albumin (3.5-5.0) g/dL Disposition Clinical Impression: Ascites, Pancreatic cancer, Hyperbilirubinemia Disposition: ADMITTED IP TO THIS [facility] Condition: Stable Is patient prescribed a controlled substance at d/c from ED?: No Referrals: Hal Heck MD [Primary Care Provider] - 1-2 days Decision to Admit Reason: Admit from EC Decision Date: 03/22/18 Decision Time: 23:36
[2018-03-22 21:06] LABS: Anisocytosis Slight; Basophils % (A) 0 %; Eosinophils # (A) 0.3 k/uL (0-0.7); Eosinophils % (A) 2 %; HCT 34.1 % (34.0-46.0); HGB 11.6 gm/dL (11.4-16.0); Lymphocytes # (A) 0.8 k/uL (1.0-4.8); Lymphocytes % (A) 6 %; MCH 34.4 pg (25.0-35.0); MCV 101.1 fL (80.0-100.0); Macrocytosis Slight; Mean Platelet Volume 6.6; Monocytes # (A) 1.4 k/uL (0-1.0); Monocytes % (A) 10 %; Neutrophils # (A) 11.6 k/uL (1.3-7.7); Neutrophils % (A) 80 %; Platelet Count 204 k/uL (150-450); RBC 3.37 m/uL (3.80-5.40); RDW 17.1 % (11.5-15.5); WBC 14.5 k/uL (3.8-10.6)
[2018-03-22 21:27] LABS: INR 2.1 (<1.2); Partial Thromboplastin Time 46.8 sec (22.0-30.0); Prothrombin Time 19.3 sec (9.0-12.0)
[2018-03-22 21:34] LABS: ALT 56 U/L (9-52); AST 93 U/L (14-36); Albumin 2.4 g/dL (3.5-5.0); Alkaline Phosphatase 207 U/L (38-126); Anion Gap 11 mmol/L; Bilirubin, Conjugated 13.8 mg/dL (0.0-0.3); Bilirubin, Delta 3.7 mg/dL (0.0-0.2); Bilirubin,Unconjugated 2.3 mg/dL (0.0-1.1); Blood Urea Nitrogen 28 mg/dL (7-17); Carbon Dioxide 22 mmol/L (22-30); Chloride 93 mmol/L (98-107); Glucose 108 mg/dL (74-99); Potassium 3.9 mmol/L (3.5-5.1); Sodium 126 mmol/L (137-145)
--- NOTE | 2018-03-22 21:34 | XR ---
EXAMINATION TYPE: XR chest 2V DATE OF EXAM: 03/22/2018 COMPARISON: 01/03/2017 HISTORY: Chest pain TECHNIQUE: Frontal and lateral views of the chest are obtained. FINDINGS: Heart and mediastinum are normal. Lungs are clear of infiltrate. There is right central ve nous catheter with tip in the superior vena cava. There is no pleural effusion. Bony thorax is intact . IMPRESSION: No active cardiopulmonary disease. No change.
[2018-03-22 21:40] LABS: Total Bilirubin 19.8 mg/dL (0.2-1.3)
--- NOTE | 2018-03-22 23:20 | US ---
EXAMINATION TYPE: US liver DATE OF EXAM: 03/22/2018 COMPARISON: NONE CLINICAL HISTORY: Pain. Elevated bili EXAM MEASUREMENTS: Liver Length: 14.3 cm Gallbladder Wall: Surgically absent cm CBD: 0.36 cm Right Kidney: 9.9 x 3.9 x 4.0 cm Pancreas: Obscured by bowel gas Liver: Dilated vessels. Ascites seen. Gallbladder: Surgically absent Evidence for sonographic Grant's sign: No CBD: wnl Right Kidney: No hydronephrosis or masses seen IMPRESSION: Moderate ascites fluid is demonstrated. No dilated ducts. Large portal venous system cons istent with portal venous hypertension. Ascites is probably not change compared to CT scan of 03/05/20 18.
[2018-03-22] MEDS ORDERED: NALOXONE 0.4 MG/ML 1 ML VIAL IV PRN (23:32)
[2018-03-22] MEDS ORDERED: ONDANSETRON 4 MG/2 ML VIAL IVP PRN (23:32)
[2018-03-23] MEDS: HYDROmorphone 0.5 MG/0.5 ML SYRINGE IVP PRN ×2 (00:50→07:30)
[2018-03-23] MEDS ORDERED: PHYTONADIONE 5 MG in SODIUM CHLORIDE 0.9% 50 ML IVPB STA (09:16)
--- NOTE | 2018-03-23 09:18 | P.CONS ---
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 She underwent therapeutic diagnostic paracentesis x 2 last month both times removing about 2.5 L of fluid. Patient has not noticed herself to be more yellow until a few days ago. Reports abdominal discomfort secondary to distention. Upon review of medical records INR 1 month ago was 1.2 presently 2.1. Total bilirubin 0.4 presently 19.8. AST 51 presently 93. ALT 61 presently 56. ALT 116 presently 207. Ammonia 44. Denies fever or chills. Paracentesis requested. Vitamin K and FFP ordered. Review of Systems Constitutional: Denies fever, chills, sweats, weight gain, or loss. HEENT: Negative for migraines, blurred vision or loss, earaches, drainage, tinnitus, oral mucosal lesions, dysphagia, or odynophagia. CARDIAC: Negative for chest pain, arrhythmias, or palpitation. RESPIRATORY: Negative for shortness of breath, hemoptysis, cough, or sputum production. GI: See HPI for pertinent findings. : Negative for hematuria, urgency, frequency, polyuria, or dysuria. GYNc: Negative vaginal discharge. MUSCULOSKELETAL: Negative for muscle aches, swelling, arthritis, and arthralgias. NEUROLOGIC: Negative for stroke or TIA. ENDOCRINE: Negative for thyroid problems. SKIN: Negative for rash or itching. PSYCHIATRIC: Negative history for depression and anxiety Past Medical History Past Medical History: Cancer, GERD/Reflux, Hyperlipidemia, Liver Disease, Osteoarthritis (OA), Thyroid Disorder Additional Past Medical History / Comment(s): PT STATED IN 2011 LIVER BX SHOWED FIBROSIS,2016 LIVER BX SHOWED CIRRHOIS(FATTY LIVER), DJD, UTI, pancreatic cancer lymph node involvement, SMV Thrombosis History of Any Multi-Drug Resistant Organisms: None Reported Past Surgical History: Section, Cholecystectomy, Hernia Repair, Orthopedic Surgery, Tubal Ligation Additional Past Surgical History / Comment(s): Caitie Surgery 2009, rosa 2009, c section 1980, 1983, carpal tunnel surgery bilateral, 2 x hernia surgery, dequervains bilateral hands, 2014 lumbar fusion. EGD- 2015.1-23-17 BX PANCREAS AND LYMPH NODES AT [facility] LAST CHEMO TREATMENT 02/11/18. Past Anesthesia/Blood Transfusion Reactions: No Reported Reaction Past Psychological History: No Psychological Hx Reported Additional Psychological History / Comment(s): PT STATED SHE TRIES TO STAY POSITIVE NO DEPRESSION CURRENTLY. NO THOUGHTS OF WANTING TO HARM SELF. Smoking Status: Former smoker Past Alcohol Use History: None Reported Additional Past Alcohol Use History / Comment(s): STARTED SMOKING IN 1976, Quit smoking January 2016, 1.5 ppd Past Drug Use History: None Reported - Past Family History Brother(s) Family Medical History: Cancer, Liver Disease, Myocardial Infarction ([place]) Additional Family Medical History / Comment(s): Patient states has 7 brothers- 6 brothers have Mother Family Medical History: Diabetes Mellitus, Thyroid Disorder Father Family Medical History: Cancer, CVA/TIA, Hypertension, Prostate Disorder Additional Family Medical History / Comment(s): bone ca sisters Additional Family Medical History / Comment(s): sister from down syndrome-1968 other sister from drug overdose in 2008. Medications and Allergies Home Medications Medication Instructions Recorded Confirmed Type Ranitidine HCl [Zantac] 150 mg PO BID 06/12/16 03/22/18 History Levothyroxine Sodium [Synthroid] 100 mcg PO HS 09/20/16 03/22/18 History Gabapentin [Neurontin] 100 mg PO HS 08/01/17 03/22/18 History LORazepam [Ativan] 0.5 mg PO TID PRN 08/01/17 03/22/18 History Morphine Sulfate [Morphine Sulfate 5 - 7 mg PO HS 08/01/17 03/22/18 History Oral Soln Conc (20 MG/ML)] Prochlorperazine [Compazine] 10 mg PO HS PRN 08/01/17 03/22/18 History Lisinopril [Zestril] 5 mg PO HS 02/14/18 03/22/18 History Rivaroxaban [Xarelto] 20 mg PO HS 02/14/18 03/22/18 History diphenhydrAMINE [Benadryl] 25 - 50 mg PO HS PRN 02/14/18 03/22/18 History fentaNYL 25MCG/HR PATCH [Duragesic 1 patch TRANSDERM Q72H 02/14/18 03/22/18 History 25MCG/HR] Dronabinol [Marinol] 5 mg PO BID 03/22/18 03/22/18 History Lidocaine-Prilocaine Cream [Emla 1 applic TOPICAL DAILY PRN 03/22/18 03/22/18 History Cream 2.5%/2.5%] amLODIPine [Norvasc] 5 mg PO HS 03/22/18 03/22/18 History Allergies Allergy/AdvReac Type Severity Reaction Status Date / Time acetaminophen [From Vicodin] Allergy Rash/Hives Verified 03/22/18 20:23 codeine Allergy Rash/Hives Verified 03/22/18 20:23 hydrocodone [From Vicodin] Allergy Rash/Hives Verified 03/22/18 20:23 Sulfa (Sulfonamide Allergy Dyspnea Verified 03/22/18 20:23 Antibiotics) atorvastatin [From Lipitor] AdvReac Unknown Verified 03/22/18 20:23 pravastatin [From Pravachol] AdvReac Unknown Verified 03/22/18 20:23 rosuvastatin [From Crestor] AdvReac Unknown Verified 03/22/18 20:23 Physical Exam Vitals: Vital Signs Temp Pulse Pulse Resp BP BP Pulse Ox 03/23/18 07:12 97.2 F L 85 16 121/72 98 03/23/18 01:24 97.6 F 78 18 128/58 100 03/23/18 00:41 18 03/23/18 00:00 97.0 F L 03/22/18 23:39 78 18 127/60 99 03/22/18 21:54 74 17 112/61 98 03/22/18 20:12 18 03/22/18 19:55 97.7 F 80 18 108/70 99 Intake and Output 03/22/18 03/23/18 03/23/18 22:59 06:59 14:59 Other: # Voids 1 Weight 60.419 kg General appearance: The patient is alert, oriented, in no acute distress. Visibly jaundice. HET: Head is normocephalic and atraumatic. Pupils are equal and reactive. Oropharynx is clear without lesions. Sclerae icterus. Neck: Supple without lymphadenopathy. Trachea midline. Heart: S1 S2. Regular rate and rhythm. Lungs: No crackles or wheezes are heard. Abdomen: Soft, distended with moderate ascites with bowel sounds. No peritoneal signs. No palpable organomegaly or masses. Extremities: Mild asterixis. Normal skin color and turgor. No cyanosis, rash, ulceration, clubbing, or edema. Radial and pedal pulses are 2/4 bilaterally. Neurological: No focal deficits. Strength and sensation are grossly intact. Results CBC & Chem 7: 03/22/18 20:55 03/22/18 20:55 Labs: Abnormal Lab Results - Last 24 Hours (Table) 03/22/18 03/22/18 03/22/18 Range/Units 20:55 20:55 20:55 WBC 14.5 H (3.8-10.6) k/uL RBC 3.37 L (3.80-5.40) m/uL MCV 101.1 H (80.0-100.0) fL RDW 17.1 H (11.5-15.5) % Neutrophils # 11.6 H (1.3-7.7) k/uL Lymphocytes # 0.8 L (1.0-4.8) k/uL Monocytes # 1.4 H (0-1.0) k/uL PT (9.0-12.0) sec INR (<1.2) APTT (22.0-30.0) sec Sodium 126 L (137-145) mmol/L Chloride 93 L (98-107) mmol/L BUN 28 H (7-17) mg/dL Glucose 108 H (74-99) mg/dL Calcium 8.0 L (8.4-10.2) mg/dL Total Bilirubin 19.8 H* (0.2-1.3) mg/dL Conjugated Bilirubin 13.8 H (0.0-0.3) mg/dL Unconjugated Bilirubin 2.3 H (0.0-1.1) mg/dL Delta Bilirubin 3.7 H (0.0-0.2) mg/dL AST 93 H (14-36) U/L ALT 56 H (9-52) U/L Alkaline Phosphatase 207 H (38-126) U/L Ammonia 44 H (<30) umol/L Total Protein 6.0 L (6.3-8.2) g/dL Albumin 2.4 L (3.5-5.0) g/dL 03/22/18 Range/Units 20:55 WBC (3.8-10.6) k/uL RBC (3.80-5.40) m/uL MCV (80.0-100.0) fL RDW (11.5-15.5) % Neutrophils # (1.3-7.7) k/uL Lymphocytes # (1.0-4.8) k/uL Monocytes # (0-1.0) k/uL PT 19.3 H (9.0-12.0) sec INR 2.1 H (<1.2) APTT 46.8 H (22.0-30.0) sec Sodium (137-145) mmol/L Chloride (98-107) mmol/L BUN (7-17) mg/dL Glucose (74-99) mg/dL Calcium (8.4-10.2) mg/dL Total Bilirubin (0.2-1.3) mg/dL Conjugated Bilirubin (0.0-0.3) mg/dL Unconjugated Bilirubin (0.0-1.1) mg/dL Delta Bilirubin (0.0-0.2) mg/dL AST (14-36) U/L ALT (9-52) U/L Alkaline Phosphatase (38-126) U/L Ammonia (<30) umol/L Total Protein (6.3-8.2) g/dL Albumin (3.5-5.0) g/dL Assessment and Plan (1) Pancreatic cancer Narrative/Plan: 62-year-old female with a history of metastatic pancreatic cancer liver metastasis admitted with worsening liver enzymes new onset of jaundice, recurrent ascites and coagulopathy. Suspect jaundice elevated liver enzymes coagulopathy secondary to progression of malignancy. Current Visit: Yes Status: Acute Code(s): C25.9 - MALIGNANT NEOPLASM OF PANCREAS, UNSPECIFIED SNOMED Code(s): 300504796 (2) Jaundice Current Visit: Yes Status: Acute Code(s): R17 - UNSPECIFIED JAUNDICE SNOMED Code(s): 99137129 (3) Elevated liver enzymes Current Visit: Yes Status: Acute Code(s): R74.8 - ABNORMAL LEVELS OF OTHER SERUM ENZYMES SNOMED Code(s): 180893840 (4) Coagulopathy Current Visit: Yes Status: Acute Code(s): D68.9 - COAGULATION DEFECT, UNSPECIFIED SNOMED Code(s): 25306301 (5) Hyperammonemia Current Visit: Yes Status: Acute Code(s): E72.20 - DISORDER OF UREA CYCLE METABOLISM, UNSPECIFIED SNOMED Code(s): 4372425 (6) History of cirrhosis of liver Current Visit: Yes Status: Acute Code(s): Z87.19 - PERSONAL HISTORY OF OTHER DISEASES OF THE DIGESTIVE SYSTEM SNOMED Code(s): 228131095 (7) Ascites Current Visit: Yes Status: Acute Code(s): R18.8 - OTHER ASCITES SNOMED Code(s): 449767193 Plan: 1. Paracentesis. Vitamin K FFP. Anticoagulation on hold. We'll evaluate for discharge diuretics after paracentesis is completed. Low-salt diet. Will follow closely with you. Thank you for this kind referral and the opportunity to participate in the care of your patient. This consultation was discussed with Dr. Paz. The impression and plan of care have been directed as dictated.
[2018-03-23] MEDS ORDERED: SPIRONOLACTONE 25 MG TAB PO SCH (09:30)
[2018-03-23] MEDS ORDERED: FUROSEMIDE 40 MG TAB PO SCH (09:30)
[2018-03-23] MEDS ORDERED: LACTULOSE 20 GM/30 ML CUP PO SCH (10:15)
[2018-03-23 12:43] LABS: INR 1.8 (<1.2); Prothrombin Time 16.1 sec (9.0-12.0)
--- NOTE | 2018-03-23 16:19 | US ---
EXAMINATION TYPE: US paracentesis abd w/image DATE OF EXAM: 03/23/2018 COMPARISON: NONE HISTORY: Ascites. PROCEDURE: Maximal barrier technique was utilized. The skin overlying a suitable pocket of fluid was localized with ultrasound and the overlying skin was prepped and draped. Ultrasound was utilized with sterile technique. Lidocaine was used for local anesthesia and a skin jessica made with a scalpel. Catheter was advanced under direct ultrasound guidance into a suitable pocket of fluid and approximately 3.1 liter s of serous fluid were removed. Catheter was withdrawn and hemostasis achieved. There is no immedia te complication; the patient is discharged in stable condition. IMPRESSION: STATUS POST ULTRASOUND GUIDED PARACENTESIS FOR PALLIATION OF ASCITES. THIS PROCEDURE WA S PERFORMED BY THE UNDERSIGNED.
[2018-03-23 17:20] VITALS: BP 121/76; PULSE 104; RESP 18; TEMP 97.5
--- NOTE | 2018-03-23 17:29 | P.CONS ---
History of Present Illness - Reason for Consult Consult date: 03/23/18 metastatic and get a cancer, impending liver failure, coagulopathy - History of Present Illness Ms Toth is a pleasant WF, initially seen in consult at [facility] on 09/23/16. She had presented with abdominal pain, present since 06/29, and becoming more persistent and progressive. She was found on CT scans to have hepatomegaly, and enlarged upper abdominal nodes. She had a h/o elevated liver enzymes since 2011 , with biopsy in 02/23 revealing lobular fibrosis, and a repeat in 06/29 showing cirrhosis. MRI showed possiblity of multiple nodules in the liver, but no distinct ones, that would be appropriate as a biopsy target. She was thus referred to , where she had an EUS on 10/09/15. The pancreatic duct was dilated throughout the length of the pancreas, with no distinct mass seen. 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 Ca 19-9 was elevated in the 300-400 range. She was readmitted to [facility] due to increased pain. Medications were adjusted. The diagnosis was discussed and FOLFOX was recommended. She had a PORT placed on 10/20/16 and was then discharged. She had a PET scan on 10/25/16, revealing at least 4 areas of uptake in the right lobe of the liver, areas of uptake in the body and tail of pancreas, and adjacent to the right kidney ( likely nodes) She was seen for her 1st OV on 10/27/16. She was then started on FOLFOX, and is s/p 12 cycles, completing those on 04/16/17. She was admitted to [facility] with severe n/v, after cycle 1, not controlled with Zofran, while still on the pump. She improved with supportive care. It was felt that she had a significant component of anticipatory nausea and was started on Ativan She missed the scheduled cycle 4 due to acute bronchitis and UTI, requiring antibiotics. She skipped that and resumed chemo when she was supposed to have # 5 She had some facial and LE swelling after cycle 9, which resolved with a Medrol dose pack. She c/o increased b/l mid/LQ abdominal pain in early 05/31, not associated with n/v/BMs. CT scans and labs were negative for progression. She was seen on 07/23/17 at her own request. She had again developed progressively severe abdominal pain since late 06/30. She reported early satiety , occasional n/v, and poor oral intake. She was placed back on Fentanyl, and Roxanol. She had a repeat CT on 07/31/17 , revealing progression in the portal and mesenteric nodes and in one lesion in the liver. A SMV thrombosis was noted and she was admitted to [facility] and then discharged on Lovenox. She was subsequently changed to Xarelto. She started on Gemzar + Abraxane on 08/14/17, and is s/p 6 cycles. D 15 C 5 was delayed due to low WBC, as with C 1. Neulasta was added with C 1. Dose was reduced by 10% for C 2, and another 10% for C 3. She required blood transfusions with C 2. D15 C2 was omitted due to low counts and an ear infection, requiring antibiotics. D 15 C4 and C5, were also omitted due to low counts. She had dose reduction by another 15% for C 6. D 15 C6 was delayed due to low counts. At her visit on 02/11/18, she was noted to have new onset ascites. She was subsequently admitted to the hospital for UTI with sepsis, and progressive abdominal distention and pain. She underwent paracentesis, and was treated with antibiotics for the UTI, with improvement. She developed urinary bleeding after catheter placement due to which her and the correlation was held. The patient was discharged on diuretics for her ascites. Cytology on the fluid was negative, and S AAG gradient was greater than 1.1 indicating that this was transudative. On ultrasound, the liver appeared to show cirrhotic morphology. Her Ca 19-9 continued to rise, with repeat CT scans in 03/01 showing progression in the liver, as well as new nodule in the RLL . The patient was seen in the office on 03/12/18. Change in chemotherapy regimen was discussed. However she was felt to be at high risk of side effects due to her underlying liver disease that appear to be progressive (even without cancer progression). Therefore, it was felt that comfort care would also be a reasonable option. The patient had called the office yesterday indicating that she wanted hospice. She was seen by the hospice service at home, but was noted to have increased jaundice and abdominal distention. She is complaining of increased abdominal pain. Therefore it was recommended that she go to the hospital to have therapeutic paracentesis and symptom control, prior deciding on hospice. She went to the emergency room and was admitted for the same. Her labs showed marked increase in bilirubin into the 19+ range, whereas it had been normal on 02/27/18. Ultrasound showed no evidence of biliary obstruction. Coags were abnormal with INR 2.1. Consult was therefore placed for further evaluation and recommendations Review of Systems Constitutional: Reports chronic pain, Reports fatigue, Reports poor appetite, Reports weakness, Reports weight loss Eyes: denies blurred vision, denies pain Ears: deny: decreased hearing, ear discharge, earache, tinnitus Ears, nose, mouth and throat: Denies headache, Denies sore throat Cardiovascular: Reports dyspnea on exertion Respiratory: Reports dyspnea Gastrointestinal: Reports as per HPI, Reports abdominal pain, Reports bloating Genitourinary: Denies dysuria, Denies hematuria Menstruation: Reports postmenopausal Musculoskeletal: Reports muscle weakness Integumentary: Reports color changes Neurological: Reports weakness, Denies numbness Psychiatric: Denies anxiety, Denies depression Endocrine: Reports fatigue, Reports weight change Hematologic/Lymphatic: Reports as per HPI Past Medical History Past Medical History: Cancer, GERD/Reflux, Hyperlipidemia, Liver Disease, Osteoarthritis (OA), Thyroid Disorder Additional Past Medical History / Comment(s): PT STATED IN 2011 LIVER BX SHOWED FIBROSIS,2015 LIVER BX SHOWED CIRRHOIS(FATTY LIVER), DJD, UTI, pancreatic cancer lymph node involvement, SMV Thrombosis History of Any Multi-Drug Resistant Organisms: None Reported Past Surgical History: Section, Cholecystectomy, Hernia Repair, Orthopedic Surgery, Tubal Ligation Additional Past Surgical History / Comment(s): Caitie Surgery 2009, rosa 2009, c section 1980, 1983, carpal tunnel surgery bilateral, 2 x hernia surgery, dequervains bilateral hands, 2014 lumbar fusion. EGD- 2015.10-06-16 BX PANCREAS AND LYMPH NODES AT [facility] LAST CHEMO TREATMENT 02/11/18. Past Anesthesia/Blood Transfusion Reactions: No Reported Reaction Past Psychological History: No Psychological Hx Reported Additional Psychological History / Comment(s): PT STATED SHE TRIES TO STAY POSITIVE NO DEPRESSION CURRENTLY. NO THOUGHTS OF WANTING TO HARM SELF. Smoking Status: Former smoker Past Alcohol Use History: None Reported Additional Past Alcohol Use History / Comment(s): STARTED SMOKING IN 1976, Quit smoking January 2016, 1.5 ppd Past Drug Use History: None Reported - Past Family History Brother(s) Family Medical History: Cancer, Liver Disease, Myocardial Infarction ([place]) Additional Family Medical History / Comment(s): Patient states has 7 brothers- 6 brothers have Mother Family Medical History: Diabetes Mellitus, Thyroid Disorder Father Family Medical History: Cancer, CVA/TIA, Hypertension, Prostate Disorder Additional Family Medical History / Comment(s): bone ca sisters Additional Family Medical History / Comment(s): sister from down syndrome-1968 other sister from drug overdose in 2008. Medications and Allergies Home Medications Medication Instructions Recorded Confirmed Type Ranitidine HCl [Zantac] 150 mg PO BID 06/12/16 03/22/18 History Levothyroxine Sodium [Synthroid] 100 mcg PO HS 09/20/16 03/22/18 History Gabapentin [Neurontin] 100 mg PO HS 08/01/17 03/22/18 History Morphine Sulfate [Morphine Sulfate 5 - 7 mg PO HS 08/01/17 03/22/18 History Oral Soln Conc (20 MG/ML)] Prochlorperazine [Compazine] 10 mg PO HS PRN 08/01/17 03/22/18 History fentaNYL 25MCG/HR PATCH [Duragesic 1 patch TRANSDERM Q72H 02/14/18 03/22/18 History 25MCG/HR] Dronabinol [Marinol] 5 mg PO BID 03/22/18 03/22/18 History Lidocaine-Prilocaine Cream [Emla 1 applic TOPICAL DAILY PRN 03/22/18 03/22/18 History Cream 2.5%/2.5%] amLODIPine [Norvasc] 5 mg PO HS 03/22/18 03/22/18 History LORazepam [Ativan] 1 mg PO Q4H #30 tablet 03/23/18 Rx Lactulose [Cephulac] 20 gm PO DAILY ml 03/23/18 Rx MORPHINE ORAL TSERING CONC 20mg/mL 5 mg PO Q4H PRN #30 ml 03/23/18 Rx [Roxanol Oral Soln Conc 20Mg/ml] Scopolamine 1.5MG/72Hr Patch 1 patch TRANSDERM Q72H #5 patch 03/23/18 Rx [TransDerm Scop] Allergies Allergy/AdvReac Type Severity Reaction Status Date / Time acetaminophen [From Vicodin] Allergy Rash/Hives Verified 03/22/18 20:23 codeine Allergy Rash/Hives Verified 03/22/18 20:23 hydrocodone [From Vicodin] Allergy Rash/Hives Verified 03/22/18 20:23 Sulfa (Sulfonamide Allergy Dyspnea Verified 03/22/18 20:23 Antibiotics) atorvastatin [From Lipitor] AdvReac Unknown Verified 03/22/18 20:23 pravastatin [From Pravachol] AdvReac Unknown Verified 03/22/18 20:23 rosuvastatin [From Crestor] AdvReac Unknown Verified 03/22/18 20:23 Physical Exam Vitals: Vital Signs Temp Pulse Pulse Resp BP BP BP 03/23/18 10:51 83 18 129/76 03/23/18 10:30 89 16 122/77 03/23/18 07:12 97.2 F L 85 16 121/72 03/23/18 01:24 97.6 F 78 18 128/58 03/23/18 00:41 18 03/23/18 00:00 97.0 F L 03/22/18 23:39 78 18 127/60 03/22/18 21:54 74 17 112/61 03/22/18 20:12 18 03/22/18 19:55 97.7 F 80 18 108/70 Pulse Ox 03/23/18 10:51 97 03/23/18 10:30 95 03/23/18 07:12 98 03/23/18 01:24 100 03/23/18 00:41 03/23/18 00:00 03/22/18 23:39 99 03/22/18 21:54 98 03/22/18 20:12 03/22/18 19:55 99 Intake and Output 03/22/18 03/23/18 03/23/18 22:59 06:59 14:59 Other: # Voids 1 Weight 60.419 kg - Constitutional generalized weakness General appearance: no acute distress - EENT Eyes: EOMI, PERRLA, scleral icterus ENT: hearing grossly normal, normal oropharynx - Neck Neck: no lymphadenopathy Thyroid: bilateral: normal size - Respiratory Respiratory: bilateral: CTA - Cardiovascular Rhythm: regular Heart sounds: normal: S1, S2 - Gastrointestinal ascites positive by exam General gastrointestinal: distended, normal bowel sounds - Integumentary Integumentary: jaundiced - Neurologic Neurologic: CNII-XII intact - Musculoskeletal Musculoskeletal: generalized weakness, strength equal bilaterally - Psychiatric Psychiatric: A&O x's 3, appropriate affect Results CBC & Chem 7: 03/22/18 20:55 03/22/18 20:55 Labs: Abnormal Lab Results - Last 24 Hours (Table) 03/22/18 03/22/18 03/22/18 Range/Units 20:55 20:55 20:55 WBC 14.5 H (3.8-10.6) k/uL RBC 3.37 L (3.80-5.40) m/uL MCV 101.1 H (80.0-100.0) fL RDW 17.1 H (11.5-15.5) % Neutrophils # 11.6 H (1.3-7.7) k/uL Lymphocytes # 0.8 L (1.0-4.8) k/uL Monocytes # 1.4 H (0-1.0) k/uL PT (9.0-12.0) sec INR (<1.2) APTT (22.0-30.0) sec Sodium 126 L (137-145) mmol/L Chloride 93 L (98-107) mmol/L BUN 28 H (7-17) mg/dL Glucose 108 H (74-99) mg/dL Calcium 8.0 L (8.4-10.2) mg/dL Total Bilirubin 19.8 H* (0.2-1.3) mg/dL Conjugated Bilirubin 13.8 H (0.0-0.3) mg/dL Unconjugated Bilirubin 2.3 H (0.0-1.1) mg/dL Delta Bilirubin 3.7 H (0.0-0.2) mg/dL AST 93 H (14-36) U/L ALT 56 H (9-52) U/L Alkaline Phosphatase 207 H (38-126) U/L Ammonia 44 H (<30) umol/L Total Protein 6.0 L (6.3-8.2) g/dL Albumin 2.4 L (3.5-5.0) g/dL 03/22/18 Range/Units 20:55 WBC (3.8-10.6) k/uL RBC (3.80-5.40) m/uL MCV (80.0-100.0) fL RDW (11.5-15.5) % Neutrophils # (1.3-7.7) k/uL Lymphocytes # (1.0-4.8) k/uL Monocytes # (0-1.0) k/uL PT 19.3 H (9.0-12.0) sec INR 2.1 H (<1.2) APTT 46.8 H (22.0-30.0) sec Sodium (137-145) mmol/L Chloride (98-107) mmol/L BUN (7-17) mg/dL Glucose (74-99) mg/dL Calcium (8.4-10.2) mg/dL Total Bilirubin (0.2-1.3) mg/dL Conjugated Bilirubin (0.0-0.3) mg/dL Unconjugated Bilirubin (0.0-1.1) mg/dL Delta Bilirubin (0.0-0.2) mg/dL AST (14-36) U/L ALT (9-52) U/L Alkaline Phosphatase (38-126) U/L Ammonia (<30) umol/L Total Protein (6.3-8.2) g/dL Albumin (3.5-5.0) g/dL US - abdomen: report reviewed Assessment and Plan (1) Pancreatic cancer Narrative/Plan: Diagnostic and therapeutic circumstances as noted above. The patient has developed progressive disease, and was felt to be a poor candidate for further chemotherapy as she has failed to aggressive regimens, and has significant underlying liver dysfunction, independent of her liver metastasis. The proposed regimen would have been potentially hepatotoxic. Therefore after our discussion in the office, the patient has decided on hospice and comfort care. She was admitted for paracentesis for symptom control , and will go on hospice at discharge. Her CODE STATUS should therefore be a no code no CPR. On this admission, the patient is noted to have marked increase in liver enzymes without evidence of bleeding obstruction, indicating rapid hepatocellular failure. The implications were discussed with her in detail. She was advised that this, unfortunately, means that her prognosis is likely quite limited. She is therefore quite keen to go home as soon as possible. We will do our best to facilitate that. Current Visit: Yes Status: Acute Code(s): C25.9 - MALIGNANT NEOPLASM OF PANCREAS, UNSPECIFIED SNOMED Code(s): 910419476 (2) Ascites Narrative/Plan: She has required paracentesis in the past, with fluid cytology negative, and SAAG indicating transudative condition. The patient has had progression of ascites with symptoms. Ultrasound-guided paracentesis will be requested for comfort Current Visit: Yes Status: Acute Code(s): R18.8 - OTHER ASCITES SNOMED Code(s): 973502232 (3) Coagulopathy Narrative/Plan: Due to rapidly advancing liver dysfunction. As the patient has upcoming paracentesis, she'll be given IV vitamin K. Fresh frozen plasma will be ordered to be given at the time of the procedure, if felt to be needed by IR Current Visit: Yes Status: Acute Code(s): D68.9 - COAGULATION DEFECT, UNSPECIFIED SNOMED Code(s): 75411536 (4) Hyperbilirubinemia Narrative/Plan: There has been a very rapid increase in bilirubin levels. This is likely due to underlying hepatocellular disease and progression of her malignancy. There is no biliary obstruction that can be acutely relieved. This is indicative of impending liver failure and a very limited prognosis. The implications were discussed in detail with the patient Current Visit: Yes Status: Acute Code(s): E80.6 - OTHER DISORDERS OF BILIRUBIN METABOLISM SNOMED Code(s): 35257172
--- NOTE | 2018-03-23 22:28 | HP ---
HISTORY AND PHYSICAL HISTORY AND PHYSICAL AND DISCHARGE SUMMARY: DATE OF ADMISSION: 03/22/2018. DATE OF SERVICE: 03/23/2018. DATE OF DISCHARGE: 03/23/2018 PRESENTING COMPLAINT: Abdominal distention. HISTORY OF PRESENTING COMPLAINT: This is a very pleasant 62-year-old patient of Dr. Heck as a family doctor and Dr. Azul as her oncologist. The patient has a known diagnosis of pancreatic cancer, rather advanced. 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 Medical debility has been progressive. The patient was here in the hospital in the early part of February and then followed up with Dr. Azul. It was decided to stop all treatment, as patient was not responding. The patient's ascites was getting much worse and patient decided to come to the hospital to get some palliative care in terms of paracentesis. Denies any nausea, vomiting. Tolerating a diet, is having a bowel movement. No fever and chills. The patient's other family members, including daughters, are present. REVIEW OF SYSTEMS: CONSTITUTIONAL: Weak, tired, run down. HEENT: None. RESPIRATORY: Slight shortness of breath. CARDIOVASCULAR: None. GASTROINTESTINAL: Abdominal pain, distention. GENITOURINARY: None. MUSCULOSKELETAL: Pain in the joints. DERMATOLOGICAL: Some bruising. HEMATOLOGICAL: None. LYMPHATICS: None. PSYCHIATRY: Slight anxiety. NEUROLOGICAL: Numbness and tingling. PAST MEDICAL HISTORY: GERD, hyperlipidemia, osteoarthritis, cryptogenic cirrhosis, pancreatic cancer with mets to the spine, superior mesenteric vein thrombosis. PAST SURGICAL HISTORY: , cholecystectomy, Caitie surgery 2009, bilateral carpal tunnel, lumbar fusion 2013. SOCIAL HISTORY: The patient smoked from 1996 to 2015, a pack and half a day. No alcohol. . FAMILY HISTORY: Six of them had myocardial infarctions and there is also cancer in the family. HOME MEDICATIONS: 1. Compazine 10 mg q.h.s. p.r.n. 2. Morphine sulfate 20 mg, 5-7 mg q.h.s. 3. Synthroid 100 mcg p.o. q.h.s. 4. Neurontin 100 mg p.o. q.h.s. 5. Fentanyl 25 mcg patch every 72 hours. 6. Zantac 150 mg p.o. b.i.d. 7. EMLA cream 2.5/2.5 one application topical daily p.r.n. 8. Marinol 5 mg p.o. b.i.d. 9. Norvasc 5 mg p.o. q.h.s. 10.Lactulose p.r.n. ALLERGY: To ACETAMINOPHEN, CODEINE, VICODIN, SULFA, LIPID and STATINS. EXAMINATION: VITAL SIGNS: On presentation, temperature 97, pulse 72, respirations 18, blood pressure 127/60, pulse ox 99% on 2L. GENERAL APPEARANCE: Thin build, tired-appearing, sitting up. EYES: Pupils equal. Conjunctivae icteric, pale. HEENT: External appearance of nose and ears normal. Oral cavity dry. NECK: JVD not raised. Mass not palpable. RESPIRATORY: Effort normal. LUNGS: Diminished breath sounds. CARDIOVASCULAR: First and second sounds normal. Mild edema. ABDOMEN: Distended, mild tenderness. Abdomen soft. Liver, spleen not palpable. LYMPHATIC: No lymph node palpable in neck or axillae. PSYCHIATRY: Alert and oriented x3. Mood and affect were normal. INVESTIGATIONS: White count 14.5, hemoglobin 11.6. ProTime 19.3. Potassium 3.9, sodium 129, BUN 28, creatinine 0.7. Bilirubin 19.8. Albumin 2.4. Liver ultrasound: Moderate ascites, large portal venous system. Chest x-ray film reviewed and interpreted by me shows normal x-ray pattern and a port on the right side. ASSESSMENT: 1. Worsening and large symptomatic ascites in a patient secondary to cryptogenic cirrhosis. 2. 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 3. 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 4. Gastroesophageal reflux disease. 5. Primary osteoarthritis. 6. Medical debility, worsening from malignancy. 7. Moderate protein-calorie malnutrition from decreased oral intake. 8. Pancreatic cancer, advanced. 9. Hyper bilirubinemia. 10.Hyponatremia, likely hypoosmolar from decreased salt intake. PLAN: I had a lengthy talk with the patient and patient's family at the bedside. They want thoracentesis to be done and did want any more heroic measures. The patient is scheduled for paracentesis this afternoon for palliation. GI was consulted earlier today. DISPOSITION: Home with hospice. ADVANCED CARE PLANNING: I discussed this with the patient and patient's 2 daughters at the bedside. The patient accepted to go under hospice. The patient requested VNA. I did speak to the VNA liaison and she will be going to talk in the family. A family member will be checking at home. I also discussed different medications, including Roxanol, Ativan and scopolamine patch. Other home medications will be continued. Will stop patient's lisinopril, as blood pressure will not be required for that, and also give lactulose. Different questions were answered. More than 30 minutes was spent on this aspect of the case. REENA / LESLEYN: [id number] /
--- NOTE | 2018-03-29 11:13 | CDI ---
Last Revision, August 2017 Documentation Clarification Form Date: 03/29/18 From: BERT Connolly Phone: If you have question, contact Angie Sanford Assistant County Attorney at [phone] M-F 8:30 am to 6pm. Admit Date: 03/22/2018 11:32:00 PM Patient Name: Tiny Toth Visit Number: [id number] Discharge Date: 03/23/18 ATTENTION: The Clinical Documentation Specialists (CDI) and [facility] Coding Staff appreciate your assistance in clarifying documentation. Please respond to the clarification below the line at the bottom and electronically sign. The CDI & [facility] Coding staff will review the response and follow-up if needed. Please note: Queries are made part of the Legal Health Record. If you have any questions, please contact the author of this message via ITS. Dr. 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 She had been on Xarelto previously for this but it was discontinued (about a month ago) due to persistent hematuria as outpatient. The patient is admitted at this time for a paracentesis due to ascites from her cancer. Liver ultrasound on this stay shows large portal venous system consistent with portal venous hypertension. At this time she is not admitted nor discharged on any anticoagulant. She is being discharged on home hospice. According to information in [facility], Fourth Quarter 2005, pages 236-240. "Code all documented conditions that coexist at the time of the encounter/visit and require or affect patient care treatment or management. Do not code conditions that were previously treated and no longer exist." Please clarify if: The superior mesenteric vein thrombosis currently coexists at the time of this encounter and affects the patient current care OR The superior mesenteric vein thrombosis was previously treated and no longer exists Thank you for your time. ___ chronic superior mesentric vein thrombosis.-POA MTDD
== END 2018-03-23 17:40 | disposition hospice, home (50) | DRG 435 ==
LOC: EC 18:17 → 5MS5E 23:32
PROVIDERS: ADMIT Hospitalist; ATTEND Hospitalist
PROC: 0W9G3ZZ Drainage of Peritoneal Cavity, Percutaneous Approach (ICD-10-PCS; principal; 2018-03-23)
DX: C78.7 Secondary malignant neoplasm of liver and intrahepatic bile duct (principal); I81 Portal vein thrombosis; C25.9 Malignant neoplasm of pancreas, unspecified; R18.8 Other ascites; E87.1 Hypo-osmolality and hyponatremia; E44.0 Moderate protein-calorie malnutrition; C77.9 Secondary and unspecified malignant neoplasm of lymph node, unspecified; C79.51 Secondary malignant neoplasm of bone; K76.6 Portal hypertension; D68.9 Coagulation defect, unspecified; K55.1 Chronic vascular disorders of intestine; K74.69 Other cirrhosis of liver; K21.9 Gastro-esophageal reflux disease without esophagitis; K72.90 Hepatic failure, unspecified without coma; M19.91 Primary osteoarthritis, unspecified site; E07.9 Disorder of thyroid, unspecified; E78.5 Hyperlipidemia, unspecified; Z66 Do not resuscitate; Z51.5 Encounter for palliative care; Z88.8 Allergy status to other drugs, medicaments and biological substances; Z68.22 Body mass index [BMI] 22.0-22.9, adult; Z79.890 Hormone replacement therapy; Z88.5 Allergy status to narcotic agent; Z88.2 Allergy status to sulfonamides; Z79.899 Other long term (current) drug therapy; Z92.21 Personal history of antineoplastic chemotherapy; Z87.891 Personal history of nicotine dependence; Z79.891 Long term (current) use of opiate analgesic; Z90.49 Acquired absence of other specified parts of digestive tract; Z82.49 Family history of ischemic heart disease and other diseases of the circulatory system; Z87.440 Personal history of urinary (tract) infections; Z86.19 Personal history of other infectious and parasitic diseases; Z80.8 Family history of malignant neoplasm of other organs or systems; Z88.6 Allergy status to analgesic agent; Z83.49 Family history of other endocrine, nutritional and metabolic diseases; Z83.3 Family history of diabetes mellitus
CPT/HCPCS: 36415; 49083; 71046; 76705; 80053; 82140; 82248; 85025; 85610; 85730; 86850; 86900; 86901; 96374; 99285